=== PATIENT | female | born 1970 | race African-American/Black ===

== ENCOUNTER 2016-08-08 07:19 | Day surgery (SDC) | payer MEDICAID ==
[~2016-08-08 07:19] MED LIST: Lactated Ringers 1,000 ML IV SCH; Midazolam 1 MG/ML 2 ML SDV ONE; Ondansetron 4 MG/2 ML SDV ONE; Propofol 200 MG/20 ML SDV ONE; ceFAZolin 2 GM in Premix Bag 1 BAG IV SCH; fentaNYL 250 MCG/5 ML SDV ONE
[2016-08-08] MEDS ORDERED: Lidocaine 1% 50 ML MDV ONE (07:47)
[2016-08-08] MEDS ORDERED: Acetaminophen/HYDROcodone 325-5 MG Tab PO PRN (08:00)
--- NOTE | 2016-08-08 08:17 | PCM.PREANE ---
Preanesthetic Assessment - Anesthesia/Transfusion/Family Hx Anesthesia History: Prior Anesthesia Without Reaction Family History of Anesthesia Reaction: No Transfusion History: Prior Transfusion Without Reaction - Review of Systems General: No Symptoms Cardiovascular: No Symptoms Gastrointestinal: No symptoms Neurological: No Symptoms Other: Reports: None - Physical Assessment NPO Status Date: 08/07/16 NPO Status Time: 22:00 O2 Sat by Pulse Oximetry: 97 Respiratory Rate: 16 Vital Signs: Last Vital Signs Temp 37.0 C 08/08/16 07:30 Pulse 89 08/08/16 07:30 Resp 16 08/08/16 07:30 BP 136/82 08/08/16 07:30 Pulse Ox 97 08/08/16 07:30 Height: 1.6 m Weight: 107.955 kg ASA Class: 3 Mental Status: Alert & Oriented x3 Airway Class: Mallampati = 2 Dentition: Reports: Missing Tooth/Teeth ROM/Head Extension: Full Lungs: Clear to auscultation, Normal respiratory effort Cardiovascular: Regular Rate, Regular Rhythm - Lab Values: Laboratory Last Values POC Glucose 259 mg/dL (60-110) H 08/08/16 07:46 - Allergies Allergies/Adverse Reactions: Allergies Allergy/AdvReac Type Severity Reaction Status Date / Time No Known Allergies Allergy Verified 08/06/16 12:03 - Anesthesia Plan Pre-Op Medication Ordered: None - Acknowledgements Anesthesia Type Planned: General Anesthesia Pt an Appropriate Candidate for the Planned Anesthesia: Yes Alternatives and Risks of Anesthesia Discussed w Pt/Guardian: Yes Pt/Guardian Understands and Agrees with Anesthesia Plan: Yes Additional Comments: problem list: MO (BMI+40), htn, dm2 on insulin, smoker, fibromyalgia, painful neuropathy BLE, denies heartburn or FERD. 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: Musculoskeletal History: Reports: Arthritis, Back Pain, Chronic, Fibromyalgia Neurological History: Reports: None Psychiatric History: Reports: Depression Endocrine/Metabolic History: Reports: Diabetes, Type II, Obesity/BMI 30+ Hematologic History: Reports: Blood Transfusion(s) Immunologic History: Reports: None Oncologic (Cancer) History: Reports: None Dermatologic History: Reports: None - Past Surgical History Head Surgeries/Procedures: Reports: None HEENT Surgical History: Reports: None Cardiovascular Surgical History: Reports: None GI Surgical History: Reports: Cholecystectomy Female Surgical History: Reports: Section, Hysterectomy Endocrine Surgical History: Reports: None Neurological Surgical History: Reports: None Musculoskeletal Surgical History: Reports: None Oncologic Surgical History: Reports: None Dermatological Surgical History: Reports: None - SUBSTANCE USE Smoking Status *Q: Current Every Day Smoker Tobacco Use Within Last Twelve Months: Cigarettes Recreational Drug Use History: Yes Recreational Drug Type: Reports: Cocaine, Heroin, Marijuana/Hashish, Methamphetamine - HOME MEDS Home Medications: Home Meds Gabapentin [Neurontin] 800 mg PO QID 06/24/14 [History] Lisinopril 20 mg PO QAM 06/24/14 [History] oxyCODONE ER [OxyCONTIN] 10 mg PO ASDIRECTED PRN 11/28/14 [History] Citalopram Hydrobromide [Celexa] 20 mg PO DAILY 08/06/16 [History] Insulin Aspart [NovoLOG] SQ ASDIRECTED 08/06/16 [History] Tresiba SQ ASDIRECTED 08/06/16 [History] - CURRENT (IN HOUSE) MEDS Current Meds: Current Medications Hydrocodone Bitart/Acetaminophen ([place] 325-5 Mg) 1 - 2 tab PO Q4H PRN PRN Reason: Pain Lactated Ringer's (Ringers, Lactated) 1,000 mls @ 100 mls/hr IV ASDIRECTED [facility] Last Admin: 08/08/16 07:54 Dose: 100 mls/hr Cefazolin Sodium/Dextrose 2 gm (/ Premix) 50 mls @ 100 mls/hr IV ONCALL [facility] Discontinued Medications Fentanyl (Sublimaze) Confirm Administered Dose 250 mcg .ROUTE .STK-MED ONE Stop: 08/08/16 07:15 Lidocaine HCl (Xylocaine 1%) Confirm Administered Dose 50 ml .ROUTE .STK-MED ONE Stop: 08/08/16 07:48 Midazolam HCl (Versed 1 Mg/Ml) Confirm Administered Dose 2 mg .ROUTE .STK-MED ONE Stop: 08/08/16 07:15 Ondansetron HCl (Zofran) Confirm Administered Dose 4 mg .ROUTE .STK-MED ONE Stop: 08/08/16 07:15 Propofol (Diprivan 20 Ml) Confirm Administered Dose [address] .[facility] ONE Stop: 08/08/16 07:15
[2016-08-08] MEDS ORDERED: ceFAZolin 1 GM Vial ONE (08:57)
--- NOTE | 2016-08-08 08:57 | PCM.OPNOTE ---
- General Post-Op/Procedure Note Date of Surgery/Procedure: 08/08/16 Operative Procedure(s): L knee arthroscopy with PMM Post-Op Diagnosis: DJD left knee. 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
[2016-08-08] MEDS ORDERED: Ketorolac 30 MG/ML SDV ONE (09:19)
[2016-08-08] MEDS: fentaNYL 100 MCG/2 ML SDV IVPUSH PRN ×2 (10:00→10:06)
--- NOTE | 2016-08-08 10:00 | PCM.POSTAN ---
POST ANESTHESIA ASSESSMENT - MENTAL STATUS Mental Status: alert, oriented - RESPIRATORY Respiratory Status: respiratory rate WNL, airway patent, O2 saturation stable - CARDIOVASCULAR CV Status: pulse rate WNL, blood pressure stable - GASTROINTESTINAL GI Status: no symptoms - POST OP HYDRATION Hydration Status: adequate & stable
--- NOTE | 2016-08-08 10:48 | PCM48HPAN ---
Post Anesthesia Note - EVALUATION WITHIN 48HRS OF ANESTHETIC Vital Signs in Normal Range: Yes Patient Participated in Evaluation: Yes Respiratory Function Stable: Yes Airway Patent: Yes Cardiovascular Function Stable: Yes Hydration Status Stable: Yes Pain Control Satisfactory: Yes Nausea and Vomiting Control Satisfactory: Yes Mental Status Recovered: Yes
[2016-08-08 11:53] VITALS: BP 147/74
--- NOTE | 2016-08-08 12:50 | OR ---
SURGEON: Jenny Sidhu MD DATE OF PROCEDURE: 08/08/2016 PREOPERATIVE DIAGNOSES: 1. Degenerative joint disease left knee. 2. Left knee medial meniscus tear. POSTOPERATIVE DIAGNOSES: 1. Degenerative joint disease left knee. 2. Left knee medial meniscus tear. PROCEDURE: Left knee arthroscopy with partial medial meniscectomy. CARE CONSULTANT: Jaylin Razo PA-C. ANESTHESIA: General. ESTIMATED BLOOD LOSS: 5 mL. TOURNIQUET TIME: 15 minutes. COMPLICATIONS: None. DVT PROPHYLAXIS: Not indicated. IMPLANTS USED: None. BRIEF HISTORY: Cait is a 46-year-old female, who has had complaint of progressive left knee pain. She had failed conservative treatment. Due to her lack of response to conservative treatment, I did recommend surgical intervention. The risks and goals of procedure were discussed with the patient and were documented preoperatively. She agreed to proceed. DESCRIPTION OF PROCEDURE: The patient was properly identified and brought to the operating room. She was transferred from the OR cart and placed on the operating room table in supine position. General anesthesia was administered. After adequate anesthesia was obtained, a well-padded tourniquet was applied to the left lower extremity. The left lower extremity was then prepped in standard fashion using ChloraPrep solution. It was then sterilely draped. A time-out was performed to ensure correct site and procedure. Preoperative antibiotics were given. The surgical site had been marked preoperatively. An Esmarch was used to exsanguinate the left lower extremity and the tourniquet was inflated to 250 mmHg. A lateral portal arthrotomy was established. Blunt trocar and cannula were introduced into the suprapatellar space. Camera, inflow, and outflow were assembled. No significant synovitis was noted. The patellofemoral joint was visualized. The patella appeared to track centrally. I then extended down the lateral gutter. She did have a small osteophyte noted along the lateral femoral condyle. No loose bodies were identified. I then extended down the medial gutter. No loose bodies were identified. I then entered the medial compartment. A medial portal arthrotomy was established. A blunt probe was inserted. She did have a degenerative tear along the posterior horn of the medial meniscus. Using a combination of biters and shaver, this was resected back to a stable remnant. It was again probed and found to be stable. The joint surfaces were then inspected. She had diffuse grade 2 chondromalacia along the femur and tibia. I then entered the notch. Both the ACL and PCL were visualized and probed and found to be intact. I then entered the lateral compartment. The lateral meniscus showed minor degenerative fraying along the central portion of the meniscus. It was probed and found to be stable. The lateral tibial plateau showed diffuse grade 2 to grade 3 degenerative findings. No loose cartilaginous flaps were noted. The lateral femoral condyle showed grade 1 to grade 2 chondromalacia only. I then re-entered the patellofemoral joint. A portion of the fat pad was resected for visualization. Along the central portion of the trochlear groove, there was an area of full thickness cartilage loss. This was probed and the overlying cartilage was found to be unstable. The shaver was used to resect the unstable portion. This measured approximately 5 mm x 15 mm. The undersurface of the patella showed diffuse grade 2 degenerative changes. Instruments were then removed from the knee. The portal sites were closed with 3-0 nylon. Lidocaine 1% was injected along the portal tracts. Xeroform gauze was placed over the wound and a bulky dressing was applied. Tourniquet was then deflated. She was awakened from her anesthetic and transferred back to the operating room cart. She was brought to recovery room in stable condition. All needle and sponge counts were correct. MARYAM / DANNY /[id number]
== END 2016-08-08 11:30 | disposition home or self-care (01) ==
LOC: MW.SDS 07:19
PROVIDERS: ATTEND Orthopaedic Surgery
DX: M23.222 Derangement of posterior horn of medial meniscus due to old tear or injury, left knee (principal); M17.12 Unilateral primary osteoarthritis, left knee; M94.28 Chondromalacia, other site; E11.42 Type 2 diabetes mellitus with diabetic polyneuropathy; I10 Essential (primary) hypertension; M79.7 Fibromyalgia; E66.9 Obesity, unspecified; F32.9 Major depressive disorder, single episode, unspecified; F14.10 Cocaine abuse, uncomplicated; F17.210 Nicotine dependence, cigarettes, uncomplicated; Z90.49 Acquired absence of other specified parts of digestive tract; Z90.710 Acquired absence of both cervix and uterus; Z98.890 Other specified postprocedural states; Z79.4 Long term (current) use of insulin; Z79.891 Long term (current) use of opiate analgesic; Z79.899 Other long term (current) drug therapy
CPT/HCPCS: 29881; 82962; A9270; J0690; J1885; J2250; J2405; J3010; J7120; 00400; 88304; J2704

== ENCOUNTER 2016-09-20 21:50 | Emergency (ER) | payer MEDICAID ==
--- NOTE | 2016-09-20 22:51 | EDM.PDOC ---
<Marc Araujo - Last Filed: 09/20/16 22:41> ED HPI GENERAL MEDICAL PROBLEM - General Chief Complaint: Genitourinary Problem Stated Complaint: POSSIBLE YEAST INFECTION Time Seen by Provider: 09/20/16 22:30 Source of Information: Reports: Patient History Limitations: Reports: No Limitations - History of Present Illness INITIAL COMMENTS - FREE TEXT/NARRATIVE: History of present illness: [46-year-old female comes in complaining of vaginal discharge with discoloration as well as burning and itching. She indicates that she was having sex with a condom when the condom tore and exposed her to her partner semen and subsequently has had this odorous discharge that is very uncomfortable. Desires to be checked for STDs] Review of systems: As per history of present illness and below otherwise all systems reviewed and negative. Past medical history: As per history of present illness and as reviewed below otherwise noncontributory. Surgical history: As per history of present illness and as reviewed below otherwise noncontributory. Social history: No reported history of drug or alcohol abuse. Family history: As per history of present illness and as reviewed below otherwise noncontributory. Physical exam: HEENT: Atraumatic, normocephalic, pupils reactive, negative for conjunctival pallor or scleral icterus, mucous membranes moist, throat clear, neck supple, nontender, trachea midline. Lungs: Clear to auscultation, breath sounds equal bilaterally, chest nontender. Heart: S1S2, regular, negative for clicks, rubs, or JVD. Abdomen: Soft, nondistended, nontender. Negative for masses or hepatosplenomegaly. Negative for costovertebral tenderness. Pelvis: Stable nontender. Genitourinary: Vaginal exam complete with no digna discharge or odor noted multiple swabs and cultures obtained Rectal: Deferred. Extremities: Atraumatic, negative for cords or calf pain. Neurovascular unremarkable. Neuro: Awake, alert, oriented. Cranial nerves II through XII unremarkable. Cerebellum unremarkable. Motor and sensory unremarkable throughout. Exam nonfocal. Diagnostics: [Vaginal exam, multiple swabs] Therapeutics: [] Impression: [] Plan: [] Definitive disposition and diagnosis as appropriate pending reevaluation and review of above. vaginal area Pain Score (Numeric/FACES): 10 - Related Data Allergies Allergy/AdvReac Type Severity Reaction Status Date / Time No Known Allergies Allergy Verified 09/20/16 21:57 Home Meds: Home Meds Gabapentin [Neurontin] 800 mg PO QID 06/24/14 [History] Lisinopril 20 mg PO QAM 06/24/14 [History] oxyCODONE ER [OxyCONTIN] 10 mg PO ASDIRECTED PRN 11/28/14 [History] Citalopram Hydrobromide [Celexa] 20 mg PO DAILY 08/06/16 [History] Insulin Aspart [NovoLOG] SQ ASDIRECTED 08/06/16 [History] Tresiba SQ ASDIRECTED 08/06/16 [History] Acetaminophen/HYDROcodone [[place] 325-5 MG] 1 - 2 tab PO Q4H PRN #80 tablet 08/08 [Rx] Past Medical History HEENT History: Other HEENT History: has upper and lower dentures Cardiovascular History: Reports: Hypertension Respiratory History: Reports: None Gastrointestinal History: Reports: None Genitourinary History: Reports: 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: Musculoskeletal History: Reports: Arthritis, Back Pain, Chronic, Fibromyalgia Neurological History: Reports: None Psychiatric History: Reports: Depression Endocrine/Metabolic History: Reports: Diabetes, Type II, Obesity/BMI 30+ Hematologic History: Reports: Blood Transfusion(s) Immunologic History: Reports: None Oncologic (Cancer) History: Reports: None Dermatologic History: Reports: None - Infectious Disease History Infectious Disease History: Reports: None - Past Surgical History Head Surgeries/Procedures: Reports: None GI Surgical History: Reports: Cholecystectomy Female Surgical History: Reports: Section, Hysterectomy Neurological Surgical History: Reports: None Musculoskeletal Surgical History: Reports: Arthroscopic Knee Oncologic Surgical History: Reports: None Dermatological Surgical History: Reports: None Social & Family History - Family History Family Medical History: Noncontributory - Tobacco Use Smoking Status *Q: Current Every Day Smoker Years of Tobacco use: 30 Packs/Tins Daily: 0.5 - Caffeine Use Caffeine Use: Reports: None - Recreational Drug Use Recreational Drug Use: No Drug Use in Last 12 Months: No Recreational Drug Type: Reports: Cocaine, Heroin, Marijuana/Hashish, Methamphetamine ED ROS GENERAL - Review of Systems Review Of Systems: See Below (See history of present illness) ED EXAM, GENERAL - Physical Exam Exam: See Below (See history of present illness) Course - Vital Signs Last Recorded V/S: Last Vital Signs Temp 36.3 C 09/20/16 21:59 Pulse 102 H 09/20/16 21:59 Resp 16 09/20/16 21:59 BP 158/98 H 09/20/16 21:59 Pulse Ox 98 09/20/16 21:59 - Orders/Labs/Meds Orders: Active Orders 24 hr Category Date Time Status CHLAMYDIA TRACHOMATIS/GC AMPLF Stat Lab 09/20/16 22:30 Received CULTURE GENITAL [RM] Stat Lab 09/20/16 22:30 Received Labs: Laboratory Tests 09/20/16 09/20/16 Range/Units 22:30 22:30 Urine Color YELLOW Urine Appearance CLOUDY Urine pH 5.5 (5.0-8.0) Ur Specific [place] >= 1.030 (1.001-1.035) Urine Protein 100 (NEGATIVE) mg/dL Urine Glucose (UA) 500 H (NEGATIVE) mg/dL Urine Ketones TRACE H (NEGATIVE) mg/dL Urine Occult Blood TRACE-INTACT (NEGATIVE) Urine Nitrite NEGATIVE (NEGATIVE) Urine Bilirubin NEGATIVE (NEGATIVE) Urine Urobilinogen 0.2 (<2.0) EU/dL Ur Leukocyte Esterase NEGATIVE (NEGATIVE) Urine RBC 0-2 (0-2/HPF) Urine WBC 0-1 (0-5/HPF) Ur Epithelial Cells RARE (NONE-FEW) Amorphous Sediment MODERATE (NEGATIVE) Urine Bacteria FEW (NEGATIVE) Emy species DNA POSITIVE H (NEGATIVE) Gardnerella DNA Probe POSITIVE Trichomonas DNA Probe NEGATIVE (NEGATIVE) Departure - Departure Disposition: Home, Self-Care 01 Clinical Impression: Gardnerella infection, Vaginal candidiasis - Discharge Information Forms: ED Department Discharge Additional Instructions: The following information is given to patients seen in the emergency department who are being discharged to home. This information is to outline your options for follow-up care. We provide all patients seen in our emergency department with a follow-up referral. The need for follow-up, as well as the timing and circumstances, are variable depending upon the specifics of your emergency department visit. If you don't have a primary care physician on staff, we will provide you with a referral. We always advise you to contact your personal physician following an emergency department visit to inform them of the circumstance of the visit and for follow-up with them and/or the need for any referrals to a consulting specialist. The emergency department will also refer you to a specialist when appropriate. This referral assures that you have the opportunity for followup care with a specialist. All of these measure are taken in an effort to provide you with optimal care, which includes your followup. Under all circumstances we always encourage you to contact your private physician who remains a resource for coordinating your care. When calling for followup care, please make the office aware that this follow-up is from your recent emergency room visit. If for any reason you are refused follow-up, please contact the [facility] emergency department at and asked to speak to the emergency department charge nurse. [facility] [address] [place] [address] Flagyl Diflucan as prescribed call schedule routine appointment above return as needed as discussed <Alen Song - Last Filed: 09/20/16 23:54> Departure - Departure Time of Disposition: 23:53 Condition: Good
[2016-09-21 00:09] VITALS: BP 142/82
== END 2016-09-21 00:10 | disposition home or self-care (01) ==
LOC: MW.ED 21:50
DX: B37.3 Candidiasis of vulva and vagina (principal); B96.89 Other specified bacterial agents as the cause of diseases classified elsewhere; I10 Essential (primary) hypertension; E11.9 Type 2 diabetes mellitus without complications; E66.9 Obesity, unspecified; F17.210 Nicotine dependence, cigarettes, uncomplicated; Z79.4 Long term (current) use of insulin; Z79.899 Other long term (current) drug therapy; Z90.49 Acquired absence of other specified parts of digestive tract; Z90.710 Acquired absence of both cervix and uterus; Z68.41 Body mass index [BMI] 40.0-44.9, adult
CPT/HCPCS: 81001; 87070; 87480; 87491; 87510; 87591; 87660; 99283

== ENCOUNTER 2016-11-11 20:56 | Emergency (ER) | payer MEDICAID ==
[2016-11-11 21:12] VITALS: BP 139/75
--- NOTE | 2016-11-11 21:20 | EDM.PDOC ---
ED HPI GENERAL MEDICAL PROBLEM - General Chief Complaint: Skin Complaint Stated Complaint: HIVES Time Seen by Provider: 11/11/16 21:03 - History of Present Illness INITIAL COMMENTS - FREE TEXT/NARRATIVE: HISTORY AND PHYSICAL: History of present illness: Patient is 46-year-old black female presents with concern of hives she's unsure what the cause of this is difficult but no tongue or lip swelling no shortness of breath no wheezing no difficulty swallowing or speaking. This is quite pruritic. She has had a similar episode in the past but been a long time. Review of systems: As per history of present illness and below otherwise all systems reviewed and negative. Past medical history: As per history of present illness and as reviewed below otherwise noncontributory. Surgical history: As per history of present illness and as reviewed below otherwise noncontributory. Social history: No reported history of drug or alcohol abuse. Family history: As per history of present illness and as reviewed below otherwise noncontributory. Physical exam: HEENT: Atraumatic, normocephalic, pupils reactive, negative for conjunctival pallor or scleral icterus, mucous membranes moist, throat clear, neck supple, nontender, trachea midline. Lungs: Clear to auscultation, breath sounds equal bilaterally, chest nontender. Heart: S1S2, regular, negative for clicks, rubs, or JVD. Abdomen: Soft, nondistended, nontender. Negative for masses or hepatosplenomegaly. Negative for costovertebral tenderness. Pelvis: Stable nontender. Genitourinary: Deferred. Rectal: Deferred. Extremities: Atraumatic, negative for cords or calf pain. Neurovascular unremarkable. Neuro: Awake, alert, oriented. Cranial nerves II through XII unremarkable. Cerebellum unremarkable. Motor and sensory unremarkable throughout. Exam nonfocal. Skin: Patient is noted to have your urticarial type rash somewhat diffuse. Diagnostics: None Therapeutics: None Impression: #1 urticaria Definitive disposition and diagnosis as appropriate pending reevaluation and review of above. - Related Data Allergies Allergy/AdvReac Type Severity Reaction Status Date / Time No Known Allergies Allergy Verified 11/11/16 21:08 Home Meds: Home Meds Gabapentin [Neurontin] 800 mg PO QID 06/24/14 [History] Lisinopril 20 mg PO QAM 06/24/14 [History] oxyCODONE ER [OxyCONTIN] 10 mg PO ASDIRECTED PRN 11/28/14 [History] Citalopram Hydrobromide [Celexa] 20 mg PO DAILY 08/06/16 [History] Insulin Aspart [NovoLOG] SQ ASDIRECTED 08/06/16 [History] Tresiba SQ ASDIRECTED 08/06/16 [History] Acetaminophen/HYDROcodone [[place] 325-5 MG] 1 - 2 tab PO Q4H PRN #80 tablet 08/08 [Rx] Past Medical History HEENT History: Other HEENT History: has upper and lower dentures Cardiovascular History: Reports: Hypertension Respiratory History: Reports: None Gastrointestinal History: Reports: None Genitourinary History: Reports: None 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: Musculoskeletal History: Reports: Arthritis, Back Pain, Chronic, Fibromyalgia Neurological History: Reports: None Psychiatric History: Reports: Depression Endocrine/Metabolic History: Reports: Diabetes, Type II, Obesity/BMI 30+ Hematologic History: Reports: Blood Transfusion(s) Immunologic History: Reports: None Oncologic (Cancer) History: Reports: None Dermatologic History: Reports: None - Infectious Disease History Infectious Disease History: Reports: None - Past Surgical History Head Surgeries/Procedures: Reports: None GI Surgical History: Reports: Cholecystectomy Female Surgical History: Reports: Section, Hysterectomy Neurological Surgical History: Reports: None Musculoskeletal Surgical History: Reports: Arthroscopic Knee Oncologic Surgical History: Reports: None Dermatological Surgical History: Reports: None Social & Family History - Family History Family Medical History: Noncontributory - Tobacco Use Smoking Status *Q: Current Every Day Smoker Years of Tobacco use: 2 Packs/Tins Daily: 0.5 - Caffeine Use Caffeine Use: Reports: None - Recreational Drug Use Recreational Drug Use: No Drug Use in Last 12 Months: No Recreational Drug Type: Reports: Cocaine, Heroin, Marijuana/Hashish, Methamphetamine ED ROS GENERAL - Review of Systems Review Of Systems: ROS reveals no pertinent complaints other than HPI. ED EXAM, SKIN/RASH Exam: See Below (See dictation) Course - Vital Signs Last Recorded V/S: Last Vital Signs Temp 36.7 C 11/11/16 21:08 Pulse 106 H 11/11/16 21:08 Resp 18 11/11/16 21:08 BP 139/75 11/11/16 21:08 Pulse Ox 96 11/11/16 21:08 Departure - Departure Time of Disposition: 21:19 Disposition: Home, Self-Care 01 Condition: Good Clinical Impression: Urticaria - Discharge Information Referrals: Mack Rico MD [Primary Care Provider] - Additional Instructions: The following information is given to patients seen in the emergency department who are being discharged to home. This information is to outline your options for follow-up care. We provide all patients seen in our emergency department with a follow-up referral. The need for follow-up, as well as the timing and circumstances, are variable depending upon the specifics of your emergency department visit. If you don't have a primary care physician on staff, we will provide you with a referral. We always advise you to contact your personal physician following an emergency department visit to inform them of the circumstance of the visit and for follow-up with them and/or the need for any referrals to a consulting specialist. The emergency department will also refer you to a specialist when appropriate. This referral assures that you have the opportunity for followup care with a specialist. All of these measure are taken in an effort to provide you with optimal care, which includes your followup. Under all circumstances we always encourage you to contact your private physician who remains a resource for coordinating your care. When calling for followup care, please make the office aware that this follow-up is from your recent emergency room visit. If for any reason you are refused follow-up, please contact the [facility] emergency department at and asked to speak to the emergency department charge nurse. [facility] [address] [place] [id number] Protonix Benadryl Medrol as prescribed follow-up primary medical doctor and/or clinic above as discussed return as needed as discussed
== END 2016-11-11 21:30 | disposition home or self-care (01) ==
LOC: MW.ED 20:56
DX: L50.9 Urticaria, unspecified (principal); I10 Essential (primary) hypertension; E11.9 Type 2 diabetes mellitus without complications; F17.210 Nicotine dependence, cigarettes, uncomplicated; E66.9 Obesity, unspecified; Z79.899 Other long term (current) drug therapy; Z90.710 Acquired absence of both cervix and uterus; Z68.41 Body mass index [BMI] 40.0-44.9, adult
CPT/HCPCS: 99283

== ENCOUNTER 2017-11-10 08:41 | Emergency (ER) | payer MEDICAID ==
[2017-11-10] MEDS ORDERED: Albuterol/Ipratropium 3.0-0.5 MG/3 ML Neb Soln NEB ONE (08:44)
[2017-11-10] MEDS ORDERED: predniSONE 20 MG Tab PO ONE (09:05)
--- NOTE | 2017-11-10 09:05 | EDM.PDOC ---
ED HPI GENERAL MEDICAL PROBLEM - General Chief Complaint: Respiratory Problem Stated Complaint: DIFF BREATHING/BRONCITIS Time Seen by Provider: 11/10/17 08:55 - History of Present Illness INITIAL COMMENTS - FREE TEXT/NARRATIVE: HISTORY AND PHYSICAL: History of present illness: The patient is a 47-year-old female who has had episodes of bronchitis in the past and is a one pack a day smoker for many years and presents with a dry hacking cough for the last 3 days. The patient has not had a fever and the cough is not productive nor has she had any shortness of breath chest pain abdominal pain vomiting or diarrhea. She says that she will have spasms of the cough and this is very typical of her bronchitis. She does not have a medication she can use at home. She has no leg pain or swelling no cardiac history and follows at [facility] for her health care. She says it has been all while since she has last had bronchitis but she has that she has done well with inhalers and prednisone. Review of systems: As per history of present illness and below otherwise all systems reviewed and negative. Past medical history: As per history of present illness and as reviewed below otherwise noncontributory. Surgical history: As per history of present illness and as reviewed below otherwise noncontributory. Social history: No reported history of drug or alcohol abuse. Family history: As per history of present illness and as reviewed below otherwise noncontributory. Physical exam: General: Well-developed well-nourished female who is nontoxic and not breathless on my evaluation. Vital signs are noted by me. A dry hacking cough is appreciated by me HEENT: Atraumatic, normocephalic, pupils reactive, negative for conjunctival pallor or scleral icterus, mucous membranes moist, throat clear, neck supple, nontender, trachea midline. There is no cervical adenopathy or nuchal rigidity Lungs: Clear to auscultation there are coarse breath sounds bilaterally on my evaluation while she is doing a nebulizer treatment and there is no stridor or work of breathing, breath sounds equal bilaterally, chest nontender. Heart: S1S2, regular and rhythm no overt murmurs Abdomen: Soft, nondistended, nontender. NABS Pelvis: Deferred Genitourinary: Deferred. Rectal: Deferred. Extremities: Atraumatic, negative for cords or calf pain. Neurovascular unremarkable. No pedal edema Neuro: Awake, alert, oriented. Cranial nerves II through XII unremarkable. Cerebellum unremarkable. Motor and sensory unremarkable throughout. Exam nonfocal. Diagnostics: [] Therapeutics: DuoNeb spacer and spacer teaching Impression: Acute bronchitis Definitive disposition and diagnosis as appropriate pending reevaluation and review of above. Chest Pain Score (Numeric/FACES): 10 - Related Data Allergies Allergy/AdvReac Type Severity Reaction Status Date / Time No Known Allergies Allergy Verified 11/10/17 08:44 Home Meds: Home Meds Gabapentin [Neurontin] 800 mg PO QID 06/24/14 [History] Lisinopril 20 mg PO QAM 06/24/14 [History] oxyCODONE ER [OxyCONTIN] 10 mg PO ASDIRECTED PRN 11/28/14 [History] Citalopram Hydrobromide [Celexa] 20 mg PO DAILY 08/06/16 [History] Insulin Aspart [NovoLOG] SQ ASDIRECTED 08/06/16 [History] Tresiba SQ ASDIRECTED 08/06/16 [History] Acetaminophen/HYDROcodone [[place] 325-5 MG] 1 - 2 tab PO Q4H PRN #80 tablet 08/08 [Rx] Past Medical History HEENT History: Other HEENT History: has upper and lower dentures Cardiovascular History: Reports: Hypertension Respiratory History: Reports: None, Bronchitis, Recurrent Gastrointestinal History: Reports: None Genitourinary History: Reports: None [employer] History: Reports: Musculoskeletal History: Reports: Arthritis, Back Pain, Chronic, Fibromyalgia Neurological History: Reports: None Psychiatric History: Reports: Depression Endocrine/Metabolic History: Reports: Diabetes, Type II, Obesity/BMI 30+ Hematologic History: Reports: Blood Transfusion(s) Immunologic History: Reports: None Oncologic (Cancer) History: Reports: None Dermatologic History: Reports: None - Infectious Disease History Infectious Disease History: Reports: Chicken Pox, Measles - Past Surgical History Head Surgeries/Procedures: Reports: None GI Surgical History: Reports: Cholecystectomy Female Surgical History: Reports: Section, Hysterectomy Neurological Surgical History: Reports: None Musculoskeletal Surgical History: Reports: Arthroscopic Knee Oncologic Surgical History: Reports: None Dermatological Surgical History: Reports: None Social & Family History - Family History Family Medical History: Noncontributory - Tobacco Use Smoking Status *Q: Current Every Day Smoker Years of Tobacco use: 30 Packs/Tins Daily: 1 Used Tobacco, but Quit: No Second Hand Smoke Exposure: No - Caffeine Use Caffeine Use: Reports: Coffee, Energy Drinks, Soda, Tea - Recreational Drug Use Recreational Drug Use: No ED ROS GENERAL - Review of Systems Review Of Systems: ROS reveals no pertinent complaints other than HPI. ED EXAM, GENERAL - Physical Exam Exam: See Below (See dictation) Course - Vital Signs Last Recorded V/S: Last Vital Signs Temp 36.9 C 11/10/17 08:50 Pulse 85 11/10/17 08:50 Resp 21 H 11/10/17 08:50 BP 147/90 H 11/10/17 08:50 Pulse Ox 98 11/10/17 08:50 - Orders/Labs/Meds Orders: Active Orders 24 hr Category Date Time Status Communication Order [RC] STAT Care 11/10/17 09:00 Ordered RT Aerosol Therapy [RC] ASDIRECTED Care 11/10/17 08:44 Active Meds: Medications Discontinued Medications Generic Name Dose Route Start Last Admin Trade Name Rut PRN Reason Stop Dose Admin Albuterol/Ipratropium 3 ml 11/10/17 08:44 11/10/17 08:56 Duoneb 3.0-0.5 Mg/3 Ml NEB 11/10/17 08:45 3 ml ONETIME ONE Administration Departure - Departure Time of Disposition: 09:04 Disposition: Home, Self-Care 01 Condition: Good Clinical Impression: Acute bronchitis Qualifiers: Bronchitis organism: unspecified organism Qualified Code(s): J20.9 - Acute bronchitis, unspecified - Discharge Information Referrals: PCP,None [Primary Care Provider] - Additional Instructions: The following information is given to patients seen in the emergency department who are being discharged to home. This information is to outline your options for follow-up care. We provide all patients seen in our emergency department with a follow-up referral. The need for follow-up, as well as the timing and circumstances, are variable depending upon the specifics of your emergency department visit. If you don't have a primary care physician on staff, we will provide you with a referral. We always advise you to contact your personal physician following an emergency department visit to inform them of the circumstance of the visit and for follow-up with them and/or the need for any referrals to a consulting specialist. The emergency department will also refer you to a specialist when appropriate. This referral assures that you have the opportunity for followup care with a specialist. All of these measure are taken in an effort to provide you with optimal care, which includes your followup. Under all circumstances we always encourage you to contact your private physician who remains a resource for coordinating your care. When calling for followup care, please make the office aware that this follow-up is from your recent emergency room visit. If for any reason you are refused follow-up, please contact the emergency department at and ask to speak to the emergency department charge nurse. [facility] Primary care- Internal Medicine and Family [place] [id number] [place] [id number] [address] Please follow-up with your provider in the clinic or one of ours in the next few days for reevaluation further care. Please push hydration and try to reduce and/or quit smoking. Use all medications as prescribed using spacer for the inhaler. Please return to ER as needed and as discussed - My Orders Last 24 Hours: My Active Orders 11/10/17 08:44 RT Aerosol Therapy [RC] ASDIRECTED 11/10/17 09:00 Communication Order [RC] STAT - Assessment/Plan Last 24 Hours: My Active Orders 11/10/17 08:44 RT Aerosol Therapy [RC] ASDIRECTED 11/10/17 09:00 Communication Order [RC] STAT
[2017-11-10 09:16] VITALS: BP 141/96
== END 2017-11-10 09:17 | disposition home or self-care (01) ==
LOC: MW.ED 08:41
DX: J20.9 Acute bronchitis, unspecified (principal); I10 Essential (primary) hypertension; E11.9 Type 2 diabetes mellitus without complications; F17.210 Nicotine dependence, cigarettes, uncomplicated
CPT/HCPCS: 94640; 99283; A9270; J7620-GY

== ENCOUNTER 2017-11-13 16:22 | Emergency (ER) | payer MEDICAID ==
[2017-11-13] MEDS ORDERED: Albuterol/Ipratropium 3.0-0.5 MG/3 ML Neb Soln NEB ONE (16:59)
--- NOTE | 2017-11-13 17:05 | EDM.PDOC ---
ED HPI GENERAL MEDICAL PROBLEM - General Chief Complaint: Respiratory Problem Stated Complaint: PT HAS DIFFICULTY BREATHING Time Seen by Provider: 11/13/17 16:51 - History of Present Illness INITIAL COMMENTS - FREE TEXT/NARRATIVE: HISTORY AND PHYSICAL: History of present illness: Patient is a 39-year-old female who was seen here 3 days ago by me for 3 days of a spastic bronchitic cough and was evaluated clinically given a DuoNeb as well as albuterol and Medrol Dosepak for home and Phenergan with codeine for cough. The patient represented saying that she has been compliant with medications and she is in fact stopped smoking, as she was smoking a pack a day. The patient says that she had a fever last night of 101 but is currently afebrile and she says that with the coughing it is causing discomfort in her chest and lungs with the cough and she is concerned. She has been trying to hydrate and has no other new complaints such as vomiting abdominal pain head neck or back pain. Review of systems: As per history of present illness and below otherwise all systems reviewed and negative. Past medical history: As per history of present illness and as reviewed below otherwise noncontributory. Surgical history: As per history of present illness and as reviewed below otherwise noncontributory. Social history: No reported history of drug or alcohol abuse. Family history: As per history of present illness and as reviewed below otherwise noncontributory. Physical exam: General: Well-developed well-nourished female who is nontoxic and a dry hacking cough is appreciated on my evaluation. Vital signs are noted by me HEENT: Atraumatic, normocephalic, , negative for conjunctival pallor or scleral icterus, mucous membranes moist, throat clear, neck supple, nontender, trachea midline. No cervical adenopathy or nuchal rigidity Lungs: Clear to auscultation, breath sounds equal bilaterally, chest nontender. There is no wheezing or stridor appreciated Heart: S1S2, regular rate and rhythm no overt murmurs. Abdomen: Soft, nondistended, nontender. NABS Pelvis: Deferred Genitourinary: Deferred. Rectal: Deferred. Extremities: Atraumatic, full range of motion without deficits Neurovascular unremarkable. Neuro: Awake, alert, oriented. Cranial nerves II through XII unremarkable. Cerebellum unremarkable. Motor and sensory unremarkable throughout. Exam nonfocal. Diagnostics: Chest x-ray Therapeutics: [place] I tried to reassure the patient that the cough would improve slowly but that it does take time and sometimes takes the full Medrol pack and even more time afterwards with the inhalers for the bronchitis to clear. I will give her Hycodan and Tessalon Perles to try instead of the Phenergan with codeine as this may be a better combination for day and night. Impression: Acute bronchitis recheck, persistent cough Definitive disposition and diagnosis as appropriate pending reevaluation and review of above. chest with breathing Pain Score (Numeric/FACES): 8 - Related Data Allergies Allergy/AdvReac Type Severity Reaction Status Date / Time No Known Allergies Allergy Verified 11/13/17 16:35 Home Meds: Home Meds Gabapentin [Neurontin] 800 mg PO QID 06/24/14 [History] Lisinopril 20 mg PO QAM 06/24/14 [History] oxyCODONE ER [OxyCONTIN] 10 mg PO ASDIRECTED PRN 11/28/14 [History] Insulin Aspart [NovoLOG] 25 unit SQ TID 08/06/16 [History] Acetaminophen/HYDROcodone [[place] 325-5 MG] 1 - 2 tab PO Q4H PRN #80 tablet 08/08 [Rx] Insulin Glarg,Human.Rec.Analog [Lantus] 45 unit SQ BEDTIME 11/13/17 [History] Past Medical History HEENT History: Other HEENT History: has upper and lower dentures Cardiovascular History: Reports: Hypertension Respiratory History: Reports: None, Bronchitis, Recurrent Gastrointestinal History: Reports: None Genitourinary History: Reports: None [employer] History: Reports: Musculoskeletal History: Reports: Arthritis, Back Pain, Chronic, Fibromyalgia Neurological History: Reports: None Psychiatric History: Reports: Depression Endocrine/Metabolic History: Reports: Diabetes, Type II, Obesity/BMI 30+ Hematologic History: Reports: Blood Transfusion(s) Immunologic History: Reports: None Oncologic (Cancer) History: Reports: None Dermatologic History: Reports: None - Infectious Disease History Infectious Disease History: Reports: Chicken Pox, Measles - Past Surgical History Head Surgeries/Procedures: Reports: None GI Surgical History: Reports: Cholecystectomy Female Surgical History: Reports: Section, Hysterectomy Neurological Surgical History: Reports: None Musculoskeletal Surgical History: Reports: Arthroscopic Knee Oncologic Surgical History: Reports: None Dermatological Surgical History: Reports: None Social & Family History - Family History Family Medical History: Noncontributory - Tobacco Use Smoking Status *Q: Current Every Day Smoker Years of Tobacco use: 30 Packs/Tins Daily: 1 - Caffeine Use Caffeine Use: Reports: Coffee - Recreational Drug Use Recreational Drug Use: No ED ROS GENERAL - Review of Systems Review Of Systems: ROS reveals no pertinent complaints other than HPI. ED EXAM, GENERAL - Physical Exam Exam: See Below (see dictation) Course - Vital Signs Last Recorded V/S: Last Vital Signs Temp 35.9 C 11/13/17 16:33 Pulse 87 11/13/17 16:33 Resp 18 11/13/17 16:33 BP 146/78 H 11/13/17 16:33 Pulse Ox 100 11/13/17 16:33 - Orders/Labs/Meds Orders: Active Orders 24 hr Category Date Time Status RT Aerosol Therapy [RC] ASDIRECTED Care 11/13/17 16:59 Active Chest 2V [CR] Stat Exams 11/13/17 16:59 Taken Meds: Medications Discontinued Medications Generic Name Dose Route Start Last Admin Trade Name Freq PRN Reason Stop Dose Admin Albuterol/Ipratropium 3 ml 11/13/17 16:59 11/13/17 17:33 Duoneb 3.0-0.5 Mg/3 Ml NEB 11/13/17 17:00 3 ml ONETIME ONE Administration Departure - Departure Time of Disposition: 17:52 Disposition: Home, Self-Care 01 Condition: Good Clinical Impression: Acute bronchitis Qualifiers: Bronchitis organism: unspecified organism Qualified Code(s): J20.9 - Acute bronchitis, unspecified - Discharge Information Referrals: PCP,None [Primary Care Provider] - Forms: ED Department Discharge Additional Instructions: The following information is given to patients seen in the emergency department who are being discharged to home. This information is to outline your options for follow-up care. We provide all patients seen in our emergency department with a follow-up referral. The need for follow-up, as well as the timing and circumstances, are variable depending upon the specifics of your emergency department visit. If you don't have a primary care physician on staff, we will provide you with a referral. We always advise you to contact your personal physician following an emergency department visit to inform them of the circumstance of the visit and for follow-up with them and/or the need for any referrals to a consulting specialist. The emergency department will also refer you to a specialist when appropriate. This referral assures that you have the opportunity for followup care with a specialist. All of these measure are taken in an effort to provide you with optimal care, which includes your followup. Under all circumstances we always encourage you to contact your private physician who remains a resource for coordinating your care. When calling for followup care, please make the office aware that this follow-up is from your recent emergency room visit. If for any reason you are refused follow-up, please contact the [facility] emergency department at and ask to speak to the emergency department charge nurse. [facility] Primary care- Internal Medicine and Family [address] [address] Continue to use your inhaler every 6 hours as needed for wheezing and cough and finished her Medrol pack. Try new cough medications you have been given, Hycodan and Ari Love. Please call and schedule a follow-up appointment in our clinic and return to ER as needed as discussed - My Orders Last 24 Hours: My Active Orders 11/13/17 16:59 RT Aerosol Therapy [RC] ASDIRECTED Chest 2V [CR] Stat - Assessment/Plan Last 24 Hours: My Active Orders 11/13/17 16:59 RT Aerosol Therapy [RC] ASDIRECTED Chest 2V [CR] Stat
[2017-11-13 18:05] VITALS: BP 189/97
--- NOTE | 2017-11-14 09:13 | CR ---
EXAM DATE: 11/13/17 PATIENT'S AGE: 47 Patient: SWATI ALEGRIA Facility: [place], [place] Site . Site : 1970 Study: XRay Chest [id number]/29/[id number] 5:30:58 PM Ordering Physician: Dona العراقي Final Report: INDICATION: Shortness of breath, history of bronchitis TECHNIQUE: Chest radiograph 2 views COMPARISON: None FINDINGS: Moderate degradation of image quality noted due to body habitus. Mediastinum: The mediastinum is normal in appearance. The heart silhouette is normal in size and morphology. Lung: Both lungs are unremarkable in appearance. No sign of pleural effusion seen. No pneumothorax is identified. Musculoskeletal: Unremarkable for age. IMPRESSION: 1. No acute cardiopulmonary disease is seen. Dictated by: Josias Bell MD @ 11/13/2017 17:39:35 (Electronic Signature) Report Signed by Proxy. [facility]
== END 2017-11-13 18:05 | disposition home or self-care (01) ==
LOC: MW.ED 16:22
DX: J20.9 Acute bronchitis, unspecified (principal); E11.9 Type 2 diabetes mellitus without complications; F17.210 Nicotine dependence, cigarettes, uncomplicated; I10 Essential (primary) hypertension; Z79.4 Long term (current) use of insulin; Z79.899 Other long term (current) drug therapy
CPT/HCPCS: 71046; 71046-26; 94640; 99283-25; J7620-GY

== ENCOUNTER 2018-06-07 12:00 | Inpatient (IN) | payer MEDICAID ==
[2018-06-07] MEDS ORDERED: Sodium Chloride 0.9% 1,000 ML IV ONE (12:05)
[2018-06-07] MEDS ORDERED: Sodium Chloride 0.9% 10 ML Syringe FLUSH PRN (12:05)
[2018-06-07] MEDS ORDERED: Sodium Chloride 0.9% 2.5 ML Syringe FLUSH PRN (12:05)
--- NOTE | 2018-06-07 12:06 | EDM.PDOC ---
ED HPI GENERAL MEDICAL PROBLEM - General Chief Complaint: Gastrointestinal Problem Stated Complaint: NAUSEA & VOMITING Time Seen by Provider: 06/07/18 12:02 - History of Present Illness INITIAL COMMENTS - FREE TEXT/NARRATIVE: HISTORY AND PHYSICAL: History of present illness: Patient's a 48-year-old black female presents with a concern of discomfort and pressure with urination she's had history of prior urinary tract infections she had associated nausea fever chills states she's had some lower back pain. Patient has history of diabetes. Review of systems: As per history of present illness and below otherwise all systems reviewed and negative. Past medical history: As per history of present illness and as reviewed below otherwise noncontributory. Surgical history: As per history of present illness and as reviewed below otherwise noncontributory. Social history: No reported history of drug or alcohol abuse. Family history: As per history of present illness and as reviewed below otherwise noncontributory. Physical exam: HEENT: Atraumatic, normocephalic, pupils reactive, negative for conjunctival pallor or scleral icterus, mucous membranes moist, throat clear, neck supple, nontender, trachea midline. Lungs: Clear to auscultation, breath sounds equal bilaterally, chest nontender. Heart: S1S2, regular, negative for clicks, rubs, or JVD. Abdomen: Soft, nondistended, suprapubic discomfort to deep palpation Negative for masses or hepatosplenomegaly. Negative for costovertebral tenderness. Pelvis: Stable nontender. Genitourinary: Deferred. Rectal: Deferred. Extremities: Atraumatic, negative for cords or calf pain. Neurovascular unremarkable. Neuro: Awake, alert, oriented. Cranial nerves II through XII unremarkable. Cerebellum unremarkable. Motor and sensory unremarkable throughout. Exam nonfocal. Diagnostics: CBC CMP blood cultures 2 lactic acid UA chest x-ray influenza screen Therapeutics: Saline 1 L bolus Impression: #1 UTI #2 history diabetes Definitive disposition and diagnosis as appropriate pending reevaluation and review of above. - Related Data Allergies Allergy/AdvReac Type Severity Reaction Status Date / Time No Known Allergies Allergy Verified 06/07/18 12:12 Home Meds: Home Meds Gabapentin [Neurontin] 800 mg PO TID 06/24/14 [History] Lisinopril 20 mg PO QAM 06/24/14 [History] oxyCODONE ER [OxyCONTIN] 10 mg PO ASDIRECTED PRN 11/28/14 [History] Insulin Aspart [NovoLOG] 25 unit SQ TID 08/06/16 [History] Insulin Glarg,Human.Rec.Analog [Lantus] 45 unit SQ BEDTIME 11/13/17 [History] Hydrocodone/Acetaminophen [Sycamore 5-325 Tablet] 1 each PO Q8H PRN #15 tablet [Rx] Ibuprofen [Motrin] 800 mg PO TID PRN 30 Days #90 tablet 03/16/18 [Rx] traMADol HCl [Tramadol HCl] 50 mg PO TID PRN #15 tablet 03/16/18 [Rx] Past Medical History HEENT History: Other HEENT History: has upper and lower dentures Cardiovascular History: Reports: Hypertension Respiratory History: Reports: Bronchitis, Recurrent Gastrointestinal History: Reports: None Genitourinary History: Reports: None [employer] History: Reports: Musculoskeletal History: Reports: Arthritis, Back Pain, Chronic, Fibromyalgia Neurological History: Reports: None Psychiatric History: Reports: Depression Endocrine/Metabolic History: Reports: Diabetes, Type II, Obesity/BMI 30+ Hematologic History: Reports: Blood Transfusion(s) Immunologic History: Reports: None Oncologic (Cancer) History: Reports: None Dermatologic History: Reports: None - Infectious Disease History Infectious Disease History: Reports: Chicken Pox - Past Surgical History Head Surgeries/Procedures: Reports: None GI Surgical History: Reports: Cholecystectomy Female Surgical History: Reports: Section, Hysterectomy Neurological Surgical History: Reports: None Musculoskeletal Surgical History: Reports: Arthroscopic Knee Oncologic Surgical History: Reports: None Dermatological Surgical History: Reports: None Social & Family History - Family History Family Medical History: Noncontributory - Caffeine Use Caffeine Use: Reports: Coffee, Tea ED ROS GENERAL - Review of Systems Review Of Systems: ROS reveals no pertinent complaints other than HPI. ED EXAM, GENERAL - Physical Exam Exam: See Below (See dictation) Course - Vital Signs Last Recorded V/S: Last Vital Signs Temp 37.3 C 06/07/18 12:07 Pulse 104 H 06/07/18 12:07 Resp 18 06/07/18 12:07 BP 129/71 06/07/18 12:07 Pulse Ox 98 06/07/18 12:07 - Orders/Labs/Meds Orders: Active Orders 24 hr Category Date Time Status Chest 2V [CR] Stat Exams 06/07/18 12:05 Ordered CULTURE BLOOD [BC] Stat Lab 06/07/18 12:21 Received CULTURE BLOOD [BC] Stat Lab 06/07/18 12:33 Received Sodium Chloride 0.9% [Saline Flush] Med 06/07/18 12:05 Active 10 ml FLUSH ASDIRECTED PRN Sodium Chloride 0.9% [Saline Flush] Med 06/07/18 12:05 Active 2.5 ml FLUSH ASDIRECTED PRN Blood Culture x2 Reflex Set [OM.PC] Stat Oth 06/07/18 12:05 Ordered Saline Lock Insert [OM.PC] Stat Oth 06/07/18 12:05 Ordered Medication Orders Sodium Chloride (Saline Flush) 10 ml FLUSH ASDIRECTED PRN PRN Reason: Keep Vein Open Sodium Chloride (Saline Flush) 2.5 ml FLUSH ASDIRECTED PRN PRN Reason: Keep Vein Open Labs: Laboratory Tests 06/07/18 06/07/18 06/07/18 Range/Units 12:21 12:21 12:21 WBC 16.17 H (4.0-11.0) K/uL RBC 4.50 (4.30-5.90) M/uL Hgb 12.9 (12.0-16.0) g/dL Hct 36.8 (36.0-46.0) % MCV 81.8 (80.0-98.0) fL MCH 28.7 (27.0-32.0) pg MCHC 35.1 (31.0-37.0) g/dL RDW Std Deviation 42.0 (28.0-62.0) fl RDW Coeff of Joaquin 14 (11.0-15.0) % Plt Count 352 (150-400) K/uL MPV 10.40 (7.40-12.00) fL Neut % (Auto) 79.9 (48.0-80.0) % Lymph % (Auto) 10.0 L (16.0-40.0) % Harmon % (Auto) 8.8 (0.0-15.0) % Eos % (Auto) 1.2 (0.0-7.0) % Baso % (Auto) 0.1 (0.0-1.5) % Neut # (Auto) 12.9 H (1.4-5.7) K/uL Lymph # (Auto) 1.6 (0.6-2.4) K/uL Harmon # (Auto) 1.4 H (0.0-0.8) K/uL Eos # (Auto) 0.2 (0.0-0.7) K/uL Baso # (Auto) 0.0 (0.0-0.1) K/uL Nucleated RBC % 0.0 /100WBC Nucleated RBCs # 0 K/uL Lactate 1.3 (0.20-2.00) mmol/L Sodium 138 (136-145) mmol/L Potassium 4.1 (3.5-5.1) mmol/L Chloride 102 (98-107) mmol/L Carbon Dioxide 23.7 (21.0-32.0) mmol/L BUN 22 H (7.0-18.0) mg/dL Creatinine 0.9 (0.6-1.0) mg/dL Est Cr Clr Drug Dosing 81.77 mL/min Estimated GFR (MDRD) > 60.0 ml/min Glucose 322 H (74-106) mg/dL Calcium 9.6 (8.5-10.1) mg/dL Total Bilirubin 0.6 (0.2-1.0) mg/dL AST 16 (15-37) IU/L ALT 33 (14-63) IU/L Alkaline Phosphatase 137 H (46-116) U/L Total Protein 8.1 (6.4-8.2) g/dL Albumin 3.5 (3.4-5.0) g/dL Globulin 4.6 H (2.6-4.0) g/dL Albumin/Globulin Ratio 0.8 L (0.9-1.6) Urine Color Urine Appearance Urine pH (5.0-8.0) Ur Specific [place] (1.001-1.035) Urine Protein (NEGATIVE) mg/dL Urine Glucose (UA) (NEGATIVE) mg/dL Urine Ketones (NEGATIVE) mg/dL Urine Occult Blood (NEGATIVE) Urine Nitrite (NEGATIVE) Urine Bilirubin (NEGATIVE) Urine Urobilinogen (<2.0) EU/dL Ur Leukocyte Esterase (NEGATIVE) Urine RBC (0-2/HPF) Urine WBC (0-5/HPF) Ur Epithelial Cells (NONE-FEW) Urine Bacteria (NEGATIVE) Urine Mucus (NONE-MOD) 06/07/18 Range/Units 12:40 WBC (4.0-11.0) K/uL RBC (4.30-5.90) M/uL Hgb (12.0-16.0) g/dL Hct (36.0-46.0) % MCV (80.0-98.0) fL MCH (27.0-32.0) pg MCHC (31.0-37.0) g/dL RDW Std Deviation (28.0-62.0) fl RDW Coeff of Joaquin (11.0-15.0) % Plt Count (150-400) K/uL MPV (7.40-12.00) fL Neut % (Auto) (48.0-80.0) % Lymph % (Auto) (16.0-40.0) % Harmon % (Auto) (0.0-15.0) % Eos % (Auto) (0.0-7.0) % Baso % (Auto) (0.0-1.5) % Neut # (Auto) (1.4-5.7) K/uL Lymph # (Auto) (0.6-2.4) K/uL Harmon # (Auto) (0.0-0.8) K/uL Eos # (Auto) (0.0-0.7) K/uL Baso # (Auto) (0.0-0.1) K/uL Nucleated RBC % /100WBC Nucleated RBCs # K/uL Lactate (0.20-2.00) mmol/L Sodium (136-145) mmol/L Potassium (3.5-5.1) mmol/L Chloride (98-107) mmol/L Carbon Dioxide (21.0-32.0) mmol/L BUN (7.0-18.0) mg/dL Creatinine (0.6-1.0) mg/dL Est Cr Clr Drug Dosing mL/min Estimated GFR (MDRD) ml/min Glucose (74-106) mg/dL Calcium (8.5-10.1) mg/dL Total Bilirubin (0.2-1.0) mg/dL AST (15-37) IU/L ALT (14-63) IU/L Alkaline Phosphatase (46-116) U/L Total Protein (6.4-8.2) g/dL Albumin (3.4-5.0) g/dL Globulin (2.6-4.0) g/dL Albumin/Globulin Ratio (0.9-1.6) Urine Color YELLOW Urine Appearance CLOUDY Urine pH 6.0 (5.0-8.0) Ur Specific [place] 1.025 (1.001-1.035) Urine Protein 100 H (NEGATIVE) mg/dL Urine Glucose (UA) 250 H (NEGATIVE) mg/dL Urine Ketones TRACE H (NEGATIVE) mg/dL Urine Occult Blood LARGE H (NEGATIVE) Urine Nitrite POSITIVE H (NEGATIVE) Urine Bilirubin NEGATIVE (NEGATIVE) Urine Urobilinogen 0.2 (<2.0) EU/dL Ur Leukocyte Esterase LARGE H (NEGATIVE) Urine RBC 5-10 (0-2/HPF) Urine WBC >100 (0-5/HPF) Ur Epithelial Cells FEW (NONE-FEW) Urine Bacteria 2+ H (NEGATIVE) Urine Mucus LIGHT (NONE-MOD) Meds: Medications Generic Name Dose Route Start Last Admin Trade Name Freq PRN Reason Stop Dose Admin Sodium Chloride 10 ml 06/07/18 12:05 Saline Flush FLUSH ASDIRECTED PRN Keep Vein Open Sodium Chloride 2.5 ml 06/07/18 12:05 Saline Flush FLUSH ASDIRECTED PRN Keep Vein Open Discontinued Medications Generic Name Dose Route Start Last Admin Trade Name Freq PRN Reason Stop Dose Admin Acetaminophen 1,000 mg 06/07/18 12:52 Tylenol Extra Strength PO 06/07/18 12:53 ONETIME ONE Sodium Chloride 1,000 mls @ 999 mls/hr 06/07/18 12:05 06/07/18 12:26 Normal Saline IV 06/07/18 13:05 999 mls/hr .Bolus ONE Administration Departure - Departure Time of Disposition: 13:21 Disposition: Admitted As Inpatient 65 Condition: Good Clinical Impression: Abdominal pain, UTI, Urinary tract infectious disease, Diabetes - Discharge Information Forms: ED Department Discharge - My Orders Last 24 Hours: My Active Orders 06/07/18 12:05 Chest 2V [CR] Stat Sodium Chloride 0.9% [Saline Flush] 10 ml FLUSH ASDIRECTED PRN Sodium Chloride 0.9% [Saline Flush] 2.5 ml FLUSH ASDIRECTED PRN Blood Culture x2 Reflex Set [OM.PC] Stat Saline Lock Insert [OM.PC] Stat 06/07/18 12:21 CULTURE BLOOD [BC] Stat 06/07/18 12:33 CULTURE BLOOD [BC] Stat - Assessment/Plan Last 24 Hours: My Active Orders 06/07/18 12:05 Chest 2V [CR] Stat Sodium Chloride 0.9% [Saline Flush] 10 ml FLUSH ASDIRECTED PRN Sodium Chloride 0.9% [Saline Flush] 2.5 ml FLUSH ASDIRECTED PRN Blood Culture x2 Reflex Set [OM.PC] Stat Saline Lock Insert [OM.PC] Stat 06/07/18 12:21 CULTURE BLOOD [BC] Stat 06/07/18 12:33 CULTURE BLOOD [BC] Stat
[2018-06-07] MEDS ORDERED: Acetaminophen 500 MG Tab PO ONE (12:52)
[2018-06-07 12:59] LABS: CHLORIDE,CL 102 mmol/L (98-107); SODIUM,NA 138 mmol/L (136-145)
[2018-06-07] MEDS ORDERED: cefTRIAXone 1 GM in Premix Bag 1 BAG IV ONE (13:22)
--- NOTE | 2018-06-07 13:46 | CR ---
HISTORY: Chest pain. FINDINGS: Two views of the chest are provided. The lung volumes appear slightly diminished. There is slight streaky density in the left midlung which could represent scarring or atelectasis. Lungs are otherwise grossly clear. No evidence for pleural effusion or pneumothorax. Cardiac silhouette size is prominently enlarged. IMPRESSION: Prominent cardiac silhouette enlargement. This could represent cardiomegaly, pericardial effusion or a combination of both. Dictated by Lobo Haque MD @ Jun 07 2018 1:44PM Signed by Dr. Lobo Haque @ Jun 07 2018 1:45PM
--- NOTE | 2018-06-07 14:15 | PCM.HP ---
<Teressa Salazar - Last Filed: 06/07/18 16:05> H&P History of Present Illness - General Date of Service: 06/07/18 Admit Problem/Dx: Admission Diagnosis/Problem Admission Diagnosis/Problem UTI, Urinary tract infectious disease - History of Present Illness Initial Comments - Free Text/Narative: The patient is a 48 year old female with pmh of DMII, UTIs, and fibromyalgia who presented to the ER with pain/pressure with urination and low back pain. She has associated fever, chills, and nausea. The back pain is more right sided. She denies chest pain, shortness of breath, or abdominal pain. She recently arrived back in [place] from a 11 hour plane trip from [facility]. While in [facility] she was hospitalized for diabetic foot infection. She suffered a cut on her right big toe while getting a pedicure that became infected. It is now healed. She was admitted back in February 2018 for pericardial effusion. At that time her CXR showed cardiomegaly. In Mar 2018, she underwent an echo which showed an EF of 60-65%, trivial pericardial effusion , and regurg of mitral and tricuspid valves. In the ER, workup found a elevated WBC of 16, Cr of 0.9, elevated glucose of 322 , lactate wnl, negative influenza, and UA positive for blood, nitrites, leuk est , and WBCs. CXR showed prominent cardiac silhouette concerning for cardiomegaly versus pericardial effusion or combination of both. Blood cultures pending. In the ER, she received IVF and dose of IV Rocephin. PCP- Dr. Rico Pelvic Pain Score (Numeric/FACES): 8 - Related Data Allergies/Adverse Reactions: Allergies Allergy/AdvReac Type Severity Reaction Status Date / Time No Known Allergies Allergy Verified 06/07/18 12:12 Home Medications: Home Meds Gabapentin [Neurontin] 800 mg PO TID 06/24/14 [History] Lisinopril 20 mg PO QAM 06/24/14 [History] oxyCODONE ER [OxyCONTIN] 10 mg PO ASDIRECTED PRN 11/28/14 [History] Insulin Aspart [NovoLOG] 25 unit SQ TID 08/06/16 [History] Insulin Glarg,Human.Rec.Analog [Lantus] 45 unit SQ BEDTIME 11/13/17 [History] Hydrocodone/Acetaminophen [[place] 5-325 Tablet] 1 each PO Q8H PRN #15 tablet [Rx] Ibuprofen [Motrin] 800 mg PO TID PRN 30 Days #90 tablet 03/16/18 [Rx] traMADol HCl [Tramadol HCl] 50 mg PO TID PRN #15 tablet 03/16/18 [Rx] Past Medical History HEENT History: Reports: None Other HEENT History: has upper and lower dentures Cardiovascular History: Reports: Hypertension Other Cardiovascular History: pericardial effusion Respiratory History: Reports: Bronchitis, Recurrent Gastrointestinal History: Reports: None Genitourinary History: Reports: UTI, Recurrent [employer] History: Reports: Musculoskeletal History: Reports: Arthritis, Back Pain, Chronic, Fibromyalgia Neurological History: Reports: None Psychiatric History: Reports: Depression Endocrine/Metabolic History: Reports: Diabetes, Type II, Obesity/BMI 30+ Hematologic History: Reports: Blood Transfusion(s) Immunologic History: Reports: None Oncologic (Cancer) History: Reports: None Dermatologic History: Reports: None - Infectious Disease History Infectious Disease History: Reports: Chicken Pox - Past Surgical History Head Surgeries/Procedures: Reports: None GI Surgical History: Reports: Cholecystectomy Female Surgical History: Reports: Section, Hysterectomy Neurological Surgical History: Reports: None Musculoskeletal Surgical History: Reports: Arthroscopic Knee Oncologic Surgical History: Reports: None Dermatological Surgical History: Reports: None Social & Family History - Family History Family Medical History: Noncontributory - Tobacco Use Smoking Status *Q: Former Smoker - Caffeine Use Caffeine Use: Reports: Coffee, Tea - Recreational Drug Use Recreational Drug Use: No H&P Review of Systems - Review of Systems: Review Of Systems: See Below General: Reports: Fever, Chills HEENT: Reports: No Symptoms Pulmonary: Reports: No Symptoms Cardiovascular: Reports: No Symptoms Gastrointestinal: Reports: Nausea. Denies: Abdominal Pain, Diarrhea Genitourinary: Reports: Dysuria, Pain Musculoskeletal: Reports: Back Pain Skin: Reports: No Symptoms Psychiatric: Reports: No Symptoms Neurological: Reports: No Symptoms Hematologic/Lymphatic: Reports: No Symptoms Immunologic: Reports: No Symptoms Exam - Exam Exam: See Below - Vital Signs Vital Signs: Last Vital Signs Temp 99.2 F 06/07/18 12:07 Pulse 104 H 06/07/18 12:07 Resp 18 06/07/18 12:07 BP 129/71 06/07/18 12:07 Pulse Ox 98 06/07/18 12:07 Weight: 108.862 kg - Exam General: Alert, Oriented, Cooperative HEENT: Conjunctiva Clear, EOMI, Mucosa Moist & [place], Posterior Pharynx Clear, Pupils Equal, Pupils Reactive Neck: Supple, Trachea Midline Lungs: Clear to Auscultation, Normal Respiratory Effort Cardiovascular: Regular Rate, Regular Rhythm GI/Abdominal Exam: Normal Bowel Sounds, Soft, Non-Tender, No Distention Extremities: Pedal Edema (trace) Skin: Warm, Dry, Intact Neuro Extensive - Mental Status: Alert, Oriented x3 Psychiatric: Alert, Normal Affect, Normal Mood - Patient Data Lab Results Last 24 hrs: Laboratory Results - last 24 hr 06/07/18 06/07/18 06/07/18 Range/Units 12:21 12:21 12:21 WBC 16.17 H (4.0-11.0) K/uL RBC 4.50 (4.30-5.90) M/uL Hgb 12.9 (12.0-16.0) g/dL Hct 36.8 (36.0-46.0) % MCV 81.8 (80.0-98.0) fL MCH 28.7 (27.0-32.0) pg MCHC 35.1 (31.0-37.0) g/dL RDW Std Deviation 42.0 (28.0-62.0) fl RDW Coeff of Joaquin 14 (11.0-15.0) % Plt Count 352 (150-400) K/uL MPV 10.40 (7.40-12.00) fL Neut % (Auto) 79.9 (48.0-80.0) % Lymph % (Auto) 10.0 L (16.0-40.0) % Bullock % (Auto) 8.8 (0.0-15.0) % Eos % (Auto) 1.2 (0.0-7.0) % Baso % (Auto) 0.1 (0.0-1.5) % Neut # (Auto) 12.9 H (1.4-5.7) K/uL Lymph # (Auto) 1.6 (0.6-2.4) K/uL Bullock # (Auto) 1.4 H (0.0-0.8) K/uL Eos # (Auto) 0.2 (0.0-0.7) K/uL Baso # (Auto) 0.0 (0.0-0.1) K/uL Nucleated RBC % 0.0 /100WBC Nucleated RBCs # 0 K/uL Lactate 1.3 (0.20-2.00) mmol/L Sodium 138 (136-145) mmol/L Potassium 4.1 (3.5-5.1) mmol/L Chloride 102 (98-107) mmol/L Carbon Dioxide 23.7 (21.0-32.0) mmol/L BUN 22 H (7.0-18.0) mg/dL Creatinine 0.9 (0.6-1.0) mg/dL Est Cr Clr Drug Dosing 81.77 mL/min Estimated GFR (MDRD) > 60.0 ml/min Glucose 322 H (74-106) mg/dL Calcium 9.6 (8.5-10.1) mg/dL Total Bilirubin 0.6 (0.2-1.0) mg/dL AST 16 (15-37) IU/L ALT 33 (14-63) IU/L Alkaline Phosphatase 137 H (46-116) U/L Total Protein 8.1 (6.4-8.2) g/dL Albumin 3.5 (3.4-5.0) g/dL Globulin 4.6 H (2.6-4.0) g/dL Albumin/Globulin Ratio 0.8 L (0.9-1.6) Urine Color Urine Appearance Urine pH (5.0-8.0) Ur Specific Webster (1.001-1.035) Urine Protein (NEGATIVE) mg/dL Urine Glucose (UA) (NEGATIVE) mg/dL Urine Ketones (NEGATIVE) mg/dL Urine Occult Blood (NEGATIVE) Urine Nitrite (NEGATIVE) Urine Bilirubin (NEGATIVE) Urine Urobilinogen (<2.0) EU/dL Ur Leukocyte Esterase (NEGATIVE) Urine RBC (0-2/HPF) Urine WBC (0-5/HPF) Ur Epithelial Cells (NONE-FEW) Urine Bacteria (NEGATIVE) Urine Mucus (NONE-MOD) 06/07/18 Range/Units 12:40 WBC (4.0-11.0) K/uL RBC (4.30-5.90) M/uL Hgb (12.0-16.0) g/dL Hct (36.0-46.0) % MCV (80.0-98.0) fL MCH (27.0-32.0) pg MCHC (31.0-37.0) g/dL RDW Std Deviation (28.0-62.0) fl RDW Coeff of Joaquin (11.0-15.0) % Plt Count (150-400) K/uL MPV (7.40-12.00) fL Neut % (Auto) (48.0-80.0) % Lymph % (Auto) (16.0-40.0) % Bullock % (Auto) (0.0-15.0) % Eos % (Auto) (0.0-7.0) % Baso % (Auto) (0.0-1.5) % Neut # (Auto) (1.4-5.7) K/uL Lymph # (Auto) (0.6-2.4) K/uL Bullock # (Auto) (0.0-0.8) K/uL Eos # (Auto) (0.0-0.7) K/uL Baso # (Auto) (0.0-0.1) K/uL Nucleated RBC % /100WBC Nucleated RBCs # K/uL Lactate (0.20-2.00) mmol/L Sodium (136-145) mmol/L Potassium (3.5-5.1) mmol/L Chloride (98-107) mmol/L Carbon Dioxide (21.0-32.0) mmol/L BUN (7.0-18.0) mg/dL Creatinine (0.6-1.0) mg/dL Est Cr Clr Drug Dosing mL/min Estimated GFR (MDRD) ml/min Glucose (74-106) mg/dL Calcium (8.5-10.1) mg/dL Total Bilirubin (0.2-1.0) mg/dL AST (15-37) IU/L ALT (14-63) IU/L Alkaline Phosphatase (46-116) U/L Total Protein (6.4-8.2) g/dL Albumin (3.4-5.0) g/dL Globulin (2.6-4.0) g/dL Albumin/Globulin Ratio (0.9-1.6) Urine Color YELLOW Urine Appearance CLOUDY Urine pH 6.0 (5.0-8.0) Ur Specific Webster 1.025 (1.001-1.035) Urine Protein 100 H (NEGATIVE) mg/dL Urine Glucose (UA) 250 H (NEGATIVE) mg/dL Urine Ketones TRACE H (NEGATIVE) mg/dL Urine Occult Blood LARGE H (NEGATIVE) Urine Nitrite POSITIVE H (NEGATIVE) Urine Bilirubin NEGATIVE (NEGATIVE) Urine Urobilinogen 0.2 (<2.0) EU/dL Ur Leukocyte Esterase LARGE H (NEGATIVE) Urine RBC 5-10 (0-2/HPF) Urine WBC >100 (0-5/HPF) Ur Epithelial Cells FEW (NONE-FEW) Urine Bacteria 2+ H (NEGATIVE) Urine Mucus LIGHT (NONE-MOD) Result Diagrams: 06/07/18 12:21 06/07/18 12:21 Sachin Results Last 24 hrs: Microbiology 06/07/18 12:20 Influenza Type A Antigen Screen - Final Nasopharyngeal Swab NEGATIVE INFLUENZA A VIRUS AG Influenza Type B Antigen Screen - Final NEGATIVE INFLUENZA B VIRUS AG - Problem List (1) Cardiomegaly SNOMED Code(s): 9651390 ICD Code: I51.7 - CARDIOMEGALY Status: Chronic Current Visit: Yes (2) HTN (hypertension) SNOMED Code(s): 09051018 ICD Code: I10 - ESSENTIAL (PRIMARY) HYPERTENSION Status: Chronic Current Visit: No (3) Fibromyalgia SNOMED Code(s): 506518653 ICD Code: M79.7 - FIBROMYALGIA Status: Chronic Current Visit: No (4) Arthritis SNOMED Code(s): 4256277 ICD Code: M19.90 - UNSPECIFIED OSTEOARTHRITIS, UNSPECIFIED SITE Status: Chronic Current Visit: No (5) Neuropathy SNOMED Code(s): 409268718 ICD Code: G62.9 - POLYNEUROPATHY, UNSPECIFIED Status: Chronic Current Visit: No (6) UTI, Urinary tract infectious disease SNOMED Code(s): 96929845 ICD Code: N39.0 - URINARY TRACT INFECTION, SITE NOT SPECIFIED Status: Acute Current Visit: Yes (7) Diabetes type 2, uncontrolled SNOMED Code(s): 914095113, 259913315 ICD Code: E11.65 - TYPE 2 DIABETES MELLITUS WITH HYPERGLYCEMIA Status: Acute Current Visit: Yes Qualifiers: Glycemic state: with hyperglycemia Qualified Code(s): E11.65 - Type 2 diabetes mellitus with hyperglycemia (8) Pericardial effusion SNOMED Code(s): 816677793 ICD Code: I31.3 - PERICARDIAL EFFUSION (NONINFLAMMATORY) Status: Acute Priority: High Current Visit: Yes Problem List Initiated/Reviewed/Updated: Yes Orders Last 24hrs: Active Orders 24 hr Category Date Time Status Patient Status [ADT] Stat ADT 06/07/18 13:24 Active CULTURE BLOOD [BC] Stat Lab 06/07/18 12:21 Received CULTURE BLOOD [BC] Stat Lab 06/07/18 12:33 Received Sodium Chloride 0.9% [Saline Flush] Med 06/07/18 12:05 Active 10 ml FLUSH ASDIRECTED PRN Sodium Chloride 0.9% [Saline Flush] Med 06/07/18 12:05 Active 2.5 ml FLUSH ASDIRECTED PRN Blood Culture x2 Reflex Set [OM.PC] Stat Oth 06/07/18 12:05 Ordered Saline Lock Insert [OM.PC] Stat Oth 06/07/18 12:05 Ordered Medication Orders Sodium Chloride (Saline Flush) 10 ml FLUSH ASDIRECTED PRN PRN Reason: Keep Vein Open Sodium Chloride (Saline Flush) 2.5 ml FLUSH ASDIRECTED PRN PRN Reason: Keep Vein Open Assessment/Plan Comment:: 1. Admit for observation 2. Code status-full 3. Vitals per routine 4. I/Os strict 5. DVT prophylaxis with Lovenox 6. Diet- Diabetic 7. UTI- urine and blood cultures pending. Will start Rocephin IV q24 8. Cardiomegaly with possible pericardial effusion- hold IVF, patient denies chest pain or shortness of breath, echo unavailable over weekend, follow up as an outpatient with cardiology. 9. DMII- continue home insulin regiment- 40 units Lantus at bed and short acting 25 units TIDWM. HA1c obtained and is 7.3%, down from 9.2% in February. 10. Chronic conditions- HTN, fibromyalgia, arthritis, and neuropathy- continue home meds <Hardik Solis - Last Filed: 06/07/18 16:59> H&P History of Present Illness - General Admit Problem/Dx: Admission Diagnosis/Problem Admission Diagnosis/Problem UTI, Urinary tract infectious disease - History of Present Illness Initial Comments - Free Text/Narative: I have seen and examined the patient independently of medical assistant supervisor, Teressa Salazar MD. I have discussed the case with her. I have reviewed and agree with the assessment and plan of care for the patient as outlined by her. Please see orders. Exam - Vital Signs Vital Signs: Last Vital Signs Temp 35.8 C 06/07/18 16:50 Pulse 86 06/07/18 16:50 Resp 22 H 06/07/18 16:50 BP 141/68 H 06/07/18 16:50 Pulse Ox 97 06/07/18 16:50 - Patient Data Lab Results Last 24 hrs: Laboratory Results - last 24 hr 06/07/18 06/07/18 06/07/18 Range/Units 12:21 12:21 12:21 WBC 16.17 H (4.0-11.0) K/uL RBC 4.50 (4.30-5.90) M/uL Hgb 12.9 (12.0-16.0) g/dL Hct 36.8 (36.0-46.0) % MCV 81.8 (80.0-98.0) fL MCH 28.7 (27.0-32.0) pg MCHC 35.1 (31.0-37.0) g/dL RDW Std Deviation 42.0 (28.0-62.0) fl RDW Coeff of Joaquin 14 (11.0-15.0) % Plt Count 352 (150-400) K/uL MPV 10.40 (7.40-12.00) fL Neut % (Auto) 79.9 (48.0-80.0) % Lymph % (Auto) 10.0 L (16.0-40.0) % Bullock % (Auto) 8.8 (0.0-15.0) % Eos % (Auto) 1.2 (0.0-7.0) % Baso % (Auto) 0.1 (0.0-1.5) % Neut # (Auto) 12.9 H (1.4-5.7) K/uL Lymph # (Auto) 1.6 (0.6-2.4) K/uL Bullock # (Auto) 1.4 H (0.0-0.8) K/uL Eos # (Auto) 0.2 (0.0-0.7) K/uL Baso # (Auto) 0.0 (0.0-0.1) K/uL Nucleated RBC % 0.0 /100WBC Nucleated RBCs # 0 K/uL Lactate 1.3 (0.20-2.00) mmol/L Sodium 138 (136-145) mmol/L Potassium 4.1 (3.5-5.1) mmol/L Chloride 102 (98-107) mmol/L Carbon Dioxide 23.7 (21.0-32.0) mmol/L BUN 22 H (7.0-18.0) mg/dL Creatinine 0.9 (0.6-1.0) mg/dL Est Cr Clr Drug Dosing 81.77 mL/min Estimated GFR (MDRD) > 60.0 ml/min Glucose 322 H (74-106) mg/dL POC Glucose (60-110) mg/dL Hemoglobin A1c (4.5-6.2) % Calcium 9.6 (8.5-10.1) mg/dL Total Bilirubin 0.6 (0.2-1.0) mg/dL AST 16 (15-37) IU/L ALT 33 (14-63) IU/L Alkaline Phosphatase 137 H (46-116) U/L Total Protein 8.1 (6.4-8.2) g/dL Albumin 3.5 (3.4-5.0) g/dL Globulin 4.6 H (2.6-4.0) g/dL Albumin/Globulin Ratio 0.8 L (0.9-1.6) Urine Color Urine Appearance Urine pH (5.0-8.0) Ur Specific [place] (1.001-1.035) Urine Protein (NEGATIVE) mg/dL Urine Glucose (UA) (NEGATIVE) mg/dL Urine Ketones (NEGATIVE) mg/dL Urine Occult Blood (NEGATIVE) Urine Nitrite (NEGATIVE) Urine Bilirubin (NEGATIVE) Urine Urobilinogen (<2.0) EU/dL Ur Leukocyte Esterase (NEGATIVE) Urine RBC (0-2/HPF) Urine WBC (0-5/HPF) Ur Epithelial Cells (NONE-FEW) Urine Bacteria (NEGATIVE) Urine Mucus (NONE-MOD) 06/07/18 06/07/18 06/07/18 Range/Units 12:21 12:40 14:26 WBC (4.0-11.0) K/uL RBC (4.30-5.90) M/uL Hgb (12.0-16.0) g/dL Hct (36.0-46.0) % MCV (80.0-98.0) fL MCH (27.0-32.0) pg MCHC (31.0-37.0) g/dL RDW Std Deviation (28.0-62.0) fl RDW Coeff of Joaquin (11.0-15.0) % Plt Count (150-400) K/uL MPV (7.40-12.00) fL Neut % (Auto) (48.0-80.0) % Lymph % (Auto) (16.0-40.0) % Bullock % (Auto) (0.0-15.0) % Eos % (Auto) (0.0-7.0) % Baso % (Auto) (0.0-1.5) % Neut # (Auto) (1.4-5.7) K/uL Lymph # (Auto) (0.6-2.4) K/uL Bullock # (Auto) (0.0-0.8) K/uL Eos # (Auto) (0.0-0.7) K/uL Baso # (Auto) (0.0-0.1) K/uL Nucleated RBC % /100WBC Nucleated RBCs # K/uL Lactate (0.20-2.00) mmol/L Sodium (136-145) mmol/L Potassium (3.5-5.1) mmol/L Chloride (98-107) mmol/L Carbon Dioxide (21.0-32.0) mmol/L BUN (7.0-18.0) mg/dL Creatinine (0.6-1.0) mg/dL Est Cr Clr Drug Dosing mL/min Estimated GFR (MDRD) ml/min Glucose (74-106) mg/dL POC Glucose 281 H (60-110) mg/dL Hemoglobin A1c 7.3 H (4.5-6.2) % Calcium (8.5-10.1) mg/dL Total Bilirubin (0.2-1.0) mg/dL AST (15-37) IU/L ALT (14-63) IU/L Alkaline Phosphatase (46-116) U/L Total Protein (6.4-8.2) g/dL Albumin (3.4-5.0) g/dL Globulin (2.6-4.0) g/dL Albumin/Globulin Ratio (0.9-1.6) Urine Color YELLOW Urine Appearance CLOUDY Urine pH 6.0 (5.0-8.0) Ur Specific [place] 1.025 (1.001-1.035) Urine Protein 100 H (NEGATIVE) mg/dL Urine Glucose (UA) 250 H (NEGATIVE) mg/dL Urine Ketones TRACE H (NEGATIVE) mg/dL Urine Occult Blood LARGE H (NEGATIVE) Urine Nitrite POSITIVE H (NEGATIVE) Urine Bilirubin NEGATIVE (NEGATIVE) Urine Urobilinogen 0.2 (<2.0) EU/dL Ur Leukocyte Esterase LARGE H (NEGATIVE) Urine RBC 5-10 (0-2/HPF) Urine WBC >100 (0-5/HPF) Ur Epithelial Cells FEW (NONE-FEW) Urine Bacteria 2+ H (NEGATIVE) Urine Mucus LIGHT (NONE-MOD) 06/07/18 Range/Units 16:36 WBC (4.0-11.0) K/uL RBC (4.30-5.90) M/uL Hgb (12.0-16.0) g/dL Hct (36.0-46.0) % MCV (80.0-98.0) fL MCH (27.0-32.0) pg MCHC (31.0-37.0) g/dL RDW Std Deviation (28.0-62.0) fl RDW Coeff of Joaquin (11.0-15.0) % Plt Count (150-400) K/uL MPV (7.40-12.00) fL Neut % (Auto) (48.0-80.0) % Lymph % (Auto) (16.0-40.0) % Bullock % (Auto) (0.0-15.0) % Eos % (Auto) (0.0-7.0) % Baso % (Auto) (0.0-1.5) % Neut # (Auto) (1.4-5.7) K/uL Lymph # (Auto) (0.6-2.4) K/uL Bullock # (Auto) (0.0-0.8) K/uL Eos # (Auto) (0.0-0.7) K/uL Baso # (Auto) (0.0-0.1) K/uL Nucleated RBC % /100WBC Nucleated RBCs # K/uL Lactate (0.20-2.00) mmol/L Sodium (136-145) mmol/L Potassium (3.5-5.1) mmol/L Chloride (98-107) mmol/L Carbon Dioxide (21.0-32.0) mmol/L BUN (7.0-18.0) mg/dL Creatinine (0.6-1.0) mg/dL Est Cr Clr Drug Dosing mL/min Estimated GFR (MDRD) ml/min Glucose (74-106) mg/dL POC Glucose 156 H (60-110) mg/dL Hemoglobin A1c (4.5-6.2) % Calcium (8.5-10.1) mg/dL Total Bilirubin (0.2-1.0) mg/dL AST (15-37) IU/L ALT (14-63) IU/L Alkaline Phosphatase (46-116) U/L Total Protein (6.4-8.2) g/dL Albumin (3.4-5.0) g/dL Globulin (2.6-4.0) g/dL Albumin/Globulin Ratio (0.9-1.6) Urine Color Urine Appearance Urine pH (5.0-8.0) Ur Specific Webster (1.001-1.035) Urine Protein (NEGATIVE) mg/dL Urine Glucose (UA) (NEGATIVE) mg/dL Urine Ketones (NEGATIVE) mg/dL Urine Occult Blood (NEGATIVE) Urine Nitrite (NEGATIVE) Urine Bilirubin (NEGATIVE) Urine Urobilinogen (<2.0) EU/dL Ur Leukocyte Esterase (NEGATIVE) Urine RBC (0-2/HPF) Urine WBC (0-5/HPF) Ur Epithelial Cells (NONE-FEW) Urine Bacteria (NEGATIVE) Urine Mucus (NONE-MOD) Result Diagrams: 06/07/18 12:21 06/07/18 12:21 Sachin Results Last 24 hrs: Microbiology 06/07/18 12:20 Influenza Type A Antigen Screen - Final Nasopharyngeal Swab NEGATIVE INFLUENZA A VIRUS AG Influenza Type B Antigen Screen - Final NEGATIVE INFLUENZA B VIRUS AG Orders Last 24hrs: Active Orders 24 hr Category Date Time Status Patient Status [ADT] Stat ADT 06/07/18 13:24 Active Accu Check [Blood Glucose Check, Bedside] [RC] Care 06/07/18 14:44 Active WITHMEALSANDBED Intake and Output Strict [RC] ASDIRECTED Care 06/07/18 14:25 Active Vital Signs [RC] PER UNIT ROUTINE Care 06/07/18 14:25 Active [employer] Diet [DIET] Diet 06/07/18 Dinner Active BASIC METABOLIC PANEL,BMP [CHEM] AM Lab 06/08/18 05:11 Ordered BASIC METABOLIC PANEL,BMP [CHEM] AM Lab 06/09/18 05:11 Ordered BASIC METABOLIC PANEL,BMP [CHEM] AM Lab 06/10/18 05:11 Ordered BASIC METABOLIC PANEL,BMP [CHEM] AM Lab 06/11/18 05:11 Ordered CBC WITH AUTO DIFF [HEME] AM Lab 06/08/18 05:11 Ordered CBC WITH AUTO DIFF [HEME] AM Lab 06/09/18 05:11 Ordered CBC WITH AUTO DIFF [HEME] AM Lab 06/10/18 05:11 Ordered CBC WITH AUTO DIFF [HEME] AM Lab 06/11/18 05:11 Ordered CULTURE BLOOD [BC] Stat Lab 06/07/18 12:21 Received CULTURE BLOOD [BC] Stat Lab 06/07/18 12:33 Received CULTURE URINE [RM] Routine Lab 06/07/18 12:40 Received Acetaminophen [Tylenol] Med 06/07/18 14:26 Active 650 mg PO Q4H PRN Enoxaparin [Lovenox] Med 06/07/18 14:30 Active 40 mg SUBCUT Q24H Gabapentin [Neurontin] Med 06/07/18 15:00 Active 800 mg PO TID Insulin Aspart [NovoLOG] Med 06/07/18 15:00 Active 25 unit SUBCUT TIDMEALS Insulin Glarg,Human.Rec.Analog [LantUS Solostar] Med 06/07/18 21:00 Active 40 units SUBCUT BEDTIME Lisinopril [Prinivil] Med 06/08/18 09:00 Active 20 mg PO QAM Ondansetron [Zofran] Med 06/07/18 14:26 Active 4 mg IVPUSH Q4H PRN Sodium Chloride 0.9% [Saline Flush] Med 06/07/18 12:05 Active 10 ml FLUSH ASDIRECTED PRN Sodium Chloride 0.9% [Saline Flush] Med 06/07/18 12:05 Active 2.5 ml FLUSH ASDIRECTED PRN cefTRIAXone [Rocephin in Dextrose,Iso-Osm 1 GM/50 ML] 1 Med 06/07/18 14:30 Active gm Premix Bag 1 bag IV Q24H oxyCODONE ER [OxyCONTIN] Med 06/07/18 14:42 Active 10 mg PO Q12HR PRN Blood Culture x2 Reflex Set [OM.PC] Stat Ot 06/07/18 12:05 Ordered Saline Lock Insert [OM.PC] Stat Ot 06/07/18 12:05 Ordered Resuscitation Status Routine Resus Stat 06/07/18 14:25 Ordered Medication Orders Acetaminophen (Tylenol) 650 mg PO Q4H PRN PRN Reason: Pain/Fever Enoxaparin Sodium (Lovenox) 40 mg SUBCUT Q24H [facility] Last Admin: 06/07/18 14:45 Dose: 40 mg Gabapentin (Neurontin) 800 mg PO TID [facility] Last Admin: 06/07/18 15:36 Dose: 800 mg Ceftriaxone Sodium/Dextrose 1 (gm/ Premix) 50 mls @ 100 mls/hr IV Q24H [facility] Last Admin: 06/07/18 14:37 Dose: Insulin Aspart (Novolog) 25 unit SUBCUT TIDMEALS [facility] Last Admin: 06/07/18 14:57 Dose: 25 units Insulin Glargine (Lantus Solostar) 40 units SUBCUT BEDTIME [facility] Lisinopril (Prinivil) 20 mg PO QAM [facility] Ondansetron HCl (Zofran) 4 mg IVPUSH Q4H PRN PRN Reason: Nausea/Vomiting Last Admin: 06/07/18 14:45 Dose: 4 mg Oxycodone HCl (Oxycontin) 10 mg PO Q12HR PRN PRN Reason: Pain Last Admin: 06/07/18 16:06 Dose: 10 mg Sodium Chloride (Saline Flush) 10 ml FLUSH ASDIRECTED PRN PRN Reason: Keep Vein Open Sodium Chloride (Saline Flush) 2.5 ml FLUSH ASDIRECTED PRN PRN Reason: Keep Vein Open
[2018-06-07] MEDS ORDERED: Ondansetron 4 MG/2 ML SDV IVPUSH PRN (14:26)
[2018-06-07] MEDS: cefTRIAXone 1 GM in Premix Bag 1 BAG IV SCH (14:37)
[2018-06-07] MEDS: Enoxaparin 40 MG/0.4 ML Syringe SUBCUT SCH (14:45)
[2018-06-07 14:52] LABS: HEMOGLOBIN A1C 7.3 % (4.5-6.2)
[2018-06-07] MEDS: Insulin Aspart 100 Units/ML 3 ML Pen SUBCUT SCH ×2 (14:57→17:52)
[2018-06-07] MEDS: Gabapentin 800 MG Tab PO SCH ×2 (15:36→21:08)
[2018-06-07] MEDS: oxyCODONE ER 10 MG TAB.ER PO PRN (16:06)
[2018-06-07] MEDS: Phenazopyridine 200 MG Tab PO SCH (21:08)
[2018-06-07] MEDS: Insulin Glargine,Human Rec. Analog 100 Units/ML 3 ML Pen SUBCUT SCH (21:08)
[2018-06-08] MEDS: Acetaminophen 325 MG Tab PO PRN ×2 (00:20→04:38)
[2018-06-08] MEDS: oxyCODONE ER 10 MG TAB.ER PO PRN (04:39)
[2018-06-08] MEDS: Gabapentin 800 MG Tab PO SCH ×3 (06:38→21:39)
[2018-06-08] MEDS: Phenazopyridine 200 MG Tab PO SCH ×3 (06:38→21:39)
[2018-06-08 06:40] LABS: CHLORIDE,CL 104 mmol/L (98-107); SODIUM,NA 138 mmol/L (136-145)
[2018-06-08] MEDS: Insulin Aspart 100 Units/ML 3 ML Pen SUBCUT SCH ×3 (09:14→17:23)
[2018-06-08] MEDS: Lisinopril 10 MG Tab PO SCH (09:15)
--- NOTE | 2018-06-08 10:43 | PCM.PN ---
- General Info Date of Service: 06/08/18 Admission Dx/Problem (Free Text): Admission Diagnosis/Problem Admission Diagnosis/Problem UTI, Urinary tract infectious disease Subjective Update: The patient is a 48-year-old lady who had been admitted yesterday secondary to diabetes mellitus type 2 and complicated urinary tract infection. She also has significant pain in her back and pressure when urinating. This still continues. She has denied any fever. She is been tolerating her diet. She has had chills associated. Functional Status: Reports: Pain Controlled - Review of Systems General: Reports: No Symptoms HEENT: Reports: No Symptoms Pulmonary: Reports: No Symptoms Cardiovascular: Reports: No Symptoms Gastrointestinal: Reports: Abdominal Pain Genitourinary: Reports: No Symptoms Musculoskeletal: Reports: No Symptoms Skin: Reports: No Symptoms Neurological: Reports: No Symptoms Psychiatric: Reports: No Symptoms - Patient Data Vitals - Most Recent: Last Vital Signs Temp 38.2 C H 06/08/18 04:54 Pulse 100 06/08/18 04:54 Resp 19 06/08/18 04:54 BP 120/84 06/08/18 09:15 Pulse Ox 98 06/08/18 04:54 Weight - Most Recent: 108.862 kg I&O - Last 24 Hours: Intake & Output 06/07/18 06/08/18 06/08/18 22:59 06:59 14:59 Intake Total 1300 1720 Output Total 150 1300 Balance 1150 420 Lab Results Last 24 Hours: Laboratory Results - last 24 hr 06/07/18 06/07/18 06/07/18 Range/Units 12:21 12:21 12:21 WBC 16.17 H (4.0-11.0) K/uL RBC 4.50 (4.30-5.90) M/uL Hgb 12.9 (12.0-16.0) g/dL Hct 36.8 (36.0-46.0) % MCV 81.8 (80.0-98.0) fL MCH 28.7 (27.0-32.0) pg MCHC 35.1 (31.0-37.0) g/dL RDW Std Deviation 42.0 (28.0-62.0) fl RDW Coeff of Joaquin 14 (11.0-15.0) % Plt Count 352 (150-400) K/uL MPV 10.40 (7.40-12.00) fL Neut % (Auto) 79.9 (48.0-80.0) % Lymph % (Auto) 10.0 L (16.0-40.0) % Cloud % (Auto) 8.8 (0.0-15.0) % Eos % (Auto) 1.2 (0.0-7.0) % Baso % (Auto) 0.1 (0.0-1.5) % Neut # (Auto) 12.9 H (1.4-5.7) K/uL Lymph # (Auto) 1.6 (0.6-2.4) K/uL Cloud # (Auto) 1.4 H (0.0-0.8) K/uL Eos # (Auto) 0.2 (0.0-0.7) K/uL Baso # (Auto) 0.0 (0.0-0.1) K/uL Nucleated RBC % 0.0 /100WBC Nucleated RBCs # 0 K/uL Lactate 1.3 (0.20-2.00) mmol/L Sodium 138 (136-145) mmol/L Potassium 4.1 (3.5-5.1) mmol/L Chloride 102 (98-107) mmol/L Carbon Dioxide 23.7 (21.0-32.0) mmol/L BUN 22 H (7.0-18.0) mg/dL Creatinine 0.9 (0.6-1.0) mg/dL Est Cr Clr Drug Dosing 81.77 mL/min Estimated GFR (MDRD) > 60.0 ml/min Glucose 322 H (74-106) mg/dL POC Glucose (60-110) mg/dL Hemoglobin A1c (4.5-6.2) % Calcium 9.6 (8.5-10.1) mg/dL Total Bilirubin 0.6 (0.2-1.0) mg/dL AST 16 (15-37) IU/L ALT 33 (14-63) IU/L Alkaline Phosphatase 137 H (46-116) U/L Total Protein 8.1 (6.4-8.2) g/dL Albumin 3.5 (3.4-5.0) g/dL Globulin 4.6 H (2.6-4.0) g/dL Albumin/Globulin Ratio 0.8 L (0.9-1.6) Urine Color Urine Appearance Urine pH (5.0-8.0) Ur Specific [place] (1.001-1.035) Urine Protein (NEGATIVE) mg/dL Urine Glucose (UA) (NEGATIVE) mg/dL Urine Ketones (NEGATIVE) mg/dL Urine Occult Blood (NEGATIVE) Urine Nitrite (NEGATIVE) Urine Bilirubin (NEGATIVE) Urine Urobilinogen (<2.0) EU/dL Ur Leukocyte Esterase (NEGATIVE) Urine RBC (0-2/HPF) Urine WBC (0-5/HPF) Ur Epithelial Cells (NONE-FEW) Urine Bacteria (NEGATIVE) Urine Mucus (NONE-MOD) 06/07/18 06/07/18 06/07/18 Range/Units 12:21 12:40 14:26 WBC (4.0-11.0) K/uL RBC (4.30-5.90) M/uL Hgb (12.0-16.0) g/dL Hct (36.0-46.0) % MCV (80.0-98.0) fL MCH (27.0-32.0) pg MCHC (31.0-37.0) g/dL RDW Std Deviation (28.0-62.0) fl RDW Coeff of Jo[place]quin (11.0-15.0) % Plt Count (150-400) K/uL MPV (7.40-12.00) fL Neut % (Auto) (48.0-80.0) % Lymph % (Auto) (16.0-40.0) % Cloud % (Auto) (0.0-15.0) % Eos % (Auto) (0.0-7.0) % Baso % (Auto) (0.0-1.5) % Neut # (Auto) (1.4-5.7) K/uL Lymph # (Auto) (0.6-2.4) K/uL Cloud # (Auto) (0.0-0.8) K/uL Eos # (Auto) (0.0-0.7) K/uL Baso # (Auto) (0.0-0.1) K/uL Nucleated RBC % /100WBC Nucleated RBCs # K/uL Lactate (0.20-2.00) mmol/L Sodium (136-145) mmol/L Potassium (3.5-5.1) mmol/L Chloride (98-107) mmol/L Carbon Dioxide (21.0-32.0) mmol/L BUN (7.0-18.0) mg/dL Creatinine (0.6-1.0) mg/dL Est Cr Clr Drug Dosing mL/min Estimated GFR (MDRD) ml/min Glucose (74-106) mg/dL POC Glucose 281 H (60-110) mg/dL Hemoglobin A1c 7.3 H (4.5-6.2) % Calcium (8.5-10.1) mg/dL Total Bilirubin (0.2-1.0) mg/dL AST (15-37) IU/L ALT (14-63) IU/L Alkaline Phosphatase (46-116) U/L Total Protein (6.4-8.2) g/dL Albumin (3.4-5.0) g/dL Globulin (2.6-4.0) g/dL Albumin/Globulin Ratio (0.9-1.6) Urine Color YELLOW Urine Appearance CLOUDY Urine pH 6.0 (5.0-8.0) Ur Specific [place] 1.025 (1.001-1.035) Urine Protein 100 H (NEGATIVE) mg/dL Urine Glucose (UA) 250 H (NEGATIVE) mg/dL Urine Ketones TRACE H (NEGATIVE) mg/dL Urine Occult Blood LARGE H (NEGATIVE) Urine Nitrite POSITIVE H (NEGATIVE) Urine Bilirubin NEGATIVE (NEGATIVE) Urine Urobilinogen 0.2 (<2.0) EU/dL Ur Leukocyte Esterase LARGE H (NEGATIVE) Urine RBC 5-10 (0-2/HPF) Urine WBC >100 (0-5/HPF) Ur Epithelial Cells FEW (NONE-FEW) Urine Bacteria 2+ H (NEGATIVE) Urine Mucus LIGHT (NONE-MOD) 06/07/18 06/07/18 06/08/18 Range/Units 16:36 20:50 05:50 WBC 20.19 H (4.0-11.0) K/uL RBC 4.09 L (4.30-5.90) M/uL Hgb 11.6 L (12.0-16.0) g/dL Hct 33.2 L (36.0-46.0) % MCV 81.2 (80.0-98.0) fL MCH 28.4 (27.0-32.0) pg MCHC 34.9 (31.0-37.0) g/dL RDW Std Deviation 42.1 (28.0-62.0) fl RDW Coeff of Joaquin 14 (11.0-15.0) % Plt Count 326 (150-400) K/uL MPV 10.60 (7.40-12.00) fL Neut % (Auto) 71.7 (48.0-80.0) % Lymph % (Auto) 14.5 L (16.0-40.0) % Cloud % (Auto) 12.9 (0.0-15.0) % Eos % (Auto) 0.8 (0.0-7.0) % Baso % (Auto) 0.1 (0.0-1.5) % Neut # (Auto) 14.5 H (1.4-5.7) K/uL Lymph # (Auto) 2.9 H (0.6-2.4) K/uL Cloud # (Auto) 2.6 H (0.0-0.8) K/uL Eos # (Auto) 0.2 (0.0-0.7) K/uL Baso # (Auto) 0.0 (0.0-0.1) K/uL Nucleated RBC % 0.0 /100WBC Nucleated RBCs # 0 K/uL Lactate (0.20-2.00) mmol/L Sodium (136-145) mmol/L Potassium (3.5-5.1) mmol/L Chloride (98-107) mmol/L Carbon Dioxide (21.0-32.0) mmol/L BUN (7.0-18.0) mg/dL Creatinine (0.6-1.0) mg/dL Est Cr Clr Drug Dosing mL/min Estimated GFR (MDRD) ml/min Glucose (74-106) mg/dL POC Glucose 156 H 119 H (60-110) mg/dL Hemoglobin A1c (4.5-6.2) % Calcium (8.5-10.1) mg/dL Total Bilirubin (0.2-1.0) mg/dL AST (15-37) IU/L ALT (14-63) IU/L Alkaline Phosphatase (46-116) U/L Total Protein (6.4-8.2) g/dL Albumin (3.4-5.0) g/dL Globulin (2.6-4.0) g/dL Albumin/Globulin Ratio (0.9-1.6) Urine Color Urine Appearance Urine pH (5.0-8.0) Ur Specific [place] (1.001-1.035) Urine Protein (NEGATIVE) mg/dL Urine Glucose (UA) (NEGATIVE) mg/dL Urine Ketones (NEGATIVE) mg/dL Urine Occult Blood (NEGATIVE) Urine Nitrite (NEGATIVE) Urine Bilirubin (NEGATIVE) Urine Urobilinogen (<2.0) EU/dL Ur Leukocyte Esterase (NEGATIVE) Urine RBC (0-2/HPF) Urine WBC (0-5/HPF) Ur Epithelial Cells (NONE-FEW) Urine Bacteria (NEGATIVE) Urine Mucus (NONE-MOD) 06/08/18 06/08/18 Range/Units 05:50 06:41 WBC (4.0-11.0) K/uL RBC (4.30-5.90) M/uL Hgb (12.0-16.0) g/dL Hct (36.0-46.0) % MCV (80.0-98.0) fL MCH (27.0-32.0) pg MCHC (31.0-37.0) g/dL RDW Std Deviation (28.0-62.0) fl RDW Coeff of Joaquin (11.0-15.0) % Plt Count (150-400) K/uL MPV (7.40-12.00) fL Neut % (Auto) (48.0-80.0) % Lymph % (Auto) (16.0-40.0) % Cloud % (Auto) (0.0-15.0) % Eos % (Auto) (0.0-7.0) % Baso % (Auto) (0.0-1.5) % Neut # (Auto) (1.4-5.7) K/uL Lymph # (Auto) (0.6-2.4) K/uL Cloud # (Auto) (0.0-0.8) K/uL Eos # (Auto) (0.0-0.7) K/uL Baso # (Auto) (0.0-0.1) K/uL Nucleated RBC % /100WBC Nucleated RBCs # K/uL Lactate (0.20-2.00) mmol/L Sodium 138 (136-145) mmol/L Potassium 3.8 (3.5-5.1) mmol/L Chloride 104 (98-107) mmol/L Carbon Dioxide 25.7 (21.0-32.0) mmol/L BUN 18 (7.0-18.0) mg/dL Creatinine 0.8 (0.6-1.0) mg/dL Est Cr Clr Drug Dosing 70.37 mL/min Estimated GFR (MDRD) > 60.0 ml/min Glucose 186 H (74-106) mg/dL POC Glucose 172 H (60-110) mg/dL Hemoglobin A1c (4.5-6.2) % Calcium 8.7 (8.5-10.1) mg/dL Total Bilirubin (0.2-1.0) mg/dL AST (15-37) IU/L ALT (14-63) IU/L Alkaline Phosphatase (46-116) U/L Total Protein (6.4-8.2) g/dL Albumin (3.4-5.0) g/dL Globulin (2.6-4.0) g/dL Albumin/Globulin Ratio (0.9-1.6) Urine Color Urine Appearance Urine pH (5.0-8.0) Ur Specific [place] (1.001-1.035) Urine Protein (NEGATIVE) mg/dL Urine Glucose (UA) (NEGATIVE) mg/dL Urine Ketones (NEGATIVE) mg/dL Urine Occult Blood (NEGATIVE) Urine Nitrite (NEGATIVE) Urine Bilirubin (NEGATIVE) Urine Urobilinogen (<2.0) EU/dL Ur Leukocyte Esterase (NEGATIVE) Urine RBC (0-2/HPF) Urine WBC (0-5/HPF) Ur Epithelial Cells (NONE-FEW) Urine Bacteria (NEGATIVE) Urine Mucus (NONE-MOD) Sachin Results Last 24 Hours: Microbiology 06/07/18 12:20 Influenza Type A Antigen Screen - Final Nasopharyngeal Swab NEGATIVE INFLUENZA A VIRUS AG Influenza Type B Antigen Screen - Final NEGATIVE INFLUENZA B VIRUS AG Med Orders - Current: Current Medications Acetaminophen (Tylenol) 650 mg PO Q4H PRN PRN Reason: Pain/Fever Last Admin: 06/08/18 04:38 Dose: 650 mg Enoxaparin Sodium (Lovenox) 40 mg SUBCUT Q24H [facility] Last Admin: 06/07/18 14:45 Dose: 40 mg Gabapentin (Neurontin) 800 mg PO TID [facility] Last Admin: 06/08/18 06:38 Dose: 800 mg Ceftriaxone Sodium/Dextrose 1 (gm/ Premix) 50 mls @ 100 mls/hr IV Q24H [facility] Last Admin: 06/07/18 14:37 Dose: Not Given Ibuprofen (Motrin) 800 mg PO Q8H PRN PRN Reason: Pain Insulin Aspart (Novolog) 25 unit SUBCUT TIDMEALS [facility] Last Admin: 06/08/18 09:14 Dose: 25 units Insulin Glargine (Lantus Solostar) 40 units SUBCUT BEDTIME [facility] Last Admin: 06/07/18 21:08 Dose: 40 unit Lisinopril (Prinivil) 20 mg PO QAM [facility] Last Admin: 06/08/18 09:15 Dose: 20 mg Ondansetron HCl (Zofran) 4 mg IVPUSH Q4H PRN PRN Reason: Nausea/Vomiting Last Admin: 06/07/18 14:45 Dose: 4 mg Oxycodone HCl (Oxycontin) 10 mg PO Q12HR PRN PRN Reason: Pain Last Admin: 06/08/18 04:39 Dose: 10 mg Phenazopyridine HCl (Pyridium) 200 mg PO TID [facility] Last Admin: 06/08/18 06:38 Dose: 200 mg Sodium Chloride (Saline Flush) 10 ml FLUSH ASDIRECTED PRN PRN Reason: Keep Vein Open Sodium Chloride (Saline Flush) 2.5 ml FLUSH ASDIRECTED PRN PRN Reason: Keep Vein Open Discontinued Medications Acetaminophen (Tylenol Extra Strength) 1,000 mg PO ONETIME ONE Stop: 06/07/18 12:53 Last Admin: 06/07/18 13:37 Dose: 1,000 mg Sodium Chloride (Normal Saline) 1,000 mls @ 999 mls/hr IV .Bolus ONE Stop: 06/07/18 13:05 Last Admin: 06/07/18 12:26 Dose: 999 mls/hr Ceftriaxone Sodium/Dextrose 1 (gm/ Premix) 50 mls @ 100 mls/hr IV ONETIME ONE Stop: 06/07/18 13:51 Last Admin: 03/23/19 13:37 Dose: 100 mls/hr - Exam Quality Assessment: No: Supplemental Oxygen General: Alert, Oriented, Cooperative, No Acute Distress HEENT: Pupils Equal, Pupils Reactive Neck: Supple, Trachea Midline Lungs: Clear to Auscultation, Normal Respiratory Effort Cardiovascular: Regular Rate, Regular Rhythm GI/Abdominal Exam: Normal Bowel Sounds, Soft, No Distention (Female) Exam: Deferred Back Exam: Normal Inspection, Full Range of Motion Extremities: Normal Inspection, No Pedal Edema Skin: Warm, Dry, Intact Neurological: No New Focal Deficit Psy/Mental Status: Alert, Normal Affect, Normal Mood - Problem List & Annotations (1) UTI, Urinary tract infectious disease SNOMED Code(s): 25336063 Code(s): N39.0 - URINARY TRACT INFECTION, SITE NOT SPECIFIED Status: Acute Priority: High Current Visit: Yes (2) Abdominal pain SNOMED Code(s): 09153008 Code(s): R10.9 - UNSPECIFIED ABDOMINAL PAIN Status: Acute Priority: High Current Visit: Yes (3) Diabetes type 2, uncontrolled SNOMED Code(s): 791502986, 496346901 Code(s): E11.65 - TYPE 2 DIABETES MELLITUS WITH HYPERGLYCEMIA Status: Chronic Priority: Medium Current Visit: Yes Qualifiers: Glycemic state: with hyperglycemia Qualified Code(s): E11.65 - Type 2 diabetes mellitus with hyperglycemia (4) Cardiomegaly SNOMED Code(s): 5987121 Code(s): I51.7 - CARDIOMEGALY Status: Chronic Priority: Medium Current Visit: Yes Annotation/Comment:: Preserved ejection fraction (5) HTN (hypertension) SNOMED Code(s): 48839665 Code(s): I10 - ESSENTIAL (PRIMARY) HYPERTENSION Status: Chronic Priority : Medium Current Visit: Yes Qualifiers: Hypertension type: essential hypertension Qualified Code(s): I10 - Essential (primary) hypertension - Problem List Review Problem List Initiated/Reviewed/Updated: Yes - My Orders Last 24 Hours: My Active Orders 06/07/18 22:00 Phenazopyridine [Pyridium] 200 mg PO TID 06/08/18 09:13 Ibuprofen [Motrin] 800 mg PO Q8H PRN - Plan Plan:: The patient is a 48-year-old lady who had been admitted out of concern for competition urinary tract infection. Cultures are currently pending. She'll be kept on Rocephin 1 g IV daily. Antibiotics PD escalated as conditions indicated. She'll likely be appropriate for discharge tomorrow. The patient will also be kept on an ADA diet as well as insulin sliding scale with Accu- Cheks before meals and at bedtime. The patient has been encouraged to ambulate. Should also be noted that the patient does have a history of cardiomegaly and her last echocardiogram showed a preserved ejection fraction. This should be followed up by cardiology.
[2018-06-08] MEDS: Ibuprofen 800 MG Tab PO PRN ×2 (11:56→22:08)
[2018-06-08] MEDS: cefTRIAXone 1 GM in Premix Bag 1 BAG IV SCH (15:03)
[2018-06-08] MEDS: Enoxaparin 40 MG/0.4 ML Syringe SUBCUT SCH (15:03)
[2018-06-08] MEDS: Insulin Glargine,Human Rec. Analog 100 Units/ML 3 ML Pen SUBCUT SCH (21:49)
[2018-06-09] MEDS: Ibuprofen 800 MG Tab PO PRN ×2 (06:07→16:18)
[2018-06-09] MEDS: Gabapentin 800 MG Tab PO SCH ×3 (06:08→22:01)
[2018-06-09] MEDS: Phenazopyridine 200 MG Tab PO SCH ×3 (06:08→22:01)
[2018-06-09 06:34] LABS: CHLORIDE,CL 104 mmol/L (98-107); SODIUM,NA 139 mmol/L (136-145)
--- NOTE | 2018-06-09 08:04 | PCM.PN ---
<Teressa Salazar - Last Filed: 06/09/18 08:05> - General Info Date of Service: 06/09/18 Subjective Update: The patient reports she is feeling much better compared to admission day. She denies shortness of breath but does complain of some chest pain. She reports it hurts when she pushes on her anterior chest wall, she attributes this to her fibromyalgia. - Review of Systems General: Reports: No Symptoms HEENT: Reports: No Symptoms Pulmonary: Reports: No Symptoms Cardiovascular: Reports: Other (chest wall pain) Gastrointestinal: Reports: No Symptoms Genitourinary: Reports: No Symptoms Musculoskeletal: Reports: Other (tender points all over that she attributes to fibromyalgia) Skin: Reports: No Symptoms Neurological: Reports: No Symptoms Psychiatric: Reports: No Symptoms - Patient Data Vitals - Most Recent: Last Vital Signs Temp 98.2 F 06/08/18 23:08 Pulse 96 06/08/18 20:00 Resp 18 06/08/18 20:00 BP 110/88 06/08/18 20:00 Pulse Ox 94 L 06/08/18 20:00 Weight - Most Recent: 108.862 kg I&O - Last 24 Hours: Intake & Output 06/08/18 06/09/18 06/09/18 22:59 06:59 14:59 Intake Total 1840 1320 Output Total 1000 1700 Balance 840 -380 Lab Results Last 24 Hours: Laboratory Results - last 24 hr 06/08/18 06/08/18 06/08/18 Range/Units 11:43 12:51 16:59 WBC (4.0-11.0) K/uL RBC (4.30-5.90) M/uL Hgb (12.0-16.0) g/dL Hct (36.0-46.0) % MCV (80.0-98.0) fL MCH (27.0-32.0) pg MCHC (31.0-37.0) g/dL RDW Std Deviation (28.0-62.0) fl RDW Coeff of Joaquin (11.0-15.0) % Plt Count (150-400) K/uL MPV (7.40-12.00) fL Neut % (Auto) (48.0-80.0) % Lymph % (Auto) (16.0-40.0) % Oliver % (Auto) (0.0-15.0) % Eos % (Auto) (0.0-7.0) % Baso % (Auto) (0.0-1.5) % Neut # (Auto) (1.4-5.7) K/uL Lymph # (Auto) (0.6-2.4) K/uL Oliver # (Auto) (0.0-0.8) K/uL Eos # (Auto) (0.0-0.7) K/uL Baso # (Auto) (0.0-0.1) K/uL Nucleated RBC % /100WBC Nucleated RBCs # K/uL Sodium (136-145) mmol/L Potassium (3.5-5.1) mmol/L Chloride (98-107) mmol/L Carbon Dioxide (21.0-32.0) mmol/L BUN (7.0-18.0) mg/dL Creatinine (0.6-1.0) mg/dL Est Cr Clr Drug Dosing mL/min Estimated GFR (MDRD) ml/min Glucose (74-106) mg/dL POC Glucose 79 125 H 228 H (60-110) mg/dL Calcium (8.5-10.1) mg/dL 06/08/18 06/09/18 06/09/18 Range/Units 21:45 05:57 05:57 WBC 14.61 H (4.0-11.0) K/uL RBC 4.34 (4.30-5.90) M/uL Hgb 12.1 (12.0-16.0) g/dL Hct 35.1 L (36.0-46.0) % MCV 80.9 (80.0-98.0) fL MCH 27.9 (27.0-32.0) pg MCHC 34.5 (31.0-37.0) g/dL RDW Std Deviation 41.8 (28.0-62.0) fl RDW Coeff of Joaquin 14 (11.0-15.0) % Plt Count 307 (150-400) K/uL MPV 10.10 (7.40-12.00) fL Neut % (Auto) 77.8 (48.0-80.0) % Lymph % (Auto) 10.3 L (16.0-40.0) % Oliver % (Auto) 10.8 (0.0-15.0) % Eos % (Auto) 1.0 (0.0-7.0) % Baso % (Auto) 0.1 (0.0-1.5) % Neut # (Auto) 11.4 H (1.4-5.7) K/uL Lymph # (Auto) 1.5 (0.6-2.4) K/uL Oliver # (Auto) 1.6 H (0.0-0.8) K/uL Eos # (Auto) 0.1 (0.0-0.7) K/uL Baso # (Auto) 0.0 (0.0-0.1) K/uL Nucleated RBC % 0.0 /100WBC Nucleated RBCs # 0 K/uL Sodium 139 (136-145) mmol/L Potassium 3.7 (3.5-5.1) mmol/L Chloride 104 (98-107) mmol/L Carbon Dioxide 25.6 (21.0-32.0) mmol/L BUN 22 H (7.0-18.0) mg/dL Creatinine 0.8 (0.6-1.0) mg/dL Est Cr Clr Drug Dosing 70.37 mL/min Estimated GFR (MDRD) > 60.0 ml/min Glucose 130 H (74-106) mg/dL POC Glucose 124 H (60-110) mg/dL Calcium 9.1 (8.5-10.1) mg/dL 06/09/18 Range/Units 06:04 WBC (4.0-11.0) K/uL RBC (4.30-5.90) M/uL Hgb (12.0-16.0) g/dL Hct (36.0-46.0) % MCV (80.0-98.0) fL MCH (27.0-32.0) pg MCHC (31.0-37.0) g/dL RDW Std Deviation (28.0-62.0) fl RDW Coeff of Joaquin (11.0-15.0) % Plt Count (150-400) K/uL MPV (7.40-12.00) fL Neut % (Auto) (48.0-80.0) % Lymph % (Auto) (16.0-40.0) % Oliver % (Auto) (0.0-15.0) % Eos % (Auto) (0.0-7.0) % Baso % (Auto) (0.0-1.5) % Neut # (Auto) (1.4-5.7) K/uL Lymph # (Auto) (0.6-2.4) K/uL Oliver # (Auto) (0.0-0.8) K/uL Eos # (Auto) (0.0-0.7) K/uL Baso # (Auto) (0.0-0.1) K/uL Nucleated RBC % /100WBC Nucleated RBCs # K/uL Sodium (136-145) mmol/L Potassium (3.5-5.1) mmol/L Chloride (98-107) mmol/L Carbon Dioxide (21.0-32.0) mmol/L BUN (7.0-18.0) mg/dL Creatinine (0.6-1.0) mg/dL Est Cr Clr Drug Dosing mL/min Estimated GFR (MDRD) ml/min Glucose (74-106) mg/dL POC Glucose 125 H (60-110) mg/dL Calcium (8.5-10.1) mg/dL Sachin Results Last 24 Hours: Microbiology 06/07/18 12:33 Aerobic Blood Culture - Preliminary Blood - Venous - Lab Draw NO GROWTH AFTER 1 DAY Anaerobic Blood Culture - Preliminary NO GROWTH AFTER 1 DAY 06/07/18 12:21 Aerobic Blood Culture - Preliminary Blood - Venous NO GROWTH AFTER 1 DAY Anaerobic Blood Culture - Preliminary NO GROWTH AFTER 1 DAY Med Orders - Current: Current Medications Acetaminophen (Tylenol) 650 mg PO Q4H PRN PRN Reason: Pain/Fever Last Admin: 06/08/18 04:38 Dose: 650 mg Enoxaparin Sodium (Lovenox) 40 mg SUBCUT Q24H [facility] Last Admin: 06/08/18 15:03 Dose: 40 mg Gabapentin (Neurontin) 800 mg PO TID [facility] Last Admin: 06/09/18 06:08 Dose: 800 mg Ceftriaxone Sodium/Dextrose 1 (gm/ Premix) 50 mls @ 100 mls/hr IV Q24H [facility] Last Admin: 06/08/18 15:03 Dose: 100 mls/hr Ibuprofen (Motrin) 800 mg PO Q8H PRN PRN Reason: Pain Last Admin: 06/09/18 06:07 Dose: 800 mg Insulin Aspart (Novolog) 25 unit SUBCUT TIDMEALS [facility] Last Admin: 06/08/18 17:23 Dose: 25 units Insulin Glargine (Lantus Solostar) 40 units SUBCUT BEDTIME [facility] Last Admin: 06/08/18 21:49 Dose: 40 unit Lisinopril (Prinivil) 20 mg PO QAM [facility] Last Admin: 06/08/18 09:15 Dose: 20 mg Ondansetron HCl (Zofran) 4 mg IVPUSH Q4H PRN PRN Reason: Nausea/Vomiting Last Admin: 06/07/18 14:45 Dose: 4 mg Oxycodone HCl (Oxycontin) 10 mg PO Q12HR PRN PRN Reason: Pain Last Admin: 06/08/18 04:39 Dose: 10 mg Phenazopyridine HCl (Pyridium) 200 mg PO TID [facility] Last Admin: 06/09/18 06:08 Dose: 200 mg Sodium Chloride (Saline Flush) 10 ml FLUSH ASDIRECTED PRN PRN Reason: Keep Vein Open Sodium Chloride (Saline Flush) 2.5 ml FLUSH ASDIRECTED PRN PRN Reason: Keep Vein Open Discontinued Medications Acetaminophen (Tylenol Extra Strength) 1,000 mg PO ONETIME ONE Stop: 06/07/18 12:53 Last Admin: 06/07/18 13:37 Dose: 1,000 mg Sodium Chloride (Normal Saline) 1,000 mls @ 999 mls/hr IV .Bolus ONE Stop: 06/07/18 13:05 Last Admin: 06/07/18 12:26 Dose: 999 mls/hr Ceftriaxone Sodium/Dextrose 1 (gm/ Premix) 50 mls @ 100 mls/hr IV ONETIME ONE Stop: 06/07/18 13:51 Last Admin: 06/07/18 13:37 Dose: 100 mls/hr - Exam General: Alert, Oriented, Cooperative HEENT: Pupils Equal, Pupils Reactive, EOMI, Mucous Membr. Moist/[place] Neck: Supple Lungs: Clear to Auscultation, Normal Respiratory Effort Cardiovascular: Regular Rate, Regular Rhythm, Other (chest wall pain reproducible with palpation) GI/Abdominal Exam: Normal Bowel Sounds, Soft, Non-Tender, No Distention Extremities: No Pedal Edema Skin: Warm, Dry Neurological: No New Focal Deficit Psy/Mental Status: Alert, Normal Affect, Normal Mood - Problem List & Annotations (1) Cardiomegaly SNOMED Code(s): 5997809 Code(s): I51.7 - CARDIOMEGALY Status: Chronic Priority: Medium Current Visit: Yes Annotation/Comment:: Preserved ejection fraction (2) HTN (hypertension) SNOMED Code(s): 19403555 Code(s): I10 - ESSENTIAL (PRIMARY) HYPERTENSION Status: Chronic Priority : Medium Current Visit: Yes Qualifiers: Hypertension type: essential hypertension Qualified Code(s): I10 - Essential (primary) hypertension (3) Fibromyalgia SNOMED Code(s): 160704256 Code(s): M79.7 - FIBROMYALGIA Status: Chronic Current Visit: No (4) Arthritis SNOMED Code(s): 8972107 Code(s): M19.90 - UNSPECIFIED OSTEOARTHRITIS, UNSPECIFIED SITE Status: Chronic Current Visit: No (5) Neuropathy SNOMED Code(s): 963038529 Code(s): G62.9 - POLYNEUROPATHY, UNSPECIFIED Status: Chronic Current Visit: No (6) UTI, Urinary tract infectious disease SNOMED Code(s): 85275421 Code(s): N39.0 - URINARY TRACT INFECTION, SITE NOT SPECIFIED Status: Acute Priority: High Current Visit: Yes (7) Diabetes type 2, uncontrolled SNOMED Code(s): 115274010, 272518678 Code(s): E11.65 - TYPE 2 DIABETES MELLITUS WITH HYPERGLYCEMIA Status: Chronic Priority: Medium Current Visit: Yes Qualifiers: Glycemic state: with hyperglycemia Qualified Code(s): E11.65 - Type 2 diabetes mellitus with hyperglycemia (8) Pericardial effusion SNOMED Code(s): 922455855 Code(s): I31.3 - PERICARDIAL EFFUSION (NONINFLAMMATORY) Status: Acute Priority: High Current Visit: Yes - Problem List Review Problem List Initiated/Reviewed/Updated: Yes - My Orders Last 24 Hours: My Active Orders 06/08/18 09:00 Lisinopril [Prinivil] 20 mg PO QAM 06/10/18 05:11 BASIC METABOLIC PANEL,BMP [CHEM] AM CBC WITH AUTO DIFF [HEME] AM 06/11/18 05:11 BASIC METABOLIC PANEL,BMP [CHEM] AM CBC WITH AUTO DIFF [HEME] AM - Plan Plan:: 1. UTI- urine culture pending, WBC improved, patient feels better. Continue Rocephin. 2. Cardiomegaly with possible pericardial effusion- chronic, hold IVF,follow up as an outpatient with cardiology. 3. DMII- continue home insulin regiment- 40 units Lantus at bed and short acting 25 units TIDWM. 4. Chronic conditions- HTN, fibromyalgia, arthritis, and neuropathy- continue home meds <Hardik Solis - Last Filed: 06/09/18 14:59> - General Info Subjective Update: I have seen and examined the patient independently of medical officer psychiatry, Teressa Salazar MD. I have discussed the case with her. I have reviewed and agree with the assessment and plan of care for the patient as outlined by her. Please see orders. Likely home tomorrow. - Patient Data Vitals - Most Recent: Last Vital Signs Temp 36.4 C 06/09/18 09:58 Pulse 92 06/09/18 09:58 Resp 18 06/09/18 09:58 BP 109/61 06/09/18 09:58 Pulse Ox 97 06/09/18 09:58 I&O - Last 24 Hours: Intake & Output 06/08/18 06/09/18 06/09/18 22:59 06:59 14:59 Intake Total 1840 1320 50 Output Total 1000 1700 Balance 840 -380 50 Lab Results Last 24 Hours: Laboratory Results - last 24 hr 06/08/18 06/08/18 06/09/18 Range/Units 16:59 21:45 05:57 WBC 14.61 H (4.0-11.0) K/uL RBC 4.34 (4.30-5.90) M/uL Hgb 12.1 (12.0-16.0) g/dL Hct 35.1 L (36.0-46.0) % MCV 80.9 (80.0-98.0) fL MCH 27.9 (27.0-32.0) pg MCHC 34.5 (31.0-37.0) g/dL RDW Std Deviation 41.8 (28.0-62.0) fl RDW Coeff of Joaquin 14 (11.0-15.0) % Plt Count 307 (150-400) K/uL MPV 10.10 (7.40-12.00) fL Neut % (Auto) 77.8 (48.0-80.0) % Lymph % (Auto) 10.3 L (16.0-40.0) % Oliver % (Auto) 10.8 (0.0-15.0) % Eos % (Auto) 1.0 (0.0-7.0) % Baso % (Auto) 0.1 (0.0-1.5) % Neut # (Auto) 11.4 H (1.4-5.7) K/uL Lymph # (Auto) 1.5 (0.6-2.4) K/uL Oliver # (Auto) 1.6 H (0.0-0.8) K/uL Eos # (Auto) 0.1 (0.0-0.7) K/uL Baso # (Auto) 0.0 (0.0-0.1) K/uL Nucleated RBC % 0.0 /100WBC Nucleated RBCs # 0 K/uL Sodium (136-145) mmol/L Potassium (3.5-5.1) mmol/L Chloride (98-107) mmol/L Carbon Dioxide (21.0-32.0) mmol/L BUN (7.0-18.0) mg/dL Creatinine (0.6-1.0) mg/dL Est Cr Clr Drug Dosing mL/min Estimated GFR (MDRD) ml/min Glucose (74-106) mg/dL POC Glucose 228 H 124 H (60-110) mg/dL Calcium (8.5-10.1) mg/dL 06/09/18 06/09/18 06/09/18 Range/Units 05:57 06:04 11:38 WBC (4.0-11.0) K/uL RBC (4.30-5.90) M/uL Hgb (12.0-16.0) g/dL Hct (36.0-46.0) % MCV (80.0-98.0) fL MCH (27.0-32.0) pg MCHC (31.0-37.0) g/dL RDW Std Deviation (28.0-62.0) fl RDW Coeff of Joaquin (11.0-15.0) % Plt Count (150-400) K/uL MPV (7.40-12.00) fL Neut % (Auto) (48.0-80.0) % Lymph % (Auto) (16.0-40.0) % Oliver % (Auto) (0.0-15.0) % Eos % (Auto) (0.0-7.0) % Baso % (Auto) (0.0-1.5) % Neut # (Auto) (1.4-5.7) K/uL Lymph # (Auto) (0.6-2.4) K/uL Oliver # (Auto) (0.0-0.8) K/uL Eos # (Auto) (0.0-0.7) K/uL Baso # (Auto) (0.0-0.1) K/uL Nucleated RBC % /100WBC Nucleated RBCs # K/uL Sodium 139 (136-145) mmol/L Potassium 3.7 (3.5-5.1) mmol/L Chloride 104 (98-107) mmol/L Carbon Dioxide 25.6 (21.0-32.0) mmol/L BUN 22 H (7.0-18.0) mg/dL Creatinine 0.8 (0.6-1.0) mg/dL Est Cr Clr Drug Dosing 70.37 mL/min Estimated GFR (MDRD) > 60.0 ml/min Glucose 130 H (74-106) mg/dL POC Glucose 125 H 158 H (60-110) mg/dL Calcium 9.1 (8.5-10.1) mg/dL Sachin Results Last 24 Hours: Microbiology 06/07/18 12:33 Aerobic Blood Culture - Preliminary Blood - Venous - Lab Draw NO GROWTH AFTER 2 DAYS Anaerobic Blood Culture - Preliminary NO GROWTH AFTER 2 DAYS 06/07/18 12:21 Aerobic Blood Culture - Preliminary Blood - Venous NO GROWTH AFTER 2 DAYS Anaerobic Blood Culture - Preliminary NO GROWTH AFTER 2 DAYS 06/07/18 12:40 Urine Culture - Final Urine, Bladder Escherichia Coli Med Orders - Current: Current Medications Acetaminophen (Tylenol) 650 mg PO Q4H PRN PRN Reason: Pain/Fever Last Admin: 06/09/18 08:29 Dose: 650 mg Enoxaparin Sodium (Lovenox) 40 mg SUBCUT Q24H [facility] Last Admin: 06/09/18 14:37 Dose: 40 mg Gabapentin (Neurontin) 800 mg PO TID [facility] Last Admin: 06/09/18 14:37 Dose: 800 mg Meropenem 1 gm/ Sodium (Chloride) 100 mls @ 200 mls/hr IV Q8H [facility] Last Admin: 06/09/18 14:36 Dose: 200 mls/hr Ibuprofen (Motrin) 800 mg PO Q8H PRN PRN Reason: Pain Last Admin: 06/09/18 06:07 Dose: 800 mg Insulin Aspart (Novolog) 25 unit SUBCUT TIDMEALS [facility] Last Admin: 06/09/18 11:56 Dose: 25 units Insulin Glargine (Lantus Solostar) 40 units SUBCUT BEDTIME [facility] Last Admin: 06/08/18 21:49 Dose: 40 unit Lisinopril (Prinivil) 20 mg PO QAM [facility] Last Admin: 06/09/18 08:32 Dose: 20 mg Ondansetron HCl (Zofran) 4 mg IVPUSH Q4H PRN PRN Reason: Nausea/Vomiting Last Admin: 06/07/18 14:45 Dose: 4 mg Oxycodone HCl (Oxycontin) 10 mg PO Q12HR PRN PRN Reason: Pain Last Admin: 06/09/18 11:49 Dose: 10 mg Phenazopyridine HCl (Pyridium) 200 mg PO TID [facility] Last Admin: 06/09/18 14:37 Dose: 200 mg Sodium Chloride (Saline Flush) 10 ml FLUSH ASDIRECTED PRN PRN Reason: Keep Vein Open Sodium Chloride (Saline Flush) 2.5 ml FLUSH ASDIRECTED PRN PRN Reason: Keep Vein Open Discontinued Medications Acetaminophen (Tylenol Extra Strength) 1,000 mg PO ONETIME ONE Stop: 06/07/18 12:53 Last Admin: 06/07/18 13:37 Dose: 1,000 mg Sodium Chloride (Normal Saline) 1,000 mls @ 999 mls/hr IV .Bolus ONE Stop: 06/07/18 13:05 Last Admin: 06/07/18 12:26 Dose: 999 mls/hr Ceftriaxone Sodium/Dextrose 1 (gm/ Premix) 50 mls @ 100 mls/hr IV ONETIME ONE Stop: 06/07/18 13:51 Last Admin: 06/07/18 13:37 Dose: 100 mls/hr Ceftriaxone Sodium/Dextrose 1 (gm/ Premix) 50 mls @ 100 mls/hr IV Q24H [facility] Last Admin: 06/08/18 15:03 Dose: 100 mls/hr - Problem List & Annotations (1) UTI, Urinary tract infectious disease SNOMED Code(s): 12819858 Code(s): N39.0 - URINARY TRACT INFECTION, SITE NOT SPECIFIED Status: Acute Priority: High Current Visit: Yes (2) Abdominal pain SNOMED Code(s): 31313960 Code(s): R10.9 - UNSPECIFIED ABDOMINAL PAIN Status: Acute Priority: High Current Visit: Yes (3) Diabetes type 2, uncontrolled SNOMED Code(s): 161402733, 508578679 Code(s): E11.65 - TYPE 2 DIABETES MELLITUS WITH HYPERGLYCEMIA Status: Chronic Priority: Medium Current Visit: Yes Qualifiers: Glycemic state: with hyperglycemia Qualified Code(s): E11.65 - Type 2 diabetes mellitus with hyperglycemia (4) Cardiomegaly SNOMED Code(s): 6124510 Code(s): I51.7 - CARDIOMEGALY Status: Chronic Priority: Medium Current Visit: Yes Annotation/Comment:: Preserved ejection fraction (5) HTN (hypertension) SNOMED Code(s): 97622172 Code(s): I10 - ESSENTIAL (PRIMARY) HYPERTENSION Status: Chronic Priority : Medium Current Visit: Yes Qualifiers: Hypertension type: essential hypertension Qualified Code(s): I10 - Essential (primary) hypertension
[2018-06-09] MEDS: Insulin Aspart 100 Units/ML 3 ML Pen SUBCUT SCH ×3 (08:23→17:19)
[2018-06-09] MEDS: Acetaminophen 325 MG Tab PO PRN ×2 (08:29→19:25)
[2018-06-09] MEDS: Lisinopril 10 MG Tab PO SCH (08:32)
[2018-06-09] MEDS: oxyCODONE ER 10 MG TAB.ER PO PRN (11:49)
[2018-06-09] MEDS: Meropenem 1 GM in Sodium Chloride 0.9% 100 ML IV SCH ×2 (14:36→22:02)
[2018-06-09] MEDS: Enoxaparin 40 MG/0.4 ML Syringe SUBCUT SCH (14:37)
[2018-06-09] MEDS: Insulin Glargine,Human Rec. Analog 100 Units/ML 3 ML Pen SUBCUT SCH (20:58)
[2018-06-10] MEDS: Ibuprofen 800 MG Tab PO PRN ×2 (00:27→08:15)
[2018-06-10] MEDS: Gabapentin 800 MG Tab PO SCH ×2 (05:54→13:45)
[2018-06-10] MEDS: Phenazopyridine 200 MG Tab PO SCH ×2 (05:54→13:46)
[2018-06-10] MEDS: Meropenem 1 GM in Sodium Chloride 0.9% 100 ML IV SCH ×2 (05:55→13:45)
[2018-06-10 06:36] LABS: CHLORIDE,CL 106 mmol/L (98-107); SODIUM,NA 141 mmol/L (136-145)
[2018-06-10] MEDS: Lisinopril 10 MG Tab PO SCH (08:14)
--- NOTE | 2018-06-10 08:42 | PCM.DCSUM1 ---
<Teressa Salazar - Last Filed: 06/10/18 09:02> Discharge Summary - Hospital Course Free Text/Narrative:: Admission Date: 06/07/18 Discharge Date: 06/10/18 Admission Diagnosis: 1.UTI 2. Cardiomegaly with possible pericardial effusion 3. DMII 4. Chronic conditions- HTN, fibromyalgia, arthritis, neuropathy. Discharge Diagnosis: 1.Pyleonephritis-urine growing- Ecoli-ESBL 2. Cardiomegaly with possible pericardial effusion 3. DMII 4. Chronic conditions- HTN, fibromyalgia, arthritis, neuropathy. Procedures: PICC line insertion Consults: Radiology Hospital Course: The patient is a 48 year old female with past medical history of DMII, UTIs, and fibromyalgia who presented to the ER with pain/pressure with urination and lower right sided back pain. Workup found an elevated white count , lactate within normal limits, negative flu, and UA with signs of infection. CXR showed prominent silhouette concerning for cardiomegaly vs pericardial effusion. The patient dose have a history of pericardial effusion back in February 2018. A echo performed in March 2018 showed EF of 60-65% and trivial pericardial effusion. The patient denies chest pain or shortness of breath while admitted. For her UTI, she was started on Rocephin and transitioned to meropenem when urine culture came back with ESBL Ecoli. Once the antibiotics was switched she felt much better and her white count resolved. As this type of bacteria is very resistant, the only treatment choice is a carbapenem IV for a total of 14 days. She underwent a PICC line insertion and will need daily IV antibiotic treatments for 12 more days after discharge. Patient tolerated PICC insertion very well. For her diabetes, she was continued on her home regiment. She had on low blood sugar which improved with orange juice and peanut butter. A hemoglobin A1c was checked and was down from 9.4 to 7.2 since Feb 2018. For the possible pericardial effusion, she will need to follow up with cardiology as an outpatient. She was continued on her home medications for her chronic conditions. By day of discharge the patient reported she felt much better and was ready to go home. Disposition: Home Discharge Condition: Vitals stable, tolerating oral diet, ambulating without difficulty, symptoms improved, PICC line placed. Discharge Instructions: diabetic diet, activity as tolerated, may drive, may shower. Take medications as prescribed, come in for daily antibiotic treatments. Symptoms to report to physician include fever/chills, chest pain, shortness of breath, abdominal pain, erythema, discharge/drainage, or not improving as expected. Discharge Medications: Gabapentin [Neurontin] 800 mg PO TID Lisinopril 20 mg PO QAM oxyCODONE ER [OxyCONTIN] 10 mg PO ASDIRECTED PRN Insulin Aspart [NovoLOG] 25 unit SQ TID Insulin Glarg,Human.Rec.Analog [Lantus] 45 unit SQ BEDTIME Hydrocodone/Acetaminophen [[place] 5-325 Tablet] 1 each PO Q8H PRN Ibuprofen [Motrin] 800 mg PO TID PRN 30 Days traMADol HCl [Tramadol HCl] 50 mg PO TID PRN Ertapenem [INVanz] 1 gm IV DAILY 12 Days Phenazopyridine [Pyridium] 200 mg PO TID Follow-up: Dr. Rico on 06/17/18 - Discharge Data Discharge Date: 06/10/18 Discharge Disposition: Home, Self-Care 01 Condition: Stable - Discharge Diagnosis/Problem(s) (1) Cardiomegaly SNOMED Code(s): 1901083 ICD Code: I51.7 - CARDIOMEGALY Status: Chronic Priority: Medium Current Visit: Yes Problem Details: Preserved ejection fraction (2) HTN (hypertension) SNOMED Code(s): 26236096 ICD Code: I10 - ESSENTIAL (PRIMARY) HYPERTENSION Status: Chronic Priority : Medium Current Visit: Yes Qualifiers: Hypertension type: essential hypertension Qualified Code(s): I10 - Essential (primary) hypertension (3) Fibromyalgia SNOMED Code(s): 325239626 ICD Code: M79.7 - FIBROMYALGIA Status: Chronic Current Visit: No (4) Arthritis SNOMED Code(s): 7382393 ICD Code: M19.90 - UNSPECIFIED OSTEOARTHRITIS, UNSPECIFIED SITE Status: Chronic Current Visit: No (5) Neuropathy SNOMED Code(s): 294201216 ICD Code: G62.9 - POLYNEUROPATHY, UNSPECIFIED Status: Chronic Current Visit: No (6) UTI, Urinary tract infectious disease SNOMED Code(s): 53952031 ICD Code: N39.0 - URINARY TRACT INFECTION, SITE NOT SPECIFIED Status: Acute Priority: High Current Visit: Yes (7) Diabetes type 2, uncontrolled SNOMED Code(s): 882532349, 490185645 ICD Code: E11.65 - TYPE 2 DIABETES MELLITUS WITH HYPERGLYCEMIA Status: Chronic Priority: Medium Current Visit: Yes Qualifiers: Glycemic state: with hyperglycemia Qualified Code(s): E11.65 - Type 2 diabetes mellitus with hyperglycemia (8) Pericardial effusion SNOMED Code(s): 268107893 ICD Code: I31.3 - PERICARDIAL EFFUSION (NONINFLAMMATORY) Status: Acute Priority: High Current Visit: Yes - Discharge Plan Prescriptions/Med Rec: Ertapenem [INVanz] 1 gm IV DAILY 12 Days #12 adv Phenazopyridine [Pyridium] 200 mg PO TID 7 Days #21 tablet Home Medications: Home Meds Gabapentin [Neurontin] 800 mg PO TID 06/24/14 [History] Lisinopril 20 mg PO QAM 06/24/14 [History] oxyCODONE ER [OxyCONTIN] 10 mg PO ASDIRECTED PRN 11/28/14 [History] Insulin Aspart [NovoLOG] 25 unit SQ TID 08/06/16 [History] Insulin Glarg,Human.Rec.Analog [Lantus] 45 unit SQ BEDTIME 11/13/17 [History] Hydrocodone/Acetaminophen [[place] 5-325 Tablet] 1 each PO Q8H PRN #15 tablet [Rx] Ibuprofen [Motrin] 800 mg PO TID PRN 30 Days #90 tablet 03/16/18 [Rx] traMADol HCl [Tramadol HCl] 50 mg PO TID PRN #15 tablet 03/16/18 [Rx] Ertapenem [INVanz] 1 gm IV DAILY 12 Days #12 adv 06/10/18 [Rx] Phenazopyridine [Pyridium] 200 mg PO TID 7 Days #21 tablet 06/10/18 [Rx] Patient Handouts: Ertapenem injection, Pyelonephritis, Adult, [id number], Phenazopyridine tablets, PICC Home Care Guide Referrals: [facility] [Outside] Gertrudis Lam MD [Physician] - 07/08/18 11:00 am Mack Rico MD [Ordering Only Provider] - 06/17/18 3:00 pm - Discharge Summary/Plan Comment DC Time >30 min.: No - Patient Data Vitals - Most Recent: Last Vital Signs Temp 97.0 F 06/10/18 07:52 Pulse 79 06/10/18 07:52 Resp 18 06/10/18 07:52 BP 144/69 H 06/10/18 08:14 Pulse Ox 96 06/10/18 03:45 Weight - Most Recent: 108.862 kg I&O - Last 24 hours: Intake & Output 06/09/18 06/10/18 06/10/18 22:59 06:59 14:59 Intake Total 1256 500 Output Total 800 1000 Balance 456 -500 Lab Results - Last 24 hrs: Laboratory Results - last 24 hr 06/09/18 06/09/18 06/09/18 Range/Units 11:38 16:33 17:02 WBC (4.0-11.0) K/uL RBC (4.30-5.90) M/uL Hgb (12.0-16.0) g/dL Hct (36.0-46.0) % MCV (80.0-98.0) fL MCH (27.0-32.0) pg MCHC (31.0-37.0) g/dL RDW Std Deviation (28.0-62.0) fl RDW Coeff of Joaquin (11.0-15.0) % Plt Count (150-400) K/uL MPV (7.40-12.00) fL Add Manual Diff Neutrophils % (Manual) (48.0-80.0) % Band Neutrophils % % Monocytes % (Manual) (0.0-15.0) % Eosinophils % (Manual) (0.0-7.0) % Nucleated RBC % /100WBC Absolute Seg Neuts (1.4-5.7) Band Neutrophils # Monocytes # (Manual) (0.0-0.8) Eosinophils # (Manual) (0.0-0.7) Nucleated RBCs # K/uL Sodium (136-145) mmol/L Potassium (3.5-5.1) mmol/L Chloride (98-107) mmol/L Carbon Dioxide (21.0-32.0) mmol/L BUN (7.0-18.0) mg/dL Creatinine (0.6-1.0) mg/dL Est Cr Clr Drug Dosing mL/min Estimated GFR (MDRD) ml/min Glucose (74-106) mg/dL POC Glucose 158 H 56 L 106 (60-110) mg/dL Calcium (8.5-10.1) mg/dL 06/09/18 06/10/18 06/10/18 Range/Units 20:56 05:38 05:38 WBC 8.73 (4.0-11.0) K/uL RBC 4.11 L (4.30-5.90) M/uL Hgb 11.4 L (12.0-16.0) g/dL Hct 33.3 L (36.0-46.0) % MCV 81.0 (80.0-98.0) fL MCH 27.7 (27.0-32.0) pg MCHC 34.2 (31.0-37.0) g/dL RDW Std Deviation 41.7 (28.0-62.0) fl RDW Coeff of Joaquin 14 (11.0-15.0) % Plt Count 329 (150-400) K/uL MPV 10.50 (7.40-12.00) fL Add Manual Diff YES Neutrophils % (Manual) 62 (48.0-80.0) % Band Neutrophils % 28 % Monocytes % (Manual) 7 (0.0-15.0) % Eosinophils % (Manual) 3 (0.0-7.0) % Nucleated RBC % 0.0 /100WBC Absolute Seg Neuts 5.4 (1.4-5.7) Band Neutrophils # 2.4 Monocytes # (Manual) 0.6 (0.0-0.8) Eosinophils # (Manual) 0.3 (0.0-0.7) Nucleated RBCs # 0 K/uL Sodium 141 (136-145) mmol/L Potassium 3.6 (3.5-5.1) mmol/L Chloride 106 (98-107) mmol/L Carbon Dioxide 27.9 (21.0-32.0) mmol/L BUN 19 H (7.0-18.0) mg/dL Creatinine 0.7 (0.6-1.0) mg/dL Est Cr Clr Drug Dosing 80.42 mL/min Estimated GFR (MDRD) > 60.0 ml/min Glucose 93 (74-106) mg/dL POC Glucose 241 H (60-110) mg/dL Calcium 9.2 (8.5-10.1) mg/dL 06/10/18 Range/Units 06:31 WBC (4.0-11.0) K/uL RBC (4.30-5.90) M/uL Hgb (12.0-16.0) g/dL Hct (36.0-46.0) % MCV (80.0-98.0) fL MCH (27.0-32.0) pg MCHC (31.0-37.0) g/dL RDW Std Deviation (28.0-62.0) fl RDW Coeff of Joaquin (11.0-15.0) % Plt Count (150-400) K/uL MPV (7.40-12.00) fL Add Manual Diff Neutrophils % (Manual) (48.0-80.0) % Band Neutrophils % % Monocytes % (Manual) (0.0-15.0) % Eosinophils % (Manual) (0.0-7.0) % Nucleated RBC % /100WBC Absolute Seg Neuts (1.4-5.7) Band Neutrophils # Monocytes # (Manual) (0.0-0.8) Eosinophils # (Manual) (0.0-0.7) Nucleated RBCs # K/uL Sodium (136-145) mmol/L Potassium (3.5-5.1) mmol/L Chloride (98-107) mmol/L Carbon Dioxide (21.0-32.0) mmol/L BUN (7.0-18.0) mg/dL Creatinine (0.6-1.0) mg/dL Est Cr Clr Drug Dosing mL/min Estimated GFR (MDRD) ml/min Glucose (74-106) mg/dL POC Glucose 89 (60-110) mg/dL Calcium (8.5-10.1) mg/dL [facility] Results - Last 24 hrs: Microbiology 06/07/18 12:33 Aerobic Blood Culture - Preliminary Blood - Venous - Lab Draw NO GROWTH AFTER 2 DAYS Anaerobic Blood Culture - Preliminary NO GROWTH AFTER 2 DAYS 06/07/18 12:21 Aerobic Blood Culture - Preliminary Blood - Venous NO GROWTH AFTER 2 DAYS Anaerobic Blood Culture - Preliminary NO GROWTH AFTER 2 DAYS 06/07/18 12:40 Urine Culture - Final Urine, Bladder Escherichia Coli Med Orders - Current: Current Medications Acetaminophen (Tylenol) 650 mg PO Q4H PRN PRN Reason: Pain/Fever Last Admin: 06/09/18 19:25 Dose: 650 mg Enoxaparin Sodium (Lovenox) 40 mg SUBCUT Q24H [facility] Last Admin: 06/09/18 14:37 Dose: 40 mg Gabapentin (Neurontin) 800 mg PO TID [facility] Last Admin: 06/10/18 05:54 Dose: 800 mg Meropenem 1 gm/ Sodium (Chloride) 100 mls @ 200 mls/hr IV Q8H [facility] Last Admin: 06/10/18 05:55 Dose: 200 mls/hr Ibuprofen (Motrin) 800 mg PO Q8H PRN PRN Reason: Pain Last Admin: 06/10/18 08:15 Dose: 800 mg Insulin Aspart (Novolog) 25 unit SUBCUT TIDMEALS [facility] Last Admin: 06/09/18 17:19 Dose: Not Given Insulin Glargine (Lantus Solostar) 40 units SUBCUT BEDTIME [facility] Last Admin: 06/09/18 20:58 Dose: 40 unit Lisinopril (Prinivil) 20 mg PO QAM [facility] Last Admin: 06/10/18 08:14 Dose: 20 mg Ondansetron HCl (Zofran) 4 mg IVPUSH Q4H PRN PRN Reason: Nausea/Vomiting Last Admin: 06/07/18 14:45 Dose: 4 mg Oxycodone HCl (Oxycontin) 10 mg PO Q12HR PRN PRN Reason: Pain Last Admin: 06/09/18 11:49 Dose: 10 mg Phenazopyridine HCl (Pyridium) 200 mg PO TID [facility] Last Admin: 06/10/18 05:54 Dose: 200 mg Sodium Chloride (Saline Flush) 10 ml FLUSH ASDIRECTED PRN PRN Reason: Keep Vein Open Sodium Chloride (Saline Flush) 2.5 ml FLUSH ASDIRECTED PRN PRN Reason: Keep Vein Open Discontinued Medications Acetaminophen (Tylenol Extra Strength) 1,000 mg PO ONETIME ONE Stop: 06/07/18 12:53 Last Admin: 06/07/18 13:37 Dose: 1,000 mg Sodium Chloride (Normal Saline) 1,000 mls @ 999 mls/hr IV .Bolus ONE Stop: 06/07/18 13:05 Last Admin: 06/07/18 12:26 Dose: 999 mls/hr Ceftriaxone Sodium/Dextrose 1 (gm/ Premix) 50 mls @ 100 mls/hr IV ONETIME ONE Stop: 06/07/18 13:51 Last Admin: 06/07/18 13:37 Dose: 100 mls/hr Ceftriaxone Sodium/Dextrose 1 (gm/ Premix) 50 mls @ 100 mls/hr IV Q24H [facility] Last Admin: 06/08/18 15:03 Dose: 100 mls/hr <Hardik Solis - Last Filed: 06/10/18 16:36> Discharge Summary - Hospital Course Free Text/Narrative:: The patient was found to have pyelonephritis secondary to ESBL Escherichia coli. I have examined the patient independently of Teressa Salazar MD, resident. I have discussed the case with her. I have reviewed and agree with the plan of care as outlined by her. Please see orders. - Discharge Diagnosis/Problem(s) (1) UTI, Urinary tract infectious disease SNOMED Code(s): 38956910 ICD Code: N39.0 - URINARY TRACT INFECTION, SITE NOT SPECIFIED Status: Acute Priority: High Current Visit: Yes (2) Abdominal pain SNOMED Code(s): 15282222 ICD Code: R10.9 - UNSPECIFIED ABDOMINAL PAIN Status: Acute Priority: High Current Visit: Yes (3) Diabetes type 2, uncontrolled SNOMED Code(s): 526361832, 875752779 ICD Code: E11.65 - TYPE 2 DIABETES MELLITUS WITH HYPERGLYCEMIA Status: Chronic Priority: Medium Current Visit: Yes Qualifiers: Glycemic state: with hyperglycemia Qualified Code(s): E11.65 - Type 2 diabetes mellitus with hyperglycemia (4) Cardiomegaly SNOMED Code(s): 2451694 ICD Code: I51.7 - CARDIOMEGALY Status: Chronic Priority: Medium Current Visit: Yes Problem Details: Preserved ejection fraction (5) HTN (hypertension) SNOMED Code(s): 46368581 ICD Code: I10 - ESSENTIAL (PRIMARY) HYPERTENSION Status: Chronic Priority : Medium Current Visit: Yes Qualifiers: Hypertension type: essential hypertension Qualified Code(s): I10 - Essential (primary) hypertension - Patient Data Vitals - Most Recent: Last Vital Signs Temp 36.6 C 06/10/18 15:36 Pulse 90 06/10/18 15:36 Resp 16 06/10/18 15:36 BP 166/77 H 06/10/18 15:36 Pulse Ox 100 06/10/18 15:36 I&O - Last 24 hours: Intake & Output 06/10/18 06/10/18 06/10/18 06:59 14:59 22:59 Intake Total 500 100 Output Total 1000 Balance -500 100 Lab Results - Last 24 hrs: Laboratory Results - last 24 hr 06/09/18 06/09/18 06/09/18 Range/Units 16:33 17:02 20:56 WBC (4.0-11.0) K/uL RBC (4.30-5.90) M/uL Hgb (12.0-16.0) g/dL Hct (36.0-46.0) % MCV (80.0-98.0) fL MCH (27.0-32.0) pg MCHC (31.0-37.0) g/dL RDW Std Deviation (28.0-62.0) fl RDW Coeff of Joaquin (11.0-15.0) % Plt Count (150-400) K/uL MPV (7.40-12.00) fL Add Manual Diff Neutrophils % (Manual) (48.0-80.0) % Band Neutrophils % % Monocytes % (Manual) (0.0-15.0) % Eosinophils % (Manual) (0.0-7.0) % Nucleated RBC % /100WBC Absolute Seg Neuts (1.4-5.7) Band Neutrophils # Monocytes # (Manual) (0.0-0.8) Eosinophils # (Manual) (0.0-0.7) Nucleated RBCs # K/uL INR Sodium (136-145) mmol/L Potassium (3.5-5.1) mmol/L Chloride (98-107) mmol/L Carbon Dioxide (21.0-32.0) mmol/L BUN (7.0-18.0) mg/dL Creatinine (0.6-1.0) mg/dL Est Cr Clr Drug Dosing mL/min Estimated GFR (MDRD) ml/min Glucose (74-106) mg/dL POC Glucose 56 L 106 241 H (60-110) mg/dL Calcium (8.5-10.1) mg/dL 03/26/19 03/26/19 03/26/19 Range/Units 05:38 05:38 06:31 WBC 8.73 (4.0-11.0) K/uL RBC 4.11 L (4.30-5.90) M/uL Hgb 11.4 L (12.0-16.0) g/dL Hct 33.3 L (36.0-46.0) % MCV 81.0 (80.0-98.0) fL MCH 27.7 (27.0-32.0) pg MCHC 34.2 (31.0-37.0) g/dL RDW Std Deviation 41.7 (28.0-62.0) fl RDW Coeff of Joaquin 14 (11.0-15.0) % Plt Count 329 (150-400) K/uL MPV 10.50 (7.40-12.00) fL Add Manual Diff YES Neutrophils % (Manual) 62 (48.0-80.0) % Band Neutrophils % 28 % Monocytes % (Manual) 7 (0.0-15.0) % Eosinophils % (Manual) 3 (0.0-7.0) % Nucleated RBC % 0.0 /100WBC Absolute Seg Neuts 5.4 (1.4-5.7) Band Neutrophils # 2.4 Monocytes # (Manual) 0.6 (0.0-0.8) Eosinophils # (Manual) 0.3 (0.0-0.7) Nucleated RBCs # 0 K/uL INR Sodium 141 (136-145) mmol/L Potassium 3.6 (3.5-5.1) mmol/L Chloride 106 (98-107) mmol/L Carbon Dioxide 27.9 (21.0-32.0) mmol/L BUN 19 H (7.0-18.0) mg/dL Creatinine 0.7 (0.6-1.0) mg/dL Est Cr Clr Drug Dosing 80.42 mL/min Estimated GFR (MDRD) > 60.0 ml/min Glucose 93 (74-106) mg/dL POC Glucose 89 (60-110) mg/dL Calcium 9.2 (8.5-10.1) mg/dL 06/10/18 06/10/18 Range/Units 11:13 12:24 WBC (4.0-11.0) K/uL RBC (4.30-5.90) M/uL Hgb (12.0-16.0) g/dL Hct (36.0-46.0) % MCV (80.0-98.0) fL MCH (27.0-32.0) pg MCHC (31.0-37.0) g/dL RDW Std Deviation (28.0-62.0) fl RDW Coeff of Joaquin (11.0-15.0) % Plt Count (150-400) K/uL MPV (7.40-12.00) fL Add Manual Diff Neutrophils % (Manual) (48.0-80.0) % Band Neutrophils % % Monocytes % (Manual) (0.0-15.0) % Eosinophils % (Manual) (0.0-7.0) % Nucleated RBC % /100WBC Absolute Seg Neuts (1.4-5.7) Band Neutrophils # Monocytes # (Manual) (0.0-0.8) Eosinophils # (Manual) (0.0-0.7) Nucleated RBCs # K/uL INR 0.96 Sodium (136-145) mmol/L Potassium (3.5-5.1) mmol/L Chloride (98-107) mmol/L Carbon Dioxide (21.0-32.0) mmol/L BUN (7.0-18.0) mg/dL Creatinine (0.6-1.0) mg/dL Est Cr Clr Drug Dosing mL/min Estimated GFR (MDRD) ml/min Glucose (74-106) mg/dL POC Glucose 195 H (60-110) mg/dL Calcium (8.5-10.1) mg/dL [facility] Results - Last 24 hrs: Microbiology 06/07/18 12:33 Aerobic Blood Culture - Preliminary Blood - Venous - Lab Draw NO GROWTH AFTER 3 DAYS Anaerobic Blood Culture - Preliminary NO GROWTH AFTER 3 DAYS 06/07/18 12:21 Aerobic Blood Culture - Preliminary Blood - Venous NO GROWTH AFTER 3 DAYS Anaerobic Blood Culture - Preliminary NO GROWTH AFTER 3 DAYS Med Orders - Current: Current Medications Acetaminophen (Tylenol) 650 mg PO Q4H PRN PRN Reason: Pain/Fever Last Admin: 06/10/18 14:04 Dose: 650 mg Enoxaparin Sodium (Lovenox) 40 mg SUBCUT Q24H [facility] Last Admin: 06/10/18 13:46 Dose: 40 mg Gabapentin (Neurontin) 800 mg PO TID [facility] Last Admin: 06/10/18 13:45 Dose: 800 mg Meropenem 1 gm/ Sodium (Chloride) 100 mls @ 200 mls/hr IV Q8H [facility] Last Admin: 06/10/18 13:45 Dose: 200 mls/hr Ibuprofen (Motrin) 800 mg PO Q8H PRN PRN Reason: Pain Last Admin: 06/10/18 08:15 Dose: 800 mg Insulin Aspart (Novolog) 25 unit SUBCUT TIDMEALS [facility] Last Admin: 06/10/18 12:43 Dose: 25 units Insulin Glargine (Lantus Solostar) 40 units SUBCUT BEDTIME [facility] Last Admin: 06/09/18 20:58 Dose: 40 unit Lisinopril (Prinivil) 20 mg PO QAM [facility] Last Admin: 06/10/18 08:14 Dose: 20 mg Ondansetron HCl (Zofran) 4 mg IVPUSH Q4H PRN PRN Reason: Nausea/Vomiting Last Admin: 06/07/18 14:45 Dose: 4 mg Oxycodone HCl (Oxycontin) 10 mg PO Q12HR PRN PRN Reason: Pain Last Admin: 06/09/18 11:49 Dose: 10 mg Phenazopyridine HCl (Pyridium) 200 mg PO TID [facility] Last Admin: 06/10/18 13:46 Dose: 200 mg Sodium Chloride (Saline Flush) 10 ml FLUSH ASDIRECTED PRN PRN Reason: Keep Vein Open Sodium Chloride (Saline Flush) 2.5 ml FLUSH ASDIRECTED PRN PRN Reason: Keep Vein Open Discontinued Medications Acetaminophen (Tylenol Extra Strength) 1,000 mg PO ONETIME ONE Stop: 06/07/18 12:53 Last Admin: 06/07/18 13:37 Dose: 1,000 mg Sodium Chloride (Normal Saline) 1,000 mls @ 999 mls/hr IV .Bolus ONE Stop: 06/07/18 13:05 Last Admin: 06/07/18 12:26 Dose: 999 mls/hr Ceftriaxone Sodium/Dextrose 1 (gm/ Premix) 50 mls @ 100 mls/hr IV ONETIME ONE Stop: 06/07/18 13:51 Last Admin: 06/07/18 13:37 Dose: 100 mls/hr Ceftriaxone Sodium/Dextrose 1 (gm/ Premix) 50 mls @ 100 mls/hr IV Q24H [facility] Last Admin: 06/08/18 15:03 Dose: 100 mls/hr
[2018-06-10] MEDS: Insulin Aspart 100 Units/ML 3 ML Pen SUBCUT SCH ×2 (09:27→12:43)
[2018-06-10] MEDS: Enoxaparin 40 MG/0.4 ML Syringe SUBCUT SCH (13:46)
[2018-06-10] MEDS: Acetaminophen 325 MG Tab PO PRN (14:04)
--- NOTE | 2018-06-10 15:13 | CR ---
EXAMINATION: Fluoro and ultrasound guided left-sided PICC line placement. HISTORY: Antibiotics. TECHNIQUE/FINDINGS: After written informed consent was obtained from the patient using ultrasound and Fluoro guidance under aseptic conditions utilizing 1% lidocaine as local anesthesia left basilic vein was accessed and 5 K[place]ili PICC catheter was deployed with its tip in the distal superior vena cava. The catheter flushes and withdraws blood well. The catheter is flushed with the diluted heparin. The catheter secured well. IMPRESSION: Successful Fluoro and ultrasound guided PICC line placement.
[2018-06-10 15:37] VITALS: BP 166/77
== END 2018-06-10 17:20 | disposition home or self-care (01) | DRG 690 ==
LOC: MW.ED 12:00 → MW.MS 13:33
PROVIDERS: ADMIT Internal Medicine; ATTEND Internal Medicine
PROC: B5181ZA Fluoroscopy of Superior Vena Cava using Low Osmolar Contrast, Guidance (ICD-10-PCS; principal; 2018-06-10)
PROC: 02HV33Z Insertion of Infusion Device into Superior Vena Cava, Percutaneous Approach (ICD-10-PCS; principal; 2018-06-10)
DX: N12 Tubulo-interstitial nephritis, not specified as acute or chronic (principal); I31.3 Pericardial effusion (noninflammatory); B96.20 Unspecified Escherichia coli [E. coli] as the cause of diseases classified elsewhere; Z16.12 Extended spectrum beta lactamase (ESBL) resistance; I51.7 Cardiomegaly; I10 Essential (primary) hypertension; E11.40 Type 2 diabetes mellitus with diabetic neuropathy, unspecified; M79.7 Fibromyalgia; M19.90 Unspecified osteoarthritis, unspecified site; E11.65 Type 2 diabetes mellitus with hyperglycemia; E66.9 Obesity, unspecified; F32.9 Major depressive disorder, single episode, unspecified; M54.9 Dorsalgia, unspecified; G89.29 Other chronic pain; Z79.899 Other long term (current) drug therapy; Z79.4 Long term (current) use of insulin; Z87.440 Personal history of urinary (tract) infections; Z90.710 Acquired absence of both cervix and uterus; Z87.891 Personal history of nicotine dependence
CPT/HCPCS: 36415; 36569; 71046; 71046-26; 76937; 76937-26; 77001; 77001-26; 80048; 80053; 81001; 82962; 83036; 83605; 85025; 85610; 87040; 87086; 87088; 87186; 87804; 96361; 96374; 99283; 99284-25; A9270-GY; J0696; J1650; J1815-GY; J2185; J2405; J7030; J7040

== ENCOUNTER 2018-06-19 11:54 | Observation (INO) | payer MEDICAID ==
[2018-06-19] MEDS ORDERED: Ondansetron 4 MG Tab.DIS PO ONE (12:02)
--- NOTE | 2018-06-19 12:03 | EDM.PDOC ---
ED HPI GENERAL MEDICAL PROBLEM - General Chief Complaint: Gastrointestinal Problem Stated Complaint: vomiting Time Seen by Provider: 06/19/18 11:55 Source of Information: Reports: Patient History Limitations: Reports: No Limitations - History of Present Illness INITIAL COMMENTS - FREE TEXT/NARRATIVE: HISTORY AND PHYSICAL: History of present illness: Patient is a 48-year-old female who presents to the ED today with concern of vomiting and diarrhea since 5 this morning. Patient states she does have an IV infusion of antibiotics today at the cancer center. She states that since starting the antibiotics she no longer has the urinary tract symptoms. She states that starting this morning she has had numerous episodes of vomiting and watery diarrhea. She does have a history of type 2 diabetes insulin-dependent. She states she has not been checking her blood sugars and has not given insulin today as she has not been eating per normal. Patient was discharged from our hospital on 05/31/18 s/p PICC line insertion for 12 days outpatient of Carbapenem antibiotics for UTI with ESBL ecoli. Patient denies fever, chills, chest pain, shortness of breath, or cough. Denies headache, neck stiff ness, change in vision, syncope, or near syncope. Denies abdominal pain,, or dysuria. Has not noted any blood in urine or stool. Review of systems: As per history of present illness and below otherwise all systems reviewed and negative. Past medical history: As per history of present illness and as reviewed below otherwise noncontributory. Surgical history: As per history of present illness and as reviewed below otherwise noncontributory. Social history: See social history for further information Family history: As per history of present illness and as reviewed below otherwise noncontributory. Physical exam: General: Patient is alert, oriented, and in no acute distress. She is sitting comfortably on exam table. HEENT: Atraumatic, normocephalic, pupils equal and reactive bilaterally, negative for conjunctival pallor or scleral icterus, mucous membranes moist, TMs normal bilaterally, throat clear, neck supple, nontender, trachea midline. No drooling or trismus noted. No meningeal signs. No hot potato voice noted. Lungs: Clear to auscultation, breath sounds equal bilaterally, chest nontender. Heart: S1S2, regular rate and rhythm without overt murmur Abdomen: Obese, soft, nondistended, nontender. Negative for masses or hepatosplenomegaly. Negative for costovertebral tenderness. Pelvis: Stable nontender. Genitourinary: Deferred. Rectal: Deferred. Skin: Intact, warm, dry. No lesions or rashes noted. Extremities: Atraumatic, negative for cords or calf pain. Neurovascular unremarkable. Neuro: Awake, alert, oriented. Cranial nerves II through XII unremarkable. Cerebellum unremarkable. Motor and sensory unremarkable throughout. Exam nonfocal. Notes: Patient positive for Campylobacter. Dr. Corrales was directly involved in patients care. Dr. Aguilera was consulted on this patient and will admit to observation. Diagnostics: CBC, CMP, UA, stool studies, cdiff Therapeutics: Zofran Prescription: Azithromycin, Zofran Impression: Campylobacter infection Leukocytosis Plan: 1. Admit to observation Definitive disposition and diagnosis as appropriate pending reevaluation and review of above. epigastric/chest Pain Score (Numeric/FACES): 10 - Related Data Allergies Allergy/AdvReac Type Severity Reaction Status Date / Time No Known Allergies Allergy Verified 06/19/18 12:05 Home Meds: Home Meds Gabapentin [Neurontin] 800 mg PO TID 06/24/14 [History] Lisinopril 20 mg PO QAM 06/24/14 [History] oxyCODONE ER [OxyCONTIN] 10 mg PO TID PRN 11/28/14 [History] Insulin Aspart [NovoLOG] 20 unit SQ TID 08/06/16 [History] Insulin Glarg,Human.Rec.Analog [Lantus] 40 unit SQ BEDTIME 11/13/17 [History] Ibuprofen [Motrin] 800 mg PO TID PRN 30 Days #90 tablet 03/16/18 [Rx] Ertapenem [INVanz] 1 gm IV DAILY 12 Days #12 adv 06/10/18 [Rx] Past Medical History HEENT History: Reports: None Other HEENT History: has upper and lower dentures Cardiovascular History: Reports: Hypertension Other Cardiovascular History: pericardial effusion Respiratory History: Reports: Bronchitis, Recurrent Gastrointestinal History: Reports: None Genitourinary History: Reports: UTI, Recurrent 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: Musculoskeletal History: Reports: Arthritis, Back Pain, Chronic, Fibromyalgia Neurological History: Reports: None Psychiatric History: Reports: Depression Endocrine/Metabolic History: Reports: Diabetes, Type II, Obesity/BMI 30+ Hematologic History: Reports: Blood Transfusion(s) Immunologic History: Reports: None Oncologic (Cancer) History: Reports: None Dermatologic History: Reports: None - Infectious Disease History Infectious Disease History: Reports: Chicken Pox - Past Surgical History Head Surgeries/Procedures: Reports: None GI Surgical History: Reports: Cholecystectomy Female Surgical History: Reports: Section, Hysterectomy Neurological Surgical History: Reports: None Musculoskeletal Surgical History: Reports: Arthroscopic Knee Oncologic Surgical History: Reports: None Dermatological Surgical History: Reports: None Social & Family History - Family History Family Medical History: Noncontributory - Caffeine Use Caffeine Use: Reports: Coffee, Tea Caffeine Use Comment: 1 cup ED ROS GENERAL - Review of Systems Review Of Systems: ROS reveals no pertinent complaints other than HPI. ED EXAM, GI/ABD - Physical Exam Exam: See Below (see dictation) Course - Vital Signs Last Recorded V/S: Last Vital Signs Temp 36.5 C 06/19/18 12:02 Pulse 105 H 06/19/18 12:02 Resp 22 H 06/19/18 12:02 BP 144/80 H 06/19/18 12:02 Pulse Ox 94 L 06/19/18 12:02 - Orders/Labs/Meds Orders: Active Orders 24 hr Category Date Time Status Admission Status [Patient Status] [ADT] Stat ADT 06/19/18 15:58 Active Blood Glucose Check, Bedside [RC] ONETIME Care 06/19/18 12:33 Active CULTURE BLOOD [BC] Stat Lab 06/19/18 15:03 Received CULTURE BLOOD [BC] Stat Lab 06/19/18 15:14 Results CULTURE STOOL + CAMPY+SHIGATOX [RM] Stat Lab 06/19/18 12:24 Results CULTURE URINE [RM] Stat Lab 06/19/18 15:57 Ordered OVA & PARASITES BY IMMUNOASSAY [MREF] Stat Lab 06/19/18 12:24 Received Azithromycin [Zithromax] 500 mg Med 06/19/18 16:00 Active Sodium Chloride 0.9% [Normal Saline] 250 ml IV Q24H Ertapenem [INVanz] 1 gm Med 06/19/18 16:00 Active Sodium Chloride 0.9% [Normal Saline] 50 ml IV Q24H Blood Culture x2 Reflex Set [OM.PC] Stat Oth 06/19/18 14:42 Ordered Medication Orders Azithromycin 500 mg/ Sodium (Chloride) 250 mls @ 250 mls/hr IV Q24H [facility] Ertapenem 1 gm/ Sodium (Chloride) 50 mls @ 100 mls/hr IV Q24H [facility] Labs: Laboratory Tests 06/19/18 06/19/18 06/19/18 Range/Units 12:06 12:49 12:49 WBC 17.92 H (4.0-11.0) K/uL RBC 4.74 (4.30-5.90) M/uL Hgb 13.5 (12.0-16.0) g/dL Hct 38.9 (36.0-46.0) % MCV 82.1 (80.0-98.0) fL MCH 28.5 (27.0-32.0) pg MCHC 34.7 (31.0-37.0) g/dL RDW Std Deviation 43.7 (28.0-62.0) fl RDW Coeff of Joaquin 15 (11.0-15.0) % Plt Count 504 H (150-400) K/uL MPV 10.00 (7.40-12.00) fL Neut % (Auto) 86.5 H (48.0-80.0) % Lymph % (Auto) 8.6 L (16.0-40.0) % [place] % (Auto) 3.5 (0.0-15.0) % Eos % (Auto) 1.3 (0.0-7.0) % Baso % (Auto) 0.1 (0.0-1.5) % Neut # (Auto) 15.5 H (1.4-5.7) K/uL Lymph # (Auto) 1.5 (0.6-2.4) K/uL [place] # (Auto) 0.6 (0.0-0.8) K/uL Eos # (Auto) 0.2 (0.0-0.7) K/uL Baso # (Auto) 0.0 (0.0-0.1) K/uL Nucleated RBC % 0.0 /100WBC Nucleated RBCs # 0 K/uL Lactate (0.20-2.00) mmol/L Sodium 138 (136-145) mmol/L Potassium 4.6 (3.5-5.1) mmol/L Chloride 102 (98-107) mmol/L Carbon Dioxide 24.2 (21.0-32.0) mmol/L BUN 27 H (7.0-18.0) mg/dL Creatinine 0.8 (0.6-1.0) mg/dL Est Cr Clr Drug Dosing 70.37 mL/min Estimated GFR (MDRD) > 60.0 ml/min Glucose 188 H (74-106) mg/dL Calcium 10.0 (8.5-10.1) mg/dL Total Bilirubin 0.7 (0.2-1.0) mg/dL AST 34 (15-37) IU/L ALT 77 H (14-63) IU/L Alkaline Phosphatase 163 H (46-116) U/L Total Protein 9.2 H (6.4-8.2) g/dL Albumin 3.8 (3.4-5.0) g/dL Globulin 5.4 H (2.6-4.0) g/dL Albumin/Globulin Ratio 0.7 L (0.9-1.6) Urine Color YELLOW Urine Appearance SLT CLOUDY Urine pH 5.5 (5.0-8.0) Ur Specific [place] >= 1.030 (1.001-1.035) Urine Protein TRACE H (NEGATIVE) mg/dL Urine Glucose (UA) NEGATIVE (NEGATIVE) mg/dL Urine Ketones NEGATIVE (NEGATIVE) mg/dL Urine Occult Blood NEGATIVE (NEGATIVE) Urine Nitrite NEGATIVE (NEGATIVE) Urine Bilirubin NEGATIVE (NEGATIVE) Urine Urobilinogen 0.2 (<2.0) EU/dL Ur Leukocyte Esterase NEGATIVE (NEGATIVE) Urine RBC 0-1 (0-2/HPF) Urine WBC 1-2 (0-5/HPF) Ur Epithelial Cells MANY (NONE-FEW) Urine Bacteria FEW (NEGATIVE) 06/19/18 Range/Units 12:49 WBC (4.0-11.0) K/uL RBC (4.30-5.90) M/uL Hgb (12.0-16.0) g/dL Hct (36.0-46.0) % MCV (80.0-98.0) fL MCH (27.0-32.0) pg MCHC (31.0-37.0) g/dL RDW Std Deviation (28.0-62.0) fl RDW Coeff of Joaquin (11.0-15.0) % Plt Count (150-400) K/uL MPV (7.40-12.00) fL Neut % (Auto) (48.0-80.0) % Lymph % (Auto) (16.0-40.0) % [place] % (Auto) (0.0-15.0) % Eos % (Auto) (0.0-7.0) % Baso % (Auto) (0.0-1.5) % Neut # (Auto) (1.4-5.7) K/uL Lymph # (Auto) (0.6-2.4) K/uL [place] # (Auto) (0.0-0.8) K/uL Eos # (Auto) (0.0-0.7) K/uL Baso # (Auto) (0.0-0.1) K/uL Nucleated RBC % /100WBC Nucleated RBCs # K/uL Lactate 1.3 (0.20-2.00) mmol/L Sodium (136-145) mmol/L Potassium (3.5-5.1) mmol/L Chloride (98-107) mmol/L Carbon Dioxide (21.0-32.0) mmol/L BUN (7.0-18.0) mg/dL Creatinine (0.6-1.0) mg/dL Est Cr Clr Drug Dosing mL/min Estimated GFR (MDRD) ml/min Glucose (74-106) mg/dL Calcium (8.5-10.1) mg/dL Total Bilirubin (0.2-1.0) mg/dL AST (15-37) IU/L ALT (14-63) IU/L Alkaline Phosphatase (46-116) U/L Total Protein (6.4-8.2) g/dL Albumin (3.4-5.0) g/dL Globulin (2.6-4.0) g/dL Albumin/Globulin Ratio (0.9-1.6) Urine Color Urine Appearance Urine pH (5.0-8.0) Ur Specific [place] (1.001-1.035) Urine Protein (NEGATIVE) mg/dL Urine Glucose (UA) (NEGATIVE) mg/dL Urine Ketones (NEGATIVE) mg/dL Urine Occult Blood (NEGATIVE) Urine Nitrite (NEGATIVE) Urine Bilirubin (NEGATIVE) Urine Urobilinogen (<2.0) EU/dL Ur Leukocyte Esterase (NEGATIVE) Urine RBC (0-2/HPF) Urine WBC (0-5/HPF) Ur Epithelial Cells (NONE-FEW) Urine Bacteria (NEGATIVE) Meds: Medications Generic Name Dose Route Start Last Admin Trade Name Freq PRN Reason Stop Dose Admin Azithromycin 500 mg/ Sodium 250 mls @ 250 mls/hr 06/19/18 16:00 Chloride IV Q24H WADE Ertapenem 1 gm/ Sodium 50 mls @ 100 mls/hr 06/19/18 16:00 Chloride IV Q24H WADE Discontinued Medications Generic Name Dose Route Start Last Admin Trade Name Freq PRN Reason Stop Dose Admin Sodium Chloride 1,000 mls @ 999 mls/hr 06/19/18 12:06 06/19/18 12:58 Normal Saline IV 06/19/18 13:06 999 mls/hr STAT ONE Administration Ondansetron HCl 4 mg 06/19/18 12:02 06/19/18 12:10 Zofran Odt PO 06/19/18 12:03 Not Given ONETIME ONE Ondansetron HCl 4 mg 06/19/18 12:07 06/19/18 12:57 Zofran IVPUSH 06/19/18 12:08 4 mg ONETIME ONE Administration Departure - Departure Time of Disposition: 16:01 Disposition: Refer to Observation Clinical Impression: Campylobacter gastroenteritis Leukocytosis Qualifiers: Leukocytosis type: other Qualified Code(s): D72.828 - Other elevated white blood cell count - Discharge Information Referrals: PCP,Unknown [Primary Care Provider] - Forms: ED Department Discharge - My Orders Last 24 Hours: My Active Orders 06/19/18 12:24 CULTURE STOOL + CAMPY+SHIGATOX [RM] Stat OVA & PARASITES BY IMMUNOASSAY [MREF] Stat 06/19/18 12:33 Blood Glucose Check, Bedside [RC] ONETIME 06/19/18 14:42 Blood Culture x2 Reflex Set [OM.PC] Stat 06/19/18 15:03 CULTURE BLOOD [BC] Stat 06/19/18 15:14 CULTURE BLOOD [BC] Stat 06/19/18 15:58 Admission Status [Patient Status] [ADT] Stat - Assessment/Plan Last 24 Hours: My Active Orders 06/19/18 12:24 CULTURE STOOL + CAMPY+SHIGATOX [RM] Stat OVA & PARASITES BY IMMUNOASSAY [MREF] Stat 06/19/18 12:33 Blood Glucose Check, Bedside [RC] ONETIME 06/19/18 14:42 Blood Culture x2 Reflex Set [OM.PC] Stat 06/19/18 15:03 CULTURE BLOOD [BC] Stat 06/19/18 15:14 CULTURE BLOOD [BC] Stat 06/19/18 15:58 Admission Status [Patient Status] [ADT] Stat
[2018-06-19] MEDS ORDERED: Sodium Chloride 0.9% 1,000 ML IV ONE (12:06)
[2018-06-19] MEDS ORDERED: Ondansetron 4 MG/2 ML SDV IVPUSH ONE (12:07)
[2018-06-19 14:07] LABS: CHLORIDE,CL 102 mmol/L (98-107); SODIUM,NA 138 mmol/L (136-145)
[2018-06-19] MEDS ORDERED: Ondansetron 4 MG/2 ML SDV IVPUSH PRN (15:58)
[2018-06-19] MEDS ORDERED: Azithromycin 500 MG in Sodium Chloride 0.9% 250 ML IV SCH (16:00)
[2018-06-19] MEDS ORDERED: Ertapenem 1 GM in Sodium Chloride 0.9% 50 ML IV SCH (16:00)
[2018-06-19] MEDS ORDERED: oxyCODONE ER 10 MG TAB.ER PO PRN (16:07)
[2018-06-19] MEDS ORDERED: Sodium Chloride 0.9% 1,000 ML IV SCH (16:15)
--- NOTE | 2018-06-19 16:17 | PCM.HP ---
H&P History of Present Illness - General Date of Service: 06/19/18 Admit Problem/Dx: Admission Diagnosis/Problem Admission Diagnosis/Problem Campylobacter gastroenteritis - History of Present Illness Initial Comments - Free Text/Narative: 48 yo female with pmh of HTN, DM who was discharged eight days ago on daily infusions of Invanz for ESBL ecoli UTI who presents with one day history of nausea, vomiting, and diarrhea. She reports difficulty keeping liquids down and reports as if food gets stuck in her chest. She reports liquid stool, but denies any blood in stool. epigastric/chest Pain Score (Numeric/FACES): 10 - Related Data Allergies/Adverse Reactions: Allergies Allergy/AdvReac Type Severity Reaction Status Date / Time No Known Allergies Allergy Verified 06/19/18 12:05 Home Medications: Home Meds Gabapentin [Neurontin] 800 mg PO TID 06/24/14 [History] Lisinopril 20 mg PO QAM 06/24/14 [History] oxyCODONE ER [OxyCONTIN] 10 mg PO TID PRN 11/28/14 [History] Insulin Aspart [NovoLOG] 20 unit SQ TID 08/06/16 [History] Insulin Glarg,Human.Rec.Analog [Lantus] 40 unit SQ BEDTIME 11/13/17 [History] Ibuprofen [Motrin] 800 mg PO TID PRN 30 Days #90 tablet 03/16/18 [Rx] Ertapenem [INVanz] 1 gm IV DAILY 12 Days #12 adv 06/10/18 [Rx] Azithromycin [Zithromax] 500 mg PO DAILY 3 Days #3 tab 06/20/18 [Rx] Ondansetron [Zofran ODT] 4 mg PO Q6H PRN #15 tab.dis 06/20/18 [Rx] Past Medical History HEENT History: Reports: None Other HEENT History: has upper and lower dentures Cardiovascular History: Reports: Hypertension Other Cardiovascular History: pericardial effusion Respiratory History: Reports: Bronchitis, Recurrent Gastrointestinal History: Reports: None Genitourinary History: Reports: UTI, Recurrent Other Genitourinary History: had E.Coli in urine, currently still receving IV antibiotics 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: Musculoskeletal History: Reports: Arthritis, Back Pain, Chronic, Fibromyalgia Neurological History: Reports: None Psychiatric History: Reports: Depression Endocrine/Metabolic History: Reports: Diabetes, Type II, Obesity/BMI 30+ Hematologic History: Reports: Blood Transfusion(s) Immunologic History: Reports: None Oncologic (Cancer) History: Reports: None Dermatologic History: Reports: None - Infectious Disease History Infectious Disease History: Reports: Chicken Pox - Past Surgical History Head Surgeries/Procedures: Reports: None GI Surgical History: Reports: Cholecystectomy Female Surgical History: Reports: Section, Hysterectomy Neurological Surgical History: Reports: None Musculoskeletal Surgical History: Reports: Arthroscopic Knee Oncologic Surgical History: Reports: None Dermatological Surgical History: Reports: None Social & Family History - Family History Family Medical History: Noncontributory - Tobacco Use Smoking Status *Q: Former Smoker Years of Tobacco use: 30 Packs/Tins Daily: 1 Used Tobacco, but Quit: Yes Month/Year Tobacco Last Used: February - Caffeine Use Caffeine Use: Reports: Coffee, Tea Caffeine Use Comment: 1 cup - Recreational Drug Use Recreational Drug Use: No H&P Review of Systems - Review of Systems: Review Of Systems: ROS reveals no pertinent complaints other than HPI. Exam - Exam Exam: See Below - Vital Signs Vital Signs: Last Vital Signs Temp 36.5 C 06/19/18 12:02 Pulse 105 H 06/19/18 12:02 Resp 22 H 06/19/18 12:02 BP 144/80 H 06/19/18 12:02 Pulse Ox 94 L 06/19/18 12:02 Weight: 106.594 kg - Exam General: Alert, Oriented Lungs: Clear to Auscultation, Normal Respiratory Effort Cardiovascular: Regular Rate, Regular Rhythm GI/Abdominal Exam: Normal Bowel Sounds, Soft, Non-Tender, No Distention Extremities: Non-Tender, No Pedal Edema Skin: Warm, Dry, Intact - Patient Data Lab Results Last 24 hrs: Laboratory Results - last 24 hr 06/19/18 06/19/18 06/19/18 Range/Units 12:06 12:49 12:49 WBC 17.92 H (4.0-11.0) K/uL RBC 4.74 (4.30-5.90) M/uL Hgb 13.5 (12.0-16.0) g/dL Hct 38.9 (36.0-46.0) % MCV 82.1 (80.0-98.0) fL MCH 28.5 (27.0-32.0) pg MCHC 34.7 (31.0-37.0) g/dL RDW Std Deviation 43.7 (28.0-62.0) fl RDW Coeff of Joaquin 15 (11.0-15.0) % Plt Count 504 H (150-400) K/uL MPV 10.00 (7.40-12.00) fL Neut % (Auto) 86.5 H (48.0-80.0) % Lymph % (Auto) 8.6 L (16.0-40.0) % [place] % (Auto) 3.5 (0.0-15.0) % Eos % (Auto) 1.3 (0.0-7.0) % Baso % (Auto) 0.1 (0.0-1.5) % Neut # (Auto) 15.5 H (1.4-5.7) K/uL Lymph # (Auto) 1.5 (0.6-2.4) K/uL [place] # (Auto) 0.6 (0.0-0.8) K/uL Eos # (Auto) 0.2 (0.0-0.7) K/uL Baso # (Auto) 0.0 (0.0-0.1) K/uL Nucleated RBC % 0.0 /100WBC Nucleated RBCs # 0 K/uL Lactate (0.20-2.00) mmol/L Sodium 138 (136-145) mmol/L Potassium 4.6 (3.5-5.1) mmol/L Chloride 102 (98-107) mmol/L Carbon Dioxide 24.2 (21.0-32.0) mmol/L BUN 27 H (7.0-18.0) mg/dL Creatinine 0.8 (0.6-1.0) mg/dL Est Cr Clr Drug Dosing 70.37 mL/min Estimated GFR (MDRD) > 60.0 ml/min Glucose 188 H (74-106) mg/dL Calcium 10.0 (8.5-10.1) mg/dL Total Bilirubin 0.7 (0.2-1.0) mg/dL AST 34 (15-37) IU/L ALT 77 H (14-63) IU/L Alkaline Phosphatase 163 H (46-116) U/L Total Protein 9.2 H (6.4-8.2) g/dL Albumin 3.8 (3.4-5.0) g/dL Globulin 5.4 H (2.6-4.0) g/dL Albumin/Globulin Ratio 0.7 L (0.9-1.6) Urine Color YELLOW Urine Appearance SLT CLOUDY Urine pH 5.5 (5.0-8.0) Ur Specific [place] >= 1.030 (1.001-1.035) Urine Protein TRACE H (NEGATIVE) mg/dL Urine Glucose (UA) NEGATIVE (NEGATIVE) mg/dL Urine Ketones NEGATIVE (NEGATIVE) mg/dL Urine Occult Blood NEGATIVE (NEGATIVE) Urine Nitrite NEGATIVE (NEGATIVE) Urine Bilirubin NEGATIVE (NEGATIVE) Urine Urobilinogen 0.2 (<2.0) EU/dL Ur Leukocyte Esterase NEGATIVE (NEGATIVE) Urine RBC 0-1 (0-2/HPF) Urine WBC 1-2 (0-5/HPF) Ur Epithelial Cells MANY (NONE-FEW) Urine Bacteria FEW (NEGATIVE) 06/19/18 Range/Units 12:49 WBC (4.0-11.0) K/uL RBC (4.30-5.90) M/uL Hgb (12.0-16.0) g/dL Hct (36.0-46.0) % MCV (80.0-98.0) fL MCH (27.0-32.0) pg MCHC (31.0-37.0) g/dL RDW Std Deviation (28.0-62.0) fl RDW Coeff of Joaquin (11.0-15.0) % Plt Count (150-400) K/uL MPV (7.40-12.00) fL Neut % (Auto) (48.0-80.0) % Lymph % (Auto) (16.0-40.0) % [place] % (Auto) (0.0-15.0) % Eos % (Auto) (0.0-7.0) % Baso % (Auto) (0.0-1.5) % Neut # (Auto) (1.4-5.7) K/uL Lymph # (Auto) (0.6-2.4) K/uL [place] # (Auto) (0.0-0.8) K/uL Eos # (Auto) (0.0-0.7) K/uL Baso # (Auto) (0.0-0.1) K/uL Nucleated RBC % /100WBC Nucleated RBCs # K/uL Lactate 1.3 (0.20-2.00) mmol/L Sodium (136-145) mmol/L Potassium (3.5-5.1) mmol/L Chloride (98-107) mmol/L Carbon Dioxide (21.0-32.0) mmol/L BUN (7.0-18.0) mg/dL Creatinine (0.6-1.0) mg/dL Est Cr Clr Drug Dosing mL/min Estimated GFR (MDRD) ml/min Glucose (74-106) mg/dL Calcium (8.5-10.1) mg/dL Total Bilirubin (0.2-1.0) mg/dL AST (15-37) IU/L ALT (14-63) IU/L Alkaline Phosphatase (46-116) U/L Total Protein (6.4-8.2) g/dL Albumin (3.4-5.0) g/dL Globulin (2.6-4.0) g/dL Albumin/Globulin Ratio (0.9-1.6) Urine Color Urine Appearance Urine pH (5.0-8.0) Ur Specific [place] (1.001-1.035) Urine Protein (NEGATIVE) mg/dL Urine Glucose (UA) (NEGATIVE) mg/dL Urine Ketones (NEGATIVE) mg/dL Urine Occult Blood (NEGATIVE) Urine Nitrite (NEGATIVE) Urine Bilirubin (NEGATIVE) Urine Urobilinogen (<2.0) EU/dL Ur Leukocyte Esterase (NEGATIVE) Urine RBC (0-2/HPF) Urine WBC (0-5/HPF) Ur Epithelial Cells (NONE-FEW) Urine Bacteria (NEGATIVE) Result Diagrams: 06/20/18 05:25 06/20/18 05:25 Sachin Results Last 24 hrs: Microbiology 06/19/18 15:14 Anaerobic Blood Culture - Final Blood - Venous - Lab Draw 06/19/18 12:24 Clostridium difficile Toxin A & B - Final Stool / Feces Negative for C.Diff Toxin/AG 06/19/18 12:24 Campylobacter Antigen Assay - Final Stool / Feces Positive Campylobacter Ag Problem List Initiated/Reviewed/Updated: Yes Orders Last 24hrs: Active Orders 24 hr Category Date Time Status Admission Status [Patient Status] [ADT] Stat ADT 06/19/18 15:58 Ordered Antiembolic Devices [RC] PER UNIT ROUTINE Care 06/19/18 16:01 Ordered Blood Glucose Check, Bedside [RC] ONETIME Care 06/19/18 12:33 Active Blood Glucose Check, Bedside [RC] TIDMEALS Care 06/19/18 15:58 Ordered Oxygen Therapy [RC] PRN Care 06/19/18 15:59 Ordered Up ad [place] [RC] ASDIRECTED Care 06/19/18 15:58 Ordered VTE/DVT Education [RC] PER UNIT ROUTINE Care 06/19/18 15:59 Ordered Vital Signs [RC] Q4H Care 06/19/18 15:59 Ordered Clear Liquid Diet [DIET] Diet 06/19/18 Breakfast Ordered Abdomen Pelvis wo Cont [CT] Stat Exams 06/19/18 16:02 Ordered CBC W/O DIFF,HEMOGRAM [HEME] AM Lab 06/20/18 05:11 Ordered COMPREHENSIVE METABOLIC PN,CMP [CHEM] AM Lab 06/20/18 05:11 Ordered CULTURE BLOOD [BC] Stat Lab 06/19/18 15:03 Received CULTURE BLOOD [BC] Stat Lab 06/19/18 15:14 Results CULTURE STOOL + CAMPY+SHIGATOX [RM] Stat Lab 06/19/18 12:24 Results CULTURE URINE [RM] Stat Lab 06/19/18 15:57 Ordered OVA & PARASITES BY IMMUNOASSAY [MREF] Stat Lab 06/19/18 12:24 Received Azithromycin [Zithromax] 500 mg Med 06/19/18 16:00 Ordered Sodium Chloride 0.9% [Normal Saline] 250 ml IV Q24H Ertapenem [INVanz] 1 gm Med 06/19/18 16:00 Ordered Sodium Chloride 0.9% [Normal Saline] 50 ml IV Q24H Gabapentin [Neurontin] Med 06/19/18 22:00 Ordered 800 mg PO TID Insulin Glarg,Human.Rec.Analog Med 06/19/18 21:00 Ordered 20 unit SQ BEDTIME Lisinopril Med 06/20/18 09:00 Ordered 20 mg PO QAM Ondansetron [Zofran] Med 06/19/18 15:58 Ordered 4 mg IVPUSH Q4H PRN Sodium Chloride 0.9% @ 125 MLS/HR (1,000ml) Med 06/19/18 16:15 Ordered Sodium Chloride 0.9% [Normal Saline] 1,000 ml IV ASDIRECTED oxyCODONE ER [OxyCONTIN] Med 06/19/18 16:07 Ordered 10 mg PO TID PRN Blood Culture x2 Reflex Set [OM.PC] Stat Oth 06/19/18 14:42 Ordered Sequential Compression Device [OM.PC] Per Unit Routine Oth 06/19/18 16:00 Ordered Resuscitation Status Routine Resus Stat 06/19/18 15:58 Ordered Medication Orders Gabapentin (Neurontin) 800 mg PO TID WADE Azithromycin 500 mg/ Sodium (Chloride) 250 mls @ 250 mls/hr IV Q24H WADE Ertapenem 1 gm/ Sodium (Chloride) 50 mls @ 100 mls/hr IV Q24H WADE Sodium Chloride (Normal Saline) 1,000 mls @ 125 mls/hr IV ASDIRECTED WADE Non-Formulary Medication (Insulin Glarg,Human.Rec.Analog) 20 unit SQ BEDTIME WADE Non-Formulary Medication (Lisinopril) 20 mg PO QAM WADE Ondansetron HCl (Zofran) 4 mg IVPUSH Q4H PRN PRN Reason: Nausea Oxycodone HCl (Oxycontin) 10 mg PO TID PRN PRN Reason: Pain Assessment/Plan Comment:: 48 yo female admitted for Gastroenteritis. She is campylobacter positive. We will treat with Azithromycin and resuscitate with IV fluids. She will continue Ertapenem and will check CT scan of abdomen to look for any complicating features of her ESBL ecoli uti.
--- NOTE | 2018-06-19 17:05 | CT ---
INDICATION: UTI. Nausea and vomiting. Leukocytosis. CT ABDOMEN AND PELVIS WITHOUT CONTRAST TECHNIQUE: Multidetector CT imaging was performed through the abdomen and pelvis without intravenous contrast administration. Coronal and sagittal reconstructions were generated. COMPARISON: None. FINDINGS: Lower chest: Minimal left basilar lung atelectasis. Borderline cardiac enlargement. [id number] pericardial effusion matching up to 3 centimeters in thickness. Liver: Within normal limits. Gallbladder and bile ducts: Status post cholecystectomy. No biliary dilation identified. Pancreas: Unremarkable. Spleen: Normal. Adrenals: Indeterminate 1.4cm left adrenal nodule. Kidneys, ureters, and urinary bladder: No urinary tract stones identified. No hydronephrosis. No noncontrast CT evidence of pyelonephritis. No bladder mass or definite wall thickening. Gastrointestinal tract: Normal caliber small bowel without wall thickening or obstruction. The appendix is normal. There is nonspecific mild prominence of gas within the colon with scattered air-fluid levels in the transverse colon, possibly reflecting gastroenteritis or a nonspecific diarrheal illness. Vascular structures: Normal for age. Peritoneum: No free air, abscess, or significant free fluid. Lymph nodes: No pathologically enlarged nodes identified. Reproductive organs: Status post hysterectomy. No pelvic masses. Bones: Minor spinal degenerative changes. IMPRESSION: 1. Nonspecific mild postoperative gas in the colon with several air-fluid levels, possibly reflecting gastroenteritis or a nonspecific diarrheal illness. 2. Moderate to large pericardial effusion. Borderline cardiac enlargement. 3. Nonacute additional findings as noted above. JESSENIA NATHAN MD [employer] Dictated by Jack Nathan MD @ 06/19/2018 5:02:27 PM Dictated by: Jack Nathan MD @ 06/19/2018 17:04:03 (Electronically Signed)
[2018-06-19] MEDS ORDERED: INSULIN GLARG HUMAN REC ANALOG 20 UNIT SQ SCH (21:00)
[2018-06-19] MEDS ORDERED: Insulin Glargine,Human Rec. Analog 100 Units/ML 3 ML Pen SUBCUT SCH (22:00)
[2018-06-19] MEDS: Gabapentin 800 MG Tab PO SCH (22:02)
[2018-06-20] MEDS: Gabapentin 800 MG Tab PO SCH ×2 (05:39→14:43)
[2018-06-20 06:52] LABS: CHLORIDE,CL 104 mmol/L (98-107); SODIUM,NA 140 mmol/L (136-145)
[2018-06-20] MEDS ORDERED: Lisinopril 10 MG Tab PO SCH (09:00)
[2018-06-20] MEDS: Insulin Aspart 100 Units/ML 3 ML Pen SUBCUT SCH ×3 (09:12→17:41)
--- NOTE | 2018-06-20 13:31 | PCM.DCSUM1 ---
<Teressa Salazar - Last Filed: 06/20/18 13:35> Discharge Summary - Hospital Course HPI Initial Comments: Admission Date: 06/19/18 Discharge Date: 06/20/18 Admission Diagnosis: 1. Campylobacter diarrhea 2. Hx ESBL ecoli UTI 3. DMII 4. Pericardial effusion 5. Chronic conditions- neuropathy/chronic pain Discharge Diagnosis: 1. Campylobacter diarrhea- improved 2. Hx ESBL ecoli UTI 3. DMII 4. Pericardial effusion 5. Chronic conditions- neuropathy/chronic pain Procedures: None Consults: None Hospital Course: The patient is a 48 year old female who was admitted for diarrhea that was found to be positive for Campylobacter. She had history of ESBL Ecoli UTI for which she was getting outpatient IV Ertapenem treatments. Work up found an elevated white count that resolved over the course of her stay. Her lactate was within normal limits. CT ab/pelvis showed air fluid levels consistent with gastroenteritis or nonspecific diarrheal disease. It also showed a moderate to large pericardial effusion. She had a pericardial effusion back in Feb 2018. In March she had a echo done that showed an EF of 60-65% with trivial effusion. Repeat echo was completed but results were pending at time of discharge. She denied chest pain or shortness of breath. She has a follow up appt with Dr. White in a few weeks. By time of discharge her diarrhea had greatly improved and she felt she was ready to go home. She was tolerating an oral diet without nausea/vomiting. She was kept on her home meds for chronic conditions. Disposition: home Discharge Condition: vitals stable, tolerating oral diet, diarrhea improved, ambulating without difficulty. Discharge Instructions: diabetic diet as tolerated, activity as tolerated, take medications as prescribed, continue to follow up as an outpatient for IV antibiotics therapy. Symptoms to report to physician include fever/chills, chest pain, shortness of breath, abdominal pain, worsening diarrhea, nausea/ vomiting, erythema, discharge/drainage, not improving as expected. Discharge Medications: Gabapentin [Neurontin] 800 mg PO TID Lisinopril 20 mg PO QAM oxyCODONE ER [OxyCONTIN] 10 mg PO TID PRN Insulin Aspart [NovoLOG] 20 unit SQ TID Insulin Glarg,Human.Rec.Analog [Lantus] 40 unit SQ BEDTIME Ibuprofen [Motrin] 800 mg PO TID PRN Ertapenem [INVanz] 1 gm IV DAILY Azithromycin [Zithromax] 500 mg PO DAILY Ondansetron [Zofran ODT] 4 mg PO Q6H PRN] Follow-up: Dr. Rico on 07/02/[address] White on 07/08/18 - Discharge Data Discharge Date: 06/20/18 Discharge Disposition: Home, Self-Care 01 Condition: Stable - Discharge Plan Prescriptions/Med Rec: Azithromycin [Zithromax] 500 mg PO DAILY 3 Days #3 tab Ondansetron [Zofran ODT] 4 mg PO Q6H PRN #15 tab.dis PRN Reason: Nausea/Vomiting Home Medications: Home Meds Gabapentin [Neurontin] 800 mg PO TID 06/24/14 [History] Lisinopril 20 mg PO QAM 06/24/14 [History] oxyCODONE ER [OxyCONTIN] 10 mg PO TID PRN 11/28/14 [History] Insulin Aspart [NovoLOG] 20 unit SQ TID 08/06/16 [History] Insulin Glarg,Human.Rec.Analog [Lantus] 40 unit SQ BEDTIME 11/13/17 [History] Ibuprofen [Motrin] 800 mg PO TID PRN 30 Days #90 tablet 03/16/18 [Rx] Ertapenem [INVanz] 1 gm IV DAILY 12 Days #12 adv 06/10/18 [Rx] Azithromycin [Zithromax] 500 mg PO DAILY 3 Days #3 tab 06/20/18 [Rx] Ondansetron [Zofran ODT] 4 mg PO Q6H PRN #15 tab.dis 06/20/18 [Rx] Patient Handouts: Ondansetron oral dissolving tablet, Nausea and Vomiting, Adult, [id number], Azithromycin tablets, Diarrhea, Adult, [id number] Referrals: [facility] [Outside] Mack Rico MD [Ordering Only Provider] - 07/02/18 1:00 pm - Discharge Summary/Plan Comment DC Time >30 min.: No - Patient Data Vitals - Most Recent: Last Vital Signs Temp 97.5 F 06/20/18 11:31 Pulse 84 06/20/18 11:31 Resp 22 H 06/20/18 11:31 BP 130/74 06/20/18 11:31 Pulse Ox 94 L 06/20/18 11:31 Weight - Most Recent: 102.603 kg I&O - Last 24 hours: Intake & Output 06/19/18 06/20/18 06/20/18 22:59 06:59 14:59 Intake Total 250 700 Output Total 600 Balance 250 100 Lab Results - Last 24 hrs: Laboratory Results - last 24 hr 06/19/18 06/19/18 06/19/18 Range/Units 12:49 12:49 18:28 WBC 17.92 H (4.0-11.0) K/uL RBC 4.74 (4.30-5.90) M/uL Hgb 13.5 (12.0-16.0) g/dL Hct 38.9 (36.0-46.0) % MCV 82.1 (80.0-98.0) fL MCH 28.5 (27.0-32.0) pg MCHC 34.7 (31.0-37.0) g/dL RDW Std Deviation 43.7 (28.0-62.0) fl RDW Coeff of Joaquin 15 (11.0-15.0) % Plt Count 504 H (150-400) K/uL MPV 10.00 (7.40-12.00) fL Neut % (Auto) 86.5 H (48.0-80.0) % Lymph % (Auto) 8.6 L (16.0-40.0) % Nelson % (Auto) 3.5 (0.0-15.0) % Eos % (Auto) 1.3 (0.0-7.0) % Baso % (Auto) 0.1 (0.0-1.5) % Neut # (Auto) 15.5 H (1.4-5.7) K/uL Lymph # (Auto) 1.5 (0.6-2.4) K/uL Nelson # (Auto) 0.6 (0.0-0.8) K/uL Eos # (Auto) 0.2 (0.0-0.7) K/uL Baso # (Auto) 0.0 (0.0-0.1) K/uL Nucleated RBC % 0.0 /100WBC Nucleated RBCs # 0 K/uL Sodium 138 (136-145) mmol/L Potassium 4.6 (3.5-5.1) mmol/L Chloride 102 (98-107) mmol/L Carbon Dioxide 24.2 (21.0-32.0) mmol/L BUN 27 H (7.0-18.0) mg/dL Creatinine 0.8 (0.6-1.0) mg/dL Est Cr Clr Drug Dosing 70.37 mL/min Estimated GFR (MDRD) > 60.0 ml/min Glucose 188 H (74-106) mg/dL POC Glucose 142 H (60-110) mg/dL Calcium 10.0 (8.5-10.1) mg/dL Total Bilirubin 0.7 (0.2-1.0) mg/dL AST 34 (15-37) IU/L ALT 77 H (14-63) IU/L Alkaline Phosphatase 163 H (46-116) U/L Total Protein 9.2 H (6.4-8.2) g/dL Albumin 3.8 (3.4-5.0) g/dL Globulin 5.4 H (2.6-4.0) g/dL Albumin/Globulin Ratio 0.7 L (0.9-1.6) 06/19/18 06/20/18 06/20/18 Range/Units 21:38 05:25 05:25 WBC 9.19 (4.0-11.0) K/uL RBC 4.23 L (4.30-5.90) M/uL Hgb 11.7 L (12.0-16.0) g/dL Hct 34.9 L (36.0-46.0) % MCV 82.5 (80.0-98.0) fL MCH 27.7 (27.0-32.0) pg MCHC 33.5 (31.0-37.0) g/dL RDW Std Deviation 43.8 (28.0-62.0) fl RDW Coeff of Joaquin 15 (11.0-15.0) % Plt Count 351 (150-400) K/uL MPV 10.00 (7.40-12.00) fL Neut % (Auto) (48.0-80.0) % Lymph % (Auto) (16.0-40.0) % Nelson % (Auto) (0.0-15.0) % Eos % (Auto) (0.0-7.0) % Baso % (Auto) (0.0-1.5) % Neut # (Auto) (1.4-5.7) K/uL Lymph # (Auto) (0.6-2.4) K/uL Nelson # (Auto) (0.0-0.8) K/uL Eos # (Auto) (0.0-0.7) K/uL Baso # (Auto) (0.0-0.1) K/uL Nucleated RBC % 0.0 /100WBC Nucleated RBCs # 0 K/uL Sodium 140 (136-145) mmol/L Potassium 4.0 (3.5-5.1) mmol/L Chloride 104 (98-107) mmol/L Carbon Dioxide 28.0 (21.0-32.0) mmol/L BUN 19 H (7.0-18.0) mg/dL Creatinine 0.7 (0.6-1.0) mg/dL Est Cr Clr Drug Dosing 80.42 mL/min Estimated GFR (MDRD) > 60.0 ml/min Glucose 122 H (74-106) mg/dL POC Glucose 196 H (60-110) mg/dL Calcium 9.2 (8.5-10.1) mg/dL Total Bilirubin 0.6 (0.2-1.0) mg/dL AST 24 (15-37) IU/L ALT 58 (14-63) IU/L Alkaline Phosphatase 133 H (46-116) U/L Total Protein 7.6 (6.4-8.2) g/dL Albumin 3.1 L (3.4-5.0) g/dL Globulin 4.5 H (2.6-4.0) g/dL Albumin/Globulin Ratio 0.7 L (0.9-1.6) 06/20/18 06/20/18 Range/Units 06:22 12:01 WBC (4.0-11.0) K/uL RBC (4.30-5.90) M/uL Hgb (12.0-16.0) g/dL Hct (36.0-46.0) % MCV (80.0-98.0) fL MCH (27.0-32.0) pg MCHC (31.0-37.0) g/dL RDW Std Deviation (28.0-62.0) fl RDW Coeff of Joaquin (11.0-15.0) % Plt Count (150-400) K/uL MPV (7.40-12.00) fL Neut % (Auto) (48.0-80.0) % Lymph % (Auto) (16.0-40.0) % Nelson % (Auto) (0.0-15.0) % Eos % (Auto) (0.0-7.0) % Baso % (Auto) (0.0-1.5) % Neut # (Auto) (1.4-5.7) K/uL Lymph # (Auto) (0.6-2.4) K/uL Nelson # (Auto) (0.0-0.8) K/uL Eos # (Auto) (0.0-0.7) K/uL Baso # (Auto) (0.0-0.1) K/uL Nucleated RBC % /100WBC Nucleated RBCs # K/uL Sodium (136-145) mmol/L Potassium (3.5-5.1) mmol/L Chloride (98-107) mmol/L Carbon Dioxide (21.0-32.0) mmol/L BUN (7.0-18.0) mg/dL Creatinine (0.6-1.0) mg/dL Est Cr Clr Drug Dosing mL/min Estimated GFR (MDRD) ml/min Glucose (74-106) mg/dL POC Glucose 119 H 148 H (60-110) mg/dL Calcium (8.5-10.1) mg/dL Total Bilirubin (0.2-1.0) mg/dL AST (15-37) IU/L ALT (14-63) IU/L Alkaline Phosphatase (46-116) U/L Total Protein (6.4-8.2) g/dL Albumin (3.4-5.0) g/dL Globulin (2.6-4.0) g/dL Albumin/Globulin Ratio (0.9-1.6) CARMINA Results - Last 24 hrs: Microbiology 06/19/18 12:24 Cryptosporidium/Giardia - Final Stool / Feces 06/19/18 12:24 Campylobacter Antigen Assay - Final Stool / Feces Positive Campylobacter Ag Shiga Toxin I - Final NEGATIVE FOR SHIGA TOXIN 1 Shiga Toxin II - Final NEGATIVE FOR SHIGA TOXIN 2 06/19/18 15:14 Anaerobic Blood Culture - Final Blood - Venous - Lab Draw 06/19/18 12:24 Clostridium difficile Toxin A & B - Final Stool / Feces Negative for C.Diff Toxin/AG Med Orders - Current: Current Medications Gabapentin (Neurontin) 800 mg PO TID [facility], [facility] Last Admin: 06/20/18 05:39 Dose: Not Given Azithromycin 500 mg/ Sodium (Chloride) 250 mls @ 250 mls/hr IV Q24H [facility] Last Admin: 06/19/18 18:58 Dose: 250 mls/hr Ertapenem 1 gm/ Sodium (Chloride) 50 mls @ 100 mls/hr IV Q24H [facility]1983 Last Admin: 06/19/18 17:17 Dose: 100 mls/hr Insulin Aspart (Novolog) 0 unit SUBCUT TIDAC [facility], [facility]1983; Protocol Last Admin: 06/20/18 12:19 Dose: Not Given Insulin Glargine (Lantus Solostar) 20 units SUBCUT BEDTIME [facility], [facility]1983 Lisinopril (Prinivil) 20 mg PO DAILY [facility] Last Admin: 06/20/18 09:23 Dose: 20 mg Ondansetron HCl (Zofran) 4 mg IVPUSH Q4H PRN PRN Reason: Nausea Oxycodone HCl (Oxycontin) 10 mg PO TID PRN PRN Reason: Pain Discontinued Medications Sodium Chloride (Normal Saline) 1,000 mls @ 999 mls/hr IV STAT ONE Stop: 06/19/18 13:06 Last Admin: 06/19/18 12:58 Dose: 999 mls/hr Sodium Chloride (Normal Saline) 1,000 mls @ 125 mls/hr IV ASDIRECTED [facility], [facility] Last Admin: 06/19/18 19:00 Dose: 125 mls/hr Non-Formulary Medication (Insulin Glarg,Human.Rec.Analog) 20 unit SQ BEDTIME [facility] Last Admin: 06/19/18 22:02 Dose: 20 unit Ondansetron HCl (Zofran Odt) 4 mg PO ONETIME ONE Stop: 06/19/18 12:03 Last Admin: 06/19/18 12:10 Dose: Not Given Ondansetron HCl (Zofran) 4 mg IVPUSH ONETIME ONE Stop: 06/19/18 12:08 Last Admin: 06/19/18 12:57 Dose: 4 mg <Saul Aguilera J - Last Filed: 06/23/18 19:12> - Patient Data Vitals - Most Recent: Last Vital Signs Temp 35.9 C 06/20/18 16:00 Pulse 85 06/20/18 16:00 Resp 16 06/20/18 16:00 BP 128/73 06/20/18 16:00 Pulse Ox 94 L 06/20/18 16:00 CARMINA Results - Last 24 hrs: Microbiology 06/19/18 15:14 Aerobic Blood Culture - Preliminary Blood - Venous - Lab Draw NO GROWTH AFTER 4 DAYS Anaerobic Blood Culture - Final 06/19/18 15:03 Aerobic Blood Culture - Preliminary Blood - Venous NO GROWTH AFTER 4 DAYS Anaerobic Blood Culture - Preliminary NO GROWTH AFTER 4 DAYS Med Orders - Current: Current Medications Discontinued Medications Gabapentin (Neurontin) 800 mg PO TID [facility] Last Admin: 06/20/18 14:43 Dose: Not Given Sodium Chloride (Normal Saline) 1,000 mls @ 999 mls/hr IV STAT ONE Stop: 06/19/18 13:06 Last Admin: 06/19/18 12:58 Dose: 999 mls/hr Azithromycin 500 mg/ Sodium (Chloride) 250 mls @ 250 mls/hr IV Q24H [facility] Last Admin: 06/19/18 18:58 Dose: 250 mls/hr Ertapenem 1 gm/ Sodium (Chloride) 50 mls @ 100 mls/hr IV Q24H [facility] Last Admin: 06/19/18 17:17 Dose: 100 mls/hr Sodium Chloride (Normal Saline) 1,000 mls @ 125 mls/hr IV ASDIRECTED [facility], [facility] Last Admin: 06/19/18 19:00 Dose: 125 mls/hr Azithromycin 500 mg/ Sodium (Chloride) 250 mls @ 250 mls/hr IV Q24H WADE Ertapenem 1 gm/ Sodium (Chloride) 50 mls @ 100 mls/hr IV Q24H [facility] Last Admin: 06/20/18 16:07 Dose: 100 mls/hr Insulin Aspart (Novolog) 0 unit SUBCUT TIDAC [facility], [facility]; Protocol Last Admin: 06/20/18 17:41 Dose: Not Given Insulin Glargine (Lantus Solostar) 20 units SUBCUT BEDTIME [facility] Lisinopril (Prinivil) 20 mg PO DAILY WADE Last Admin: 06/20/18 09:23 Dose: 20 mg Non-Formulary Medication (Insulin Glarg,Human.Rec.Analog) 20 unit SQ BEDTIME WADE Last Admin: 06/19/18 22:02 Dose: 20 unit Ondansetron HCl (Zofran Odt) 4 mg PO ONETIME ONE Stop: 06/19/18 12:03 Last Admin: 06/19/18 12:10 Dose: Not Given Ondansetron HCl (Zofran) 4 mg IVPUSH ONETIME ONE Stop: 06/19/18 12:08 Last Admin: 06/19/18 12:57 Dose: 4 mg Ondansetron HCl (Zofran) 4 mg IVPUSH Q4H PRN PRN Reason: Nausea Oxycodone HCl (Oxycontin) 10 mg PO TID PRN PRN Reason: Pain - Free Text/Narrative Note: I have examined the patient. I have discussed findings and treatment plan with resident. I agree with the assessment and plan outlined in the following resident's note.
[2018-06-20] MEDS ORDERED: Ertapenem 1 GM in Sodium Chloride 0.9% 50 ML IV SCH (17:00)
[2018-06-20 17:04] VITALS: BP 128/73
[2018-06-20] MEDS ORDERED: Azithromycin 500 MG in Sodium Chloride 0.9% 250 ML IV SCH (19:00)
--- NOTE | 2018-06-23 18:37 | ECHO ---
The echocardiogram report can be seen in this patient's EMR (Electronic Medical Record) in the Reports section. The echocardiogram report has also been scanned into PACS and can be seen there as well. [email or web address]
== END 2018-06-20 17:00 | disposition home or self-care (01) ==
LOC: MW.ED 11:54 → MW.MS 16:15
PROVIDERS: ADMIT Internal Medicine; ATTEND Internal Medicine
DX: A04.5 Campylobacter enteritis (principal); I31.3 Pericardial effusion (noninflammatory); I10 Essential (primary) hypertension; E11.40 Type 2 diabetes mellitus with diabetic neuropathy, unspecified; N39.0 Urinary tract infection, site not specified; B96.20 Unspecified Escherichia coli [E. coli] as the cause of diseases classified elsewhere; Z87.891 Personal history of nicotine dependence; Z79.4 Long term (current) use of insulin; Z79.899 Other long term (current) drug therapy
CPT/HCPCS: 36415; 74176; 80053; 81001; 82962; 83605; 85025; 85027; 87040; 87046; 87086; 87324; 87328; 87329; 87899; 93306; A9270; J0456; J1335; J1815; J2405; J7040; J7050; 96361; 96365; 96366; 96367; 96374; 96375; 99284; 99284-25; G0378

== ENCOUNTER 2018-09-04 13:21 | Emergency (ER) | payer OTHER ==
[2018-09-04] MEDS ORDERED: Nitroglycerin 0.4 MG Tab.SL SL PRN (13:23)
[2018-09-04] MEDS ORDERED: Aspirin 81 MG Tab.Chew PO ONE (13:23)
[2018-09-04] MEDS ORDERED: Sodium Chloride 0.9% 10 ML Syringe FLUSH PRN (13:23)
[2018-09-04] MEDS ORDERED: Sodium Chloride 0.9% 2.5 ML Syringe FLUSH PRN (13:23)
--- NOTE | 2018-09-04 13:25 | EDM.PDOC ---
ED HPI GENERAL MEDICAL PROBLEM - General Chief Complaint: Chest Pain Stated Complaint: CHEST PAIN Time Seen by Provider: 09/04/18 13:22 Source of Information: Reports: Patient History Limitations: Reports: No Limitations - History of Present Illness INITIAL COMMENTS - FREE TEXT/NARRATIVE: HISTORY AND PHYSICAL: History of present illness: Patient is a 48-year-old female who presents to the emergency room with complaints of midsternal chest pain that has been ongoing since Saturday. She recently found out that her health insurance is no longer active and she has been without her medications for 3 days. Today she was going to see the lamps tester and inspector for lab work and to talk with the provider about her financial/ insurance situation. They directed her to the billing department, who reportedly told her that if she came to the emergency room this visit was covered. She is concerned that her blood sugar is greater than 400. She has had some mild nausea and vomiting. Patient denies any fever, chills, headache, change in vision, syncope or near syncope. Denies any back pain, shortness of breath or cough. Denies any abdominal pain, diarrhea, constipation or dysuria. Patient has been eating and drinking appropriately. Patient has a past medical history of hypertension, type 2 diabetes, pericardial effusion, fibromyalgia Review of systems: As per history of present illness and below otherwise all systems reviewed and negative. Past medical history: As per history of present illness and as reviewed below otherwise noncontributory. Surgical history: As per history of present illness and as reviewed below otherwise noncontributory. Social history: See social history for further information Family history: As per history of present illness and as reviewed below otherwise noncontributory. Physical exam: General: Well developed and well nourished 48-year-old -[place] female. Alert and oriented. Nontoxic appearing and in no acute distress. HEENT: Atraumatic, normocephalic, pupils equal and reactive bilaterally, negative for conjunctival pallor or scleral icterus, mucous membranes moist, TMs normal bilaterally, throat clear, neck supple, nontender, trachea midline. No drooling or trismus noted. No meningeal signs. No hot potato voice noted. Lungs: Clear to auscultation, breath sounds equal bilaterally, chest nontender. Heart: S1S2, regular rate and rhythm without overt murmur Abdomen: Soft, nondistended, nontender. Negative for masses or hepatosplenomegaly. Negative for costovertebral tenderness. Pelvis: Stable nontender. Genitourinary: Deferred. Rectal: Deferred. Skin: Intact, warm, dry. No lesions or rashes noted. Extremities: Atraumatic, moves all extremities per self without difficulty or deficits, negative for cords or calf pain. Neurovascular unremarkable. Neuro: Awake, alert, oriented. Cranial nerves II through XII unremarkable. Cerebellum unremarkable. Motor and sensory unremarkable throughout. Exam nonfocal. Notes: Dr Brink, lamps tester and inspector, came to see the patient as she was trying to get a hold of him earlier. He is currently treating her for a pericardial effusion with short term medication management. Patient reports that her main concern is not having her colchicine and aspirin available to her as she is unable to afford this. Our social workers were contacted and will come and talk with the patient. Chest x-ray shows no changes. Lab work is unremarkable. The lamps tester and inspector is aware of her findings and is comfortable with her being discharged to home. Our social workers are working with the patient about community sources that are available to help her afford her medications. Supportive care measures were reviewed and discussed. Voices understanding and is agreeable to plan of care. Denies any further questions or concerns at this time. Diagnostics: CBC, CMP, troponin, EKG, one view chest Therapeutics: Saline Lock Prescription: None Impression: Pericardial effusion Plan: 1. Take your medications as prescribed 2. Follow up with cardiology as we discussed 3. Return to the ED as needed and as discussed. Definitive disposition and diagnosis as appropriate pending reevaluation and review of above. Middle Chest Pain Score (Numeric/FACES): 8 - Related Data Allergies Allergy/AdvReac Type Severity Reaction Status Date / Time No Known Allergies Allergy Verified 09/04/18 14:02 Home Meds: Home Meds Aspirin [Aspirin EC] 650 mg PO TID 09/04/18 [History] Colchicine 1 cap PO BID 09/04/18 [History] Past Medical History HEENT History: Reports: None Other HEENT History: lower dentures Cardiovascular History: Reports: Hypertension Other Cardiovascular History: pericardial effusion Respiratory History: Reports: Bronchitis, Recurrent Gastrointestinal History: Reports: None Genitourinary History: Reports: UTI, Recurrent Other Genitourinary History: had E.Coli in urine, currently still receving IV antibiotics 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 line [employer]IOR [employer] DES[employer] History: Reports: Musculoskeletal History: Reports: Arthritis, Back Pain, Chronic, Fibromyalgia Neurological History: Reports: None Psychiatric History: Reports: Depression Endocrine/Metabolic History: Reports: Diabetes, Type II, Obesity/BMI 30+ Hematologic History: Reports: Blood Transfusion(s) Immunologic History: Reports: None Oncologic (Cancer) History: Reports: None Dermatologic History: Reports: None - Infectious Disease History Infectious Disease History: Reports: Chicken Pox - Past Surgical History Head Surgeries/Procedures: Reports: None GI Surgical History: Reports: Cholecystectomy Female Surgical History: Reports: Section, Hysterectomy Neurological Surgical History: Reports: None Musculoskeletal Surgical History: Reports: Arthroscopic Knee Oncologic Surgical History: Reports: None Dermatological Surgical History: Reports: None Social & Family History - Family History Family Medical History: Noncontributory - Caffeine Use Caffeine Use: Reports: None Caffeine Use Comment: 1 cup ED ROS GENERAL - Review of Systems Review Of Systems: ROS reveals no pertinent complaints other than HPI. ED EXAM, GENERAL - Physical Exam Exam: See Below (See dictation) Course - Vital Signs Last Recorded V/S: Last Vital Signs Temp 97.4 F 09/04/18 13:25 Pulse 87 09/04/18 13:25 Resp 18 09/04/18 13:25 BP 159/75 H 09/04/18 13:25 Pulse Ox 98 09/04/18 13:25 - Orders/Labs/Meds Orders: Active Orders 24 hr Category Date Time Status EKG Documentation Completion [RC] STAT Care 09/04/18 13:23 Active Sodium Chloride 0.9% [Saline Flush] Med 09/04/18 13:23 Active 10 ml FLUSH ASDIRECTED PRN Sodium Chloride 0.9% [Saline Flush] Med 09/04/18 13:23 Active 2.5 ml FLUSH ASDIRECTED PRN Saline Lock Insert [OM.PC] Stat Oth 09/04/18 13:23 Ordered Medication Orders Sodium Chloride (Saline Flush) 10 ml FLUSH ASDIRECTED PRN PRN Reason: Keep Vein Open Sodium Chloride (Saline Flush) 2.5 ml FLUSH ASDIRECTED PRN PRN Reason: Keep Vein Open Labs: Laboratory Tests 09/04/18 09/04/18 Range/Units 13:30 13:30 WBC 10.07 (4.0-11.0) K/uL RBC 4.73 (4.30-5.90) M/uL Hgb 13.1 (12.0-16.0) g/dL Hct 38.6 (36.0-46.0) % MCV 81.6 (80.0-98.0) fL MCH 27.7 (27.0-32.0) pg MCHC 33.9 (31.0-37.0) g/dL RDW Std Deviation 43.4 (28.0-62.0) fl RDW Coeff of Joaquin 15 (11.0-15.0) % Plt Count 324 (150-400) K/uL MPV 10.90 (7.40-12.00) fL Neut % (Auto) 53.1 (48.0-80.0) % Lymph % (Auto) 30.2 (16.0-40.0) % Emmons % (Auto) 9.0 (0.0-15.0) % Eos % (Auto) 7.3 H (0.0-7.0) % Baso % (Auto) 0.4 (0.0-1.5) % Neut # (Auto) 5.3 (1.4-5.7) K/uL Lymph # (Auto) 3.0 H (0.6-2.4) K/uL Emmons # (Auto) 0.9 H (0.0-0.8) K/uL Eos # (Auto) 0.7 (0.0-0.7) K/uL Baso # (Auto) 0.0 (0.0-0.1) K/uL Nucleated RBC % 0.0 /100WBC Nucleated RBCs # 0 K/uL Sodium 135 L (136-145) mmol/L Potassium 3.9 (3.5-5.1) mmol/L Chloride 102 (98-107) mmol/L Carbon Dioxide 25.3 (21.0-32.0) mmol/L BUN 17 (7.0-18.0) mg/dL Creatinine 0.6 (0.6-1.0) mg/dL Est Cr Clr Drug Dosing 93.82 mL/min Estimated GFR (MDRD) > 60.0 ml/min Glucose 199 H (74-106) mg/dL Calcium 9.2 (8.5-10.1) mg/dL Total Bilirubin 0.2 (0.2-1.0) mg/dL AST 14 L (15-37) IU/L ALT 21 (14-63) IU/L Alkaline Phosphatase 127 H (46-116) U/L Total Protein 7.7 (6.4-8.2) g/dL Albumin 3.7 (3.4-5.0) g/dL Globulin 4.0 (2.6-4.0) g/dL Albumin/Globulin Ratio 0.9 (0.9-1.6) Meds: Medications Generic Name Dose Route Start Last Admin Trade Name Freq PRN Reason Stop Dose Admin Sodium Chloride 10 ml 09/04/18 13:23 Saline Flush FLUSH ASDIRECTED PRN Keep Vein Open Sodium Chloride 2.5 ml 09/04/18 13:23 Saline Flush FLUSH ASDIRECTED PRN Keep Vein Open Discontinued Medications Generic Name Dose Route Start Last Admin Trade Name Freq PRN Reason Stop Dose Admin Aspirin 324 mg 09/04/18 13:23 09/04/18 13:52 Aspirin PO 09/04/18 13:24 Not Given ONETIME ONE Colchicine 0.6 mg 09/04/18 13:59 09/04/18 14:08 Colcrys PO 09/04/18 14:00 Not Given ONETIME ONE Nitroglycerin 0.4 mg 09/04/18 13:23 Nitrostat SL Q5M PRN Chest Pain Departure - Departure Time of Disposition: 14:33 Disposition: Home, Self-Care 01 Clinical Impression: Pericardial effusion Instructions: Nonspecific Chest Pain, [id number] Referrals: PCP,None [Primary Care Provider] - Forms: ED Department Discharge Additional Instructions: The following information is given to patients seen in the emergency department who are being discharged to home. This information is to outline your options for follow-up care. We provide all patients seen in our emergency department with a follow-up referral. The need for follow-up, as well as the timing and circumstances, are variable depending upon the specifics of your emergency department visit. If you don't have a primary care physician on staff, we will provide you with a referral. We always advise you to contact your personal physician following an emergency department visit to inform them of the circumstance of the visit and for follow-up with them and/or the need for any referrals to a consulting specialist. The emergency department will also refer you to a specialist when appropriate. This referral assures that you have the opportunity for follow-up care with a specialist. All of these measure are taken in an effort to provide you with optimal care, which includes your follow-up. Under all circumstances we always encourage you to contact your private physician who remains a resource for coordinating your care. When calling for follow-up care, please make the office aware that this follow-up is from your recent emergency room visit. If for any reason you are refused follow-up, please contact the [facility] Emergency Department at and asked to speak to the emergency department charge nurse. [facility] [address] [place] [id number] [facility] [address] [place] [id number] 1. Take your medications as prescribed 2. Follow up with cardiology as we discussed 3. Return to the ED as needed and as discussed. - My Orders Last 24 Hours: My Active Orders 09/04/18 13:23 EKG Documentation Completion [RC] STAT Sodium Chloride 0.9% [Saline Flush] 10 ml FLUSH ASDIRECTED PRN Sodium Chloride 0.9% [Saline Flush] 2.5 ml FLUSH ASDIRECTED PRN Saline Lock Insert [OM.PC] Stat - Assessment/Plan Last 24 Hours: My Active Orders 09/04/18 13:23 EKG Documentation Completion [RC] STAT Sodium Chloride 0.9% [Saline Flush] 10 ml FLUSH ASDIRECTED PRN Sodium Chloride 0.9% [Saline Flush] 2.5 ml FLUSH ASDIRECTED PRN Saline Lock Insert [OM.PC] Stat
[2018-09-04] MEDS ORDERED: Colchicine 0.6 MG Tab PO ONE (13:59)
[2018-09-04 14:28] LABS: CHLORIDE,CL 102 mmol/L (98-107); SODIUM,NA 135 mmol/L (136-145)
--- NOTE | 2018-09-04 14:53 | CR ---
INDICATION: Chest pain TECHNIQUE: Chest 1 views COMPARISON: June 07, 2018 FINDINGS: Cardiovascular and mediastinum: Cardiac silhouette is markedly enlarged, as before. Lungs and pleural spaces: Lungs are clear. No sign of infiltrate or mass. No sign of pleural effusion. No pneumothorax. Bones and soft tissues: No significant findings. Overlying soft tissue density. IMPRESSION: No acute findings and no significant changes from the prior exam. Dictated by Dariel Day MD @ Sep 04 2018 2:50PM Signed by Dr. Dariel Day @ Sep 04 2018 2:51PM
[2018-09-04 15:11] VITALS: BP 145/81
== END 2018-09-04 15:19 | disposition home or self-care (01) ==
LOC: MW.ED 13:21
DX: I31.3 Pericardial effusion (noninflammatory) (principal); E11.9 Type 2 diabetes mellitus without complications; I10 Essential (primary) hypertension; Z79.82 Long term (current) use of aspirin
CPT/HCPCS: 36415; 71045; 71045-26; 80053; 85025; 93005; 99284; 99285-25

== ENCOUNTER 2019-01-26 17:15 | Observation (INO) | payer BC, OTHER, SELFPAY ==
[2019-01-26] MEDS ORDERED: Sodium Chloride 0.9% 2.5 ML Syringe FLUSH PRN (17:23)
[2019-01-26] MEDS ORDERED: Sodium Chloride 0.9% 10 ML Syringe FLUSH PRN (17:23)
--- NOTE | 2019-01-26 17:27 | EDM.PDOC ---
ED HPI GENERAL MEDICAL PROBLEM - General Chief Complaint: Chest Pain Stated Complaint: SOB Time Seen by Provider: 01/26/19 17:18 Source of Information: Reports: Patient History Limitations: Reports: No Limitations - History of Present Illness INITIAL COMMENTS - FREE TEXT/NARRATIVE: History of present illness: []Patient was sent from Dr. Valentine's office for shortness of breath, enlarged heart on x-ray and chest pain. Patient has had a cough and cold symptoms for over 2 weeks and was treated with a Z-Sumit a week ago. Continuous chest pain for a week. He denies any fevers, chills, vomiting or diarrhea at this time. Review of systems: As per history of present illness and below otherwise all systems reviewed and negative. Past medical history: As per history of present illness and as reviewed below otherwise noncontributory. Surgical history: As per history of present illness and as reviewed below otherwise noncontributory. Social history: No reported history of drug or alcohol abuse. Family history: As per history of present illness and as reviewed below otherwise noncontributory. Physical exam: General: Well developed, well nourished in NAD HEENT: Atraumatic, normocephalic, pupils reactive, negative for conjunctival pallor or scleral icterus, mucous membranes moist, throat clear, neck supple, nontender, trachea midline. Lungs: Clear to auscultation, breath sounds equal bilaterally, chest nontender. Bilateral ankles at the bases expiratory wheezes noted initially Heart: S1S2, regular, negative for clicks, rubs, or JVD. Abdomen: NABS, Soft, nondistended, nontender. Negative for masses or hepatosplenomegaly. Negative for costovertebral tenderness. Pelvis: Stable nontender. Genitourinary: Deferred. Rectal: Deferred. Extremities: Atraumatic, negative for cords or calf pain. Neurovascular unremarkable. Neuro: Awake, alert, oriented. Cranial nerves II through XII unremarkable. Cerebellum unremarkable. Motor and sensory unremarkable throughout. Exam nonfocal. Skin:warm and dry Diagnostics: Chest x-ray, EKG, CBC, chemistry, troponin Therapeutics: Nitroglycerin, labetalol, DuoNeb ED Course: Improved Impression: Cardiomegaly, chest pain, CHF, uncontrolled hypertension Prescriptions: None Plan: Admit Definitive disposition and diagnosis as appropriate pending reevaluation and review of above. Chest Pain Score (Numeric/FACES): 10 - Related Data Allergies Allergy/AdvReac Type Severity Reaction Status Date / Time Latex, Natural Rubber Allergy Rash Verified 01/27/19 05:40 Home Meds: Home Meds Aspirin [Aspirin EC] 650 mg PO TID 09/04/18 [History] Colchicine 1 cap PO BID 09/04/18 [History] DULoxetine [Cymbalta] 20 mg PO ASDIRECTED 01/26/19 [History] Gabapentin [Neurontin] 800 mg PO ASDIRECTED 01/26/19 [History] Insulin Aspart [NovoLOG] 40 unit SUBCUT ASDIRECTED 01/26/19 [History] Insulin Glarg,Human.Rec.Analog [Lantus Solostar] 25 unit SUBCUT ASDIRECTED 01/26 [History] Lisinopril 20 mg PO ASDIRECTED 01/26/19 [History] Past Medical History HEENT History: Reports: None Other HEENT History: lower dentures Cardiovascular History: Reports: Hypertension Other Cardiovascular History: pericardial effusion Respiratory History: Reports: Bronchitis, Recurrent Gastrointestinal History: Reports: None Genitourinary History: Reports: UTI, Recurrent Other Genitourinary History: had E.Coli in urine, currently still receving IV antibiotics 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 line 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: Musculoskeletal History: Reports: Arthritis, Back Pain, Chronic, Fibromyalgia Neurological History: Reports: None Psychiatric History: Reports: Depression Endocrine/Metabolic History: Reports: Diabetes, Type II, Obesity/BMI 30+ Hematologic History: Reports: Blood Transfusion(s) Immunologic History: Reports: None Oncologic (Cancer) History: Reports: None Dermatologic History: Reports: None - Infectious Disease History Infectious Disease History: Reports: Chicken Pox - Past Surgical History Head Surgeries/Procedures: Reports: None GI Surgical History: Reports: Cholecystectomy Female Surgical History: Reports: Section, Hysterectomy Neurological Surgical History: Reports: None Musculoskeletal Surgical History: Reports: Arthroscopic Knee Oncologic Surgical History: Reports: None Dermatological Surgical History: Reports: None Social & Family History - Family History Family Medical History: Noncontributory - Caffeine Use Caffeine Use: Reports: None Caffeine Use Comment: 1 cup ED ROS GENERAL - Review of Systems Review Of Systems: See Below ED EXAM, GENERAL - Physical Exam Exam: See Below Course - Vital Signs Last Recorded V/S: Last Vital Signs Temp 97.9 F 01/27/19 04:50 Pulse 86 01/27/19 04:50 Resp 18 01/27/19 04:50 BP 169/79 H 01/27/19 04:50 Pulse Ox 96 01/27/19 04:50 - Orders/Labs/Meds Orders: Active Orders 24 hr Category Date Time Status Patient Status [ADT] Stat ADT 01/26/19 18:30 Active Blood Glucose Check, Bedside [RC] QIDACANDBED Care 01/26/19 18:46 Active Cardiac Monitoring [RC] Q8H Care 01/26/19 18:46 Active EKG Documentation Completion [RC] STAT Care 01/26/19 17:22 Active Intake and Output [RC] QSHIFT Care 01/26/19 18:46 Active Oxygen Therapy [RC] PRN Care 01/26/19 18:46 Active RT Aerosol Therapy [RC] ASDIRECTED Care 01/26/19 17:44 Active Up ad Stacia [RC] ASDIRECTED Care 01/26/19 18:46 Active VTE/DVT Education [RC] PER UNIT ROUTINE Care 01/26/19 18:46 Active Vital Signs [RC] Q4H Care 01/26/19 18:46 Active [employer] Diet [DIET] Diet 01/26/19 Breakfast Active Echo Comp wo Cont [US] Routine Exams 01/27/19 08:00 Ordered Benzonatate [Tessalon Perles] Med 01/26/19 22:00 Active 100 mg PO TID Codeine/guaiFENesin [Robitussin AC] Med 01/26/19 18:49 Active 5 ml PO Q6H PRN DULoxetine Med 01/26/19 19:15 Active 20 mg PO ASDIRECTED Enoxaparin [Lovenox] Med 01/26/19 19:00 Active 40 mg SUBCUT Q24H Gabapentin [Neurontin] Med 01/26/19 19:15 Active 800 mg PO ASDIRECTED Ibuprofen [Motrin] Med 01/26/19 19:00 Active 600 mg PO Q8H Insulin Aspart [NovoLOG] Med 01/27/19 07:30 Active See Protocol SUBCUT TIDAC Insulin Glarg,Human.Rec.Analog [LantUS Solostar] Med 01/26/19 21:00 Active 20 units SUBCUT BEDTIME Ketorolac [Toradol] Med 01/26/19 18:46 Active 15 mg IVPUSH Q6H PRN Lisinopril Med 01/27/19 09:00 Active 20 mg PO DAILY Morphine Med 01/26/19 18:46 Active 2 mg IVPUSH Q2H PRN Ondansetron [Zofran ODT] Med 01/26/19 18:46 Active 4 mg PO Q4H PRN Ondansetron [Zofran] Med 01/26/19 18:46 Active 4 mg IVPUSH Q4H PRN Sodium Chloride 0.9% [Saline Flush] Med 01/26/19 17:23 Active 10 ml FLUSH ASDIRECTED PRN Sodium Chloride 0.9% [Saline Flush] Med 01/26/19 17:23 Active 2.5 ml FLUSH ASDIRECTED PRN Saline Lock Insert [OM.PC] Stat Oth 01/26/19 17:22 Ordered Resuscitation Status Routine Resus Stat 01/26/19 18:46 Ordered Medication Orders Benzonatate (Tessalon Perles) 100 mg PO TID [facility] Last Admin: 01/27/19 05:05 Dose: 100 mg Admin: 01/26/19 21:12 Dose: 100 mg Enoxaparin Sodium (Lovenox) 40 mg SUBCUT Q24H [facility] Last Admin: 01/26/19 19:59 Dose: 40 mg Gabapentin (Neurontin) 800 mg PO ASDIRECTED [facility] [place] Guaifenesin/Codeine Phosphate (Robitussin Ac) 5 ml PO Q6H PRN PRN Reason: Cough Last Admin: 01/27/19 05:05 Dose: 5 ml Admin: 01/26/19 21:11 Dose: 5 ml Ibuprofen (Motrin) 600 mg PO Q8H [facility] Last Admin: 01/27/19 04:44 Dose: 600 mg Admin: 01/26/19 22:25 Dose: 600 mg Insulin Aspart (Novolog) 0 unit SUBCUT TIDAC [facility]; Protocol Insulin Glargine (Lantus Solostar) 20 units SUBCUT BEDTIME [facility] [place] Last Admin: 01/26/19 22:22 Dose: 20 units Ketorolac Tromethamine (Toradol) 15 mg IVPUSH Q6H PRN PRN Reason: Pain (moderate 4-6) Morphine Sulfate (Morphine) 2 mg IVPUSH Q2H PRN PRN Reason: Pain (severe 7-10) Stop: 01/27/19 18:47 Non-Formulary Medication (Lisinopril) 20 mg PO DAILY [facility] Non-Formulary Medication (Duloxetine) 20 mg PO ASDIRECTED [facility] Ondansetron HCl (Zofran Odt) 4 mg PO Q4H PRN PRN Reason: nausea, able to take PO Ondansetron HCl (Zofran) 4 mg IVPUSH Q4H PRN PRN Reason: Nausea Sodium Chloride (Saline Flush) 10 ml FLUSH ASDIRECTED PRN PRN Reason: Keep Vein Open Sodium Chloride (Saline Flush) 2.5 ml FLUSH ASDIRECTED PRN PRN Reason: Keep Vein Open Labs: Laboratory Tests 01/26/19 01/26/19 01/26/19 Range/Units 17:30 17:30 17:30 WBC 13.85 H (4.0-11.0) K/uL RBC 4.76 (4.30-5.90) M/uL Hgb 13.4 (12.0-16.0) g/dL Hct 38.8 (36.0-46.0) % MCV 81.5 (80.0-98.0) fL MCH 28.2 (27.0-32.0) pg MCHC 34.5 (31.0-37.0) g/dL RDW Std Deviation 43.0 (28.0-62.0) fl RDW Coeff of Joaquin 15 (11.0-15.0) % Plt Count 358 (150-400) K/uL MPV 10.30 (7.40-12.00) fL Neut % (Auto) 61.5 (48.0-80.0) % Lymph % (Auto) 23.6 (16.0-40.0) % Rowan % (Auto) 6.9 (0.0-15.0) % Eos % (Auto) 7.6 H (0.0-7.0) % Baso % (Auto) 0.4 (0.0-1.5) % Neut # (Auto) 8.5 H (1.4-5.7) K/uL Lymph # (Auto) 3.3 H (0.6-2.4) K/uL Rowan # (Auto) 1.0 H (0.0-0.8) K/uL Eos # (Auto) 1.1 H (0.0-0.7) K/uL Baso # (Auto) 0.1 (0.0-0.1) K/uL Nucleated RBC % 0.0 /100WBC Nucleated RBCs # 0 K/uL ESR 44 H (0-19) mm/hr Sodium 143 (136-145) mmol/L Potassium 3.7 (3.5-5.1) mmol/L Chloride 105 (98-107) mmol/L Carbon Dioxide 28.0 (21.0-32.0) mmol/L BUN 18 (7.0-18.0) mg/dL Creatinine 0.7 (0.6-1.0) mg/dL Est Cr Clr Drug Dosing 80.42 mL/min Estimated GFR (MDRD) > 60.0 ml/min Glucose 182 H (74-106) mg/dL Calcium 9.4 (8.5-10.1) mg/dL Total Bilirubin 0.3 (0.2-1.0) mg/dL AST 17 (15-37) IU/L ALT 27 (14-63) IU/L Alkaline Phosphatase 134 H (46-116) U/L Troponin I < 0.050 (0.000-0.056) ng/mL C-Reactive Protein (0.00-0.90) mg/dL Total Protein 8.4 H (6.4-8.2) g/dL Albumin 4.0 (3.4-5.0) g/dL Globulin 4.4 H (2.6-4.0) g/dL Albumin/Globulin Ratio 0.9 (0.9-1.6) 01/26/19 Range/Units 17:30 WBC (4.0-11.0) K/uL RBC (4.30-5.90) M/uL Hgb (12.0-16.0) g/dL Hct (36.0-46.0) % MCV (80.0-98.0) fL MCH (27.0-32.0) pg MCHC (31.0-37.0) g/dL RDW Std Deviation (28.0-62.0) fl RDW Coeff of Joaquin (11.0-15.0) % Plt Count (150-400) K/uL MPV (7.40-12.00) fL Neut % (Auto) (48.0-80.0) % Lymph % (Auto) (16.0-40.0) % Rowan % (Auto) (0.0-15.0) % Eos % (Auto) (0.0-7.0) % Baso % (Auto) (0.0-1.5) % Neut # (Auto) (1.4-5.7) K/uL Lymph # (Auto) (0.6-2.4) K/uL Rowan # (Auto) (0.0-0.8) K/uL Eos # (Auto) (0.0-0.7) K/uL Baso # (Auto) (0.0-0.1) K/uL Nucleated RBC % /100WBC Nucleated RBCs # K/uL ESR (0-19) mm/hr Sodium (136-145) mmol/L Potassium (3.5-5.1) mmol/L Chloride (98-107) mmol/L Carbon Dioxide (21.0-32.0) mmol/L BUN (7.0-18.0) mg/dL Creatinine (0.6-1.0) mg/dL Est Cr Clr Drug Dosing mL/min Estimated GFR (MDRD) ml/min Glucose (74-106) mg/dL Calcium (8.5-10.1) mg/dL Total Bilirubin (0.2-1.0) mg/dL AST (15-37) IU/L ALT (14-63) IU/L Alkaline Phosphatase (46-116) U/L Troponin I (0.000-0.056) ng/mL C-Reactive Protein 0.70 (0.00-0.90) mg/dL Total Protein (6.4-8.2) g/dL Albumin (3.4-5.0) g/dL Globulin (2.6-4.0) g/dL Albumin/Globulin Ratio (0.9-1.6) Meds: Medications Generic Name Dose Route Start Last Admin Trade Name Freq PRN Reason Stop Dose Admin Benzonatate 100 mg 01/26/19 22:00 01/27/19 05:05 Tessalon Perles PO 100 mg TID [facility] Administration Enoxaparin Sodium 40 mg 01/26/19 19:00 01/26/19 19:59 Lovenox SUBCUT 40 mg Q24H [facility] Administration Gabapentin 800 mg 01/26/19 19:15 Neurontin PO ASDIRECTED [facility] Guaifenesin/Codeine Phosphate 5 ml 01/26/19 18:49 01/27/19 05:05 Robitussin Ac PO 5 ml Q6H PRN Administration Cough Ibuprofen 600 mg 01/26/19 19:00 01/27/19 04:44 Motrin PO 600 mg Q8H [facility] Administration Insulin Aspart 0 unit 01/27/19 07:30 Novolog SUBCUT TIDAC [facility] Protocol Insulin Glargine 20 units 01/26/19 21:00 01/26/19 22:22 Lantus Solostar SUBCUT 20 units BEDTIME [facility] Administration Ketorolac Tromethamine 15 mg 01/26/19 18:46 Toradol IVPUSH Q6H PRN Pain (moderate 4-6) Morphine Sulfate 2 mg 01/26/19 18:46 Morphine IVPUSH 01/27/19 18:47 Q2H PRN Pain (severe 7-10) Non-Formulary Medication 20 mg 01/27/19 09:00 Lisinopril PO DAILY [facility] Non-Formulary Medication 20 mg 01/26/19 19:15 Duloxetine PO ASDIRECTED [facility] Ondansetron HCl 4 mg 01/26/19 18:46 Zofran Odt PO Q4H PRN nausea, able to take PO Ondansetron HCl 4 mg 01/26/19 18:46 Zofran IVPUSH Q4H PRN Nausea Sodium Chloride 10 ml 01/26/19 17:23 Saline Flush FLUSH ASDIRECTED PRN Keep Vein Open Sodium Chloride 2.5 ml 01/26/19 17:23 Saline Flush FLUSH ASDIRECTED PRN Keep Vein Open Discontinued Medications Generic Name Dose Route Start Last Admin Trade Name Freq PRN Reason Stop Dose Admin Albuterol/Ipratropium 3 ml 01/26/19 17:44 01/26/19 17:53 Duoneb 3.0-0.5 Mg/3 Ml NEB 01/26/19 17:45 3 ml ONETIME ONE Administration Albuterol/Ipratropium Confirm 01/26/19 17:45 01/26/19 17:54 Duoneb 3.0-0.5 Mg/3 Ml Administered 01/26/19 17:46 Not Given Dose 3 ml .ROUTE .STK-MED ONE Ibuprofen 600 mg 01/26/19 18:12 01/26/19 18:23 Motrin PO 01/26/19 18:13 600 mg ONETIME ONE Administration Labetalol HCl 20 mg 01/26/19 17:52 01/26/19 18:01 Normodyne IVPUSH 01/26/19 17:53 20 mg ONETIME ONE Administration Protocol Labetalol HCl Confirm 01/26/19 17:54 01/26/19 18:13 Normodyne Administered 01/26/19 17:55 Not Given Dose 100 mg .ROUTE .STK-MED ONE Labetalol HCl 0 mg 01/26/19 19:02 01/26/19 21:00 Normodyne IVPUSH 01/26/19 19:03 Not Given ONETIME ONE Protocol Nitroglycerin 0.4 mg 01/26/19 17:23 01/26/19 17:56 Nitrostat SL 0.4 mg Q5M PRN Administration Chest Pain Non-Formulary Medication 20 mg 01/26/19 19:00 Lisinopril PO ASDIRECTED [facility] Departure - Departure Time of Disposition: 20:50 Disposition: Refer to Observation Condition: Good Clinical Impression: CHF (congestive heart failure), Uncontrolled hypertension, Chest pain - My Orders Last 24 Hours: My Active Orders 01/26/19 17:22 EKG Documentation Completion [RC] STAT Saline Lock Insert [OM.PC] Stat 01/26/19 17:23 Sodium Chloride 0.9% [Saline Flush] 10 ml FLUSH ASDIRECTED PRN Sodium Chloride 0.9% [Saline Flush] 2.5 ml FLUSH ASDIRECTED PRN 01/26/19 17:44 RT Aerosol Therapy [RC] ASDIRECTED 01/26/19 18:30 Patient Status [ADT] Stat - Assessment/Plan Last 24 Hours: My Active Orders 01/26/19 17:22 EKG Documentation Completion [RC] STAT Saline Lock Insert [OM.PC] Stat 01/26/19 17:23 Sodium Chloride 0.9% [Saline Flush] 10 ml FLUSH ASDIRECTED PRN Sodium Chloride 0.9% [Saline Flush] 2.5 ml FLUSH ASDIRECTED PRN 01/26/19 17:44 RT Aerosol Therapy [RC] ASDIRECTED 01/26/19 18:30 Patient Status [ADT] Stat
[2019-01-26] MEDS: Nitroglycerin 0.4 MG Tab.SL SL PRN ×3 (17:29→17:56)
[2019-01-26] MEDS ORDERED: Albuterol/Ipratropium 3.0-0.5 MG/3 ML Neb Soln NEB ONE (17:44)
[2019-01-26] MEDS ORDERED: Albuterol/Ipratropium 3.0-0.5 MG/3 ML Neb Soln ONE (17:45)
[2019-01-26] MEDS ORDERED: Labetalol 100 MG/20 ML MDV IVPUSH ONE ×2 (17:52→19:02)
[2019-01-26] MEDS ORDERED: Labetalol 100 MG/20 ML MDV ONE (17:54)
[2019-01-26 18:01] LABS: BLOOD UREA NITROGEN,BUN 18 mg/dL (7.0-18.0); CHLORIDE,CL 105 mmol/L (98-107); GLUCOSE RANDOM 182 mg/dL (74-106); POTASSIUM,K 3.7 mmol/L (3.5-5.1); SODIUM,NA 143 mmol/L (136-145)
[2019-01-26] MEDS ORDERED: Ibuprofen 600 MG Tab PO ONE (18:12)
--- NOTE | 2019-01-26 18:21 | CR ---
Indication: Cough Technique: Chest 1 view Comparison: September 04, 2018 Findings/Impression: Cardiomegaly, stable. Normal pulmonary vasculature. No focal infiltrate, effusion, pneumothorax. No acute osseous abnormality. Dictated by Sugey Oneill MD @ Jan 26 2019 6:19PM Signed by Dr. Sugey Oneill @ Jan 26 2019 6:19PM
[2019-01-26] MEDS ORDERED: Ondansetron 4 MG/2 ML SDV IVPUSH PRN (18:46)
[2019-01-26] MEDS ORDERED: Ondansetron 4 MG Tab.DIS PO PRN (18:46)
[2019-01-26] MEDS ORDERED: Ketorolac 30 MG/ML SDV IVPUSH PRN (18:46)
[2019-01-26] MEDS ORDERED: Morphine 10 MG/ML Syringe IVPUSH PRN (18:46)
[2019-01-26] MEDS ORDERED: Non-Formulary Medication 1 Each (Lisinopril 20 MG) PO SCH (19:00)
--- NOTE | 2019-01-26 19:02 | PCM.HP.2 ---
H&P History of Present Illness - General Date of Service: 01/26/19 Admit Problem/Dx: Admission Diagnosis/Problem Admission Diagnosis/Problem Hypertensive emergency - History of Present Illness Initial Comments - Free Text/Narative: 48 y/o female with history of diabetes type 2 on insulin who presented today to the ER complaining of sore throat, productive cough and chest pain for the past 3-4 days. States that she has been having some post nasal drip and sore throat. Not improving. Has been using humidifier which helps a little but not much. Has been complaining of pleuritic chest pain. No radiation to neck or arms. Denies any dyspnea, abdominal pain, dysuria, diarrhea. No worsening leg swelling. No recent sick contacts. Denies fevers. Non smoker. Chest Pain Score (Numeric/FACES): 10 - Related Data Allergies/Adverse Reactions: Allergies Allergy/AdvReac Type Severity Reaction Status Date / Time No Known Allergies Allergy Verified 01/26/19 17:20 Home Medications: Home Meds Aspirin [Aspirin EC] 650 mg PO TID 09/04/18 [History] Colchicine 1 cap PO BID 09/04/18 [History] DULoxetine [Cymbalta] 20 mg PO ASDIRECTED 01/26/19 [History] Gabapentin [Neurontin] 800 mg PO ASDIRECTED 01/26/19 [History] Insulin Aspart [NovoLOG] 40 unit SUBCUT ASDIRECTED 01/26/19 [History] Insulin Glarg,Human.Rec.Analog [Lantus Solostar] 25 unit SUBCUT ASDIRECTED 01/26 [History] Lisinopril 20 mg PO ASDIRECTED 01/26/19 [History] Past Medical History HEENT History: Reports: None Other HEENT History: lower dentures Cardiovascular History: Reports: Hypertension Other Cardiovascular History: pericardial effusion Respiratory History: Reports: Bronchitis, Recurrent Gastrointestinal History: Reports: None Genitourinary History: Reports: UTI, Recurrent Other Genitourinary History: had E.Coli in urine, currently still receving IV antibiotics 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 line 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: Musculoskeletal History: Reports: Arthritis, Back Pain, Chronic, Fibromyalgia Neurological History: Reports: None Psychiatric History: Reports: Depression Endocrine/Metabolic History: Reports: Diabetes, Type II, Obesity/BMI 30+ Hematologic History: Reports: Blood Transfusion(s) Immunologic History: Reports: None Oncologic (Cancer) History: Reports: None Dermatologic History: Reports: None - Infectious Disease History Infectious Disease History: Reports: Chicken Pox - Past Surgical History Head Surgeries/Procedures: Reports: None GI Surgical History: Reports: Cholecystectomy Female Surgical History: Reports: Section, Hysterectomy Neurological Surgical History: Reports: None Musculoskeletal Surgical History: Reports: Arthroscopic Knee Oncologic Surgical History: Reports: None Dermatological Surgical History: Reports: None Social & Family History - Family History Family Medical History: Noncontributory - Tobacco Use Smoking Status *Q: Former Smoker Years of Tobacco use: 20 Used Tobacco, but Quit: Yes Month/Year Tobacco Last Used: 1year - Caffeine Use Caffeine Use: Reports: None Caffeine Use Comment: 1 cup - Recreational Drug Use Recreational Drug Use: No H&P Review of Systems - Review of Systems: Review Of Systems: ROS reveals no pertinent complaints other than HPI. Exam - Exam Exam: See Below - Vital Signs Vital Signs: Last Vital Signs Temp 36.4 C 01/26/19 17:21 Pulse 84 01/26/19 18:37 Resp 20 01/26/19 18:37 BP 161/95 H 01/26/19 18:37 Pulse Ox 95 01/26/19 18:37 Weight: 115.212 kg - Exam General: Alert, Oriented, Cooperative HEENT: Other (cobblestoning and pharyngeal erythema) Lungs: Other (decreased lungs sounds bilaterally. no wheezing or crackles.) Cardiovascular: Regular Rate, Regular Rhythm GI/Abdominal Exam: Normal Bowel Sounds, Soft, Non-Tender Extremities: Normal Inspection, No Pedal Edema Skin: Warm, Dry - Patient Data Lab Results Last 24 hrs: Laboratory Results - last 24 hr 01/26/19 01/26/19 Range/Units 17:30 17:30 WBC 13.85 H (4.0-11.0) K/uL RBC 4.76 (4.30-5.90) M/uL Hgb 13.4 (12.0-16.0) g/dL Hct 38.8 (36.0-46.0) % MCV 81.5 (80.0-98.0) fL MCH 28.2 (27.0-32.0) pg MCHC 34.5 (31.0-37.0) g/dL RDW Std Deviation 43.0 (28.0-62.0) fl RDW Coeff of Joaquin 15 (11.0-15.0) % Plt Count 358 (150-400) K/uL MPV 10.30 (7.40-12.00) fL Neut % (Auto) 61.5 (48.0-80.0) % Lymph % (Auto) 23.6 (16.0-40.0) % [place] % (Auto) 6.9 (0.0-15.0) % Eos % (Auto) 7.6 H (0.0-7.0) % Baso % (Auto) 0.4 (0.0-1.5) % Neut # (Auto) 8.5 H (1.4-5.7) K/uL Lymph # (Auto) 3.3 H (0.6-2.4) K/uL [place] # (Auto) 1.0 H (0.0-0.8) K/uL Eos # (Auto) 1.1 H (0.0-0.7) K/uL Baso # (Auto) 0.1 (0.0-0.1) K/uL Nucleated RBC % 0.0 /100WBC Nucleated RBCs # 0 K/uL Sodium 143 (136-145) mmol/L Potassium 3.7 (3.5-5.1) mmol/L Chloride 105 (98-107) mmol/L Carbon Dioxide 28.0 (21.0-32.0) mmol/L BUN 18 (7.0-18.0) mg/dL Creatinine 0.7 (0.6-1.0) mg/dL Est Cr Clr Drug Dosing 80.42 mL/min Estimated GFR (MDRD) > 60.0 ml/min Glucose 182 H (74-106) mg/dL Calcium 9.4 (8.5-10.1) mg/dL Total Bilirubin 0.3 (0.2-1.0) mg/dL AST 17 (15-37) IU/L ALT 27 (14-63) IU/L Alkaline Phosphatase 134 H (46-116) U/L Troponin I < 0.050 (0.000-0.056) ng/mL Total Protein 8.4 H (6.4-8.2) g/dL Albumin 4.0 (3.4-5.0) g/dL Globulin 4.4 H (2.6-4.0) g/dL Albumin/Globulin Ratio 0.9 (0.9-1.6) Result Diagrams: 01/26/19 17:30 01/26/19 17:30 Problem List Initiated/Reviewed/Updated: Yes Orders Last 24hrs: Active Orders 24 hr Category Date Time Status Patient Status [ADT] Stat ADT 01/26/19 18:30 Active Blood Glucose Check, Bedside [RC] QIDACANDBED Care 01/26/19 18:46 Active Cardiac Monitoring [RC] CONTINUOUS Care 01/26/19 18:46 Active EKG Documentation Completion [RC] STAT Care 01/26/19 17:22 Active Intake and Output [RC] QSHIFT Care 01/26/19 18:46 Active Oxygen Therapy [RC] PRN Care 01/26/19 18:46 Active RT Aerosol Therapy [RC] ASDIRECTED Care 01/26/19 17:44 Active Up ad Stacia [RC] ASDIRECTED Care 01/26/19 18:46 Active VTE/DVT Education [RC] PER UNIT ROUTINE Care 01/26/19 18:46 Active Vital Signs [RC] Q4H Care 01/26/19 18:46 Active [place] [employer] Diet [DIET] Diet 01/26/19 Breakfast Active Echo Comp wo Cont [US] Routine Exams 01/27/19 08:00 Ordered C-REACTIVE PROTEIN [CHEM] Stat Lab 01/26/19 17:30 Received CBC WITH AUTO DIFF [HEME] AM Lab 01/27/19 05:11 Ordered COMPREHENSIVE METABOLIC PN,CMP [CHEM] AM Lab 01/27/19 05:11 Ordered ESR [SEDIMENTATION RATE AUTO] [HEME] Stat Lab 01/26/19 17:30 Received TROPONIN I [CHEM] Q6H Lab 01/26/19 23:00 Ordered TROPONIN I [CHEM] Q6H Lab 01/27/19 05:00 Ordered Benzonatate [Tessalon Perles] Med 01/26/19 22:00 Active 100 mg PO TID Codeine/guaiFENesin [Robitussin AC] Med 01/26/19 18:49 Active 5 ml PO Q6H PRN Enoxaparin [Lovenox] Med 01/26/19 19:00 Active 40 mg SUBCUT Q24H Ibuprofen [Motrin] Med 01/26/19 19:00 Active 600 mg PO Q8H Insulin Aspart [NovoLOG] Med 01/27/19 07:30 Active See Protocol SUBCUT TIDAC Insulin Glarg,Human.Rec.Analog [LantUS Solostar] Med 01/26/19 21:00 Active 20 units SUBCUT BEDTIME Ketorolac [Toradol] Med 01/26/19 18:46 Active 15 mg IVPUSH Q6H PRN Lisinopril Med 01/27/19 09:00 Active 20 mg PO DAILY Morphine Med 01/26/19 18:46 Active 2 mg IVPUSH Q2H PRN Ondansetron [Zofran ODT] Med 01/26/19 18:46 Active 4 mg PO Q4H PRN Ondansetron [Zofran] Med 01/26/19 18:46 Active 4 mg IVPUSH Q4H PRN Sodium Chloride 0.9% [Saline Flush] Med 01/26/19 17:23 Active 10 ml FLUSH ASDIRECTED PRN Sodium Chloride 0.9% [Saline Flush] Med 01/26/19 17:23 Active 2.5 ml FLUSH ASDIRECTED PRN Saline Lock Insert [OM.PC] Stat Oth 01/26/19 17:22 Ordered Resuscitation Status Routine Resus Stat 01/26/19 18:46 Ordered Medication Orders Benzonatate (Tessalon Perles) 100 mg PO TID [facility] Enoxaparin Sodium (Lovenox) 40 mg SUBCUT Q24H [facility] Guaifenesin/Codeine Phosphate (Robitussin Ac) 5 ml PO Q6H PRN PRN Reason: Cough Ibuprofen (Motrin) 600 mg PO Q8H [facility] Insulin Aspart (Novolog) 0 unit SUBCUT TIDAC [facility]; Protocol Insulin Glargine (Lantus Solostar) 20 units SUBCUT BEDTIME [facility] Ketorolac Tromethamine (Toradol) 15 mg IVPUSH Q6H PRN PRN Reason: Pain (moderate 4-6) Morphine Sulfate (Morphine) 2 mg IVPUSH Q2H PRN PRN Reason: Pain (severe 7-10) Stop: 01/27/19 18:47 Non-Formulary Medication (Lisinopril) 20 mg PO DAILY [facility] Ondansetron HCl (Zofran Odt) 4 mg PO Q4H PRN PRN Reason: nausea, able to take PO Ondansetron HCl (Zofran) 4 mg IVPUSH Q4H PRN PRN Reason: Nausea Sodium Chloride (Saline Flush) 10 ml FLUSH ASDIRECTED PRN PRN Reason: Keep Vein Open Sodium Chloride (Saline Flush) 2.5 ml FLUSH ASDIRECTED PRN PRN Reason: Keep Vein Open Assessment/Plan Comment:: A: 1. chest pain, rule out ACS 2. upper respiratory infection 3. PMH hypertension, DM2 P: 1. Will order serial troponins, telemetry, morphine for chest pain. Likely secondary to pleurisy. Will check ESR, CRP. Added cough medicine and tessalon perles. Will get Echo in the morning. Continued her home medications for HTN. Accuchecks QID and started her on lantus 20 units SQ at bedtime and TID with meals. Dispo: 1-2 days.
[2019-01-26] MEDS ORDERED: Gabapentin 800 MG Tab PO SCH (19:15)
[2019-01-26] MEDS ORDERED: DULOXETINE 20 MG PO SCH (19:15)
[2019-01-26] MEDS: Enoxaparin 40 MG/0.4 ML Syringe SUBCUT SCH (19:59)
[2019-01-26] MEDS: Codeine/guaiFENesin 100-10 MG/5 ML Syrup 5 ML Cup PO PRN (21:11)
[2019-01-26] MEDS: Benzonatate 100 MG Cap PO SCH (21:12)
[2019-01-26] MEDS: Insulin Glargine,Human Rec. Analog 100 Units/ML 3 ML Pen SUBCUT SCH (22:22)
[2019-01-26] MEDS: Ibuprofen 600 MG Tab PO SCH (22:25)
[2019-01-27] MEDS: Ibuprofen 600 MG Tab PO SCH ×2 (04:44→10:36)
[2019-01-27] MEDS: Codeine/guaiFENesin 100-10 MG/5 ML Syrup 5 ML Cup PO PRN (05:05)
[2019-01-27] MEDS: Benzonatate 100 MG Cap PO SCH ×3 (05:05→21:20)
[2019-01-27 06:10] LABS: BLOOD UREA NITROGEN,BUN 14 mg/dL (7.0-18.0); CHLORIDE,CL 109 mmol/L (98-107); GLUCOSE RANDOM 120 mg/dL (74-106); POTASSIUM,K 3.4 mmol/L (3.5-5.1); SODIUM,NA 145 mmol/L (136-145)
[2019-01-27] MEDS ORDERED: Potassium Chloride 20 MEQ Tab.ER PO ONE (08:54)
[2019-01-27] MEDS ORDERED: Non-Formulary Medication 1 Each (Lisinopril 20 MG) PO SCH (09:00)
[2019-01-27] MEDS ORDERED: Lisinopril 10 MG Tab PO SCH (09:00)
[2019-01-27] MEDS: Insulin Aspart 100 Units/ML 3 ML Pen SUBCUT SCH ×3 (09:10→17:17)
[2019-01-27] MEDS: Sodium Chloride 0.65% Nasal Spray 45 ML Bottle NAS PRN ×3 (10:36→23:15)
[2019-01-27] MEDS: Codeine/guaiFENesin 100-10 MG/5 ML Syrup 5 ML Cup PO SCH ×3 (12:42→22:53)
--- NOTE | 2019-01-27 13:58 | PCM.PN ---
<Parker Blanco - Last Filed: 01/27/19 13:53> - General Info Date of Service: 01/27/19 Subjective Update: 48 y/o female admitted for hypertensive urgency and ACS rule out. Serial troponins are nagative. Patient complaining of continued cough. No fevers. No nausea, vomiting, abdominal pain, dysuria, diarrhea. - Patient Data Vitals - Most Recent: Last Vital Signs Temp 36.3 C 01/27/19 11:41 Pulse 83 01/27/19 11:41 Resp 20 01/27/19 11:41 BP 174/98 H 01/27/19 11:41 Pulse Ox 99 01/27/19 11:41 Weight - Most Recent: 115 kg I&O - Last 24 Hours: Intake & Output 01/26/19 01/27/19 01/27/19 22:59 06:59 14:59 Intake Total 750 Output Total 100 Balance 650 Lab Results Last 24 Hours: Laboratory Results - last 24 hr 01/26/19 01/26/19 01/26/19 Range/Units 17:30 17:30 17:30 WBC 13.85 H (4.0-11.0) K/uL RBC 4.76 (4.30-5.90) M/uL Hgb 13.4 (12.0-16.0) g/dL Hct 38.8 (36.0-46.0) % MCV 81.5 (80.0-98.0) fL MCH 28.2 (27.0-32.0) pg MCHC 34.5 (31.0-37.0) g/dL RDW Std Deviation 43.0 (28.0-62.0) fl RDW Coeff of Joaquin 15 (11.0-15.0) % Plt Count 358 (150-400) K/uL MPV 10.30 (7.40-12.00) fL Neut % (Auto) 61.5 (48.0-80.0) % Lymph % (Auto) 23.6 (16.0-40.0) % [place] % (Auto) 6.9 (0.0-15.0) % Eos % (Auto) 7.6 H (0.0-7.0) % Baso % (Auto) 0.4 (0.0-1.5) % Neut # (Auto) 8.5 H (1.4-5.7) K/uL Lymph # (Auto) 3.3 H (0.6-2.4) K/uL [place] # (Auto) 1.0 H (0.0-0.8) K/uL Eos # (Auto) 1.1 H (0.0-0.7) K/uL Baso # (Auto) 0.1 (0.0-0.1) K/uL Nucleated RBC % 0.0 /100WBC Nucleated RBCs # 0 K/uL ESR 44 H (0-19) mm/hr Sodium 143 (136-145) mmol/L Potassium 3.7 (3.5-5.1) mmol/L Chloride 105 (98-107) mmol/L Carbon Dioxide 28.0 (21.0-32.0) mmol/L BUN 18 (7.0-18.0) mg/dL Creatinine 0.7 (0.6-1.0) mg/dL Est Cr Clr Drug Dosing 80.42 mL/min Estimated GFR (MDRD) > 60.0 ml/min Glucose 182 H (74-106) mg/dL POC Glucose (60-110) mg/dL Calcium 9.4 (8.5-10.1) mg/dL Total Bilirubin 0.3 (0.2-1.0) mg/dL AST 17 (15-37) IU/L ALT 27 (14-63) IU/L Alkaline Phosphatase 134 H (46-116) U/L Troponin I < 0.050 (0.000-0.056) ng/mL C-Reactive Protein (0.00-0.90) mg/dL Total Protein 8.4 H (6.4-8.2) g/dL Albumin 4.0 (3.4-5.0) g/dL Globulin 4.4 H (2.6-4.0) g/dL Albumin/Globulin Ratio 0.9 (0.9-1.6) 01/26/19 01/26/19 01/26/19 Range/Units 17:30 21:10 22:55 WBC (4.0-11.0) K/uL RBC (4.30-5.90) M/uL Hgb (12.0-16.0) g/dL Hct (36.0-46.0) % MCV (80.0-98.0) fL MCH (27.0-32.0) pg MCHC (31.0-37.0) g/dL RDW Std Deviation (28.0-62.0) fl RDW Coeff of Joaquin (11.0-15.0) % Plt Count (150-400) K/uL MPV (7.40-12.00) fL Neut % (Auto) (48.0-80.0) % Lymph % (Auto) (16.0-40.0) % [place] % (Auto) (0.0-15.0) % Eos % (Auto) (0.0-7.0) % Baso % (Auto) (0.0-1.5) % Neut # (Auto) (1.4-5.7) K/uL Lymph # (Auto) (0.6-2.4) K/uL [place] # (Auto) (0.0-0.8) K/uL Eos # (Auto) (0.0-0.7) K/uL Baso # (Auto) (0.0-0.1) K/uL Nucleated RBC % /100WBC Nucleated RBCs # K/uL ESR (0-19) mm/hr Sodium (136-145) mmol/L Potassium (3.5-5.1) mmol/L Chloride (98-107) mmol/L Carbon Dioxide (21.0-32.0) mmol/L BUN (7.0-18.0) mg/dL Creatinine (0.6-1.0) mg/dL Est Cr Clr Drug Dosing mL/min Estimated GFR (MDRD) ml/min Glucose (74-106) mg/dL POC Glucose 122 H (60-110) mg/dL Calcium (8.5-10.1) mg/dL Total Bilirubin (0.2-1.0) mg/dL AST (15-37) IU/L ALT (14-63) IU/L Alkaline Phosphatase (46-116) U/L Troponin I < 0.050 (0.000-0.056) ng/mL C-Reactive Protein 0.70 (0.00-0.90) mg/dL Total Protein (6.4-8.2) g/dL Albumin (3.4-5.0) g/dL Globulin (2.6-4.0) g/dL Albumin/Globulin Ratio (0.9-1.6) 01/27/19 01/27/19 01/27/19 Range/Units 05:35 05:35 05:35 WBC 13.32 H (4.0-11.0) K/uL RBC 4.48 (4.30-5.90) M/uL Hgb 12.5 (12.0-16.0) g/dL Hct 36.7 (36.0-46.0) % MCV 81.9 (80.0-98.0) fL MCH 27.9 (27.0-32.0) pg MCHC 34.1 (31.0-37.0) g/dL RDW Std Deviation 43.1 (28.0-62.0) fl RDW Coeff of Joaquin 15 (11.0-15.0) % Plt Count 322 (150-400) K/uL MPV 9.90 (7.40-12.00) fL Neut % (Auto) 57.3 (48.0-80.0) % Lymph % (Auto) 26.7 (16.0-40.0) % [place] % (Auto) 7.1 (0.0-15.0) % Eos % (Auto) 8.6 H (0.0-7.0) % Baso % (Auto) 0.3 (0.0-1.5) % Neut # (Auto) 7.6 H (1.4-5.7) K/uL Lymph # (Auto) 3.6 H (0.6-2.4) K/uL [place] # (Auto) 1.0 H (0.0-0.8) K/uL Eos # (Auto) 1.2 H (0.0-0.7) K/uL Baso # (Auto) 0.0 (0.0-0.1) K/uL Nucleated RBC % 0.0 /100WBC Nucleated RBCs # 0 K/uL ESR (0-19) mm/hr Sodium 145 (136-145) mmol/L Potassium 3.4 L (3.5-5.1) mmol/L Chloride 109 H (98-107) mmol/L Carbon Dioxide 27.0 (21.0-32.0) mmol/L BUN 14 (7.0-18.0) mg/dL Creatinine 0.7 (0.6-1.0) mg/dL Est Cr Clr Drug Dosing 80.42 mL/min Estimated GFR (MDRD) > 60.0 ml/min Glucose 120 H (74-106) mg/dL POC Glucose (60-110) mg/dL Calcium 8.7 (8.5-10.1) mg/dL Total Bilirubin 0.3 (0.2-1.0) mg/dL AST 15 (15-37) IU/L ALT 22 (14-63) IU/L Alkaline Phosphatase 114 (46-116) U/L Troponin I < 0.050 (0.000-0.056) ng/mL C-Reactive Protein (0.00-0.90) mg/dL Total Protein 7.3 (6.4-8.2) g/dL Albumin 3.5 (3.4-5.0) g/dL Globulin 3.8 (2.6-4.0) g/dL Albumin/Globulin Ratio 0.9 (0.9-1.6) 01/27/19 01/27/19 01/27/19 Range/Units 05:35 06:04 11:37 WBC (4.0-11.0) K/uL RBC (4.30-5.90) M/uL Hgb (12.0-16.0) g/dL Hct (36.0-46.0) % MCV (80.0-98.0) fL MCH (27.0-32.0) pg MCHC (31.0-37.0) g/dL RDW Std Deviation (28.0-62.0) fl RDW Coeff of Joaquin (11.0-15.0) % Plt Count (150-400) K/uL MPV (7.40-12.00) fL Neut % (Auto) (48.0-80.0) % Lymph % (Auto) (16.0-40.0) % [place] % (Auto) (0.0-15.0) % Eos % (Auto) (0.0-7.0) % Baso % (Auto) (0.0-1.5) % Neut # (Auto) (1.4-5.7) K/uL Lymph # (Auto) (0.6-2.4) K/uL [place] # (Auto) (0.0-0.8) K/uL Eos # (Auto) (0.0-0.7) K/uL Baso # (Auto) (0.0-0.1) K/uL Nucleated RBC % /100WBC Nucleated RBCs # K/uL ESR 20 H (0-19) mm/hr Sodium (136-145) mmol/L Potassium (3.5-5.1) mmol/L Chloride (98-107) mmol/L Carbon Dioxide (21.0-32.0) mmol/L BUN (7.0-18.0) mg/dL Creatinine (0.6-1.0) mg/dL Est Cr Clr Drug Dosing mL/min Estimated GFR (MDRD) ml/min Glucose (74-106) mg/dL POC Glucose 96 130 H (60-110) mg/dL Calcium (8.5-10.1) mg/dL Total Bilirubin (0.2-1.0) mg/dL AST (15-37) IU/L ALT (14-63) IU/L Alkaline Phosphatase (46-116) U/L Troponin I (0.000-0.056) ng/mL C-Reactive Protein (0.00-0.90) mg/dL Total Protein (6.4-8.2) g/dL Albumin (3.4-5.0) g/dL Globulin (2.6-4.0) g/dL Albumin/Globulin Ratio (0.9-1.6) Sachin Results Last 24 Hours: Microbiology 01/27/19 12:45 Influenza Type A Antigen Screen - Final Nasopharyngeal Swab NEGATIVE INFLUENZA A VIRUS AG REFERENCE RANGE: NEGATIVE Influenza Type B Antigen Screen - Final NEGATIVE INFLUENZA B VIRUS AG REFERENCE RANGE: NEGATIVE Med Orders - Current: Current Medications Aspirin (Ecotrin) 650 mg PO Q8H [facility] Benzonatate (Tessalon Perles) 100 mg PO TID [facility] Last Admin: 01/27/19 05:05 Dose: 100 mg Duloxetine HCl (Cymbalta) 30 mg PO BID [facility] Enoxaparin Sodium (Lovenox) 40 mg SUBCUT Q24H [facility] Last Admin: 01/26/19 19:59 Dose: 40 mg Gabapentin (Neurontin) 800 mg PO TID [facility] Guaifenesin/Codeine Phosphate (Robitussin Ac) 5 ml PO Q6H [facility] Last Admin: 01/27/19 12:42 Dose: 5 ml Insulin Aspart (Novolog) 0 unit SUBCUT TIDAC [facility]; Protocol Last Admin: 01/27/19 12:23 Dose: Not Given Insulin Glargine (Lantus Solostar) 20 units SUBCUT BEDTIME [facility] Last Admin: 01/26/19 22:22 Dose: 20 units Lisinopril (Prinivil) 20 mg PO BID [facility] Ondansetron HCl (Zofran Odt) 4 mg PO Q4H PRN PRN Reason: nausea, able to take PO Ondansetron HCl (Zofran) 4 mg IVPUSH Q4H PRN PRN Reason: Nausea Sodium Chloride (Saline Flush) 10 ml FLUSH ASDIRECTED PRN PRN Reason: Keep Vein Open Sodium Chloride (Saline Flush) 2.5 ml FLUSH ASDIRECTED PRN PRN Reason: Keep Vein Open Sodium Chloride (Thayer Nasal Dexter) 1 ml DRAGAN QID PRN PRN Reason: Congestion Last Admin: 01/27/19 10:36 Dose: 1 spray Discontinued Medications Albuterol/Ipratropium (Duoneb 3.0-0.5 Mg/3 Ml) 3 ml NEB ONETIME ONE Stop: 01/26/19 17:45 Last Admin: 01/26/19 17:53 Dose: 3 ml Albuterol/Ipratropium (Duoneb 3.0-0.5 Mg/3 Ml) Confirm Administered Dose 3 ml .ROUTE .STK-MED ONE Stop: 01/26/19 17:46 Last Admin: 01/26/19 17:54 Dose: Not Given Gabapentin (Neurontin) 800 mg PO ASDIRECTED [facility] Guaifenesin/Codeine Phosphate (Robitussin Ac) 5 ml PO Q6H PRN PRN Reason: Cough Last Admin: 01/27/19 05:05 Dose: 5 ml Ibuprofen (Motrin) 600 mg PO ONETIME ONE Stop: 01/26/19 18:13 Last Admin: 01/26/19 18:23 Dose: 600 mg Ibuprofen (Motrin) 600 mg PO Q8H [facility] Last Admin: 01/27/19 10:36 Dose: 600 mg Ketorolac Tromethamine (Toradol) 15 mg IVPUSH Q6H PRN PRN Reason: Pain (moderate 4-6) Labetalol HCl (Normodyne) 20 mg IVPUSH ONETIME ONE; Protocol Stop: 01/26/19 17:53 Last Admin: 01/26/19 18:01 Dose: 20 mg Labetalol HCl (Normodyne) Confirm Administered Dose 100 mg .ROUTE .STK-MED ONE Stop: 01/26/19 17:55 Last Admin: 01/26/19 18:13 Dose: Not Given Labetalol HCl (Normodyne) 0 mg IVPUSH ONETIME ONE; Protocol Stop: 01/26/19 19:03 Last Admin: 01/26/19 21:00 Dose: Not Given Lisinopril (Prinivil) 20 mg PO DAILY [facility] Last Admin: 01/27/19 09:11 Dose: 20 mg Morphine Sulfate (Morphine) 2 mg IVPUSH Q2H PRN PRN Reason: Pain (severe 7-10) Stop: 01/27/19 18:47 Nitroglycerin (Nitrostat) 0.4 mg SL Q5M PRN PRN Reason: Chest Pain Last Admin: 01/26/19 17:56 Dose: 0.4 mg Non-Formulary Medication (Lisinopril) 20 mg PO ASDIRECTED [facility] Non-Formulary Medication (Lisinopril) 20 mg PO DAILY [facility] Non-Formulary Medication (Duloxetine) 20 mg PO ASDIRECTED [facility] Potassium Chloride (Klor-Con M20) 40 meq PO ONETIME ONE Stop: 01/27/19 08:55 Last Admin: 01/27/19 09:12 Dose: 40 meq - Exam General: Alert, Oriented, Cooperative, No Acute Distress Lungs: Decreased Breath Sounds. No: Crackles, Wheezing Cardiovascular: Regular Rate, Regular Rhythm GI/Abdominal Exam: Normal Bowel Sounds, Soft, Non-Tender, No Distention Extremities: Normal Inspection, No Pedal Edema Skin: Warm, Dry - Problem List Review Problem List Initiated/Reviewed/Updated: Yes - My Orders Last 24 Hours: My Active Orders 01/26/19 18:46 Blood Glucose Check, Bedside [RC] QIDACANDBED Cardiac Monitoring [RC] Q8H Intake and Output [RC] QSHIFT Oxygen Therapy [RC] PRN Up ad Stacia [RC] ASDIRECTED VTE/DVT Education [RC] PER UNIT ROUTINE Vital Signs [RC] Q4H Ondansetron [Zofran ODT] 4 mg PO Q4H PRN Ondansetron [Zofran] 4 mg IVPUSH Q4H PRN Resuscitation Status Routine 01/26/19 19:00 Enoxaparin [Lovenox] 40 mg SUBCUT Q24H 01/26/19 21:00 Insulin Glarg,Human.Rec.Analog [LantUS Solostar] 20 units SUBCUT BEDTIME 01/26/19 22:00 Benzonatate [Tessalon Perles] 100 mg PO TID 01/27/19 07:30 Insulin Aspart [NovoLOG] See Protocol SUBCUT TIDAC 01/27/19 08:00 Echo Comp wo Cont [US] Routine 01/27/19 08:52 Sodium Chloride 0.65% [Thayer Nasal Dexter] 1 ml DRAGAN QID PRN 01/27/19 12:02 Communication Order [RC] ROUTINE 01/28/19 05:11 CBC WITH AUTO DIFF [HEME] AM COMPREHENSIVE METABOLIC PN,CMP [CHEM] AM - Plan Plan:: A: 1. Hypertensive urgency 2. Acute pericarditis 3. Upper respiratory infection 4. Diabetes type 2 5. Chest pain, ruled out ACS, serial trops negative P: 1. Hypertensive urgency- continue home dose lisinopril 20 mg PO BID. May need to add HCTZ if not improving later today. 2. Acute pericarditis- elevated ESR. Will continue with Aspirin 650 mg PO Q8H for now. pending Echo results. 3. URI- will check for influenza. Will continue with guaifenesin/codein for cough suppression. 4. Diabetes type 2- continue home meds. Dispo: likely dc tomorrow. <Beatriz Singletary - Last Filed: 01/28/19 14:11> - Patient Data Vitals - Most Recent: Last Vital Signs Temp 36.2 C 01/28/19 07:35 Pulse 81 01/28/19 07:35 Resp 16 01/28/19 07:35 BP 151/83 H 01/28/19 10:50 Pulse Ox 97 01/28/19 07:35 I&O - Last 24 Hours: Intake & Output 01/27/19 01/28/19 01/28/19 22:59 06:59 14:59 Intake Total 720 900 Output Total 1200 Balance 720 -300 Lab Results Last 24 Hours: Laboratory Results - last 24 hr 01/27/19 01/27/19 01/28/19 Range/Units 16:35 20:40 05:16 WBC 10.22 (4.0-11.0) K/uL RBC 4.52 (4.30-5.90) M/uL Hgb 12.6 (12.0-16.0) g/dL Hct 37.0 (36.0-46.0) % MCV 81.9 (80.0-98.0) fL MCH 27.9 (27.0-32.0) pg MCHC 34.1 (31.0-37.0) g/dL RDW Std Deviation 43.3 (28.0-62.0) fl RDW Coeff of Joaquin 15 (11.0-15.0) % Plt Count 334 (150-400) K/uL MPV 10.10 (7.40-12.00) fL Neut % (Auto) 49.3 (48.0-80.0) % Lymph % (Auto) 29.2 (16.0-40.0) % [place] % (Auto) 8.0 (0.0-15.0) % Eos % (Auto) 13.1 H (0.0-7.0) % Baso % (Auto) 0.4 (0.0-1.5) % Neut # (Auto) 5.0 (1.4-5.7) K/uL Lymph # (Auto) 3.0 H (0.6-2.4) K/uL [place] # (Auto) 0.8 (0.0-0.8) K/uL Eos # (Auto) 1.3 H (0.0-0.7) K/uL Baso # (Auto) 0.0 (0.0-0.1) K/uL Nucleated RBC % 0.0 /100WBC Nucleated RBCs # 0 K/uL ESR 22 H (0-19) mm/hr Sodium (136-145) mmol/L Potassium (3.5-5.1) mmol/L Chloride (98-107) mmol/L Carbon Dioxide (21.0-32.0) mmol/L BUN (7.0-18.0) mg/dL Creatinine (0.6-1.0) mg/dL Est Cr Clr Drug Dosing mL/min Estimated GFR (MDRD) ml/min Glucose (74-106) mg/dL POC Glucose 115 H 163 H (60-110) mg/dL Calcium (8.5-10.1) mg/dL Total Bilirubin (0.2-1.0) mg/dL AST (15-37) IU/L ALT (14-63) IU/L Alkaline Phosphatase (46-116) U/L C-Reactive Protein (0.00-0.90) mg/dL Total Protein (6.4-8.2) g/dL Albumin (3.4-5.0) g/dL Globulin (2.6-4.0) g/dL Albumin/Globulin Ratio (0.9-1.6) 01/28/19 01/28/19 01/28/19 Range/Units 05:16 05:56 11:28 WBC (4.0-11.0) K/uL RBC (4.30-5.90) M/uL Hgb (12.0-16.0) g/dL Hct (36.0-46.0) % MCV (80.0-98.0) fL MCH (27.0-32.0) pg MCHC (31.0-37.0) g/dL RDW Std Deviation (28.0-62.0) fl RDW Coeff of Joaquin (11.0-15.0) % Plt Count (150-400) K/uL MPV (7.40-12.00) fL Neut % (Auto) (48.0-80.0) % Lymph % (Auto) (16.0-40.0) % [place] % (Auto) (0.0-15.0) % Eos % (Auto) (0.0-7.0) % Baso % (Auto) (0.0-1.5) % Neut # (Auto) (1.4-5.7) K/uL Lymph # (Auto) (0.6-2.4) K/uL [place] # (Auto) (0.0-0.8) K/uL Eos # (Auto) (0.0-0.7) K/uL Baso # (Auto) (0.0-0.1) K/uL Nucleated RBC % /100WBC Nucleated RBCs # K/uL ESR (0-19) mm/hr Sodium 143 (136-145) mmol/L Potassium 3.7 (3.5-5.1) mmol/L Chloride 106 (98-107) mmol/L Carbon Dioxide 27.2 (21.0-32.0) mmol/L BUN 12 (7.0-18.0) mg/dL Creatinine 0.6 (0.6-1.0) mg/dL Est Cr Clr Drug Dosing 93.82 mL/min Estimated GFR (MDRD) > 60.0 ml/min Glucose 100 (74-106) mg/dL POC Glucose 91 157 H (60-110) mg/dL Calcium 8.6 (8.5-10.1) mg/dL Total Bilirubin 0.3 (0.2-1.0) mg/dL AST 15 (15-37) IU/L ALT 26 (14-63) IU/L Alkaline Phosphatase 108 (46-116) U/L C-Reactive Protein 0.90 (0.00-0.90) mg/dL Total Protein 7.1 (6.4-8.2) g/dL Albumin 3.4 (3.4-5.0) g/dL Globulin 3.7 (2.6-4.0) g/dL Albumin/Globulin Ratio 0.9 (0.9-1.6) Sachin Results Last 24 Hours: Microbiology 01/27/19 12:45 Influenza Type A Antigen Screen - Final Nasopharyngeal Swab NEGATIVE INFLUENZA A VIRUS AG REFERENCE RANGE: NEGATIVE Influenza Type B Antigen Screen - Final NEGATIVE INFLUENZA B VIRUS AG REFERENCE RANGE: NEGATIVE Med Orders - Current: Current Medications Discontinued Medications Albuterol/Ipratropium (Duoneb 3.0-0.5 Mg/3 Ml) 3 ml NEB ONETIME ONE Stop: 01/26/19 17:45 Last Admin: 01/26/19 17:53 Dose: 3 ml Albuterol/Ipratropium (Duoneb 3.0-0.5 Mg/3 Ml) Confirm Administered Dose 3 ml .ROUTE .STK-MED ONE Stop: 01/26/19 17:46 Last Admin: 01/26/19 17:54 Dose: Not Given Amlodipine Besylate (Norvasc) 5 mg PO DAILY [facility] Last Admin: 01/28/19 09:01 Dose: 5 mg Amlodipine Besylate (Norvasc) 5 mg PO ONETIME ONE Stop: 01/28/19 10:26 Last Admin: 01/28/19 10:50 Dose: 5 mg Aspirin (Ecotrin) 650 mg PO Q8H [facility] Last Admin: 01/28/19 09:01 Dose: 650 mg Benzonatate (Tessalon Perles) 100 mg PO TID [facility] Last Admin: 01/28/19 06:11 Dose: 100 mg Duloxetine HCl (Cymbalta) 30 mg PO BID [facility] Last Admin: 01/28/19 09:01 Dose: 30 mg Enoxaparin Sodium (Lovenox) 40 mg SUBCUT Q24H [facility] Last Admin: 01/27/19 18:49 Dose: 40 mg Fluticasone Propionate (Flonase) 1 gm NASBOTH BID [facility] Last Admin: 01/28/19 09:07 Dose: 1 spray Gabapentin (Neurontin) 800 mg PO ASDIRECTED [facility] Gabapentin (Neurontin) 800 mg PO TID [facility] Last Admin: 01/28/19 06:11 Dose: 800 mg Guaifenesin/Codeine Phosphate (Robitussin Ac) 5 ml PO Q6H PRN PRN Reason: Cough Last Admin: 01/27/19 05:05 Dose: 5 ml Guaifenesin/Codeine Phosphate (Robitussin Ac) 5 ml PO Q6H [facility] Last Admin: 01/28/19 06:12 Dose: 5 ml Guaifenesin/Codeine Phosphate (Robitussin Ac) 5 ml PO Q4H [facility] Last Admin: 01/28/19 10:52 Dose: 5 ml Ibuprofen (Motrin) 600 mg PO ONETIME ONE Stop: 01/26/19 18:13 Last Admin: 01/26/19 18:23 Dose: 600 mg Ibuprofen (Motrin) 600 mg PO Q8H [facility] Last Admin: 01/27/19 10:36 Dose: 600 mg Insulin Aspart (Novolog) 0 unit SUBCUT TIDAC [facility]; Protocol Last Admin: 01/28/19 11:54 Dose: 1 unit Insulin Glargine (Lantus Solostar) 20 units SUBCUT BEDTIME [facility] Last Admin: 01/27/19 20:53 Dose: 20 units Ketorolac Tromethamine (Toradol) 15 mg IVPUSH Q6H PRN PRN Reason: Pain (moderate 4-6) Labetalol HCl (Normodyne) 20 mg IVPUSH ONETIME ONE; Protocol Stop: 01/26/19 17:53 Last Admin: 01/26/19 18:01 Dose: 20 mg Labetalol HCl (Normodyne) Confirm Administered Dose 100 mg .ROUTE .STK-MED ONE Stop: 01/26/19 17:55 Last Admin: 01/26/19 18:13 Dose: Not Given Labetalol HCl (Normodyne) 0 mg IVPUSH ONETIME ONE; Protocol Stop: 01/26/19 19:03 Last Admin: 01/26/19 21:00 Dose: Not Given Labetalol HCl (Normodyne) 20 mg IVPUSH ONETIME PRN; Protocol PRN Reason: Hypertension Lisinopril (Prinivil) 20 mg PO DAILY [facility] Last Admin: 01/27/19 09:11 Dose: 20 mg Lisinopril (Prinivil) 20 mg PO BID [facility] Last Admin: 01/28/19 09:01 Dose: 20 mg Loratadine (Claritin) 10 mg PO DAILY [facility] Last Admin: 01/28/19 10:50 Dose: 10 mg Morphine Sulfate (Morphine) 2 mg IVPUSH Q2H PRN PRN Reason: Pain (severe 7-10) Stop: 01/27/19 18:47 Morphine Sulfate (Morphine) 1 mg IVPUSH ONETIME ONE Stop: 01/28/19 01:56 Last Admin: 01/28/19 02:19 Dose: 1 mg Nitroglycerin (Nitrostat) 0.4 mg SL Q5M PRN PRN Reason: Chest Pain Last Admin: 01/26/19 17:56 Dose: 0.4 mg Non-Formulary Medication (Lisinopril) 20 mg PO ASDIRECTED [facility] Non-Formulary Medication (Lisinopril) 20 mg PO DAILY [facility] Non-Formulary Medication (Duloxetine) 20 mg PO ASDIRECTED [facility] Ondansetron HCl (Zofran Odt) 4 mg PO Q4H PRN PRN Reason: nausea, able to take PO Ondansetron HCl (Zofran) 4 mg IVPUSH Q4H PRN PRN Reason: Nausea Potassium Chloride (Klor-Con M20) 40 meq PO ONETIME ONE Stop: 01/27/19 08:55 Last Admin: 01/27/19 09:12 Dose: 40 meq Sodium Chloride (Saline Flush) 10 ml FLUSH ASDIRECTED PRN PRN Reason: Keep Vein Open Sodium Chloride (Saline Flush) 2.5 ml FLUSH ASDIRECTED PRN PRN Reason: Keep Vein Open Sodium Chloride (Thayer Nasal Dexter) 1 ml DRAGAN QID PRN PRN Reason: Congestion Last Admin: 01/28/19 06:47 Dose: 1 spray - Problem List & Annotations (1) Chest pain SNOMED Code(s): 58048319 Code(s): R07.9 - CHEST PAIN, UNSPECIFIED Status: Acute - Problem List Review Problem List Initiated/Reviewed/Updated: Yes - Plan Plan:: I have seen and evaluated the patient and agree with the residents note unless specified in my note
[2019-01-27] MEDS: Gabapentin 800 MG Tab PO SCH ×2 (14:02→21:20)
[2019-01-27] MEDS: Aspirin 325 MG Tab.EC PO SCH (17:36)
[2019-01-27] MEDS: Enoxaparin 40 MG/0.4 ML Syringe SUBCUT SCH (18:49)
[2019-01-27] MEDS ORDERED: Labetalol 100 MG/20 ML MDV IVPUSH PRN (20:04)
[2019-01-27] MEDS: Lisinopril 10 MG Tab PO SCH (20:50)
[2019-01-27] MEDS: DULoxetine 30 MG Cap PO SCH (20:51)
[2019-01-27] MEDS: Insulin Glargine,Human Rec. Analog 100 Units/ML 3 ML Pen SUBCUT SCH (20:53)
[2019-01-27] MEDS: amLODIPine 5 MG Tab PO SCH (22:53)
[2019-01-28] MEDS: Aspirin 325 MG Tab.EC PO SCH ×2 (01:38→09:01)
[2019-01-28] MEDS ORDERED: Morphine 2 MG/ML Syringe IVPUSH ONE (01:55)
[2019-01-28 06:02] LABS: BLOOD UREA NITROGEN,BUN 12 mg/dL (7.0-18.0); CARBON DIOXIDE,CO2 27.2 mmol/L (21.0-32.0); CHLORIDE,CL 106 mmol/L (98-107); GLUCOSE RANDOM 100 mg/dL (74-106); POTASSIUM,K 3.7 mmol/L (3.5-5.1); SODIUM,NA 143 mmol/L (136-145)
[2019-01-28] MEDS: Benzonatate 100 MG Cap PO SCH (06:11)
[2019-01-28] MEDS: Gabapentin 800 MG Tab PO SCH (06:11)
[2019-01-28] MEDS: Codeine/guaiFENesin 100-10 MG/5 ML Syrup 5 ML Cup PO SCH (06:12)
[2019-01-28] MEDS: Sodium Chloride 0.65% Nasal Spray 45 ML Bottle NAS PRN (06:47)
[2019-01-28] MEDS: Insulin Aspart 100 Units/ML 3 ML Pen SUBCUT SCH ×2 (07:30→11:54)
[2019-01-28 07:50] VITALS: PULSE 81
[2019-01-28] MEDS ORDERED: Fluticasone Propionate Nasal Spray 16 GM Bottle NASBOTH SCH (09:00)
[2019-01-28] MEDS: amLODIPine 5 MG Tab PO SCH (09:01)
[2019-01-28] MEDS: DULoxetine 30 MG Cap PO SCH (09:01)
[2019-01-28] MEDS: Lisinopril 10 MG Tab PO SCH (09:01)
[2019-01-28] MEDS ORDERED: amLODIPine 5 MG Tab PO ONE (10:25)
[2019-01-28] MEDS ORDERED: Loratadine 10 MG Tab PO SCH (10:45)
[2019-01-28] MEDS ORDERED: Codeine/guaiFENesin 100-10 MG/5 ML Syrup 5 ML Cup PO SCH (10:45)
[2019-01-28 10:54] VITALS: BP 151/83
--- NOTE | 2019-01-28 11:37 | PCM.DCSUM1 ---
<Parker Blanco - Last Filed: 01/28/19 13:36> Discharge Summary - Hospital Course Free Text/Narrative:: 48 y/o female with history of type 2 diabetes who presented to the ER complaining of worsening cough. She was found to be hypertensive SBP 237. She was admitted for hypertensive urgency and ACS rule out. Troponins were negative x3 and she was restarted on her home medication lisinopril 20 mg PO BID. In addition, amlodipine 10 mg PO daily was started during this hospitalization. She was continued ton Aspirin 650 mg PO Q8H for history of acute pericarditis. Her chest pain resolved and cough was attributed to viral upper respiratory infection for which she was started on cough medicine, flonase and claritin for sinus congestion. That seemed to help her symptoms. At time of discharge her SBP was in 150's. Cough was better and denied any chest pain. She was instructed to follow-up with her PCP and cardiology due to her past history of pericarditis. - Discharge Data Discharge Date: 01/28/19 Discharge Disposition: Home, Self-Care 01 Condition: Good - Referral to Home Health Primary Care Physician: Mack Rico MD - Patient Instructions Diet: Diabetic Diet Activity: As Tolerated Notify Provider of: Fever, Increased Pain, Swelling and Redness, Nausea and/or Vomiting - Discharge Plan *PRESCRIPTION DRUG MONITORING PROGRAM REVIEWED*: No *COPY OF PRESCRIPTION DRUG MONITORING REPORT IN PATIENT LEANDER: No Prescriptions/Med Rec: amLODIPine Besylate [Amlodipine Besylate] 10 mg PO DAILY #30 tablet Codeine/guaiFENesin [Robitussin AC] 5 ml PO Q4H PRN #100 ml PRN Reason: Sore Throat Fluticasone Propionate [Flonase] 1 spray NASBOTH BID #1 bottle Loratadine [Claritin] 10 mg PO DAILY #30 tablet Home Medications: Home Meds Aspirin [Aspirin EC] 650 mg PO TID 09/04/18 [History] Colchicine 0.6 mg PO BID 09/04/18 [History] DULoxetine [Cymbalta] 30 mg PO BID 01/26/19 [History] Gabapentin [Neurontin] 800 mg PO TID 01/26/19 [History] Insulin Aspart [NovoLOG] 28 unit SUBCUT TIDAC 01/26/19 [History] Insulin Glarg,Human.Rec.Analog [Lantus Solostar] 25 unit SUBCUT ASDIRECTED 01/26 [History] Lisinopril 20 mg PO BID 01/26/19 [History] Dulaglutide [Trulicity] 1.5 mg SUBCUT WEEKLY 01/27/19 [History] Codeine/guaiFENesin [Robitussin AC] 5 ml PO Q4H PRN #100 ml 01/28/19 [Rx] Fluticasone Propionate [Flonase] 1 spray NASBOTH BID #1 bottle 01/28/19 [Rx] Loratadine [Claritin] 10 mg PO DAILY #30 tablet 01/28/19 [Rx] amLODIPine Besylate [Amlodipine Besylate] 10 mg PO DAILY #30 tablet 01/28/19 [Rx ] Patient Handouts: Dextromethorphan; Guaifenesin oral suspension, Fluticasone nasal spray, Hypertension, [id number], Amlodipine tablets, Loratadine capsules or tablets Referrals: Gertrudis Lam MD [Physician] - 03/02/19 1:30 pm Mack Rico MD [Primary Care Provider] - 02/11/19 12:30 pm - Discharge Summary/Plan Comment DC Time >30 min.: No - Patient Data Vitals - Most Recent: Last Vital Signs Temp 36.2 C 01/28/19 07:35 Pulse 81 01/28/19 07:35 Resp 16 01/28/19 07:35 BP 151/83 H 01/28/19 10:50 Pulse Ox 97 01/28/19 07:35 Weight - Most Recent: 115 kg I&O - Last 24 hours: Intake & Output 01/27/19 01/28/19 01/28/19 22:59 06:59 14:59 Intake Total 720 900 Output Total 1200 Balance 720 -300 Lab Results - Last 24 hrs: Laboratory Results - last 24 hr 01/27/19 01/27/19 01/27/19 Range/Units 11:37 16:35 20:40 WBC (4.0-11.0) K/uL RBC (4.30-5.90) M/uL Hgb (12.0-16.0) g/dL Hct (36.0-46.0) % MCV (80.0-98.0) fL MCH (27.0-32.0) pg MCHC (31.0-37.0) g/dL RDW Std Deviation (28.0-62.0) fl RDW Coeff of Joaquin (11.0-15.0) % Plt Count (150-400) K/uL MPV (7.40-12.00) fL Neut % (Auto) (48.0-80.0) % Lymph % (Auto) (16.0-40.0) % [place] % (Auto) (0.0-15.0) % Eos % (Auto) (0.0-7.0) % Baso % (Auto) (0.0-1.5) % Neut # (Auto) (1.4-5.7) K/uL Lymph # (Auto) (0.6-2.4) K/uL [place] # (Auto) (0.0-0.8) K/uL Eos # (Auto) (0.0-0.7) K/uL Baso # (Auto) (0.0-0.1) K/uL Nucleated RBC % /100WBC Nucleated RBCs # K/uL ESR (0-19) mm/hr Sodium (136-145) mmol/L Potassium (3.5-5.1) mmol/L Chloride (98-107) mmol/L Carbon Dioxide (21.0-32.0) mmol/L BUN (7.0-18.0) mg/dL Creatinine (0.6-1.0) mg/dL Est Cr Clr Drug Dosing mL/min Estimated GFR (MDRD) ml/min Glucose (74-106) mg/dL POC Glucose 130 H 115 H 163 H (60-110) mg/dL Calcium (8.5-10.1) mg/dL Total Bilirubin (0.2-1.0) mg/dL AST (15-37) IU/L ALT (14-63) IU/L Alkaline Phosphatase (46-116) U/L C-Reactive Protein (0.00-0.90) mg/dL Total Protein (6.4-8.2) g/dL Albumin (3.4-5.0) g/dL Globulin (2.6-4.0) g/dL Albumin/Globulin Ratio (0.9-1.6) 01/28/19 01/28/19 01/28/19 Range/Units 05:16 05:16 05:56 WBC 10.22 (4.0-11.0) K/uL RBC 4.52 (4.30-5.90) M/uL Hgb 12.6 (12.0-16.0) g/dL Hct 37.0 (36.0-46.0) % MCV 81.9 (80.0-98.0) fL MCH 27.9 (27.0-32.0) pg MCHC 34.1 (31.0-37.0) g/dL RDW Std Deviation 43.3 (28.0-62.0) fl RDW Coeff of Joaquin 15 (11.0-15.0) % Plt Count 334 (150-400) K/uL MPV 10.10 (7.40-12.00) fL Neut % (Auto) 49.3 (48.0-80.0) % Lymph % (Auto) 29.2 (16.0-40.0) % [place] % (Auto) 8.0 (0.0-15.0) % Eos % (Auto) 13.1 H (0.0-7.0) % Baso % (Auto) 0.4 (0.0-1.5) % Neut # (Auto) 5.0 (1.4-5.7) K/uL Lymph # (Auto) 3.0 H (0.6-2.4) K/uL [place] # (Auto) 0.8 (0.0-0.8) K/uL Eos # (Auto) 1.3 H (0.0-0.7) K/uL Baso # (Auto) 0.0 (0.0-0.1) K/uL Nucleated RBC % 0.0 /100WBC Nucleated RBCs # 0 K/uL ESR 22 H (0-19) mm/hr Sodium 143 (136-145) mmol/L Potassium 3.7 (3.5-5.1) mmol/L Chloride 106 (98-107) mmol/L Carbon Dioxide 27.2 (21.0-32.0) mmol/L BUN 12 (7.0-18.0) mg/dL Creatinine 0.6 (0.6-1.0) mg/dL Est Cr Clr Drug Dosing 93.82 mL/min Estimated GFR (MDRD) > 60.0 ml/min Glucose 100 (74-106) mg/dL POC Glucose 91 (60-110) mg/dL Calcium 8.6 (8.5-10.1) mg/dL Total Bilirubin 0.3 (0.2-1.0) mg/dL AST 15 (15-37) IU/L ALT 26 (14-63) IU/L Alkaline Phosphatase 108 (46-116) U/L C-Reactive Protein 0.90 (0.00-0.90) mg/dL Total Protein 7.1 (6.4-8.2) g/dL Albumin 3.4 (3.4-5.0) g/dL Globulin 3.7 (2.6-4.0) g/dL Albumin/Globulin Ratio 0.9 (0.9-1.6) 01/28/19 Range/Units 11:28 WBC (4.0-11.0) K/uL RBC (4.30-5.90) M/uL Hgb (12.0-16.0) g/dL Hct (36.0-46.0) % MCV (80.0-98.0) fL MCH (27.0-32.0) pg MCHC (31.0-37.0) g/dL RDW Std Deviation (28.0-62.0) fl RDW Coeff of Joaquin (11.0-15.0) % Plt Count (150-400) K/uL MPV (7.40-12.00) fL Neut % (Auto) (48.0-80.0) % Lymph % (Auto) (16.0-40.0) % [place] % (Auto) (0.0-15.0) % Eos % (Auto) (0.0-7.0) % Baso % (Auto) (0.0-1.5) % Neut # (Auto) (1.4-5.7) K/uL Lymph # (Auto) (0.6-2.4) K/uL [place] # (Auto) (0.0-0.8) K/uL Eos # (Auto) (0.0-0.7) K/uL Baso # (Auto) (0.0-0.1) K/uL Nucleated RBC % /100WBC Nucleated RBCs # K/uL ESR (0-19) mm/hr Sodium (136-145) mmol/L Potassium (3.5-5.1) mmol/L Chloride (98-107) mmol/L Carbon Dioxide (21.0-32.0) mmol/L BUN (7.0-18.0) mg/dL Creatinine (0.6-1.0) mg/dL Est Cr Clr Drug Dosing mL/min Estimated GFR (MDRD) ml/min Glucose (74-106) mg/dL POC Glucose 157 H (60-110) mg/dL Calcium (8.5-10.1) mg/dL Total Bilirubin (0.2-1.0) mg/dL AST (15-37) IU/L ALT (14-63) IU/L Alkaline Phosphatase (46-116) U/L C-Reactive Protein (0.00-0.90) mg/dL Total Protein (6.4-8.2) g/dL Albumin (3.4-5.0) g/dL Globulin (2.6-4.0) g/dL Albumin/Globulin Ratio (0.9-1.6) CARMINA Results - Last 24 hrs: Microbiology 01/27/19 12:45 Influenza Type A Antigen Screen - Final Nasopharyngeal Swab NEGATIVE INFLUENZA A VIRUS AG REFERENCE RANGE: NEGATIVE Influenza Type B Antigen Screen - Final NEGATIVE INFLUENZA B VIRUS AG REFERENCE RANGE: NEGATIVE Med Orders - Current: Current Medications Amlodipine Besylate (Norvasc) 5 mg PO DAILY [facility] Last Admin: 01/28/19 09:01 Dose: 5 mg Aspirin (Ecotrin) 650 mg PO Q8H [facility] Last Admin: 01/28/19 09:01 Dose: 650 mg Benzonatate (Tessalon Perles) 100 mg PO TID [facility] Last Admin: 01/28/19 06:11 Dose: 100 mg Duloxetine HCl (Cymbalta) 30 mg PO BID [facility] Last Admin: 01/28/19 09:01 Dose: 30 mg Enoxaparin Sodium (Lovenox) 40 mg SUBCUT Q24H [facility] Last Admin: 01/27/19 18:49 Dose: 40 mg Fluticasone Propionate (Flonase) 1 gm NASBOTH BID [facility] Last Admin: 01/28/19 09:07 Dose: 1 spray Gabapentin (Neurontin) 800 mg PO TID [facility] Last Admin: 01/28/19 06:11 Dose: 800 mg Guaifenesin/Codeine Phosphate (Robitussin Ac) 5 ml PO Q4H [facility] Last Admin: 01/28/19 10:52 Dose: 5 ml Insulin Aspart (Novolog) 0 unit SUBCUT TIDAC [facility]; Protocol Last Admin: 01/28/19 07:30 Dose: Not Given Insulin Glargine (Lantus Solostar) 20 units SUBCUT BEDTIME [facility] Last Admin: 01/27/19 20:53 Dose: 20 units Labetalol HCl (Normodyne) 20 mg IVPUSH ONETIME PRN; Protocol PRN Reason: Hypertension Lisinopril (Prinivil) 20 mg PO BID [facility] Last Admin: 01/28/19 09:01 Dose: 20 mg Loratadine (Claritin) 10 mg PO DAILY [facility] Last Admin: 01/28/19 10:50 Dose: 10 mg Ondansetron HCl (Zofran Odt) 4 mg PO Q4H PRN PRN Reason: nausea, able to take PO Ondansetron HCl (Zofran) 4 mg IVPUSH Q4H PRN PRN Reason: Nausea Sodium Chloride (Saline Flush) 10 ml FLUSH ASDIRECTED PRN PRN Reason: Keep Vein Open Sodium Chloride (Saline Flush) 2.5 ml FLUSH ASDIRECTED PRN PRN Reason: Keep Vein Open Sodium Chloride ([place] Nasal Marlin) 1 ml DRAGAN QID PRN PRN Reason: Congestion Last Admin: 01/28/19 06:47 Dose: 1 spray Discontinued Medications Albuterol/Ipratropium (Duoneb 3.0-0.5 Mg/3 Ml) 3 ml NEB ONETIME ONE Stop: 01/26/19 17:45 Last Admin: 01/26/19 17:53 Dose: 3 ml Albuterol/Ipratropium (Duoneb 3.0-0.5 Mg/3 Ml) Confirm Administered Dose 3 ml .ROUTE .STK-MED ONE Stop: 01/26/19 17:46 Last Admin: 01/26/19 17:54 Dose: Not Given Amlodipine Besylate (Norvasc) 5 mg PO ONETIME ONE Stop: 01/28/19 10:26 Last Admin: 01/28/19 10:50 Dose: 5 mg Gabapentin (Neurontin) 800 mg PO ASDIRECTED [facility] Guaifenesin/Codeine Phosphate (Robitussin Ac) 5 ml PO Q6H PRN PRN Reason: Cough Last Admin: 01/27/19 05:05 Dose: 5 ml Guaifenesin/Codeine Phosphate (Robitussin Ac) 5 ml PO Q6H [facility] Last Admin: 01/28/19 06:12 Dose: 5 ml Ibuprofen (Motrin) 600 mg PO ONETIME ONE Stop: 01/26/19 18:13 Last Admin: 01/26/19 18:23 Dose: 600 mg Ibuprofen (Motrin) 600 mg PO Q8H [facility] Last Admin: 01/27/19 10:36 Dose: 600 mg Ketorolac Tromethamine (Toradol) 15 mg IVPUSH Q6H PRN PRN Reason: Pain (moderate 4-6) Labetalol HCl (Normodyne) 20 mg IVPUSH ONETIME ONE; Protocol Stop: 01/26/19 17:53 Last Admin: 01/26/19 18:01 Dose: 20 mg Labetalol HCl (Normodyne) Confirm Administered Dose 100 mg .ROUTE .STK-MED ONE Stop: 01/26/19 17:55 Last Admin: 01/26/19 18:13 Dose: Not Given Labetalol HCl (Normodyne) 0 mg IVPUSH ONETIME ONE; Protocol Stop: 01/26/19 19:03 Last Admin: 01/26/19 21:00 Dose: Not Given Lisinopril (Prinivil) 20 mg PO DAILY [facility] Last Admin: 01/27/19 09:11 Dose: 20 mg Morphine Sulfate (Morphine) 2 mg IVPUSH Q2H PRN PRN Reason: Pain (severe 7-10) Stop: 01/27/19 18:47 Morphine Sulfate (Morphine) 1 mg IVPUSH ONETIME ONE Stop: 01/28/19 01:56 Last Admin: 01/28/19 02:19 Dose: 1 mg Nitroglycerin (Nitrostat) 0.4 mg SL Q5M PRN PRN Reason: Chest Pain Last Admin: 01/26/19 17:56 Dose: 0.4 mg Non-Formulary Medication (Lisinopril) 20 mg PO ASDIRECTED [facility] Non-Formulary Medication (Lisinopril) 20 mg PO DAILY [facility] Non-Formulary Medication (Duloxetine) 20 mg PO ASDIRECTED [facility] Potassium Chloride (Klor-Con M20) 40 meq PO ONETIME ONE Stop: 01/27/19 08:55 Last Admin: 01/27/19 09:12 Dose: 40 meq <Beatriz Singletary - Last Filed: 01/30/19 12:02> Discharge Summary - Hospital Course HPI Initial Comments: I have reviewed the residents note and agree with documentation unless otherwise specified in my note. - Referral to Home Health Primary Care Physician: Mack Rico MD - Discharge Diagnosis/Problem(s) (1) Chest pain SNOMED Code(s): 73297483 ICD Code: R07.9 - CHEST PAIN, UNSPECIFIED Status: Acute - Patient Data Vitals - Most Recent: Last Vital Signs Temp 36.2 C 01/28/19 07:35 Pulse 81 01/28/19 07:35 Resp 16 01/28/19 07:35 BP 151/83 H 01/28/19 10:50 Pulse Ox 97 01/28/19 07:35 Med Orders - Current: Current Medications Discontinued Medications Albuterol/Ipratropium (Duoneb 3.0-0.5 Mg/3 Ml) 3 ml NEB ONETIME ONE Stop: 01/26/19 17:45 Last Admin: 01/26/19 17:53 Dose: 3 ml Albuterol/Ipratropium (Duoneb 3.0-0.5 Mg/3 Ml) Confirm Administered Dose 3 ml .ROUTE .STK-MED ONE Stop: 01/26/19 17:46 Last Admin: 01/26/19 17:54 Dose: Not Given Amlodipine Besylate (Norvasc) 5 mg PO DAILY [facility] Last Admin: 01/28/19 09:01 Dose: 5 mg Amlodipine Besylate (Norvasc) 5 mg PO ONETIME ONE Stop: 01/28/19 10:26 Last Admin: 01/28/19 10:50 Dose: 5 mg Aspirin (Ecotrin) 650 mg PO Q8H [facility] Last Admin: 01/28/19 09:01 Dose: 650 mg Benzonatate (Tessalon Perles) 100 mg PO TID [facility] Last Admin: 01/28/19 06:11 Dose: 100 mg Duloxetine HCl (Cymbalta) 30 mg PO BID [facility] Last Admin: 01/28/19 09:01 Dose: 30 mg Enoxaparin Sodium (Lovenox) 40 mg SUBCUT Q24H [facility] Last Admin: 01/27/19 18:49 Dose: 40 mg Fluticasone Propionate (Flonase) 1 gm NASBOTH BID [facility] Last Admin: 01/28/19 09:07 Dose: 1 spray Gabapentin (Neurontin) 800 mg PO ASDIRECTED WADE Gabapentin (Neurontin) 800 mg PO TID [facility] Last Admin: 01/28/19 06:11 Dose: 800 mg Guaifenesin/Codeine Phosphate (Robitussin Ac) 5 ml PO Q6H PRN PRN Reason: Cough Last Admin: 01/27/19 05:05 Dose: 5 ml Guaifenesin/Codeine Phosphate (Robitussin Ac) 5 ml PO Q6H [facility] Last Admin: 01/28/19 06:12 Dose: 5 ml Guaifenesin/Codeine Phosphate (Robitussin Ac) 5 ml PO Q4H [facility] Last Admin: 01/28/19 10:52 Dose: 5 ml Ibuprofen (Motrin) 600 mg PO ONETIME ONE Stop: 01/26/19 18:13 Last Admin: 01/26/19 18:23 Dose: 600 mg Ibuprofen (Motrin) 600 mg PO Q8H [facility] Last Admin: 01/27/19 10:36 Dose: 600 mg Insulin Aspart (Novolog) 0 unit SUBCUT TIDAC [facility]; Protocol Last Admin: 01/28/19 11:54 Dose: 1 unit Insulin Glargine (Lantus Solostar) 20 units SUBCUT BEDTIME [facility] Last Admin: 01/27/19 20:53 Dose: 20 units Ketorolac Tromethamine (Toradol) 15 mg IVPUSH Q6H PRN PRN Reason: Pain (moderate 4-6) Labetalol HCl (Normodyne) 20 mg IVPUSH ONETIME ONE; Protocol Stop: 01/26/19 17:53 Last Admin: 01/26/19 18:01 Dose: 20 mg Labetalol HCl (Normodyne) Confirm Administered Dose 100 mg .ROUTE .STK-MED ONE Stop: 01/26/19 17:55 Last Admin: 01/26/19 18:13 Dose: Not Given Labetalol HCl (Normodyne) 0 mg IVPUSH ONETIME ONE; Protocol Stop: 01/26/19 19:03 Last Admin: 01/26/19 21:00 Dose: Not Given Labetalol HCl (Normodyne) 20 mg IVPUSH ONETIME PRN; Protocol PRN Reason: Hypertension Lisinopril (Prinivil) 20 mg PO DAILY [facility] Last Admin: 01/27/19 09:11 Dose: 20 mg Lisinopril (Prinivil) 20 mg PO BID [facility] Last Admin: 01/28/19 09:01 Dose: 20 mg Loratadine (Claritin) 10 mg PO DAILY [facility] Last Admin: 01/28/19 10:50 Dose: 10 mg Morphine Sulfate (Morphine) 2 mg IVPUSH Q2H PRN PRN Reason: Pain (severe 7-10) Stop: 01/27/19 18:47 Morphine Sulfate (Morphine) 1 mg IVPUSH ONETIME ONE Stop: 01/28/19 01:56 Last Admin: 01/28/19 02:19 Dose: 1 mg Nitroglycerin (Nitrostat) 0.4 mg SL Q5M PRN PRN Reason: Chest Pain Last Admin: 01/26/19 17:56 Dose: 0.4 mg Non-Formulary Medication (Lisinopril) 20 mg PO ASDIRECTED [facility] Non-Formulary Medication (Lisinopril) 20 mg PO DAILY [facility] Non-Formulary Medication (Duloxetine) 20 mg PO ASDIRECTED [facility] Ondansetron HCl (Zofran Odt) 4 mg PO Q4H PRN PRN Reason: nausea, able to take PO Ondansetron HCl (Zofran) 4 mg IVPUSH Q4H PRN PRN Reason: Nausea Potassium Chloride (Klor-Con M20) 40 meq PO ONETIME ONE Stop: 01/27/19 08:55 Last Admin: 01/27/19 09:12 Dose: 40 meq Sodium Chloride (Saline Flush) 10 ml FLUSH ASDIRECTED PRN PRN Reason: Keep Vein Open Sodium Chloride (Saline Flush) 2.5 ml FLUSH ASDIRECTED PRN PRN Reason: Keep Vein Open Sodium Chloride ([place] Nasal [place]) 1 ml DRAGAN QID PRN PRN Reason: Congestion Last Admin: 01/28/19 06:47 Dose: 1 spray
--- NOTE | 2019-01-30 18:51 | ECHO ---
The echocardiogram report can be seen in this patient's EMR (Electronic Medical Record) in the REPORTS section. The echocardiogram report can also been seen in PACS and can be seen there as well. KAYODE
== END 2019-01-28 12:30 | disposition home or self-care (01) ==
LOC: MW.ED 17:15 → MW.MS 19:41
PROVIDERS: ADMIT Internal Medicine; ATTEND Internal Medicine
DX: I16.0 Hypertensive urgency (principal); E11.9 Type 2 diabetes mellitus without complications; J98.8 Other specified respiratory disorders; I10 Essential (primary) hypertension; M19.90 Unspecified osteoarthritis, unspecified site; F32.9 Major depressive disorder, single episode, unspecified; E66.9 Obesity, unspecified; Z79.82 Long term (current) use of aspirin; Z79.899 Other long term (current) drug therapy; Z79.4 Long term (current) use of insulin; Z87.891 Personal history of nicotine dependence; Z68.41 Body mass index [BMI] 40.0-44.9, adult
CPT/HCPCS: 36415; 71045; 80053; 82962; 84484; 85025; 85652; 86140; 87804; 93005; 93306; 94640; 96372; 96374; 96375; 99285; A9270; G0378; J1650; J1815; J2270; J7620-GY

== ENCOUNTER 2019-06-21 12:40 | Emergency (ER) | payer BC ==
--- NOTE | 2019-06-21 13:18 | EDM.PDOC ---
ED HPI GENERAL MEDICAL PROBLEM - General Chief Complaint: Genitourinary Problem Stated Complaint: BLADDER INFECTION Time Seen by Provider: 06/21/19 12:56 Source of Information: Reports: Patient History Limitations: Reports: No Limitations - History of Present Illness INITIAL COMMENTS - FREE TEXT/NARRATIVE: HISTORY AND PHYSICAL: History of present illness: Patient is a 49-year-old female who presents to the ED today with concern of urinary frequency and burning with urination over the past 2 days. Patient states she has had a urinary tract infection in the past and that this feels to typical of her usual urinary tract infections. Patient denies any associated symptoms or any other symptoms or concerns. Patient denies fever, chills, chest pain, shortness of breath, or cough. Denies headache, neck stiff ness, change in vision, syncope, or near syncope. Denies nausea, vomiting, abdominal pain, diarrhea, constipation, or dysuria. Has not noted any blood in urine or stool. Patient has been eating and drinking appropriately. Review of systems: As per history of present illness and below otherwise all systems reviewed and negative. Past medical history: As per history of present illness and as reviewed below otherwise noncontributory. Surgical history: As per history of present illness and as reviewed below otherwise noncontributory. Social history: See social history for further information Family history: As per history of present illness and as reviewed below otherwise noncontributory. Physical exam: General: Patient is alert, oriented, and in no acute distress. Patient sitting comfortably on exam table. HEENT: Atraumatic, normocephalic, pupils equal and reactive bilaterally, negative for conjunctival pallor or scleral icterus, mucous membranes moist, TMs normal bilaterally, throat clear, neck supple, nontender, trachea midline. No drooling or trismus noted. No meningeal signs. No hot potato voice noted. Lungs: Clear to auscultation, breath sounds equal bilaterally, chest nontender. Heart: S1S2, regular rate and rhythm without overt murmur Abdomen: Soft, nondistended, nontender. Negative for masses or hepatosplenomegaly. Negative for costovertebral tenderness. Pelvis: Stable nontender. Genitourinary: Deferred. Rectal: Deferred. Skin: Intact, warm, dry. No lesions or rashes noted. Extremities: Atraumatic, negative for cords or calf pain. Neurovascular unremarkable. Neuro: Awake, alert, oriented. Cranial nerves II through XII unremarkable. Cerebellum unremarkable. Motor and sensory unremarkable throughout. Exam nonfocal. Notes: Discussed the importance of follow up with a primary care provider. Voices understanding and is agreeable to plan of care. Denies any further questions or concerns at this time. Diagnostics: UA w culture, [facility] Therapeutics: None Prescription: Macrobid, Pyridium Impression: Urinary tract infection Plan: 1. Take medication as prescribed. You can alternate ibuprofen and Tylenol as directed for pain and discomfit. 2. Follow up with a primary care provider as discussed. Return to the ED as needed and as discussed. Definitive disposition and diagnosis as appropriate pending reevaluation and review of above. Vagina Pain Score (Numeric/FACES): 10 - Related Data Allergies Allergy/AdvReac Type Severity Reaction Status Date / Time Latex, Natural Rubber Allergy Rash Verified 06/21/19 12:55 Home Meds: Home Meds Aspirin [Aspirin EC] 650 mg PO TID 09/04/18 [History] DULoxetine [Cymbalta] 30 mg PO BID 01/26/19 [History] Gabapentin [Neurontin] 800 mg PO TID 01/26/19 [History] Insulin Aspart [NovoLOG] 28 unit SUBCUT TIDAC 01/26/19 [History] Insulin Glarg,Human.Rec.Analog [Lantus Solostar] 25 unit SUBCUT ASDIRECTED 01/26 [History] lisinopriL [Lisinopril] 20 mg PO BID 01/26/19 [History] Dulaglutide [Trulicity] 1.5 mg SUBCUT WEEKLY 01/27/19 [History] Fluticasone Propionate [Flonase] 1 spray NASBOTH BID #1 bottle 01/28/19 [Rx] Loratadine [Claritin] 10 mg PO DAILY #30 tablet 01/28/19 [Rx] Nitrofurantoin Monohyd/M-Cryst [Macrobid 100 mg Capsule] 100 mg PO BID 5 Days # 10 capsule 06/21/19 [Rx] Phenazopyridine HCl [Pyridium] 200 mg PO TID 2 Days #6 tablet 06/21/19 [Rx] Past Medical History HEENT History: Reports: None Other HEENT History: lower dentures Cardiovascular History: Reports: Hypertension Other Cardiovascular History: pericardial effusion Respiratory History: Reports: Asthma, Bronchitis, Recurrent Gastrointestinal History: Reports: None Genitourinary History: Reports: UTI, Recurrent Other Genitourinary History: had E.Coli in urine, currently still receving IV 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: Musculoskeletal History: Reports: Arthritis, Back Pain, Chronic, Fibromyalgia Neurological History: Reports: None Psychiatric History: Reports: Depression Endocrine/Metabolic History: Reports: Diabetes, Type II, Obesity/BMI 30+ Hematologic History: Reports: Blood Transfusion(s) Immunologic History: Reports: None Oncologic (Cancer) History: Reports: None Dermatologic History: Reports: None - Infectious Disease History Infectious Disease History: Reports: Chicken Pox - Past Surgical History Head Surgeries/Procedures: Reports: None Respiratory Surgical History: Reports: None GI Surgical History: Reports: Cholecystectomy Female Surgical History: Reports: Section, Hysterectomy Neurological Surgical History: Reports: None Musculoskeletal Surgical History: Reports: Arthroscopic Knee Oncologic Surgical History: Reports: None Dermatological Surgical History: Reports: None Social & Family History - Family History Family Medical History: Noncontributory - Tobacco Use Smoking Status *Q: Never Smoker Second Hand Smoke Exposure: No - Caffeine Use Caffeine Use: Reports: Coffee Caffeine Use Comment: 1 cup - Recreational Drug Use Recreational Drug Use: No ED ROS GENERAL - Review of Systems Review Of Systems: Comprehensive ROS is negative, except as noted in HPI. ED EXAM, GENERAL - Physical Exam Exam: See Below (see dictation) Course - Vital Signs Last Recorded V/S: Last Vital Signs Temp 96.4 F L 06/21/19 12:50 Pulse 96 06/21/19 12:50 Resp 18 06/21/19 12:50 BP 150/99 H 06/21/19 12:50 Pulse Ox 96 06/21/19 12:50 - Orders/Labs/Meds Orders: Active Orders 24 hr Category Date Time Status CULTURE URINE [RM] Stat Lab 06/21/19 12:45 Received Labs: Laboratory Tests 06/21/19 06/21/19 Range/Units 12:45 12:45 Urine Color YELLOW Urine Appearance CLOUDY Urine pH 6.0 (5.0-8.0) Ur Specific [place] >= 1.030 (1.001-1.035) Urine Protein 100 H (NEGATIVE) mg/dL Urine Glucose (UA) NEGATIVE (NEGATIVE) mg/dL Urine Ketones NEGATIVE (NEGATIVE) mg/dL Urine Occult Blood MODERATE H (NEGATIVE) Urine Nitrite NEGATIVE (NEGATIVE) Urine Bilirubin NEGATIVE (NEGATIVE) Urine Urobilinogen 0.2 (<2.0) EU/dL Ur Leukocyte Esterase MODERATE H (NEGATIVE) Urine RBC 4-6 (0-2/HPF) Urine WBC TO NUMEROUS TO COUNT H (0-5/HPF) Ur Epithelial Cells MANY (NONE-FEW) Urine Bacteria 1+ H (NEGATIVE) Urine Mucus LIGHT (NONE-MOD) Urine HCG, Qual NEGATIVE (NEGATIVE) Departure - Departure Time of Disposition: 13:13 Disposition: Home, Self-Care 01 Clinical Impression: Urinary tract infection Qualifiers: Urinary tract infection type: acute cystitis Hematuria presence: without hematuria Qualified Code(s): N30.00 - Acute cystitis without hematuria - Discharge Information Prescriptions: Nitrofurantoin Monohyd/M-Cryst [Macrobid 100 mg Capsule] 100 mg PO BID 5 Days # 10 capsule Phenazopyridine HCl [Pyridium] 200 mg PO TID 2 Days #6 tablet Referrals: Mack Rico MD [Primary Care Provider] - Additional Instructions: The following information is given to patients seen in the emergency department who are being discharged to home. This information is to outline your options for follow-up care. We provide all patients seen in our emergency department with a follow-up referral. The need for follow-up, as well as the timing and circumstances, are variable depending upon the specifics of your emergency department visit. If you don't have a primary care physician on staff, we will provide you with a referral. We always advise you to contact your personal physician following an emergency department visit to inform them of the circumstance of the visit and for follow-up with them and/or the need for any referrals to a consulting specialist. The emergency department will also refer you to a specialist when appropriate. This referral assures that you have the opportunity for follow-up care with a specialist. All of these measure are taken in an effort to provide you with optimal care, which includes your follow-up. Under all circumstances we always encourage you to contact your private physician who remains a resource for coordinating your care. When calling for follow-up care, please make the office aware that this follow-up is from your recent emergency room visit. If for any reason you are refused follow-up, please contact the [facility] Emergency Department at and asked to speak to the emergency department charge nurse. DOMINGO [facility] [address] [place] [address] [facility] [address] [place] [address] 1. Take medication as prescribed. You can alternate ibuprofen and Tylenol as directed for pain and discomfit. 2. Follow up with a primary care provider as discussed. Return to the ED as needed and as discussed. Sepsis Event Note - Evaluation Sepsis Screening Result: No Definite Risk - Focused Exam Vital Signs: Vital Signs Temp Pulse Resp BP Pulse Ox 06/21/19 12:50 96.4 F L 96 18 150/99 H 96 Date Exam was Performed: 06/21/19 Time Exam was Performed: 13:13 - My Orders Last 24 Hours: My Active Orders 06/21/19 12:45 CULTURE URINE [RM] Stat - Assessment/Plan Last 24 Hours: My Active Orders 06/21/19 12:45 CULTURE URINE [RM] Stat
[2019-06-21 13:38] VITALS: BP 150/90; PULSE 92
== END 2019-06-21 13:30 | disposition home or self-care (01) ==
LOC: MW.ED 12:40
DX: N30.00 Acute cystitis without hematuria (principal); I10 Essential (primary) hypertension; J45.909 Unspecified asthma, uncomplicated; M19.90 Unspecified osteoarthritis, unspecified site; F32.9 Major depressive disorder, single episode, unspecified; E11.9 Type 2 diabetes mellitus without complications; E66.9 Obesity, unspecified; Z68.44 Body mass index [BMI] 60.0-69.9, adult
CPT/HCPCS: 81001; 81025; 87086; 87088; 87186; 99283

== ENCOUNTER 2019-08-30 22:04 | Emergency (ER) | payer BC ==
[2019-08-30] MEDS ORDERED: Ibuprofen 600 MG Tab PO ONE (22:55)
[2019-08-30] MEDS ORDERED: Sulfamethoxazole/Trimethoprim 800-160 MG Tab PO ONE (22:55)
--- NOTE | 2019-08-30 23:04 | EDM.PDOC ---
ED HPI GENERAL MEDICAL PROBLEM - General Chief Complaint: Skin Complaint Stated Complaint: BLISTERS, SORES, BUTTOCKS Time Seen by Provider: 08/30/19 22:45 Source of Information: Reports: Patient History Limitations: Reports: No Limitations - History of Present Illness INITIAL COMMENTS - FREE TEXT/NARRATIVE: HISTORY AND PHYSICAL: History of present illness: This is a 49-year-old female with a history significant for hypertension, diabetes, fibromyalgia, peripheral neuropathy who presents the ER today secondary to painful blisters identified on both cheeks of her buttocks. 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 Patient reports that she definitely discomfort while she was sitting however when she stood up she felt a burning sensation to her buttocks extending down to her thighs. Patient reports that she felt swelling and discomfort in that region. Patient reports that today the pain and discomfort in her thighs have resolved but the blisters on her buttocks have popped up. Patient is concerned about possible infections. Patient denies any recent fevers, shakes, chills, nausea, vomiting , diarrhea, dysuria, frequency, urgency, chest pain, shortness of breath, abdominal pain. Review of systems: As per history of present illness and below otherwise all systems reviewed and negative. Past medical history: As per history of present illness and as reviewed below otherwise noncontributory. Surgical history: As per history of present illness and as reviewed below otherwise noncontributory. Social history: No reported history of drug or alcohol abuse. Family history: As per history of present illness and as reviewed below otherwise noncontributory. Physical exam: HEENT: Atraumatic, normocephalic, pupils reactive, negative for conjunctival pallor or scleral icterus, mucous membranes moist, throat clear, neck supple, nontender, trachea midline. Lungs: Clear to auscultation, breath sounds equal bilaterally, chest nontender. Heart: S1S2, regular, negative for clicks, rubs, or JVD. Abdomen: Soft, nondistended, nontender. Negative for masses or hepatosplenomegaly. Negative for costovertebral tenderness. Pelvis: Stable nontender. Genitourinary: Deferred. Rectal: Deferred. Extremities: Atraumatic, negative for cords or calf pain. Neurovascular unremarkable. Neuro: Awake, alert, oriented. Cranial nerves II through XII unremarkable. Cerebellum unremarkable. Motor and sensory unremarkable throughout. Exam nonfocal. Your physical exam is significant for blisters identified to patient's bilateral buttocks approximately 4 x 4 cm in region on each buttock. Mild surrounding erythema Wels induration is identified, fluid is clear without any purulent drainage. Area is tender to palpation. Therapeutics: Patient be given ibuprofen assisted with pain as well as Bactrim to treat possible surrounding infection/cellulitis. Impression: Blisters to bilateral buttocks likely secondary to pressure ulcers which may be consistent with early infection/cellulitis. Plan: Patient will be started on Bactrim DS 2 tablets p.o. twice daily x10 days and ibuprofen assisting with pain. Reassessment at the time of disposition demonstrates that the patient is in no acute distress. The patient has remained stable throughout the entire ED visit and is without objective evidence for acute process requiring urgent intervention or hospitalization. The patient is stable for discharge, counseling is provided as documented above, discussed symptomatic treatment and specific conditions for return. I have spoken with the patient/caregive and discussed todays findings, in addition to providing specific details for the plan of care. Questions are answered and there is agreement with the plan. Definitive disposition and diagnosis as appropriate pending reevaluation and review of above. buttocks area Pain Score (Numeric/FACES): 10 - Related Data Allergies Allergy/AdvReac Type Severity Reaction Status Date / Time Latex, Natural Rubber Allergy Rash Verified 08/30/19 22:37 Home Meds: Home Meds Aspirin [Aspirin EC] 650 mg PO TID 09/04/18 [History] DULoxetine [Cymbalta] 30 mg PO BID 01/26/19 [History] Gabapentin [Neurontin] 800 mg PO TID 01/26/19 [History] Insulin Aspart [NovoLOG] 28 unit SUBCUT TIDAC 01/26/19 [History] Insulin Glarg,Human.Rec.Analog [Lantus Solostar] 25 unit SUBCUT ASDIRECTED 01/26 [History] lisinopriL [Lisinopril] 20 mg PO BID 01/26/19 [History] Dulaglutide [Trulicity] 1.5 mg SUBCUT WEEKLY 01/27/19 [History] Fluticasone Propionate [Flonase] 1 spray NASBOTH BID #1 bottle 01/28/19 [Rx] Loratadine [Claritin] 10 mg PO DAILY #30 tablet 01/28/19 [Rx] Nitrofurantoin Monohyd/M-Cryst [Macrobid 100 mg Capsule] 100 mg PO BID 5 Days # 10 capsule 06/21/19 [Rx] Phenazopyridine HCl [Pyridium] 200 mg PO TID 2 Days #6 tablet 06/21/19 [Rx] Past Medical History HEENT History: Reports: None Other HEENT History: lower dentures Cardiovascular History: Reports: Hypertension Other Cardiovascular History: pericardial effusion Respiratory History: Reports: Asthma, Bronchitis, Recurrent Gastrointestinal History: Reports: None Genitourinary History: Reports: UTI, Recurrent Other Genitourinary History: had E.Coli in urine, currently still receving IV antibiotics 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 line [employer]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: Musculoskeletal History: Reports: Arthritis, Back Pain, Chronic, Fibromyalgia Neurological History: Reports: None Psychiatric History: Reports: Depression Endocrine/Metabolic History: Reports: Diabetes, Type II, Obesity/BMI 30+ 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 Hematologic History: Reports: Blood Transfusion(s) Immunologic History: Reports: None Oncologic (Cancer) History: Reports: None Dermatologic History: Reports: None - Infectious Disease History Infectious Disease History: Reports: None - Past Surgical History Head Surgeries/Procedures: Reports: None Respiratory Surgical History: Reports: None GI Surgical History: Reports: Cholecystectomy Female Surgical History: Reports: Section, Hysterectomy Neurological Surgical History: Reports: None Musculoskeletal Surgical History: Reports: Arthroscopic Knee Oncologic Surgical History: Reports: None Dermatological Surgical History: Reports: None Social & Family History - Family History Family Medical History: Noncontributory - Tobacco Use Smoking Status *Q: Never Smoker - Caffeine Use Caffeine Use: Reports: Soda Caffeine Use Comment: 1 cup - Recreational Drug Use Recreational Drug Use: No ED ROS GENERAL - Review of Systems Review Of Systems: Comprehensive ROS is negative, except as noted in HPI. ED EXAM, SKIN/RASH Exam: See Below Course - Vital Signs Last Recorded V/S: Last Vital Signs Temp 97.2 F 08/30/19 22:25 Pulse 107 H 08/30/19 22:25 Resp 18 08/30/19 22:25 BP 146/87 H 08/30/19 22:25 Pulse Ox 98 08/30/19 22:25 - Orders/Labs/Meds Meds: Medications Discontinued Medications Generic Name Dose Route Start Last Admin Trade Name Rut PRN Reason Stop Dose Admin Ibuprofen 600 mg 08/30/19 22:55 Motrin PO 08/30/19 22:56 ONETIME ONE Trimethoprim/Sulfamethoxazole 2 tab 08/30/19 22:55 Septra Ds PO 08/30/19 22:56 ONETIME ONE Departure - Departure Time of Disposition: 23:03 Disposition: Home, Self-Care 01 Condition: Good Clinical Impression: Cellulitis, Pressure ulcer of buttock - Discharge Information *PRESCRIPTION DRUG MONITORING PROGRAM REVIEWED*: Not Applicable *COPY OF PRESCRIPTION DRUG MONITORING REPORT IN PATIENT LEANDER: Not Applicable Instructions: Cellulitis, Adult, Preventing Pressure Injuries Referrals: Mack Rico MD [Primary Care Provider] - Additional Instructions: You were seen and evaluated today secondary to the blisters located on your buttocks. Those blisters are likely secondary to pressure ulcers. There is a possibility that there might be an early infection of the blisters. You will be started on Bactrim DS 2 tablets by mouth twice a day for 10 days. You can also take ibuprofen to help with the pain. Sepsis Event Note (ED) - Evaluation Sepsis Screening Result: No Definite Risk - Focused Exam Vital Signs: Vital Signs Temp Pulse Resp BP Pulse Ox 08/30/19 22:25 97.2 F 107 H 18 146/87 H 98
[2019-08-30 23:33] VITALS: BP 144/79; PULSE 82
== END 2019-08-30 23:40 | disposition home or self-care (01) ==
LOC: MW.ED 22:04
DX: L89.329 Pressure ulcer of left buttock, unspecified stage (principal); L89.319 Pressure ulcer of right buttock, unspecified stage; L03.317 Cellulitis of buttock; I10 Essential (primary) hypertension; E11.9 Type 2 diabetes mellitus without complications; E11.42 Type 2 diabetes mellitus with diabetic polyneuropathy; J45.909 Unspecified asthma, uncomplicated; E66.9 Obesity, unspecified; F32.9 Major depressive disorder, single episode, unspecified; M19.90 Unspecified osteoarthritis, unspecified site; Z68.41 Body mass index [BMI] 40.0-44.9, adult; Z79.82 Long term (current) use of aspirin; Z79.84 Long term (current) use of oral hypoglycemic drugs; Z79.899 Other long term (current) drug therapy
CPT/HCPCS: 99283; A9270

== ENCOUNTER 2019-11-10 18:49 | Emergency (ER) | payer BC ==
--- NOTE | 2019-11-10 19:41 | EDM.PDOC ---
ED HPI GENERAL MEDICAL PROBLEM - General Chief Complaint: Lower Extremity Injury/Pain Stated Complaint: LT KNEE PAIN Time Seen by Provider: 11/10/19 19:00 Source of Information: Reports: Patient History Limitations: Reports: No Limitations - History of Present Illness INITIAL COMMENTS - FREE TEXT/NARRATIVE: Presents reporting left knee pain. Patient states that she has a long history of problems with her left knee. In 2016 she had some sort of surgery on that knee she is not certain what the procedure was. 6 months ago she went to see a orthopedic surgeon who told her she had a "small cyst" behind her knee and that it was "no problem". Since that time she has been working and going about her usual activity. Patient states that she must walk up 3 flights of steps to get to her workplace. Over the last week she has not been working because the pain in her left knee is so intense. It is severe with both movement and weightbearing. She does have a history of arthritis and fibromyalgia. She is taking her gabapentin and ibuprofen for the pain without relief. He states that the pain is probably exacerbated by her weight gain which she said has been quite a bit in the last couple months. left knee Pain Score (Numeric/FACES): 10 - Related Data Allergies Allergy/AdvReac Type Severity Reaction Status Date / Time Latex, Natural Rubber Allergy Rash Verified 11/10/19 19:09 Home Meds: Home Meds Aspirin [Aspirin EC] 650 mg PO TID 09/04/18 [History] DULoxetine [Cymbalta] 30 mg PO BID 01/26/19 [History] Gabapentin [Neurontin] 800 mg PO TID 01/26/19 [History] Insulin Aspart [NovoLOG] 28 unit SUBCUT TIDAC 01/26/19 [History] Insulin Glarg,Human.Rec.Analog [Lantus Solostar] 25 unit SUBCUT ASDIRECTED 01/26/19 [History] lisinopriL [Lisinopril] 20 mg PO BID 01/26/19 [History] Dulaglutide [Trulicity] 1.5 mg SUBCUT WEEKLY 01/27/19 [History] Fluticasone Propionate [Flonase] 1 spray NASBOTH BID #1 bottle 01/28/19 [Rx] Loratadine [Claritin] 10 mg PO DAILY #30 tablet 01/28/19 [Rx] Nitrofurantoin Monohyd/M-Cryst [Macrobid 100 mg Capsule] 100 mg PO BID 5 Days #10 capsule 06/21/19 [Rx] Phenazopyridine HCl [Pyridium] 200 mg PO TID 2 Days #6 tablet 06/21/19 [Rx] Meloxicam 7.5 mg PO BID #14 tablet 11/10/19 [Rx] Past Medical History HEENT History: Reports: None Other HEENT History: lower dentures Cardiovascular History: Reports: Hypertension Other Cardiovascular History: pericardial effusion Respiratory History: Reports: Asthma, Bronchitis, Recurrent Gastrointestinal History: Reports: None Genitourinary History: Reports: UTI, Recurrent Other Genitourinary History: had E.Coli in urine, currently still receving IV antibiotics 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 line 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: Musculoskeletal History: Reports: Arthritis, Back Pain, Chronic, Fibromyalgia Neurological History: Reports: None Psychiatric History: Reports: Depression Endocrine/Metabolic History: Reports: Diabetes, Type II, Obesity/BMI 30+ Insulin Pump Model and Neuroscience Specialist: None Hematologic History: Reports: Blood Transfusion(s) Immunologic History: Reports: None Oncologic (Cancer) History: Reports: None Dermatologic History: Reports: None - Infectious Disease History Infectious Disease History: Reports: Chicken Pox - Past Surgical History Head Surgeries/Procedures: Reports: None Respiratory Surgical History: Reports: None GI Surgical History: Reports: Cholecystectomy Female Surgical History: Reports: Section, Hysterectomy Neurological Surgical History: Reports: None Musculoskeletal Surgical History: Reports: Arthroscopic Knee Other Musculoskeletal Surgeries/Procedures:: dumont cyst left knee Oncologic Surgical History: Reports: None Dermatological Surgical History: Reports: None Social & Family History - Family History Family Medical History: Noncontributory - Caffeine Use Caffeine Use: Reports: Soda Caffeine Use Comment: 1 cup Review of Systems - Review of Systems Review Of Systems: Comprehensive ROS is negative, except as noted in HPI. ED EXAM, GENERAL - Physical Exam Exam: See Below Exam Limited By: No Limitations General Appearance: Alert, No Apparent Distress Ears: Normal External Exam Nose: Normal Inspection Throat/Mouth: Normal Inspection Head: Atraumatic, Normocephalic Neck: Normal Inspection Respiratory/Chest: No Respiratory Distress Cardiovascular: Normal Peripheral Pulses Extremities: Normal Inspection, Other (left knee without erythema. Recoils to even light touch. Gait disturbance due to pain. Calf soft.) Neurological: Alert, Oriented, Normal Cognition Psychiatric: Normal Affect, Normal Mood Skin Exam: Warm, Dry, Intact, Normal Color, No Rash Lymphatic: No Adenopathy Course - Vital Signs Last Recorded V/S: Last Vital Signs Temp 35.9 C L 11/10/19 19:06 Pulse 86 11/10/19 21:24 Resp 18 11/10/19 21:24 BP 164/79 H 11/10/19 21:24 Pulse Ox 98 11/10/19 21:24 - Orders/Labs/Meds Meds: Medications Discontinued Medications Generic Name Dose Route Start Last Admin Trade Name Rut PRN Reason Stop Dose Admin Ketorolac Tromethamine 60 mg 11/10/19 20:36 11/10/19 20:45 Toradol IM 11/10/19 20:37 60 mg ONETIME ONE Administration Departure - Departure Time of Disposition: 21:40 Disposition: Home, Self-Care 01 Condition: Good Clinical Impression: Knee pain - Discharge Information Referrals: Mack Rico MD [Primary Care Provider] - Gustavo Ozuna MD [Physician] - Forms: ED Department Discharge Additional Instructions: The following information is given to patients seen in the emergency department who are being discharged to home. This information is to outline your options for follow-up care. We provide all patients seen in our emergency department with a follow-up referral. The need for follow-up, as well as the timing and circumstances, are variable depending upon the specifics of your emergency department visit. If you don't have a primary care physician on staff, we will provide you with a referral. We always advise you to contact your personal physician following an emergency department visit to inform them of the circumstance of the visit and for follow-up with them and/or the need for any referrals to a consulting specialist. The emergency department will also refer you to a specialist when appropriate. This referral assures that you have the opportunity for follow-up care with a specialist. All of these measure are taken in an effort to provide you with optimal care, which includes your follow-up. Under all circumstances we always encourage you to contact your private physician who remains a resource for coordinating your care. When calling for follow-up care, please make the office aware that this follow-up is from your recent emergency room visit. If for any reason you are refused follow-up, please contact the [facility] Emergency Department at and asked to speak to the emergency department charge nurse. 1. Meloxicam twice daily. 2. Call for orthopedic appointment. Sepsis Event Note (ED) - Evaluation Sepsis Screening Result: No Definite Risk - Focused Exam Vital Signs: Vital Signs Temp Pulse Resp BP Pulse Ox 11/10/19 21:24 86 18 164/79 H 98 11/10/19 19:06 35.9 C L 97 18 180/78 H 97
[2019-11-10] MEDS ORDERED: Ketorolac 60 MG/2 ML SDV IM ONE (20:36)
[2019-11-10 21:24] VITALS: PULSE 86
--- NOTE | 2019-11-10 21:37 | US ---
Left lower extremity deep venous ultrasound: Duplex and color Doppler evaluation was obtained of the left common femoral, superficial femoral, popliteal, posterior tibial and anterior tibial veins. Note: These images were received at 9:34 PM CDT. Normal augmentation and compression is seen. Impression: 1. No evidence of deep venous thrombosis within left lower extremity. Diagnostic code #1 This report was dictated in MDT
[2019-11-10 22:17] VITALS: BP 163/75
== END 2019-11-10 22:00 | disposition home or self-care (01) ==
LOC: MW.ED 18:49
DX: M25.562 Pain in left knee (principal); I10 Essential (primary) hypertension; J45.909 Unspecified asthma, uncomplicated; M19.90 Unspecified osteoarthritis, unspecified site; F32.9 Major depressive disorder, single episode, unspecified; E11.9 Type 2 diabetes mellitus without complications; E66.9 Obesity, unspecified; Z68.36 Body mass index [BMI] 36.0-36.9, adult; Z98.890 Other specified postprocedural states; Z91.040 Latex allergy status; Z79.82 Long term (current) use of aspirin; Z79.899 Other long term (current) drug therapy; Z79.4 Long term (current) use of insulin
CPT/HCPCS: 93971; 96372; 99283; J1885

== ENCOUNTER 2020-09-02 21:44 | Emergency (ER) | payer SELFPAY ==
--- NOTE | 2020-09-02 21:46 | EDM.PDOC ---
ED HPI GENERAL MEDICAL PROBLEM - General Stated Complaint: FELL Time Seen by Provider: 09/02/20 21:45 Source of Information: Reports: Patient History Limitations: Reports: No Limitations - History of Present Illness INITIAL COMMENTS - FREE TEXT/NARRATIVE: 50-year-old female past medical history diabetes, poorly controlled, diabetic neuropathy presents for right knee pain following a fall. Patient fell on bilateral knees but is noting pain on the right side. Patient notes that she has a history of diabetic neuropathy and weakness to bilateral lower extremities for years. She notes a numbness tingling sensation and feels like she does not pick her feet up enough when she walks so she trips frequently. She notes that she is on gabapentin for this but does not feel like it helps. She denies hi tting her head or LOC. right knee Pain Score (Numeric/FACES): 10 - Related Data Allergies Allergy/AdvReac Type Severity Reaction Status Date / Time Latex, Natural Rubber Allergy Rash Verified 09/02/20 22:06 Home Meds: Home Meds Aspirin [Aspirin EC] 650 mg PO TID 09/04/18 [History] DULoxetine [Cymbalta] 30 mg PO BID 01/26/19 [History] Gabapentin [Neurontin] 800 mg PO TID 01/26/19 [History] Insulin Aspart [NovoLOG] 28 unit SUBCUT TIDAC 01/26/19 [History] Insulin Glarg,Human.Rec.Analog [Lantus Solostar] 25 unit SUBCUT ASDIRECTED 01/26/19 [History] lisinopriL [Lisinopril] 20 mg PO BID 01/26/19 [History] Dulaglutide [Trulicity] 1.5 mg SUBCUT WEEKLY 01/27/19 [History] Fluticasone Propionate [Flonase] 1 spray NASBOTH BID #1 bottle 01/28/19 [Rx] Loratadine [Claritin] 10 mg PO DAILY #30 tablet 01/28/19 [Rx] Nitrofurantoin Monohyd/M-Cryst [Macrobid 100 mg Capsule] 100 mg PO BID 5 Days #10 capsule 06/21/19 [Rx] Phenazopyridine HCl [Pyridium] 200 mg PO TID 2 Days #6 tablet 06/21/19 [Rx] Meloxicam 7.5 mg PO BID #14 tablet 08/25/20 [Rx] Ibuprofen [Motrin] 800 mg PO QID PRN #20 tab 09/02/20 [Rx] Past Medical History HEENT History: Reports: None Other HEENT History: lower dentures Cardiovascular History: Reports: Hypertension Other Cardiovascular History: pericardial effusion Respiratory History: Reports: Asthma, Bronchitis, Recurrent Gastrointestinal History: Reports: None Genitourinary History: Reports: UTI, Recurrent Other Genitourinary History: had E.Coli in urine, currently still receving IV antibiotics 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 line 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: Musculoskeletal History: Reports: Arthritis, Back Pain, Chronic, Fibromyalgia Neurological History: Reports: None Psychiatric History: Reports: Depression Endocrine/Metabolic History: Reports: Diabetes, Type II, Obesity/BMI 30+ Insulin Pump Model and Distribution Analyst: None Hematologic History: Reports: Blood Transfusion(s) Immunologic History: Reports: None Oncologic (Cancer) History: Reports: None Dermatologic History: Reports: None - Infectious Disease History Infectious Disease History: Reports: Chicken Pox - Past Surgical History Head Surgeries/Procedures: Reports: None Respiratory Surgical History: Reports: None GI Surgical History: Reports: Cholecystectomy Female Surgical History: Reports: Section, Hysterectomy Neurological Surgical History: Reports: None Musculoskeletal Surgical History: Reports: Arthroscopic Knee Other Musculoskeletal Surgeries/Procedures:: dumont cyst left knee Oncologic Surgical History: Reports: None Dermatological Surgical History: Reports: None Social & Family History - Family History Family Medical History: No Pertinent Family History - Caffeine Use Caffeine Use: Reports: Soda Caffeine Use Comment: 1 cup ED ROS GENERAL - Review of Systems Review Of Systems: Comprehensive ROS is negative, except as noted in HPI. ED EXAM, GENERAL - Physical Exam Exam: See Below Exam Limited By: No Limitations General Appearance: Alert, WD/WN, No Apparent Distress Ears: Hearing Grossly Normal Throat/Mouth: Normal Voice, No Airway Compromise Head: Atraumatic, Normocephalic Neck: Normal Inspection, Non-Tender Respiratory/Chest: No Respiratory Distress, No Accessory Muscle Use Cardiovascular: Normal Peripheral Pulses Extremities: Normal Inspection, Other (mild swelling of R knee without diffuse TTP) Neurological: Alert, Normal Cognition Psychiatric: Normal Affect, Normal Mood Skin Exam: Warm, Dry, Intact, Normal Color Course - Vital Signs Last Recorded V/S: Last Vital Signs Temp 97 F 09/02/20 22:04 Pulse 91 09/02/20 22:04 Resp 16 09/02/20 22:04 BP 189/98 H 09/02/20 22:04 Pulse Ox 100 09/02/20 22:04 - Orders/Labs/Meds Orders: Active Orders 24 hr Category Date Time Status William Bandage [RC] ONETIME Care 09/02/20 23:36 Ordered Meds: Medications Discontinued Medications Generic Name Dose Route Start Last Admin Trade Name Freq PRN Reason Stop Dose Admin Ibuprofen 800 mg 09/02/20 22:08 09/02/20 22:41 Ibuprofen 800 Mg Tab PO 09/02/20 22:09 800 mg ONETIME ONE Administration - Re-Assessments/Exams Free Text/Narrative Re-Assessment/Exam: 09/02/20 22:09 We will give Motrin for pain. Will get an x-ray of the right knee to assess for fracture or dislocation. 09/02/20 23:34 X-ray imaging shows a small joint effusion but no osseous injury. Will place William bandage Departure - Departure Time of Disposition: 23:34 Disposition: Home, Self-Care 01 Condition: Good Clinical Impression: Knee effusion Qualifiers: Laterality: right Qualified Code(s): M25.461 - Effusion, right knee - Discharge Information Prescriptions: Ibuprofen [Motrin] 800 mg PO QID PRN #20 tab PRN Reason: Pain Instructions: Knee Effusion, [id number] Referrals: PCP,None [Primary Care Provider] - Additional Instructions: Your x-ray shows a small joint effusion which is pretty common after knee injury likely you had today but no signs of fracture or dislocation. I would definitely talk to your primary care physician regarding your frequent falls and worsening diabetic neuropathy. I sent a prescription for 800 mg Motrin to your pharmacy. The following information is given to patients seen in the emergency department who are being discharged to home. This information is to outline your options for follow-up care. We provide all patients seen in our emergency department with a follow-up referral. The need for follow-up, as well as the timing and circumstances, are variable depending upon the specifics of your emergency department visit. If you don't have a primary care physician on staff, we will provide you with a referral. We always advise you to contact your personal physician following an emergency department visit to inform them of the circumstance of the visit and for follow-up with them and/or the need for any referrals to a consulting specialist. The emergency department will also refer you to a specialist when appropriate. This referral assures that you have the opportunity for follow-up care with a specialist. All of these measure are taken in an effort to provide you with optimal care, which includes your follow-up. Under all circumstances we always encourage you to contact your private physician who remains a resource for coordinating your care. When calling for follow-up care, please make the office aware that this follow-up is from your recent emergency room visit. If for any reason you are refused follow-up, please contact the [facility] Emergency Department at and asked to speak to the emergency department charge nurse. Please follow up with your primary care physician. If you do not have a primary care physician, see below: [facility] [address] [place] [id number] [facility] [address] [place] [id number] [facility] [address] [place] [id number] Sepsis Event Note (ED) - Focused Exam Vital Signs: Vital Signs Temp Pulse Resp BP Pulse Ox 09/02/20 22:04 97 F 91 16 189/98 H 100 - My Orders Last 24 Hours: My Active Orders 09/02/20 23:36 William Bandage [RC] ONETIME - Assessment/Plan Last 24 Hours: My Active Orders 09/02/20 23:36 William Bandage [RC] ONETIME
[2020-09-02] MEDS ORDERED: Ibuprofen 800 MG Tab PO ONE (22:08)
--- NOTE | 2020-09-02 23:34 | CR ---
INDICATION: Pain after fall. COMPARISON: None available. TECHNIQUE: The right knee was examined with AP, cross-table, and sunrise views for a total of three views. FINDINGS: There is no sign of fracture or dislocation. There is mild primary osteoarthritis of the medial joint compartment with mild joint space narrowing and minimal marginal osteophyte formation. The lateral and patellofemoral joint compartments are normal in appearance. There is a mild suprapatellar joint effusion. No soft tissue abnormality is seen. IMPRESSION: No sign of acute osseous injury. 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 Mild suprapatellar joint effusion. Dictated by Randolph Brandt MD @ 09/02/2020 11:32:[address] Randolph Brandt @ Sep 02 2020 11:32PM
[2020-09-03 00:16] VITALS: BP 152/95; PULSE 88
== END 2020-09-03 00:06 | disposition home or self-care (01) ==
LOC: MW.ED 21:44
DX: M25.461 Effusion, right knee (principal); I10 Essential (primary) hypertension; J45.909 Unspecified asthma, uncomplicated; E11.9 Type 2 diabetes mellitus without complications; M19.90 Unspecified osteoarthritis, unspecified site; E66.9 Obesity, unspecified; Z68.41 Body mass index [BMI] 40.0-44.9, adult; Z91.040 Latex allergy status; Z79.82 Long term (current) use of aspirin; Z79.899 Other long term (current) drug therapy; Z79.4 Long term (current) use of insulin
CPT/HCPCS: 73562; 99283; A9270

== ENCOUNTER 2021-02-23 14:58 | Emergency (ER) | payer SELFPAY ==
[2021-02-23] MEDS ORDERED: Bupivacaine 0.5% 10 ML SDV INJECT ONE (17:05)
--- NOTE | 2021-02-23 17:09 | EDM.PDOC ---
ED HPI GENERAL MEDICAL PROBLEM - General Chief Complaint: General Stated Complaint: INFECTION ON FINGER AND POSSIBLE YEAST INFECTION Time Seen by Provider: 02/23/21 15:00 Source of Information: Reports: Patient History Limitations: Reports: No Limitations - History of Present Illness INITIAL COMMENTS - FREE TEXT/NARRATIVE: HISTORY AND PHYSICAL: History of present illness: Patient is a 50-year-old female presents emergency room today with concern of infection of her right hand pointer finger that has been ongoing for 4 to 5 days. Patient states initially started as a hangnail that she peeled off and then it started getting infected. Patient states that she has had 1 of these on her toe before that had to be cut open and drained and put on antibiotics. Patient states she does have a history of type 2 diabetes on insulin. Patient states that she also had a recent yeast infection and used [id number] Monistat. Patient states that she also gets irritated from the Monistat so wants to be sure that her yeast infection is cleared up as she has had some residual vaginal itching. Denies any other symptoms or concerns. Patient denies fever, chills, chest pain, shortness of breath, or cough. Denies headache, neck stiff ness, change in vision, syncope, or near syncope. Denies nausea, vomiting, abdominal pain, diarrhea, constipation, or dysuria. Has not noted any blood in urine or stool. Patient has been eating and drinking appropriately. Review of systems: As per history of present illness and below otherwise all systems reviewed and negative. Past medical history: As per history of present illness and as reviewed below otherwise noncontributory. Surgical history: As per history of present illness and as reviewed below otherwise noncontributory. Social history: See social history for further information Family history: As per history of present illness and as reviewed below otherwise noncontributory. Physical exam: General: Patient is alert, oriented, and in no acute distress. Patient sitting comfortably on exam table. Vitals stable and reviewed by me. HEENT: Atraumatic, normocephalic, pupils equal and reactive bilaterally, negativ e for conjunctival pallor or scleral icterus, mucous membranes moist, throat clear, neck supple, nontender, trachea midline. No drooling or trismus noted. No meningeal signs. No hot potato voice noted. Lungs: Clear to auscultation, breath sounds equal bilaterally, chest nontender. Heart: S1S2, regular rate and rhythm without overt murmur Abdomen: Soft, nondistended, nontender. Negative for masses or hepatosplenomegaly. Negative for costovertebral tenderness. Pelvis: Stable nontender. Genitourinary: Deferred. Rectal: Deferred. Skin: Intact, warm, dry. No lesions or rashes noted. Extremities: There is a paronychia of the right hand ulnar aspect of the second digit with fluctuance. Patient does have full range of motion of the affected digit without deficit. Patient does have full range of motion of the remainder right upper extremity without pain or difficulty. Radial pulses grossly intact the right upper extremity with capillary refill less than 2 seconds. Otherwise, atraumatic, negative for cords or calf pain. Neurovascular unremarkable. Neuro: Awake, alert, oriented. Cranial nerves II through XII unremarkable. Cerebellum unremarkable. Motor and sensory unremarkable throughout. Exam nonfocal. Medical Decision Making: I did offer a exam, however, patient declines. All risks versus benefits discussed with patient expresses understanding. She opted to self swab for aff irm today. I discussed importance for close follow-up with the women's health care provider for further treatment and evaluation. Signs and symptoms that were prompt return to the ED thoroughly discussed with patient. Discussed importance for follow-up with a primary care provider. Voices understanding and is agreeable to plan of care. Denies any further questions or concerns at this time. Diagnostics: None Therapeutics: Incision and drainage, digital block with lidocaine and bupivacaine, sterile dressing placed by nursing staff Prescription: Clindamycin (patient does have severe interaction with home medications and Bactrim DS) Impression: Paronychia, right hand, second digit Vaginitis, unspecified. Plan: 1. You can alternate ibuprofen and Tylenol as directed for pain and discomfort. 2. Take medication as prescribed. Your medication has been sent to [facility] pharmacy. 3. Follow-up with a primary care provider as discussed. Return to the ED as needed as discussed. Definitive disposition and diagnosis as appropriate pending reevaluation and review of above. Right Hand Pain Score (Numeric/FACES): 10 - Related Data Allergies Allergy/AdvReac Type Severity Reaction Status Date / Time Latex, Natural Rubber Allergy Rash Verified 02/23/21 15:04 Home Meds: Home Meds Aspirin [Aspirin EC] 650 mg PO TID 09/04/18 [History] DULoxetine [Cymbalta] 30 mg PO BID 01/26/19 [History] Gabapentin [Neurontin] 800 mg PO TID 01/26/19 [History] Insulin Aspart [NovoLOG] 28 unit SUBCUT TIDAC 01/26/19 [History] Insulin Glarg,Human.Rec.Analog [Lantus Solostar] 25 unit SUBCUT ASDIRECTED 01/26/19 [History] lisinopriL [Lisinopril] 20 mg PO BID 01/26/19 [History] Dulaglutide [Trulicity] 1.5 mg SUBCUT WEEKLY 01/27/19 [History] Loratadine [Claritin] 10 mg PO DAILY #30 tablet 01/28/19 [Rx] Meloxicam 7.5 mg PO BID #14 tablet 11/10/19 [Rx] Ibuprofen [Motrin] 800 mg PO QID PRN #20 tab 09/02/20 [Rx] Clindamycin HCl 450 mg PO TID 7 Days #21 capsule 02/23/21 [Rx] Past Medical History HEENT History: Reports: None Other HEENT History: lower dentures Cardiovascular History: Reports: Hypertension Other Cardiovascular History: pericardial effusion Respiratory History: Reports: Asthma, Bronchitis, Recurrent Gastrointestinal History: Reports: None Genitourinary History: Reports: UTI, Recurrent Other Genitourinary History: had E.Coli in urine, currently still receving IV antibiotics 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 line [employer]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 B[employer] 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: Musculoskeletal History: Reports: Arthritis, Back Pain, Chronic, Fibromyalgia Neurological History: Reports: None Psychiatric History: Reports: Depression Endocrine/Metabolic History: Reports: Diabetes, Type II, Obesity/BMI 30+ Insulin Pump Model and Foot Caster: None Hematologic History: Reports: Blood Transfusion(s) Immunologic History: Reports: None Oncologic (Cancer) History: Reports: None Dermatologic History: Reports: None - Infectious Disease History Infectious Disease History: Reports: Chicken Pox - Past Surgical History Head Surgeries/Procedures: Reports: None HEENT Surgical History: Reports: None Cardiovascular Surgical History: Reports: None Respiratory Surgical History: Reports: None GI Surgical History: Reports: Cholecystectomy Female Surgical History: Reports: Section, Hysterectomy Endocrine Surgical History: Reports: None Neurological Surgical History: Reports: None Musculoskeletal Surgical History: Reports: Arthroscopic Knee Other Musculoskeletal Surgeries/Procedures:: dumont cyst left knee Oncologic Surgical History: Reports: None Dermatological Surgical History: Reports: None Social & Family History - Family History Family Medical History: No Pertinent Family History - Tobacco Use Tobacco Use Status *Q: Never Tobacco User - Caffeine Use Caffeine Use: Reports: None Caffeine Use Comment: 1 cup - Recreational Drug Use Recreational Drug Use: No ED ROS GENERAL - Review of Systems Review Of Systems: Comprehensive ROS is negative, except as noted in HPI. ED EXAM, GENERAL - Physical Exam Exam: See Below (See dictation) ED I&D PROCEDURES - I&D Site: right hand distal 2nd digit on the ulnar aspect Skin prep: Providone-Iodine (Betadine), Saline Local anesthesia - Lidocaine (Xylocaine): 1% Plain Local Anesthesia - Bupivicaine (Marcaine): 0.5% Plain Local Anesthetic Volume: 5cc Area Incised With: 11 Blade Drainage: Purulent, Bloody, Moderate Amount Probed to Break Up Loculations: No Packed With: None Sterile Dressing: Adhesive Dressing Complications: No Course - Vital Signs Last Recorded V/S: Last Vital Signs Temp 97.8 F 02/23/21 15:06 Pulse 88 02/23/21 15:06 Resp 16 02/23/21 15:06 BP 143/69 H 02/23/21 15:06 Pulse Ox 98 02/23/21 15:06 - Orders/Labs/Meds Orders: Active Orders 24 hr Category Date Time Status CHLAMYDIA AND GONORRHEA BY [facility] Stat Lab 02/23/21 16:08 Received Labs: Laboratory Tests 02/23/21 Range/Units 16:08 Emy species DNA NEGATIVE (NEGATIVE) Gardnerella DNA Probe NEGATIVE (NEGATIVE) Trichomonas DNA Probe NEGATIVE (NEGATIVE) Meds: Medications Discontinued Medications Generic Name Dose Route Start Last Admin Trade Name Freq PRN Reason Stop Dose Admin Bupivacaine HCl 10 ml 02/23/21 17:05 02/23/21 17:14 Bupivacaine 0.5% 10 Ml Sdv INJECT 02/23/21 17:06 10 ml ONETIME ONE Administration Lidocaine HCl 5 ml 02/23/21 17:05 02/23/21 17:14 Lidocaine 1% 5 Ml Sdv INJECT 02/23/21 17:06 5 ml ONETIME ONE Administration Departure - Departure Time of Disposition: 17:42 Disposition: Home, Self-Care 01 Clinical Impression: Paronychia, Vaginitis - Discharge Information Prescriptions: Clindamycin HCl 450 mg PO TID 7 Days #21 capsule Referrals: PCP,None [Primary Care Provider] - Forms: ED Department Discharge Additional Instructions: The following information is given to patients seen in the emergency department who are being discharged to home. This information is to outline your options for follow-up care. We provide all patients seen in our emergency department with a follow-up referral. The need for follow-up, as well as the timing and circumstances, are variable depending upon the specifics of your emergency department visit. If you don't have a primary care physician on staff, we will provide you with a referral. We always advise you to contact your personal physician following an emergency department visit to inform them of the circumstance of the visit and for follow-up with them and/or the need for any referrals to a consulting specialist. The emergency department will also refer you to a specialist when appropriate. This referral assures that you have the opportunity for follow-up care with a specialist. All of these measure are taken in an effort to provide you with optimal care, which includes your follow-up. Under all circumstances we always encourage you to contact your private physician who remains a resource for coordinating your care. When calling for follow-up care, please make the office aware that this follow-up is from your recent emergency room visit. If for any reason you are refused follow-up, please contact the [facility] Department at and asked to speak to the emergency department charge nurse. [facility] [address] [place] [id number] [id number] 1. You can alternate ibuprofen and Tylenol as directed for pain and discomfort. 2. Take medication as prescribed. Your medication has been sent to [facility]. 3. Follow-up with a primary care provider as discussed. Return to the ED as needed as discussed. Sepsis Event Note (ED) - Evaluation Sepsis Screening Result: No Definite Risk - Focused Exam Vital Signs: Vital Signs Temp Pulse Resp BP Pulse Ox 02/23/21 15:06 97.8 F 88 16 143/69 H 98 - My Orders Last 24 Hours: My Active Orders 02/23/21 16:08 CHLAMYDIA AND GONORRHEA BY [facility] Stat - Assessment/Plan Last 24 Hours: My Active Orders 02/23/21 16:08 CHLAMYDIA AND GONORRHEA BY [facility] Stat
[2021-02-23 17:51] VITALS: BP 128/72; PULSE 82
[2021-02-27 13:13] LABS: C.TRACHOMATIS BY TMA Negative (Negative); N.GONORRHOEAE BY TMA Negative (Negative)
== END 2021-02-23 17:54 | disposition home or self-care (01) ==
LOC: MW.ED 14:58
DX: L03.011 Cellulitis of right finger (principal); L02.511 Cutaneous abscess of right hand; N76.0 Acute vaginitis; E11.9 Type 2 diabetes mellitus without complications; I10 Essential (primary) hypertension; E66.9 Obesity, unspecified; Z79.4 Long term (current) use of insulin; Z91.040 Latex allergy status; Z79.82 Long term (current) use of aspirin; Z79.899 Other long term (current) drug therapy; Z68.41 Body mass index [BMI] 40.0-44.9, adult
CPT/HCPCS: 10060; 87480; 87491; 87510; 87591; 87660; 99283; J3490

== ENCOUNTER 2022-06-20 06:30 | Day surgery (SDC) | payer BC ==
[~2022-06-20 06:30] MED LIST changes: -Midazolam 1 MG/ML 2 ML SDV ONE; -Ondansetron 4 MG/2 ML SDV ONE; -Propofol 200 MG/20 ML SDV ONE; -ceFAZolin 2 GM in Premix Bag 1 BAG IV SCH; -fentaNYL 250 MCG/5 ML SDV ONE
[2022-06-20] MEDS ORDERED: Propofol 200 MG/20 ML SDV ONE ×3 (07:28→08:22)
[2022-06-20 10:43] VITALS: BP 151/73; PULSE 86
== END 2022-06-20 09:05 | disposition home or self-care (01) ==
LOC: MW.SDS 06:30
PROVIDERS: ATTEND Surgery
DX: Z12.11 Encounter for screening for malignant neoplasm of colon (principal); D12.3 Benign neoplasm of transverse colon; D12.5 Benign neoplasm of sigmoid colon; K29.50 Unspecified chronic gastritis without bleeding; B96.81 Helicobacter pylori [H. pylori] as the cause of diseases classified elsewhere; K21.00 Gastro-esophageal reflux disease with esophagitis, without bleeding; K22.89 Other specified disease of esophagus; K64.8 Other hemorrhoids; Z80.0 Family history of malignant neoplasm of digestive organs; F41.9 Anxiety disorder, unspecified; M19.90 Unspecified osteoarthritis, unspecified site; F32.A Depression, unspecified; J45.909 Unspecified asthma, uncomplicated; M79.7 Fibromyalgia; I10 Essential (primary) hypertension; K21.9 Gastro-esophageal reflux disease without esophagitis; E11.40 Type 2 diabetes mellitus with diabetic neuropathy, unspecified; F17.210 Nicotine dependence, cigarettes, uncomplicated; Z91.040 Latex allergy status; Z79.4 Long term (current) use of insulin; Z79.84 Long term (current) use of oral hypoglycemic drugs; Z79.899 Other long term (current) drug therapy
CPT/HCPCS: 43239; 45380; 82947; J2704; J7120

== ENCOUNTER 2023-05-05 22:54 | Emergency (ER) | payer BC ==
[2023-05-05 23:11] LABS: BASOPHILS ABSOLUTE AUTO 0.08 K/uL (0.00-0.20); BASOPHILS PERCENT AUTO 0.6 % (0.0-1.0); EOSINOPHILS ABSOLUTE AUTO 0.85 K/uL (0.00-0.45); EOSINOPHILS PERCENT AUTO 6.2 % (0.0-6.0); HEMATOCRIT 40.4 % (37.0-47.0); IMMATURE GRAN ABSOLUTE AUTO 0.04 K/uL (0.00-0.05); IMMATURE GRAN PERCENT AUTO 0.3 % (0.0-0.4); LYMPHOCYTES ABSOLUTE AUTO 3.82 K/uL (1.00-4.80); LYMPHOCYTES PERCENT AUTO 27.8 % (24.0-44.0); MEAN CORPUSCULAR HEMOGLOBIN 27.9 pg (28.0-32.0); MEAN CORPUSCULAR HGB CONC 34.7 g/dL (32.0-36.0); MEAN CORPUSCULAR VOLUME 80.5 fL (83.0-99.0); MEAN PLATELET VOLUME 10.3 fL (9.4-12.3); MONOCYTES ABSOLUTE AUTO 1.31 K/uL (0.00-0.80); MONOCYTES PERCENT AUTO 9.5 % (0.0-8.0); NEUTROPHILS ABSOLUTE AUTO 7.65 K/uL (1.80-7.70); NEUTROPHILS PERCENT AUTO 55.6 % (41.0-71.0); PLATELET COUNT,PLT 303 K/uL (150-400); RED BLOOD CELL COUNT 5.02 M/uL (4.10-5.30); WHITE BLOOD CELL COUNT,WBC 13.75 K/uL (3.9-11.3)
[2023-05-05] MEDS: Sodium Chloride 0.9% 2.5 ML Syringe FLUSH PRN (23:40)
[2023-05-05] MEDS: Sodium Chloride 0.9% 10 ML Syringe FLUSH PRN (23:40)
[2023-05-05 23:41] LABS: A/G RATIO 0.8 (0.9-1.6); ALANINE AMINOTRANSFERASE,ALT 24 IU/L (14-63); ALBUMIN 3.4 g/dL (3.4-5.0); ALKALINE PHOSPHATASE 125 U/L (46-116); ASPARTATE AMNIOTRANSFERASE,AST 12 IU/L (15-37); BILIRUBIN TOTAL 0.2 mg/dL (0.2-1.0); BLOOD UREA NITROGEN,BUN 22 mg/dL (7.0-18.0); CALCIUM 9.3 mg/dL (8.5-10.1); CARBON DIOXIDE,CO2 26.6 mmol/L (21.0-32.0); CHLORIDE,CL 102 mmol/L (98-107); CREATININE 0.8 mg/dL (0.6-1.0); EST CRCL DRUG DOSING (CG) 67.27 mL/min; ESTIMATED GFR 88 mL/min (>60); GLUCOSE RANDOM 262 mg/dL (74-106); POTASSIUM,K 4.2 mmol/L (3.5-5.1); PROTEIN TOTAL,TP 7.7 g/dL (6.4-8.2); SODIUM,NA 138 mmol/L (136-145)
[2023-05-05 23:52] LABS: CORONAVIRUS COVID-19 NAA NEGATIVE (NEGATIVE); INFLUENZA A NAA NEGATIVE (NEGATIVE); INFLUENZA B NAA NEGATIVE (NEGATIVE); RESPIRATORY SYNCYTIAL VIR NAA NEGATIVE (NEGATIVE)
[2023-05-06] MEDS: Benzonatate 100 MG Cap PO ONE (01:06)
[2023-05-06 01:14] VITALS: BP 139/79; PULSE 81
== END 2023-05-06 01:12 | disposition home or self-care (01) ==
LOC: MW.ED 22:54
DX: R05.9 Cough, unspecified (principal); R06.02 Shortness of breath; I10 Essential (primary) hypertension; E78.00 Pure hypercholesterolemia, unspecified; J45.909 Unspecified asthma, uncomplicated; E11.9 Type 2 diabetes mellitus without complications; E66.9 Obesity, unspecified; Z68.41 Body mass index [BMI] 40.0-44.9, adult; Z79.4 Long term (current) use of insulin; Z79.899 Other long term (current) drug therapy; Z91.040 Latex allergy status
CPT/HCPCS: 0241U; 36415; 71046; 80053; 83880; 84484; 85025; 93005; 99285; A9270; J3490; 93010; 99282

== ENCOUNTER 2023-06-14 04:59 | Emergency (ER) | payer BC ==
[2023-06-14 05:12] LABS: APPEARANCE,URINE CLOUDY; BILIRUBIN,URINE NEGATIVE (NEGATIVE); GLUCOSE,URINE >=1000 mg/dL (NEGATIVE); KETONES,URINE NEGATIVE (NEGATIVE); LEUKOCYTE ESTERASE,URINE TRACE (NEGATIVE); NITRITE,URINE POSITIVE (NEGATIVE); OCCULT BLOOD,URINE LARGE (NEGATIVE); PH,URINE 5.5 (5.0-8.0); PROTEIN,URINE 100 mg/dL (NEGATIVE); UROBILINOGEN,URINE 0.2 EU/dL (<2.0)
[2023-06-14 05:14] LABS: COLOR,URINE PINK
[2023-06-14] MEDS: Acetaminophen 500 MG Tab PO ONE (05:18)
[2023-06-14] MEDS: Nitrofurantoin Monohydrate/Macrocrystalline 100 MG Cap PO ONE (05:18)
[2023-06-14 05:19] LABS: BACTERIA,URINE FEW (NEGATIVE); EPITHELIAL CELLS,URINE MODERATE (NONE-FEW); RBC,URINE TOO NUMEROUS TO CT (0-2/HPF)
[2023-06-14] MEDS: Ibuprofen 400 MG Tab PO ONE (05:19)
[2023-06-14 05:47] VITALS: BP 150/90; PULSE 82
== END 2023-06-14 05:46 | disposition home or self-care (01) ==
LOC: MW.ED 04:59
DX: N39.0 Urinary tract infection, site not specified (principal); I10 Essential (primary) hypertension; E11.9 Type 2 diabetes mellitus without complications; Z79.899 Other long term (current) drug therapy; Z79.4 Long term (current) use of insulin; Z91.040 Latex allergy status; Z75.8 Other problems related to medical facilities and other health care
CPT/HCPCS: 81001; 99284; A9270; 99283

== ENCOUNTER 2023-08-21 20:48 | Emergency (ER) | payer SELFPAY ==
[2023-08-21] MEDS: methylPREDNISolone Sodium Succinate 125 MG/2 ML SDV IM ONE (21:21)
[2023-08-21] MEDS: Codeine/guaiFENesin 10-100 MG/5 ML Syrup 5 ML Cup PO ONE (21:21)
[2023-08-21 21:29] LABS: BASOPHILS ABSOLUTE AUTO 0.06 K/uL (0.00-0.20); BASOPHILS PERCENT AUTO 0.4 % (0.0-1.0); EOSINOPHILS ABSOLUTE AUTO 0.71 K/uL (0.00-0.45); EOSINOPHILS PERCENT AUTO 4.5 % (0.0-6.0); HEMATOCRIT 40.2 % (37.0-47.0); HEMOGLOBIN 13.9 g/dL (12.0-16.0); IMMATURE GRAN ABSOLUTE AUTO 0.06 K/uL (0.00-0.05); IMMATURE GRAN PERCENT AUTO 0.4 % (0.0-0.4); LYMPHOCYTES ABSOLUTE AUTO 3.32 K/uL (1.00-4.80); LYMPHOCYTES PERCENT AUTO 21.2 % (24.0-44.0); MEAN CORPUSCULAR HEMOGLOBIN 27.9 pg (28.0-32.0); MEAN CORPUSCULAR HGB CONC 34.6 g/dL (32.0-36.0); MEAN CORPUSCULAR VOLUME 80.7 fL (83.0-99.0); MEAN PLATELET VOLUME 9.7 fL (9.4-12.3); MONOCYTES ABSOLUTE AUTO 1.24 K/uL (0.00-0.80); MONOCYTES PERCENT AUTO 7.9 % (0.0-8.0); NEUTROPHILS ABSOLUTE AUTO 10.29 K/uL (1.80-7.70); NEUTROPHILS PERCENT AUTO 65.6 % (41.0-71.0); PLATELET COUNT,PLT 314 K/uL (150-400); RED BLOOD CELL COUNT 4.98 M/uL (4.10-5.30); WHITE BLOOD CELL COUNT,WBC 15.68 K/uL (3.9-11.3)
[2023-08-21 21:51] LABS: A/G RATIO 0.7 (0.9-1.6); ALBUMIN 3.1 g/dL (3.4-5.0); BILIRUBIN TOTAL 0.3 mg/dL (0.2-1.0); CALCIUM 8.9 mg/dL (8.5-10.1); CARBON DIOXIDE,CO2 26.9 mmol/L (21.0-32.0); CREATININE 0.9 mg/dL (0.6-1.0); EST CRCL DRUG DOSING (CG) 59.11 mL/min; POTASSIUM,K 3.8 mmol/L (3.5-5.1); PROTEIN TOTAL,TP 7.3 g/dL (6.4-8.2)
[2023-08-21] MEDS: Azithromycin 250 MG Tab PO STA (22:32)
[2023-08-21 22:47] VITALS: BP 117/64; PULSE 84
== END 2023-08-21 22:46 | disposition home or self-care (01) ==
LOC: MW.ED 20:48
DX: J40 Bronchitis, not specified as acute or chronic (principal); I10 Essential (primary) hypertension; E11.9 Type 2 diabetes mellitus without complications; Z79.899 Other long term (current) drug therapy; Z79.4 Long term (current) use of insulin; Z91.040 Latex allergy status; Z75.8 Other problems related to medical facilities and other health care
CPT/HCPCS: 36415; 71046; 80053; 83880; 85025; 93005; 96372; 99285; A9270; J2919; 93010; 99283

== ENCOUNTER 2023-08-27 04:56 | Emergency (ER) | payer SELFPAY ==
[2023-08-27 05:07] VITALS: BP 186/105; PULSE 93
[2023-08-27 05:15] LABS: APPEARANCE,URINE SLT CLOUDY; BILIRUBIN,URINE NEGATIVE (NEGATIVE); GLUCOSE,URINE >=1000 mg/dL (NEGATIVE); KETONES,URINE NEGATIVE (NEGATIVE); LEUKOCYTE ESTERASE,URINE TRACE (NEGATIVE); NITRITE,URINE NEGATIVE (NEGATIVE); OCCULT BLOOD,URINE LARGE (NEGATIVE); PROTEIN,URINE 100 mg/dL (NEGATIVE); UROBILINOGEN,URINE 0.2 EU/dL (<2.0)
[2023-08-27] MEDS: Sodium Chloride 0.9% 10 ML Syringe FLUSH PRN (05:20)
[2023-08-27] MEDS: Sodium Chloride 0.9% 1,000 ML IV ONE (05:20)
[2023-08-27] MEDS: Phenazopyridine 200 MG Tab PO ONE (05:20)
[2023-08-27] MEDS: Sodium Chloride 0.9% 2.5 ML Syringe FLUSH PRN (05:20)
[2023-08-27 05:26] LABS: COLOR,URINE YELLOW
[2023-08-27 05:27] LABS: BACTERIA,URINE 1+ (NEGATIVE); EPITHELIAL CELLS,URINE FEW (NONE-FEW); RBC,URINE TOO NUMEROUS TO CT (0-2/HPF)
[2023-08-27 05:32] LABS: BASOPHILS ABSOLUTE AUTO 0.06 K/uL (0.00-0.20); BASOPHILS PERCENT AUTO 0.4 % (0.0-1.0); EOSINOPHILS ABSOLUTE AUTO 0.76 K/uL (0.00-0.45); EOSINOPHILS PERCENT AUTO 5.6 % (0.0-6.0); HEMATOCRIT 41.6 % (37.0-47.0); HEMOGLOBIN 14.4 g/dL (12.0-16.0); IMMATURE GRAN ABSOLUTE AUTO 0.05 K/uL (0.00-0.05); IMMATURE GRAN PERCENT AUTO 0.4 % (0.0-0.4); LYMPHOCYTES ABSOLUTE AUTO 3.44 K/uL (1.00-4.80); LYMPHOCYTES PERCENT AUTO 25.4 % (24.0-44.0); MEAN CORPUSCULAR HEMOGLOBIN 27.7 pg (28.0-32.0); MEAN CORPUSCULAR HGB CONC 34.6 g/dL (32.0-36.0); MEAN CORPUSCULAR VOLUME 80.2 fL (83.0-99.0); MEAN PLATELET VOLUME 10.4 fL (9.4-12.3); MONOCYTES ABSOLUTE AUTO 1.16 K/uL (0.00-0.80); MONOCYTES PERCENT AUTO 8.6 % (0.0-8.0); NEUTROPHILS ABSOLUTE AUTO 8.05 K/uL (1.80-7.70); NEUTROPHILS PERCENT AUTO 59.6 % (41.0-71.0); PLATELET COUNT,PLT 318 K/uL (150-400); RED BLOOD CELL COUNT 5.19 M/uL (4.10-5.30); WHITE BLOOD CELL COUNT,WBC 13.52 K/uL (3.9-11.3)
[2023-08-27] MEDS: Iopamidol 755 MG/ML 500 ML Multipack Bottle IVPUSH STA (05:32)
[2023-08-27 05:59] LABS: A/G RATIO 0.7 (0.9-1.6); ALBUMIN 3.2 g/dL (3.4-5.0); BILIRUBIN TOTAL 0.3 mg/dL (0.2-1.0); CALCIUM 9.2 mg/dL (8.5-10.1); CARBON DIOXIDE,CO2 27.2 mmol/L (21.0-32.0); CREATININE 0.8 mg/dL (0.6-1.0); EST CRCL DRUG DOSING (CG) 66.5 mL/min; POTASSIUM,K 4.3 mmol/L (3.5-5.1); PROTEIN TOTAL,TP 7.7 g/dL (6.4-8.2)
[2023-08-27] MEDS: Levofloxacin/Dextrose 5%-Water 500 MG in Premix Bag 1 BAG IV ONE (06:03)
== END 2023-08-27 07:46 | disposition home or self-care (01) ==
LOC: MW.ED 04:56
DX: N12 Tubulo-interstitial nephritis, not specified as acute or chronic (principal); I10 Essential (primary) hypertension; E11.9 Type 2 diabetes mellitus without complications; Z90.49 Acquired absence of other specified parts of digestive tract; Z90.710 Acquired absence of both cervix and uterus; Z75.8 Other problems related to medical facilities and other health care; Z91.040 Latex allergy status; Z79.4 Long term (current) use of insulin; Z79.899 Other long term (current) drug therapy; Z79.51 Long term (current) use of inhaled steroids
CPT/HCPCS: 36415; 74177; 80053; 81001; 81025; 83690; 85025; 87086; 96361; 96365; 99284; A9270; J1956; J3490; J7030; Q9967; 87088; 87186

== ENCOUNTER 2023-09-22 22:40 | Emergency (ER) | payer OTHER ==
[2023-09-23] MEDS: Sodium Chloride 0.9% 2.5 ML Syringe FLUSH PRN (00:26)
[2023-09-23] MEDS: Sodium Chloride 0.9% 10 ML Syringe FLUSH PRN (00:26)
[2023-09-23 00:32] LABS: BASOPHILS ABSOLUTE AUTO 0.06 K/uL (0.00-0.20); BASOPHILS PERCENT AUTO 0.4 % (0.0-1.0); EOSINOPHILS ABSOLUTE AUTO 0.88 K/uL (0.00-0.45); EOSINOPHILS PERCENT AUTO 6.4 % (0.0-6.0); HEMATOCRIT 39.9 % (37.0-47.0); HEMOGLOBIN 13.8 g/dL (12.0-16.0); IMMATURE GRAN ABSOLUTE AUTO 0.04 K/uL (0.00-0.05); IMMATURE GRAN PERCENT AUTO 0.3 % (0.0-0.4); LYMPHOCYTES ABSOLUTE AUTO 2.95 K/uL (1.00-4.80); LYMPHOCYTES PERCENT AUTO 21.4 % (24.0-44.0); MEAN CORPUSCULAR HEMOGLOBIN 27.9 pg (28.0-32.0); MEAN CORPUSCULAR HGB CONC 34.6 g/dL (32.0-36.0); MEAN CORPUSCULAR VOLUME 80.6 fL (83.0-99.0); MEAN PLATELET VOLUME 9.8 fL (9.4-12.3); MONOCYTES ABSOLUTE AUTO 1.22 K/uL (0.00-0.80); MONOCYTES PERCENT AUTO 8.9 % (0.0-8.0); NEUTROPHILS ABSOLUTE AUTO 8.63 K/uL (1.80-7.70); NEUTROPHILS PERCENT AUTO 62.6 % (41.0-71.0); PLATELET COUNT,PLT 342 K/uL (150-400); RED BLOOD CELL COUNT 4.95 M/uL (4.10-5.30); WHITE BLOOD CELL COUNT,WBC 13.78 K/uL (3.9-11.3)
[2023-09-23 00:45] LABS: INR 0.94 (0.86-1.11)
[2023-09-23 01:05] LABS: A/G RATIO 0.9 (0.9-1.6); ALBUMIN 3.5 g/dL (3.4-5.0); BILIRUBIN TOTAL 0.2 mg/dL (0.2-1.0); CALCIUM 9.5 mg/dL (8.5-10.1); CARBON DIOXIDE,CO2 25.7 mmol/L (21.0-32.0); CREATININE 0.7 mg/dL (0.6-1.0); POTASSIUM,K 3.8 mmol/L (3.5-5.1); PROTEIN TOTAL,TP 7.6 g/dL (6.4-8.2)
[2023-09-23 01:14] LABS: LACTIC ACID 0.7 mmol/L (0.4-2.0)
[2023-09-23] MEDS: Iopamidol 755 MG/ML 500 ML Multipack Bottle IVPUSH ONE (01:20)
[2023-09-23 01:56] LABS: APPEARANCE,URINE CLEAR; BILIRUBIN,URINE NEGATIVE (NEGATIVE); COLOR,URINE YELLOW; GLUCOSE,URINE >=1000 mg/dL (NEGATIVE); KETONES,URINE NEGATIVE (NEGATIVE); LEUKOCYTE ESTERASE,URINE NEGATIVE (NEGATIVE); NITRITE,URINE NEGATIVE (NEGATIVE); OCCULT BLOOD,URINE TRACE-INTACT (NEGATIVE); PROTEIN,URINE 100 mg/dL (NEGATIVE)
[2023-09-23 02:01] LABS: BACTERIA,URINE RARE (NEGATIVE); EPITHELIAL CELLS,URINE FEW (NONE-FEW)
[2023-09-23 02:54] VITALS: BP 148/79; PULSE 88
== END 2023-09-23 02:58 | disposition home or self-care (01) ==
LOC: MW.ED 22:40
DX: K60.2 Anal fissure, unspecified (principal); K59.00 Constipation, unspecified; I10 Essential (primary) hypertension; E11.9 Type 2 diabetes mellitus without complications; Z79.899 Other long term (current) drug therapy; Z79.4 Long term (current) use of insulin; Z91.040 Latex allergy status
CPT/HCPCS: 36415; 74177; 80053; 81001; 83605; 83690; 84484; 85025; 85610; 86850; 86900; 86901; 87086; 93005; 99284; J3490; Q9967; 93010

== ENCOUNTER 2023-11-20 16:20 | Emergency (ER) | payer OTHER ==
[2023-11-20] MEDS: Sodium Chloride 0.9% 1,000 ML IV ONE (17:09)
[2023-11-20] MEDS: Ondansetron 4 MG/2 ML SDV IVPUSH ONE (17:09)
[2023-11-20 17:10] LABS: BASOPHILS ABSOLUTE AUTO 0.07 K/uL (0.00-0.20); BASOPHILS PERCENT AUTO 0.4 % (0.0-1.0); EOSINOPHILS ABSOLUTE AUTO 0.27 K/uL (0.00-0.45); EOSINOPHILS PERCENT AUTO 1.5 % (0.0-6.0); HEMATOCRIT 42.4 % (37.0-47.0); HEMOGLOBIN 14.6 g/dL (12.0-16.0); IMMATURE GRAN ABSOLUTE AUTO 0.07 K/uL (0.00-0.05); IMMATURE GRAN PERCENT AUTO 0.4 % (0.0-0.4); LYMPHOCYTES ABSOLUTE AUTO 2.53 K/uL (1.00-4.80); LYMPHOCYTES PERCENT AUTO 14.5 % (24.0-44.0); MEAN CORPUSCULAR HEMOGLOBIN 26.7 pg (28.0-32.0); MEAN CORPUSCULAR HGB CONC 34.4 g/dL (32.0-36.0); MEAN CORPUSCULAR VOLUME 77.5 fL (83.0-99.0); MEAN PLATELET VOLUME 10.1 fL (9.4-12.3); MONOCYTES ABSOLUTE AUTO 1.35 K/uL (0.00-0.80); MONOCYTES PERCENT AUTO 7.7 % (0.0-8.0); NEUTROPHILS ABSOLUTE AUTO 13.16 K/uL (1.80-7.70); NEUTROPHILS PERCENT AUTO 75.5 % (41.0-71.0); PLATELET COUNT,PLT 351 K/uL (150-400); RED BLOOD CELL COUNT 5.47 M/uL (4.10-5.30); WHITE BLOOD CELL COUNT,WBC 17.45 K/uL (3.9-11.3)
[2023-11-20] MEDS: Famotidine 20 MG/2 ML SDV IVPUSH ONE (17:10)
[2023-11-20] MEDS: Sodium Chloride 0.9% 2.5 ML Syringe FLUSH PRN (17:10)
[2023-11-20] MEDS: Sodium Chloride 0.9% 10 ML Syringe FLUSH PRN (17:10)
[2023-11-20] MEDS: Morphine 4 MG/ML Syringe IVPUSH ONE (17:10)
[2023-11-20 17:41] LABS: A/G RATIO 0.8 (0.9-1.6); ALBUMIN 3.4 g/dL (3.4-5.0); BILIRUBIN TOTAL 0.4 mg/dL (0.2-1.0); CARBON DIOXIDE,CO2 29.8 mmol/L (21.0-32.0); CREATININE 0.7 mg/dL (0.6-1.0); POTASSIUM,K 3.5 mmol/L (3.5-5.1); PROTEIN TOTAL,TP 7.6 g/dL (6.4-8.2)
[2023-11-20] MEDS: Iopamidol 755 MG/ML 500 ML Multipack Bottle IVPUSH STA (18:04)
[2023-11-20 19:48] LABS: BILIRUBIN,URINE NEGATIVE (NEGATIVE); COLOR,URINE YELLOW; GLUCOSE,URINE >=1000 mg/dL (NEGATIVE); KETONES,URINE NEGATIVE (NEGATIVE); LEUKOCYTE ESTERASE,URINE NEGATIVE (NEGATIVE); NITRITE,URINE NEGATIVE (NEGATIVE); OCCULT BLOOD,URINE SMALL (NEGATIVE); PROTEIN,URINE 100 mg/dL (NEGATIVE); UROBILINOGEN,URINE 0.2 EU/dL (<2.0)
[2023-11-20 19:50] LABS: APPEARANCE,URINE HAZY
[2023-11-20 19:56] LABS: BACTERIA,URINE 1+ (NEGATIVE); EPITHELIAL CELLS,URINE FEW (NONE-FEW); MUCUS,URINE LIGHT (NONE-MOD)
[2023-11-20 20:34] VITALS: BP 200/87; PULSE 72
== END 2023-11-20 20:33 | disposition home or self-care (01) ==
LOC: MW.ED 16:20
DX: K59.00 Constipation, unspecified (principal); R11.2 Nausea with vomiting, unspecified; I10 Essential (primary) hypertension; E11.9 Type 2 diabetes mellitus without complications; Z90.49 Acquired absence of other specified parts of digestive tract; Z90.710 Acquired absence of both cervix and uterus; Z79.4 Long term (current) use of insulin; Z79.899 Other long term (current) drug therapy; Z91.040 Latex allergy status
CPT/HCPCS: 36415; 74177; 80053; 81001; 83690; 84484; 85025; 93005; 96361; 96374; 96375; 99284; J2270; J2405; J3490; J7030; Q9967; 93010

== ENCOUNTER 2023-11-22 09:41 | Emergency (ER) | payer OTHER ==
[2023-11-22] MEDS: Ondansetron 4 MG/2 ML SDV IVPUSH STA (10:46)
[2023-11-22] MEDS: Morphine 4 MG/ML Syringe IVPUSH STA (10:46)
[2023-11-22] MEDS: Alum Hydro/Mag Hydro/Simeth XS 15 ML, Lidocaine 2% 5 ML PO STA (10:48)
[2023-11-22 11:16] LABS: HEMATOCRIT 39.8 % (37.0-47.0); HEMOGLOBIN 13.5 g/dL (12.0-16.0); MEAN CORPUSCULAR HEMOGLOBIN 26.7 pg (28.0-32.0); MEAN CORPUSCULAR HGB CONC 33.9 g/dL (32.0-36.0); MEAN CORPUSCULAR VOLUME 78.8 fL (83.0-99.0); MEAN PLATELET VOLUME 10.3 fL (9.4-12.3); PLATELET COUNT,PLT 363 K/uL (150-400); RED BLOOD CELL COUNT 5.05 M/uL (4.10-5.30); WHITE BLOOD CELL COUNT,WBC 15.51 K/uL (3.9-11.3)
[2023-11-22 11:54] LABS: A/G RATIO 0.8 (0.9-1.6); ALBUMIN 3.2 g/dL (3.4-5.0); BILIRUBIN TOTAL 0.3 mg/dL (0.2-1.0); CALCIUM 9.1 mg/dL (8.5-10.1); CARBON DIOXIDE,CO2 31.3 mmol/L (21.0-32.0); CREATININE 0.7 mg/dL (0.6-1.0); POTASSIUM,K 3.5 mmol/L (3.5-5.1); PROTEIN TOTAL,TP 7.4 g/dL (6.4-8.2)
[2023-11-22 11:55] LABS: EOSINOPHILS ABSOLUTE MAN 0.78 K/uL (0.00-0.45); EOSINOPHILS PERCENT MAN 5 % (0-6); LYMPHOCYTES ABSOLUTE MAN 4.03 K/uL (1.00-4.80); LYMPHOCYTES PERCENT MAN 26 % (24-44); MONOCYTES ABSOLUTE MAN 2.02 K/uL (0.00-0.80); MONOCYTES PERCENT MAN 13 % (0-8); SEG NEUTROPHILS ABSOLUTE MAN 8.69 K/uL (1.80-7.70); SEG NEUTROPHILS PERCENT MAN 56 % (41-71)
[2023-11-22 12:53] VITALS: BP 147/86; PULSE 82
== END 2023-11-22 12:52 | disposition home or self-care (01) ==
LOC: MW.ED 09:41
DX: K59.00 Constipation, unspecified (principal); R10.13 Epigastric pain; I10 Essential (primary) hypertension; E11.9 Type 2 diabetes mellitus without complications; F17.210 Nicotine dependence, cigarettes, uncomplicated; Z90.49 Acquired absence of other specified parts of digestive tract; Z90.710 Acquired absence of both cervix and uterus; Z79.4 Long term (current) use of insulin; Z79.899 Other long term (current) drug therapy; Z91.040 Latex allergy status; Z75.8 Other problems related to medical facilities and other health care
CPT/HCPCS: 36415; 80053; 82947; 84484; 85025; 93005; 96374; 96375; 99284; A9270; J2270; J2405; 93010

== ENCOUNTER 2024-07-14 11:14 | Inpatient (IN) | payer MEDICAID ==
[2024-07-14 12:22] LABS: APPEARANCE,URINE CLEAR; BILIRUBIN,URINE NEGATIVE (NEGATIVE); COLOR,URINE YELLOW; GLUCOSE,URINE NEGATIVE (NEGATIVE); KETONES,URINE NEGATIVE (NEGATIVE); LEUKOCYTE ESTERASE,URINE NEGATIVE (NEGATIVE); NITRITE,URINE POSITIVE (NEGATIVE); OCCULT BLOOD,URINE SMALL (NEGATIVE); PROTEIN,URINE >=300 mg/dL (NEGATIVE); UROBILINOGEN,URINE 0.2 EU/dL (<2.0)
[2024-07-14 12:38] LABS: RBC,URINE 0-2 (0-2/HPF)
[2024-07-14 12:39] LABS: BACTERIA,URINE FEW (NEGATIVE); EPITHELIAL CELLS,URINE FEW (NONE-FEW)
[2024-07-14 12:41] LABS: BASOPHILS ABSOLUTE AUTO 0.06 K/uL (0.00-0.20); BASOPHILS PERCENT AUTO 0.5 % (0.0-1.0); EOSINOPHILS PERCENT AUTO 5.1 % (0.0-6.0); HEMATOCRIT 39.2 % (37.0-47.0); HEMOGLOBIN 13.6 g/dL (12.0-16.0); IMMATURE GRAN ABSOLUTE AUTO 0.04 K/uL (0.00-0.05); IMMATURE GRAN PERCENT AUTO 0.3 % (0.0-0.4); LYMPHOCYTES ABSOLUTE AUTO 2.87 K/uL (1.00-4.80); LYMPHOCYTES PERCENT AUTO 24.4 % (24.0-44.0); MEAN CORPUSCULAR HEMOGLOBIN 27.2 pg (28.0-32.0); MEAN CORPUSCULAR HGB CONC 34.7 g/dL (32.0-36.0); MEAN CORPUSCULAR VOLUME 78.4 fL (83.0-99.0); MEAN PLATELET VOLUME 10.7 fL (9.4-12.3); MONOCYTES ABSOLUTE AUTO 1.14 K/uL (0.00-0.80); MONOCYTES PERCENT AUTO 9.7 % (0.0-8.0); NEUTROPHILS ABSOLUTE AUTO 7.07 K/uL (1.80-7.70); PLATELET COUNT,PLT 331 K/uL (150-400); WHITE BLOOD CELL COUNT,WBC 11.78 K/uL (3.9-11.3)
[2024-07-14 13:02] LABS: A/G RATIO 0.8 (0.9-1.6); ALBUMIN 3.3 g/dL (3.4-5.0); BILIRUBIN TOTAL 0.3 mg/dL (0.2-1.0); CALCIUM 9.1 mg/dL (8.5-10.1); CARBON DIOXIDE,CO2 28.3 mmol/L (21.0-32.0); CREATININE 0.7 mg/dL (0.6-1.0); EST CRCL DRUG DOSING (CG) 75.12 mL/min; POTASSIUM,K 3.8 mmol/L (3.5-5.1); PROTEIN TOTAL,TP 7.7 g/dL (6.4-8.2)
[2024-07-14] MEDS: Iopamidol 755 MG/ML 500 ML Multipack Bottle IVPUSH STA (13:30)
[2024-07-14] MEDS: Nitroglycerin 2% Oint 1 GM UD Packet TOP ONE (13:50)
[2024-07-14] MEDS: Furosemide 40 MG/4 ML VIAL IVPUSH ONE (13:50)
[2024-07-14] MEDS: LORazepam 2 MG/ML SDV IVPUSH STA (13:51)
[2024-07-14] MEDS: cefTRIAXone 1 GM in Water For Injection, Sterile 10 ML IVPUSH ONE (14:50)
[2024-07-14] MEDS: Acetaminophen 500 MG Tab PO ONE (15:21)
[2024-07-14] MEDS ORDERED: Glucagon,Human Recombinant 1 MG Vial IM PRN (16:09)
[2024-07-14] MEDS ORDERED: 50% Dextrose in Water 50 ML Syringe IVPUSH PRN (16:09)
[2024-07-14] MEDS: hydrALAZINE 20 MG/ML SDV IVPUSH ONE (16:38)
[2024-07-14] MEDS: Labetalol 100 MG/20 ML MDV IVPUSH ONE (17:11)
[2024-07-14] MEDS: Insulin Aspart 100 Units/ML 3 ML Pen SUBCUT SCH (17:55)
[2024-07-14] MEDS: Metoprolol Tartrate 5 MG/5 ML SDV IVPUSH ONE (20:03)
[2024-07-14] MEDS: Furosemide 40 MG/4 ML VIAL IVPUSH SCH (21:31)
[2024-07-14] MEDS: Insulin Glargine,Human Rec. Analog 100 Units/ML 3 ML Pen SUBCUT SCH (21:32)
[2024-07-14] MEDS: Rosuvastatin 10 MG Tab PO SCH (21:32)
[2024-07-15] MEDS: hydrALAZINE 20 MG/ML SDV IVPUSH PRN (05:09)
[2024-07-15 05:48] LABS: BASOPHILS ABSOLUTE AUTO 0.05 K/uL (0.00-0.20); BASOPHILS PERCENT AUTO 0.5 % (0.0-1.0); EOSINOPHILS ABSOLUTE AUTO 0.45 K/uL (0.00-0.45); EOSINOPHILS PERCENT AUTO 4.3 % (0.0-6.0); HEMATOCRIT 36.9 % (37.0-47.0); HEMOGLOBIN 12.9 g/dL (12.0-16.0); IMMATURE GRAN ABSOLUTE AUTO 0.03 K/uL (0.00-0.05); IMMATURE GRAN PERCENT AUTO 0.3 % (0.0-0.4); LYMPHOCYTES ABSOLUTE AUTO 2.44 K/uL (1.00-4.80); LYMPHOCYTES PERCENT AUTO 23.3 % (24.0-44.0); MEAN CORPUSCULAR HEMOGLOBIN 27.3 pg (28.0-32.0); MEAN PLATELET VOLUME 10.6 fL (9.4-12.3); MONOCYTES ABSOLUTE AUTO 1.01 K/uL (0.00-0.80); MONOCYTES PERCENT AUTO 9.6 % (0.0-8.0); PLATELET COUNT,PLT 335 K/uL (150-400); RED BLOOD CELL COUNT 4.73 M/uL (4.10-5.30); WHITE BLOOD CELL COUNT,WBC 10.48 K/uL (3.9-11.3)
[2024-07-15 06:13] LABS: CALCIUM 8.9 mg/dL (8.5-10.1); CARBON DIOXIDE,CO2 30.9 mmol/L (21.0-32.0); CREATININE 0.8 mg/dL (0.6-1.0); EST CRCL DRUG DOSING (CG) 65.73 mL/min; POTASSIUM,K 3.6 mmol/L (3.5-5.1)
[2024-07-15] MEDS: Metoprolol Tartrate 5 MG/5 ML SDV IVPUSH PRN (06:29)
[2024-07-15] MEDS: Acetaminophen 325 MG Tab PO PRN (06:37)
[2024-07-15] MEDS: Furosemide 40 MG/4 ML VIAL IVPUSH SCH (07:47)
[2024-07-15] MEDS: Lisinopril 10 MG Tab PO SCH (08:46)
[2024-07-15] MEDS ORDERED: Glucagon,Human Recombinant 1 MG Vial IM PRN (09:20)
[2024-07-15] MEDS ORDERED: 50% Dextrose in Water 50 ML Syringe IVPUSH PRN (09:20)
[2024-07-15] MEDS: Ibuprofen 400 MG Tab PO PRN (11:37)
[2024-07-15] MEDS: Insulin Aspart 100 Units/ML 3 ML Pen SUBCUT SCH (11:38)
[2024-07-15] MEDS: cefTRIAXone 1 GM in Water For Injection, Sterile 10 ML IVPUSH SCH (13:30)
[2024-07-15] MEDS: amLODIPine 5 MG Tab PO ONE (18:54)
[2024-07-15] MEDS: Diltiazem IR 60 MG Tab PO SCH (22:15)
[2024-07-16 06:24] LABS: BASOPHILS ABSOLUTE AUTO 0.04 K/uL (0.00-0.20); BASOPHILS PERCENT AUTO 0.3 % (0.0-1.0); EOSINOPHILS ABSOLUTE AUTO 0.68 K/uL (0.00-0.45); EOSINOPHILS PERCENT AUTO 5.5 % (0.0-6.0); HEMATOCRIT 36.2 % (37.0-47.0); HEMOGLOBIN 12.7 g/dL (12.0-16.0); IMMATURE GRAN ABSOLUTE AUTO 0.04 K/uL (0.00-0.05); IMMATURE GRAN PERCENT AUTO 0.3 % (0.0-0.4); LYMPHOCYTES ABSOLUTE AUTO 2.56 K/uL (1.00-4.80); LYMPHOCYTES PERCENT AUTO 20.7 % (24.0-44.0); MEAN CORPUSCULAR HEMOGLOBIN 27.2 pg (28.0-32.0); MEAN CORPUSCULAR HGB CONC 35.1 g/dL (32.0-36.0); MEAN CORPUSCULAR VOLUME 77.5 fL (83.0-99.0); MEAN PLATELET VOLUME 11.1 fL (9.4-12.3); MONOCYTES ABSOLUTE AUTO 1.15 K/uL (0.00-0.80); MONOCYTES PERCENT AUTO 9.3 % (0.0-8.0); NEUTROPHILS ABSOLUTE AUTO 7.92 K/uL (1.80-7.70); NEUTROPHILS PERCENT AUTO 63.9 % (41.0-71.0); PLATELET COUNT,PLT 323 K/uL (150-400); RED BLOOD CELL COUNT 4.67 M/uL (4.10-5.30); WHITE BLOOD CELL COUNT,WBC 12.39 K/uL (3.9-11.3)
[2024-07-16 06:54] LABS: A/G RATIO 0.8 (0.9-1.6); ALBUMIN 2.9 g/dL (3.4-5.0); BILIRUBIN TOTAL 0.5 mg/dL (0.2-1.0); CALCIUM 8.7 mg/dL (8.5-10.1); CARBON DIOXIDE,CO2 27.6 mmol/L (21.0-32.0); EST CRCL DRUG DOSING (CG) 52.58 mL/min; MAGNESIUM 1.6 mg/dL (1.8-2.4); POTASSIUM,K 3.6 mmol/L (3.5-5.1); PROTEIN TOTAL,TP 6.7 g/dL (6.4-8.2)
[2024-07-16] MEDS: Magnesium Oxide 400 MG Tab PO ONE (08:03)
[2024-07-16] MEDS: Furosemide 40 MG Tab PO SCH (08:28)
[2024-07-16] MEDS: Hydrochlorothiazide 12.5 MG Cap PO SCH (09:56)
[2024-07-16] MEDS: Potassium Chloride 20 MEQ Tab.ER PO ONE (10:20)
[2024-07-16] MEDS: Furosemide 40 MG/4 ML VIAL IVPUSH SCH (13:39)
[2024-07-16] MEDS: amLODIPine 5 MG Tab PO SCH (21:36)
[2024-07-18 06:09] LABS: BASOPHILS ABSOLUTE AUTO 0.04 K/uL (0.00-0.20); BASOPHILS PERCENT AUTO 0.3 % (0.0-1.0); EOSINOPHILS ABSOLUTE AUTO 0.86 K/uL (0.00-0.45); EOSINOPHILS PERCENT AUTO 7.5 % (0.0-6.0); HEMATOCRIT 40.6 % (37.0-47.0); IMMATURE GRAN ABSOLUTE AUTO 0.04 K/uL (0.00-0.05); IMMATURE GRAN PERCENT AUTO 0.3 % (0.0-0.4); LYMPHOCYTES ABSOLUTE AUTO 2.32 K/uL (1.00-4.80); LYMPHOCYTES PERCENT AUTO 20.2 % (24.0-44.0); MEAN CORPUSCULAR HEMOGLOBIN 26.9 pg (28.0-32.0); MEAN CORPUSCULAR HGB CONC 34.5 g/dL (32.0-36.0); MEAN CORPUSCULAR VOLUME 78.1 fL (83.0-99.0); MEAN PLATELET VOLUME 11.4 fL (9.4-12.3); MONOCYTES ABSOLUTE AUTO 1.18 K/uL (0.00-0.80); MONOCYTES PERCENT AUTO 10.3 % (0.0-8.0); NEUTROPHILS ABSOLUTE AUTO 7.04 K/uL (1.80-7.70); NEUTROPHILS PERCENT AUTO 61.4 % (41.0-71.0); PLATELET COUNT,PLT 271 K/uL (150-400); WHITE BLOOD CELL COUNT,WBC 11.48 K/uL (3.9-11.3)
[2024-07-18 06:44] LABS: A/G RATIO 0.7 (0.9-1.6); ALBUMIN 3.2 g/dL (3.4-5.0); BILIRUBIN TOTAL 0.3 mg/dL (0.2-1.0); CALCIUM 9.6 mg/dL (8.5-10.1); CARBON DIOXIDE,CO2 29.8 mmol/L (21.0-32.0); CREATININE 0.9 mg/dL (0.6-1.0); EST CRCL DRUG DOSING (CG) 58.42 mL/min; MAGNESIUM 2.2 mg/dL (1.8-2.4); POTASSIUM,K 4.3 mmol/L (3.5-5.1); PROTEIN TOTAL,TP 7.6 g/dL (6.4-8.2)
[2024-07-18] MEDS: Pregabalin 75 MG Cap PO SCH (11:02)
[2024-07-18 16:02] VITALS: BP 145/72; PULSE 82
[2024-07-18] MEDS ORDERED: Insulin Glargine,Human Rec. Analog 100 Units/ML 3 ML Pen SUBCUT SCH (21:00)
== END 2024-07-18 15:15 | disposition home or self-care (01) | DRG 292 ==
LOC: MW.ED 11:14 → MW.MS 15:42
PROVIDERS: ADMIT Internal Medicine; ATTEND Internal Medicine
DX: I11.0 Hypertensive heart disease with heart failure (principal); I31.39 Other pericardial effusion (noninflammatory); N30.00 Acute cystitis without hematuria; E78.00 Pure hypercholesterolemia, unspecified; I50.9 Heart failure, unspecified; B96.20 Unspecified Escherichia coli [E. coli] as the cause of diseases classified elsewhere; E11.65 Type 2 diabetes mellitus with hyperglycemia; M79.7 Fibromyalgia; E11.40 Type 2 diabetes mellitus with diabetic neuropathy, unspecified; F41.9 Anxiety disorder, unspecified; F31.9 Bipolar disorder, unspecified; F17.210 Nicotine dependence, cigarettes, uncomplicated; M19.90 Unspecified osteoarthritis, unspecified site; Z79.4 Long term (current) use of insulin; Z91.040 Latex allergy status; Z79.899 Other long term (current) drug therapy; Z90.710 Acquired absence of both cervix and uterus; Z98.890 Other specified postprocedural states; Z90.49 Acquired absence of other specified parts of digestive tract
CPT/HCPCS: 36415; 71046; 71046-26; 71275; 71275-26; 80048; 80053; 81001; 82947; 83735; 83880; 84484; 85025; 85379; 87086; 87088; 87186; 93005; 93010; 93306; 96374; 96375; 99222; 99232; 99239; 99285; 99285-25; A9270-GY; J0360; J0696; J1815-GY; J1920; J1938; J2060; J3490; Q9967